=== PATIENT | male | born 1950 | race Caucasian/White ===

== ENCOUNTER 2016-03-17 19:24 | Inpatient (IN) | payer OTHER, MEDICARE ==
[2016-03-17] VITALS (7 sets, daily range): BP systolic 131–159; BP diastolic 59–106; PULSE 91–96; RESP 22–40; TEMP 98.7; O2SAT 92–96
[~2016-03-17] VITALS: Ht 182.9 cm; Wt 143.3 kg
[~2016-03-17 19:24] MED LIST: 1-ME1LIQ PO; ASPI81TA82 PO; ATOR20TA42 PO; CARV3.125 PO; FENO105T3 PO; GLIP5 PO; LEVEMIR SQ; LISI10TA PO; METF500 PO; TICA90 PO
[2016-03-17] MEDS ORDERED: SODIUM CHLOR 0.9% 1000 ML INJ 1,000 ML IV SCH (19:40)
[2016-03-17] MEDS ORDERED: ACETAMINOPHEN 325 MG TAB PO ONE (19:45)
[2016-03-17 20:38] LABS: AUTOMATED NEUTROPHIL # 4.8 TH/MM3 (1.8-7.7); BASOPHIL % 0.7 % (0.0-2.0); EOSINOPHIL # 0.1 TH/MM3 (0-0.4); EOSINOPHIL % 1.8 % (0.0-4.0); HEMATOCRIT 42.6 % (39.0-51.0); HEMO FLAGS DIFF FINAL; LYMPH % 5.9 % (9.0-44.0); LYMPHOCYTE # 0.3 TH/MM3 (1.0-4.8); MEAN CELL VOLUME 88.6 FL (80.0-100.0); MEAN CORPUSCULAR HGB CONC 33.8 % (32.0-36.0); MONO % 9.5 % (0.0-8.0); NEUT % 82.1 % (16.0-70.0); PLATELET COUNT 213 TH/MM3 (150-450); RED BLOOD COUNT 4.81 MIL/MM3 (4.50-5.90); WHITE BLOOD COUNT 5.9 TH/MM3 (4.0-11.0)
--- NOTE | 2016-03-17 20:43 | PD ---
HPI Chief Complaint: General Weakness Time Seen by Provider: 20:39 Travel History International Travel<30 days: No Contact w/Intl Traveler<30days: No Traveled to known affect area: No History of Present Illness HPI 66-year-old male that presents to the ED by ambulance for evaluation of weakness and fever. Patient states that since today he's been feeling weak. Per patient she states that he feels weak all over. Patient denies any other symptom other than possible fever. Per patient he denies any cough or runny nose. He does have a chronic month of his umbilicus that he continues to pick at but denies any other obvious sign of possible infection. He denies any cough but states that he feels like he is getting fever. He states that apparently he was sitting all day which is unusual for him and when he tried to get up from the chair he did not fell but cannot slowly went into the floor as he cannot get himself up. This is what he called ambulance to come get him. He denies any head injury. He denies taking any blood thinners. No chest pain or shortness of breath. Patient denies any pain. No numbness or tingling, weakness. He does state having some pressure behind his eyes that started today. He does have a significant history of prior MIs as well as CVAs. No allergies to medication. States been compliant with his medications. He does have a history of diabetes PFSH Past Medical History Hx Anticoagulant Therapy: Yes Arthritis: Yes Heart Rhythm Problems: No Cancer: No Cardiac Catheterization: Yes Cardiovascular Problems: Yes High Cholesterol: Yes Chemotherapy: No Congestive Heart Failure: No Cerebrovascular Accident: Yes (x2) Diabetes: Yes Patient Takes Glucophage: Yes Diminished Hearing: No Endocrine: Yes Gastrointestinal Disorders: No Genitourinary: No Hepatitis: No Hiatal Hernia: No Hypertension: Yes Immune Disorder: No Musculoskeletal: Yes (ARTHRITIS) Neurologic: No Psychiatric: No Reproductive: No Respiratory: No Myocardial Infarction: Yes Thyroid Disease: No Triglycerides - High: Yes Tetanus Vaccination: Unknown Influenza Vaccination: No Past Surgical History Abdominal Surgery: Yes AICD: No Appendectomy: Yes Body Medical Devices: CARDIAC STENTS Coronary Artery Bypass Graft: Yes Coronary Stent: Yes (x3) Eye Surgery: Yes (LEFT RETINAL REPAIR, JAKE. CATARACT EXTRACT.) Joint Replacement: Yes (right hip) Pacemaker: No Other Surgery: Yes Family History Family Myocardial Infarction: Yes (BROTHER) Social History Alcohol Use: No Tobacco Use: No Substance Use: No Allergies-Medications (Allergen,Severity, Reaction): Coded Allergies: No Known Allergies (Verified , 10/29/14) Reported Meds & Prescriptions Reported Meds & Active Scripts Active Lipitor 20 Mg Tab (Atorvastatin) 20 Mg Tab 40 Mg PO HS 30 Days Reported Brilinta 90 Mg Tab (Ticagrelor) 90 Mg Tab 90 Mg PO BID Glucophage 500 mg (Metformin HCl) 500 Mg Tab 500 Mg PO BIDPC Levemir Insulin (Insulin Detemir) 100 Units/Ml Inj 7 SQ HS Aspir-81 (Aspirin) 81 Mg Tab 81 Mg PO DAILY Glucophage 500 mg (Metformin HCl) 500 Mg Tab 500 Mg PO BIDPC Levemir Insulin (Insulin Detemir) 100 Units/Ml Inj 7 Units SQ HS Fenofibric Acid 105 Mg Tab 135 Mg PO DAILY Glipizide 5 Mg Tab 5 Mg PO BID Lisinopril/Hctz 10 mg/12.5 mg 10 mg/12.5 mg Tab 10 Tab PO BID Amlodipine Besylate 10 mg (Amlodipine Besylate) 10 Mg Tab 10 Mg PO DAILY Coreg 3.125 mg (Carvedilol) 3.125 Mg Tab 3.125 Mg PO BID Review of Systems Except as stated in HPI: all other systems reviewed are Neg Physical Exam Narrative GENERAL: SKIN: Warm and dry. Patient has a nonhealing wound on the superior umbilicus minimal purulence but slightly erythematous and tender. About 2 cm in diameter. HEAD: Atraumatic. Normocephalic. EYES: Pupils equal and round. No scleral icterus. No injection or drainage. ENT: No nasal bleeding or discharge. Mucous membranes pink and moist. Tongue is midline. No uvula deviation. TMs are clear without sign of infection or perforation. No lymphadenopathy noted. No mastoid tenderness. No meningeal signs noted. NECK: Trachea midline. No JVD. CARDIOVASCULAR: Regular rate and rhythm. No murmurs, S3, S4. RESPIRATORY: No accessory muscle use. Clear to auscultation. Breath sounds equal bilaterally. GASTROINTESTINAL: Abdomen soft, non-tender, nondistended. Hepatic and splenic margins not palpable. MUSCULOSKELETAL: Extremities without clubbing, cyanosis, or edema. No obvious deformities. Full range of motion of the upper and lower extremities bilaterally. 2+ pulses bilaterally. NEUROLOGICAL: Awake and alert. No obvious cranial nerve deficits. Motor grossly within normal limits. Five out of 5 muscle strength in the arms and legs. Normal speech. PSYCHIATRIC: Appropriate mood and affect; insight and judgment normal. Data Data Last Documented VS Vital Signs Date Time Temp Pulse Resp B/P Pulse Ox O2 Delivery O2 Flow Rate FiO2 03/17/16 22:42 93 22 131/59 96 Room Air 03/17/16 19:44 2 03/17/16 19:30 98.7 Orders Electrocardiogram (03/17/16 19:38) Complete Blood Count With Diff (03/17/16 19:38) Comprehensive Metabolic Panel (03/17/16 19:38) Prothrombin Time / Inr (Pt) (03/17/16 19:38) Act Partial Throm Time (Ptt) (03/17/16 19:38) Lactic Acid Sepsis Protocol (03/17/16 19:38) Lipase (03/17/16 19:38) Ckmb (Isoenzyme) Profile (03/17/16 19:38) Troponin I (03/17/16 19:38) Urinalysis - C+S If Indicated (03/17/16 19:38) Influenzae A/B Antigen (03/17/16 19:38) Blood Culture (03/17/16 19:38) Chest, Single Ap (03/17/16 19:38) Blood Glucose (03/17/16 19:38) Ecg Monitoring (03/17/16 19:38) Iv Access Insert/Monitor (03/17/16 19:38) Oximetry (03/17/16 19:38) Oxygen Administration (03/17/16 19:38) Ct Brain W/O Iv Contrast(Rout) (03/17/16 19:38) Sodium Chlor 0.9% 1000 Ml Inj (Ns 1000 M (03/17/16 19:40) Acetaminophen (Tylenol) (03/17/16 19:45) Cath For Specimen (03/17/16 21:14) Admit Order (Ed Use Only) (03/17/16 22:41) Labs Laboratory Tests Test 03/17/16 03/17/16 03/17/16 19:49 20:55 21:35 White Blood Count 5.9 TH/MM3 Red Blood Count 4.81 MIL/MM3 Hemoglobin 14.4 GM/DL Hematocrit 42.6 % Mean Corpuscular Volume 88.6 FL Mean Corpuscular Hemoglobin 30.0 PG Mean Corpuscular Hemoglobin 33.8 % Concent Red Cell Distribution Width 14.0 % Platelet Count 213 TH/MM3 Mean Platelet Volume 8.4 FL Neutrophils (%) (Auto) 82.1 % Lymphocytes (%) (Auto) 5.9 % Monocytes (%) (Auto) 9.5 % Eosinophils (%) (Auto) 1.8 % Basophils (%) (Auto) 0.7 % Neutrophils # (Auto) 4.8 TH/MM3 Lymphocytes # (Auto) 0.3 TH/MM3 Monocytes # (Auto) 0.6 TH/MM3 Eosinophils # (Auto) 0.1 TH/MM3 Basophils # (Auto) 0.0 TH/MM3 CBC Comment DIFF FINAL Differential Comment Sodium Level 140 MEQ/L Potassium Level 4.4 MEQ/L Chloride Level 107 MEQ/L Carbon Dioxide Level 23.1 MEQ/L Anion Gap 10 MEQ/L Blood Urea Nitrogen 19 MG/DL Creatinine 1.61 MG/DL Estimat Glomerular Filtration 43 ML/MIN Rate Random Glucose 196 MG/DL Lactic Acid Level 2.6 mmol/L Calcium Level 8.5 MG/DL Total Bilirubin 0.5 MG/DL Aspartate Amino Transf 84 U/L (AST/SGOT) Alanine Aminotransferase 142 U/L (ALT/SGPT) Alkaline Phosphatase 55 U/L Total Creatine Kinase 86 U/L Troponin I LESS THAN 0.02 NG/ML Total Protein 6.8 GM/DL Albumin 3.5 GM/DL Lipase 66 U/L Prothrombin Time 11.3 SEC Prothromb Time International 1.0 RATIO Ratio Activated Partial 23.4 SEC Thromboplast Time Urine Color YELLOW Urine Turbidity CLEAR Urine pH 5.0 Urine Specific [place] 1.020 Urine Protein NEG mg/dL Urine Glucose (UA) 300 mg/dL Urine Ketones NEG mg/dL Urine Occult Blood TRACE Urine Nitrite NEG Urine Bilirubin NEG Urine Urobilinogen LESS THAN 2.0 MG/DL Urine Leukocyte Esterase NEG Urine RBC 7 /hpf Urine WBC 1 /hpf Urine Mucus FEW /lpf Microscopic Urinalysis Comment CATH-CULT NOT IND MDM Medical Decision Making Medical Screen Exam Complete: Yes Emergency Medical Condition: Yes Medical Record Reviewed: Yes Interpretation(s) CBC & BMP Diagram 03/17/16 19:49 influenza negative Last Impressions Chest X-Ray 03/17/168 Signed Impressions: Service Date/Time: Thursday, March 17, 2016 19:47 - CONCLUSION: 1. No acute findings. Loop recorder left base. Minimal basilar atelectasis. Waldemar Hagan MD CT head negative troponin and CKMB negative lactic acid elevated. UA negative Differential Diagnosis Sepsis versus URI versus pneumonia versus UTI versus CVA versus ACS versus DKA versus generalized weakness Narrative Course 66-year-old male that presents to the ED for evaluation of generalized weakness. Patient was properly examined and was found to have signs and symptoms of unclear etiology. Patient initially normal had some fever as well as tachycardia. Patient was given IV fluids as well as started workup for sepsis as well as CVA and ACS. Patient is agreeable plan. Labs and imaging showed what appears to be sepsis versus flu. Patient's vitals from a back per ER report worse heart rate in the 100s as well as a temperature 102 in the field. Patient was given Tylenol. Patient here has a normal heart rate as well as temperature but because of his symptoms this is likely is early sepsis may be masked by the medications were given to him. Case was discussed in my attending who recommends admission. Case was discussed with Dr. Helm who agrees the patient does meet sepsis criteria secondary to initial vitals and patient's presentation. Patient was admitted to the hospital. Patient was started IV fluids and given Tamiflu. Sepsis Criteria SIRS Criteria (2 or more): Temp > 100.9 or < 96.8, Heart rate over 90 Sepsis Criteria (SIRS+source): Infect source susp/known Severe Sepsis (+one): Lactate >2 Diagnosis Primary Impression: Influenza A Additional Impression: Sepsis Qualified Code: A41.9 - Sepsis, due to unspecified organism Admitting Information Admitting Physician Requests: Admit Arik Chen Mar 17, 2016 20:43
--- NOTE | 2016-03-17 20:46 | RADRPT ---
EXAM DATE/TIME: 03/17/2016 20:04 CORRECTION Corrected on: March 20, 2016; CORRECTED: added CONCLUSION: [facility] COMPARISON: No previous studies available for comparison. INDICATIONS : Generalized weakness and fall today. RADIATION DOSE: 56.35 CTDIvol (mGy) MEDICAL HISTORY : Cerebrovascular disease. Cardiovascular disease Hypertension. SURGICAL HISTORY : CABG ENCOUNTER: Initial ACUITY: 1 day PAIN SCALE: 4/10 LOCATION: cranial TECHNIQUE: Multiple contiguous axial images were obtained of the head. Using automated exposure control and adj ustment of the mA and/or kV according to patient size, radiation dose was kept as low as reasonably a chievable to obtain optimal diagnostic quality images. FINDINGS: No acute intracranial mass, hemorrhage or shift. No hydrocephalus. No abnormal extra-axial fluid alda ections. There is a nasal bone fracture which may be subacute. CONCLUSION: 1. No acute intracranial abnormalities. Nasal bone fracture which may be subacute or old. Waldemar Hagan MD on March 17, 2016 at 20:40 Board Certified Radiologist. This report was verified electronically. [employer] Program Chair on March 20, 2016 at 9:14 Board Certified Radiologist. This report was verified electronically.
[2016-03-17 20:50] LABS: ANION GAP 10 MEQ/L (5-15); AST (GOT) 84 U/L (15-37); BICARBONATE 23.1 MEQ/L (21.0-32.0); BLOOD UREA NITROGEN 19 MG/DL (7-18); CHLORIDE 107 MEQ/L (98-107); GLOMERULAR FILTRATION RATE 43 ML/MIN (>89); POTASSIUM 4.4 MEQ/L (3.5-5.1); SODIUM (NA) 140 MEQ/L (136-145)
[2016-03-17 20:55] LABS: ALKALINE PHOSPHATASE 55 U/L (45-117); ALT (GPT) 142 U/L (12-78); TOTAL BILIRUBIN ADULT 0.5 MG/DL (0.2-1.0)
[2016-03-17 21:00] LABS: CREATINE KINASE 86 U/L (39-308)
--- NOTE | 2016-03-17 21:13 | RADRPT ---
EXAM DATE/TIME: 03/17/2016 19:47 [facility] COMPARISON: No previous studies available for comparison. INDICATIONS : Chest pain, headache and light headed. MEDICAL HISTORY : Stroke. Myocardial infarction. SURGICAL HISTORY : Stent x 5. Heart monitor. ENCOUNTER: Initial ACUITY: 2 days PAIN SCORE: 2/10 LOCATION: Bilateral chest FINDINGS: A single view of the chest demonstrates the lungs to be symmetrically aerated without evidence of mas s, infiltrate or effusion. Minimal basilar atelectasis. The cardiomediastinal contours are unremarka ble. Osseous structures are intact. CONCLUSION: 1. No acute findings. Loop recorder left base. Minimal basilar atelectasis. Waldemar Hagan MD on March 17, 2016 at 21:11 Board Certified Radiologist. This report was verified electronically.
[2016-03-17 21:59] LABS: APTT (PATIENT) 23.4 SEC (24.3-30.1); PROTHROMBIN TIME - PATIENT 11.3 SEC (9.8-11.6)
[2016-03-17 22:08] LABS: LACTIC ACID GHOST NOT REPORTABLE
[2016-03-17 22:19] LABS: BLOOD, URINE TRACE (NEG); GLUCOSE,URINE 300 mg/dL (NEG); KETONE, URINE NEG (NEG); MUCUS URINE FEW /lpf (OCC); NITRITE,URINE NEG (NEG); URINE COLOR YELLOW (YELLW/STRAW)
[2016-03-17 22:29] LABS: COMMENT (UR) CATH-CULT NOT IND; CULTURE IF INDICATED CATH CULTURE NOT IND
--- NOTE | 2016-03-17 22:58 | HHI.HP ---
[facility] Joel Santana MD Admission Diagnosis influenza, sepsis, weakness Diagnoses: (1) Sepsis Diagnosis: Principal (2) Influenza A Diagnosis: Principal (3) Renal insufficiency Diagnosis: Principal (4) DM (diabetes mellitus) Diagnosis: Principal (5) HTN (hypertension) Diagnosis: Principal Travel History International Travel<30 Days: No Contact w/Intl Traveler <30 Da: No Traveled to Known Affected Are: No History of Present Illness This is a 66-year-old male with a PMH of HTN, CAD, DM and h/o CVA who was brought to the ER by EMS w/ complaints of generalized weakness and fever x3 days. Denies cough, SOB or sick contacts. Temp 102 per EMS. On arrival, BP 151/70, HR 97, O2 sat 92% on RA, Afebrile. WBC 5.9, however elevated neutrophil count. Chemistry unremarkable except for creatinine 1.61, previously 1.20 on 08/19/15, 1.43 on 08/18/15. Lactic Acid 2.6. U/a w/ mild hematuria. CXR w no acute findings. Influenza A positive. S/p Tamiflu, IVF and Blood Cultures in ER. Review of Systems Other ROS: 14 point review of systems otherwise negative. Past Family Social History Past Medical History PMH: HTN, CAD, DM and h/o CVA Past Surgical History PAST SURGICAL HISTORY: Appendectomy, Cardiac Stent, CABG, Bilateral Cataract Surgery, Right Hip Replacement Allergies: Coded Allergies: No Known Allergies (Verified , 10/29/14) Family History PAST FAMILY HISTORY: Reviewed, positive for DM and CAD. Social History PAST SOCIAL HISTORY: Negative for alcohol, tobacco or drugs. Physical Exam Vital Signs Vital Signs Date Time Temp Pulse Resp B/P Pulse Ox O2 Delivery O2 Flow Rate FiO2 03/17/16 22:42 93 22 131/59 96 Room Air 03/17/16 21:00 144/69 03/17/16 20:30 159/106 03/17/16 19:45 151/70 03/17/16 19:44 95 Room Air 2 03/17/16 19:44 91 Room Air 03/17/16 19:44 95 Nasal Cannula 2 03/17/16 19:35 91 40 92 Room Air 03/17/16 19:35 95 40 92 Nasal Cannula 2 03/17/16 19:30 98.7 96 40 92 Physical Exam PE: GENERAL: Middle-aged white male in no acute distress. HEENT: PERRLA, EOMI. No scleral icterus or conjunctival pallor. No lid lag or facial droop. CARDIOVASCULAR: Regular rate and rhythm. No obvious murmurs to auscultation. No chest tenderness to palpation. RESPIRATORY: No obvious rhonchi or wheezing. Clear to auscultation. Breath sounds equal bilaterally. GASTROINTESTINAL: Abdomen soft, non-tender, nondistended. BS normal. Nonhealing periumbilical wound, mild erythema. MUSCULOSKELETAL: Extremities without clubbing, cyanosis, or edema. No obvious deformities. NEUROLOGICAL: Awake, alert and oriented x4. No focal neurologic deficits. Moving both upper and lower extremities spontaneously. Laboratory Laboratory Tests Test 03/17/16 03/17/16 03/17/16 19:49 20:55 21:35 White Blood Count 5.9 Red Blood Count 4.81 Hemoglobin 14.4 Hematocrit 42.6 Mean Corpuscular Volume 88.6 Mean Corpuscular Hemoglobin 30.0 Mean Corpuscular Hemoglobin 33.8 Concent Red Cell Distribution Width 14.0 Platelet Count 213 Mean Platelet Volume 8.4 Neutrophils (%) (Auto) 82.1 Lymphocytes (%) (Auto) 5.9 Monocytes (%) (Auto) 9.5 Eosinophils (%) (Auto) 1.8 Basophils (%) (Auto) 0.7 Neutrophils # (Auto) 4.8 Lymphocytes # (Auto) 0.3 Monocytes # (Auto) 0.6 Eosinophils # (Auto) 0.1 Basophils # (Auto) 0.0 CBC Comment DIFF FINAL Differential Comment Sodium Level 140 Potassium Level 4.4 Chloride Level 107 Carbon Dioxide Level 23.1 Anion Gap 10 Blood Urea Nitrogen 19 Creatinine 1.61 Estimat Glomerular Filtration 43 Rate Random Glucose 196 Lactic Acid Level 2.6 Calcium Level 8.5 Total Bilirubin 0.5 Aspartate Amino Transf 84 (AST/SGOT) Alanine Aminotransferase 142 (ALT/SGPT) Alkaline Phosphatase 55 Total Creatine Kinase 86 Troponin I LESS THAN 0.02 Total Protein 6.8 Albumin 3.5 Lipase 66 Prothrombin Time 11.3 Prothromb Time International 1.0 Ratio Activated Partial 23.4 Thromboplast Time Urine Color YELLOW Urine Turbidity CLEAR Urine pH 5.0 Urine Specific [place] 1.020 Urine Protein NEG Urine Glucose (UA) 300 Urine Ketones NEG Urine Occult Blood TRACE Urine Nitrite NEG Urine Bilirubin NEG Urine Urobilinogen LESS THAN 2.0 Urine Leukocyte Esterase NEG Urine RBC 7 Urine WBC 1 Urine Mucus FEW Microscopic Urinalysis Comment CATH-CULT NOT IND Date/Time Procedure Status Source Growth 03/17/16 20:25 Influenza Types A,B Antigen (ELI) - Final Complete Nasal Washing Positive For Flu A Antigen 03/17/16 20:00 Aerobic Blood Culture Received Blood Peripheral Pending 03/17/16 20:00 Anaerobic Blood Culture Received Blood Peripheral Pending Result Diagram: 03/17/16194803/17/161948 Assessment and Plan Problem List: (1) Sepsis ICD Code: A41.9 Status: Acute (2) Influenza A ICD Code: J10.1 Status: Acute (3) Renal insufficiency ICD Code: N28.9 Status: Acute (4) HTN (hypertension) ICD Code: I10 Status: Acute (5) DM (diabetes mellitus) ICD Code: E11.9 Status: Acute Assessment and Plan A/P: 1. Sepsis: Temp 102, HR 95, Lactic Acid 2.6, Source-Influenza. S/p Blood Cultures, Tamiflu. Will start Vanc/Cefepime, continue w/ IVF, follow up cultures, repeat Lactic Acid. 2. Influenza A: S/p Tamiflu, continue w/ Tamiflu 75mg bid. 3. Renal Insufficiency: Acute on Chronic. Creatinine 1.61, previously 1.43 on 08/18/15. U/a negative for UTI, mild hematuria. IVF, repeat labs in am. Recommend follow up U/a to eval for persistent hematuria. 4. HTN: BP 130's currently. Hold Lisinopril/HCTZ in light of renal insufficiency and sepsis. 5. DM: Hold Metformin. Sliding scale w/ Accu-Cheks. 6. DVT Prophylaxis: SCD/Teds. 7. Social work for d/c planning as needed. 8. Case discussed w/ ER physician at length. Physician Certification 2 Midnight Certification Type: Admission for Inpatient Services Order for Inpatient Services The services are ordered in accordance with Medicare regulations or non- Medicare payer requirements, as applicable. In the case of services not specified as inpatient-only, they are appropriately provided as inpatient services in accordance with the 2-midnight benchmark. Estimated LOS (days): 2 days is the estimated time the patient will need to remain in the hospital, assuming treatment plan goals are met and no additional complications. Post-Hospital Plan: Not yet determined Problem Qualifiers (1) Sepsis: Qualified Code: A41.9 - Sepsis, due to unspecified organism Deborah Helm MD Mar 17, 2016 22:58
[2016-03-17] MEDS ORDERED: ONDANSETRON HCL 4 MG/2 ML VIAL IVP PRN (23:00)
[2016-03-17] MEDS ORDERED: BISACODYL 10 MG SUPP PR PRN (23:00)
[2016-03-17] MEDS ORDERED: Vancomycin Consult Pharmacy 1 EA OTHER SCH (23:00)
[2016-03-17] MEDS ORDERED: DEXTROSE 50% IN WATER 50 ML VIAL(D50) IV PUSH PRN (23:00)
[2016-03-17] MEDS ORDERED: MORPHINE SULFATE 4 MG/ML INJ IV PRN (23:00)
[2016-03-17] MEDS ORDERED: ACETAMINOPHEN/HYDROcodone 325 MG/5 MG TAB PO PRN (23:00)
[2016-03-17] MEDS ORDERED: GLUCAGON 1 MG/ML VIAL OTHER PRN (23:00)
[2016-03-17] MEDS ORDERED: SODIUM CHLORIDE 0.9% FLUSH 5 ML FLUSH FLUSH PRN (23:00)
[2016-03-17] MEDS ORDERED: OSELTAMIVIR PHOSPHATE 75 MG CAP PO ONE (23:00)
[2016-03-17] MEDS ORDERED: ACETAMINOPHEN 325 MG TAB PO PRN (23:00)
[2016-03-18] VITALS (24 sets, daily range): BP systolic 132–164; BP diastolic 70–88; PULSE 67–92; RESP 18–20; TEMP 98.4–99.1; O2SAT 94–100
[2016-03-18] MEDS ORDERED: CEFEPIME INJ 1,000 MG in SODIUM CHLORIDE 0.9% INJ 100 ML IV SCH ×2
[2016-03-18] MEDS: SODIUM CHLOR 0.9% 1000 ML INJ 1,000 ML IV SCH ×3 (01:31→19:00)
[2016-03-18] MEDS ORDERED: METF500T PO (02:08)
[2016-03-18] MEDS ORDERED: LISI10TA PO (02:08)
[2016-03-18] MEDS ORDERED: CARV3.125 PO (02:08)
[2016-03-18] MEDS ORDERED: GLIP5TAB8 PO (02:08)
[2016-03-18] MEDS ORDERED: ATOR20TA15 PO (02:08)
[2016-03-18] MEDS ORDERED: FOLI5CAP PO (02:08)
[2016-03-18] MEDS ORDERED: LEVEMIR SQ (02:08)
[2016-03-18] MEDS ORDERED: ASPI-110 PO (02:08)
[2016-03-18] MEDS ORDERED: BRIL90TA PO (02:08)
[2016-03-18] MEDS: VANCOMYCIN INJ 2,000 MG in SODIUM CHLORID 0.9% 500 ML INJ 500 ML IV SCH ×2 (02:54→20:46)
[2016-03-18] MEDS: INSULIN ASPART SUPPLEMENTAL SCALE SQ SCH ×4 (05:45→20:47)
[2016-03-18 08:42] LABS: AUTOMATED NEUTROPHIL # 3.5 TH/MM3 (1.8-7.7); BASOPHIL % 0.9 % (0.0-2.0); EOSINOPHIL % 0.9 % (0.0-4.0); HEMATOCRIT 43.9 % (39.0-51.0); HEMO FLAGS DIFF FINAL; LYMPHOCYTE # 0.7 TH/MM3 (1.0-4.8); MEAN CELL VOLUME 89.2 FL (80.0-100.0); MEAN CORPUSCULAR HEMOGLOBIN 29.9 PG (27.0-34.0); MEAN CORPUSCULAR HGB CONC 33.5 % (32.0-36.0); MONO % 12.2 % (0.0-8.0); PLATELET COUNT 215 TH/MM3 (150-450); RED BLOOD COUNT 4.92 MIL/MM3 (4.50-5.90); RED CELL DISTRIBUTION WIDTH 14.5 % (11.6-17.2); WHITE BLOOD COUNT 4.9 TH/MM3 (4.0-11.0)
[2016-03-18] MEDS: OSELTAMIVIR PHOSPHATE 75 MG CAP PO SCH ×2 (08:46→20:45)
[2016-03-18] MEDS: CARVEDILOL 3.125 MG TAB PO SCH ×2 (08:46→20:45)
[2016-03-18] MEDS: SODIUM CHLORIDE 0.9% FLUSH 5 ML FLUSH FLUSH SCH ×2 (08:46→20:44)
[2016-03-18 09:05] LABS: ALKALINE PHOSPHATASE 54 U/L (45-117); ALT (GPT) 127 U/L (12-78); ANION GAP 9 MEQ/L (5-15); AST (GOT) 60 U/L (15-37); BICARBONATE 21.9 MEQ/L (21.0-32.0); BLOOD UREA NITROGEN 16 MG/DL (7-18); CHLORIDE 109 MEQ/L (98-107); GLOMERULAR FILTRATION RATE 48 ML/MIN (>89); SODIUM (NA) 140 MEQ/L (136-145); TOTAL BILIRUBIN ADULT 0.6 MG/DL (0.2-1.0)
--- NOTE | 2016-03-18 11:02 | HHI.PR ---
Subjective Remarks Follow-up sepsis/flu A antigen positive 03/18/16-patient seen and examined, currently afebrile and taking by mouth without any complication nausea and vomiting. Patient denies any generalized weakness. Objective Vitals Vital Signs Date Time Temp Pulse Resp B/P Pulse Ox O2 Delivery O2 Flow Rate FiO2 03/18/16 10:06 85 03/18/16 09:35 81 03/18/16 09:35 99.1 81 20 132/70 97 03/18/16 07:48 83 03/18/16 06:00 92 03/18/16 05:00 90 03/18/16 04:00 90 03/18/16 03:50 98.4 88 20 164/81 96 03/18/16 03:30 92 03/18/16 01:32 98.4 91 20 142/79 100 Room Air 03/17/16 22:42 93 22 131/59 96 Room Air 03/17/16 21:00 144/69 03/17/16 20:30 159/106 03/17/16 19:45 151/70 03/17/16 19:44 95 Room Air 2 03/17/16 19:44 91 Room Air 03/17/16 19:44 95 Nasal Cannula 2 03/17/16 19:35 91 40 92 Room Air 03/17/16 19:35 95 40 92 Nasal Cannula 2 03/17/16 19:30 98.7 96 40 92 I/O 03/17/16 03/17/16 03/17/16 03/18/16 03/18/16 03/18/16 07:00 15:00 23:00 07:00 15:00 23:00 Intake Total 700 ml Balance 700 ml Intake Oral 200 ml IV Total 500 ml # Voids 3 # Bowel Movements 0 Result Diagram: 03/18/1623 03/18/1623 Imaging Last Impressions Chest X-Ray 03/17/161937 Signed Impressions: Service Date/Time: Thursday, March 17, 2016 19:47 - CONCLUSION: 1. No acute findings. Loop recorder left base. Minimal basilar atelectasis. Waldemar Hagan MD Objective Remarks GENERAL: NAD SKIN: Warm and dry. HEAD: Normocephalic. EYES: No scleral icterus. No injection or drainage. NECK: Supple, trachea midline. No JVD or lymphadenopathy. CARDIOVASCULAR: Regular rate and rhythm without murmurs, gallops, or rubs. RESPIRATORY: Breath sounds equal bilaterally. No accessory muscle use. GASTROINTESTINAL: Abdomen soft, non-tender, nondistended. MUSCULOSKELETAL: No cyanosis, or edema. BACK: Nontender without obvious deformity. No CVA tenderness. Procedures None A/P Problem List: (1) Sepsis ICD Code: A41.9 Status: Acute (2) Influenza A ICD Code: J10.1 Status: Acute (3) Renal insufficiency ICD Code: N28.9 Status: Acute (4) HTN (hypertension) ICD Code: I10 Status: Acute (5) DM (diabetes mellitus) ICD Code: E11.9 Status: Acute Assessment and Plan 66-year-old male with 1. Sepsis: Source-Influenza. Resolve. S/p Blood Cultures, currently on Tamiflu and Vanc/Cefepime which will de-escalate antibiotics, continue w/ IVF, follow up cultures, 2. Influenza A: S/p Tamiflu, continue w/ Tamiflu 75mg bid 5 days total. 3. Renal Insufficiency: Acute on Chronic. Renal indices improving with gentle IV fluid hydration Recommend follow up U/a to eval for persistent hematuria. 4. HTN: Continue Hold Lisinopril/HCTZ in light of renal insufficiency and sepsis. 5. DM: Hold Metformin. Sliding scale w/ Accu-Cheks. 6. DVT Prophylaxis: SCD/Teds. Problem Qualifiers (1) Sepsis: Qualified Code: A41.9 - Sepsis, due to unspecified organism Flavio Paul MD Mar 18, 2016 11:02
[2016-03-19] VITALS (12 sets, daily range): BP systolic 146–149; BP diastolic 82–83; PULSE 59–72; RESP 18; TEMP 98.2; O2SAT 93–94
[2016-03-19] MEDS: SODIUM CHLOR 0.9% 1000 ML INJ 1,000 ML IV SCH (03:43)
[2016-03-19] MEDS: INSULIN ASPART SUPPLEMENTAL SCALE SQ SCH (05:46)
[2016-03-19 06:57] LABS: AUTOMATED NEUTROPHIL # 1.5 TH/MM3 (1.8-7.7); BASOPHIL % 0.8 % (0.0-2.0); EOSINOPHIL # 0.2 TH/MM3 (0-0.4); EOSINOPHIL % 5.3 % (0.0-4.0); HEMATOCRIT 41.8 % (39.0-51.0); HEMO FLAGS DIFF FINAL; LYMPH % 27.6 % (9.0-44.0); LYMPHOCYTE # 0.9 TH/MM3 (1.0-4.8); MEAN CELL VOLUME 88.7 FL (80.0-100.0); MEAN CORPUSCULAR HEMOGLOBIN 29.6 PG (27.0-34.0); MEAN CORPUSCULAR HGB CONC 33.4 % (32.0-36.0); MONO % 20.1 % (0.0-8.0); NEUT % 46.2 % (16.0-70.0); PLATELET COUNT 179 TH/MM3 (150-450); RED BLOOD COUNT 4.72 MIL/MM3 (4.50-5.90); RED CELL DISTRIBUTION WIDTH 14.4 % (11.6-17.2); WHITE BLOOD COUNT 3.2 TH/MM3 (4.0-11.0)
[2016-03-19 07:18] LABS: ALT (GPT) 105 U/L (12-78); ANION GAP 9 MEQ/L (5-15); AST (GOT) 47 U/L (15-37); BICARBONATE 25.9 MEQ/L (21.0-32.0); BLOOD UREA NITROGEN 15 MG/DL (7-18); CHLORIDE 106 MEQ/L (98-107); GLOMERULAR FILTRATION RATE 59 ML/MIN (>89); POTASSIUM 3.8 MEQ/L (3.5-5.1); SODIUM (NA) 141 MEQ/L (136-145)
[2016-03-19 07:19] LABS: ALKALINE PHOSPHATASE 49 U/L (45-117); TOTAL BILIRUBIN ADULT 0.4 MG/DL (0.2-1.0)
--- NOTE | 2016-03-19 08:33 | HHI.PR ---
Subjective Remarks Follow-up sepsis/flu A antigen positive 03/18/16-patient seen and examined, currently afebrile and taking by mouth without any complication nausea and vomiting. Patient denies any generalized weakness. 03/19/16-patient seen and examined. Stable and no complaint. Currently afebrile. State he is ready for discharge home Objective Vitals Vital Signs Date Time Temp Pulse Resp B/P Pulse Ox O2 Delivery O2 Flow Rate FiO2 03/19/16 06:00 65 03/19/16 05:00 59 03/19/16 04:00 65 03/19/16 03:33 64 18 149/82 93 03/19/16 03:00 66 03/19/16 02:00 67 03/19/16 01:00 64 03/19/16 00:00 68 03/18/16 23:00 68 18 146/88 94 03/18/16 23:00 67 03/18/16 22:00 67 03/18/16 21:00 70 03/18/16 20:00 75 03/18/16 19:30 98.5 75 18 137/82 94 03/18/16 19:00 75 03/18/16 18:07 75 03/18/16 17:42 99.0 78 18 140/70 96 03/18/16 17:03 78 03/18/16 16:44 80 03/18/16 14:54 86 03/18/16 13:24 82 03/18/16 12:34 80 03/18/16 11:44 98.9 86 18 136/78 98 03/18/16 11:10 84 03/18/16 10:06 85 03/18/16 09:35 81 03/18/16 09:35 99.1 81 20 132/70 97 I/O 03/18/16 03/18/16 03/18/16 03/19/16 03/19/16 03/19/16 07:00 15:00 23:00 07:00 15:00 23:00 Intake Total 700 ml 1960 ml 1950 ml Output Total 1400 ml 950 ml Balance 700 ml 560 ml 1000 ml Intake Oral 200 ml 960 ml 450 ml IV Total 500 ml 1000 ml 1500 ml Output Urine Total 1400 ml 950 ml # Voids 3 3 1 # Bowel Movements 0 0 Result Diagram: 03/19/16 0554 03/19/16 0554 Imaging Last Impressions Chest X-Ray 03/17/16 1938 Signed Impressions: Service Date/Time: Thursday, March 17, 2016 19:47 - CONCLUSION: 1. No acute findings. Loop recorder left base. Minimal basilar atelectasis. Waldemar Hagan MD Objective Remarks GENERAL: NAD SKIN: Warm and dry. HEAD: Normocephalic. EYES: No scleral icterus. No injection or drainage. NECK: Supple, trachea midline. No JVD or lymphadenopathy. CARDIOVASCULAR: Regular rate and rhythm without murmurs, gallops, or rubs. RESPIRATORY: Breath sounds equal bilaterally. No accessory muscle use. GASTROINTESTINAL: Abdomen soft, non-tender, nondistended. MUSCULOSKELETAL: No cyanosis, or edema. BACK: Nontender without obvious deformity. No CVA tenderness. Procedures None A/P Problem List: (1) Sepsis ICD Code: A41.9 Status: Acute (2) Influenza A ICD Code: J10.1 Status: Acute (3) Renal insufficiency ICD Code: N28.9 Status: Acute (4) HTN (hypertension) ICD Code: I10 Status: Acute (5) DM (diabetes mellitus) ICD Code: E11.9 Status: Acute Assessment and Plan 66-year-old male with 1. Sepsis: Source-Influenza. Resolved. S/p Blood Cultures, currently on Tamiflu 75 mg by mouth twice a day and discontinue Vanc/Cefepime , continue w/ IVF, follow up cultures, 2. Influenza A: S/p Tamiflu, continue w/ Tamiflu 75mg bid 5 days total. 3. Renal Insufficiency: Acute on Chronic. Renal indices improving with gentle IV fluid hydration Recommend follow up U/a to eval for persistent hematuria. 4. HTN: Continue Hold Lisinopril/HCTZ in light of renal insufficiency and sepsis. 5. DM: Hold Metformin. Sliding scale w/ Accu-Cheks. 6. DVT Prophylaxis: SCD/Teds. Problem Qualifiers (1) Sepsis: Qualified Code: A41.9 - Sepsis, due to unspecified organism Flavio Paul MD Mar 19, 2016 08:33
[2016-03-19] MEDS ORDERED: OSEL75 PO (08:35)
--- NOTE | 2016-03-19 08:39 | HHI.DS ---
Discharge Summary Admission Date Mar 17, 2016 at 22:52 Discharge Date: Mar 19, 2016 Admitting Diagnosis influenza, sepsis, weakness (1) Sepsis ICD Code: A41.9 (2) Influenza A ICD Code: J10.1 (3) Renal insufficiency ICD Code: N28.9 (4) HTN (hypertension) ICD Code: I10 (5) DM (diabetes mellitus) ICD Code: E11.9 Procedures None Brief History - From Admission This is a 66-year-old male with a PMH of HTN, CAD, DM and h/o CVA who was brought to the ER by EMS w/ complaints of generalized weakness and fever x3 days. Denies cough, SOB or sick contacts. Temp 102 per EMS. On arrival, BP 151/70, HR 97, O2 sat 92% on RA, Afebrile. WBC 5.9, however elevated neutrophil count. Chemistry unremarkable except for creatinine 1.61, previously 1.20 on 08/19/15, 1.43 on 08/18/15. Lactic Acid 2.6. U/a w/ mild hematuria. CXR w no acute findings. Influenza A positive. S/p Tamiflu, IVF and Blood Cultures in ER. CBC/BMP: 03/19/16 0554 03/19/16 0554 Significant Findings Laboratory Tests Test 03/17/16 03/17/16 03/17/16 03/17/16 19:49 20:55 21:35 22:40 Neutrophils (%) (Auto) 82.1 % (16.0-70.0) Lymphocytes (%) (Auto) 5.9 % (9.0-44.0) Monocytes (%) (Auto) 9.5 % (0.0-8.0) Lymphocytes # (Auto) 0.3 TH/MM3 (1.0-4.8) Blood Urea Nitrogen 19 MG/DL (7-18) Creatinine 1.61 MG/DL (0.60-1.30) Estimat Glomerular Filtration 43 ML/MIN (>89) Rate Random Glucose 196 MG/DL (74-106) Lactic Acid Level 2.6 mmol/L 2.3 mmol/L (0.4-2.0) (0.4-2.0) Aspartate Amino Transf 84 U/L (15-37) (AST/SGOT) Alanine Aminotransferase 142 U/L (12-78) (ALT/SGPT) Troponin I LESS THAN 0.02 NG/ML (0.02-0.05) Lipase 66 U/L (73-393) Activated Partial 23.4 SEC Thromboplast Time (24.3-30.1) Urine Glucose (UA) 300 mg/dL (NEG) Urine Occult Blood TRACE (NEG) Urine RBC 7 /hpf (0-3) Urine Mucus FEW /lpf (OCC) Test 03/18/16 03/19/16 08:23 05:54 Neutrophils (%) (Auto) 71.0 % (16.0-70.0) Monocytes (%) (Auto) 12.2 % 20.1 % (0.0-8.0) (0.0-8.0) Lymphocytes # (Auto) 0.7 TH/MM3 0.9 TH/MM3 (1.0-4.8) (1.0-4.8) Chloride Level 109 MEQ/L (98-107) Creatinine 1.46 MG/DL (0.60-1.30) Estimat Glomerular Filtration 48 ML/MIN (>89) 59 ML/MIN (>89) Rate Random Glucose 189 MG/DL 218 MG/DL (74-106) (74-106) Calcium Level 8.4 MG/DL (8.5-10.1) Aspartate Amino Transf 60 U/L (15-37) 47 U/L (15-37) (AST/SGOT) Alanine Aminotransferase 127 U/L (12-78) 105 U/L (12-78) (ALT/SGPT) White Blood Count 3.2 TH/MM3 (4.0-11.0) Eosinophils (%) (Auto) 5.3 % (0.0-4.0) Neutrophils # (Auto) 1.5 TH/MM3 (1.8-7.7) Imaging Last Impressions Chest X-Ray 03/17/168 Signed Impressions: Service Date/Time: Thursday, March 17, 2016 19:47 - CONCLUSION: 1. No acute findings. Loop recorder left base. Minimal basilar atelectasis. Waldemar Hagan MD PE at Discharge GENERAL: NAD SKIN: Warm and dry. HEAD: Normocephalic. EYES: No scleral icterus. No injection or drainage. NECK: Supple, trachea midline. No JVD or lymphadenopathy. CARDIOVASCULAR: Regular rate and rhythm without murmurs, gallops, or rubs. RESPIRATORY: Breath sounds equal bilaterally. No accessory muscle use. GASTROINTESTINAL: Abdomen soft, non-tender, nondistended. MUSCULOSKELETAL: No cyanosis, or edema. BACK: Nontender without obvious deformity. No CVA tenderness. Hospital Course Patient was admitted secondary to sepsis due to influenza a for which he was started on Tamiflu 75 mg by mouth twice a day along with IV antibiotics with monitoring of blood culture. However antibiotics were discontinued as culture remained negative and patient afebrile. His oxygen saturation was maintained above 92% and DuoNeb was provided when necessary. He was placed on a sliding scale insulin with monitoring of fingerstick blood glucose, oral hypoglycemic agents were held. Patient was continued on his medication for other chronic medical conditions. DVT prophylaxis was provided. Vitals were monitored and patient's condition improved prior to discharge Pt Condition on Discharge: Stable Discharge Disposition: Discharge Home Discharge Time: <= 30 minutes Discharge Instructions DIET: Follow Instructions for: Diabetic Diet Activities you can perform: Regular-No Restrictions Follow up Referrals: PCP Follow-up - 1 Week Urology New Medications: Oseltamivir (Tamiflu) 75 Mg Cap 75 MG PO BID Infection #7 CAP Continued Medications: Aspirin DR (Aspirin 81) 81 Mg Tabdr 81 MG PO DAILY Ref 0 TAB Atorvastatin (Atorvastatin) 20 Mg Tab 20 MG PO HS Cholesterol Management #30 Ref 0 TAB Carvedilol (Coreg) 3.125 Mg Tab 3.125 MG PO BID #60 Ref 0 TAB Folic Acid (Folic Acid) 5 Mg Cap 5 MG PO DAILY Nutritional Supplement Ref 0 CAP Glipizide (Glipizide) 5 Mg Tab 5 MG PO BIDAC Take 30 minutes before a meal Blood Sugar Management #60 Ref 0 TAB Insulin Detemir Inj (Levemir Inj) 1,000 unit/ 10 ML Vial 7 UNITS SQ HS Do not mix with any other Insulin. Blood Sugar Management Ref 0 VIAL Lisinopril-Hctz (Lisinopril-Hctz) 10-12.5 Mg Tab 1 TAB PO DAILY Blood Pressure Management #30 Ref 0 TAB Metformin (Metformin) 500 Mg Tab 500 MG PO TIDPC With meals Blood Sugar Management #90 Ref 0 TAB Ticagrelor (Brilinta) 90 Mg Tab 90 MG PO BID Blood Clot Prevention #60 Ref 0 TAB Flavio Paul MD Mar 19, 2016 08:39
[2016-03-19] MEDS: CARVEDILOL 3.125 MG TAB PO SCH (08:40)
[2016-03-19] MEDS: OSELTAMIVIR PHOSPHATE 75 MG CAP PO SCH (08:40)
[2016-03-19] MEDS: SODIUM CHLORIDE 0.9% FLUSH 5 ML FLUSH FLUSH SCH (09:00)
[2016-03-19] MEDS ORDERED: PHARMACY ORDERED LAB XX ONE (13:45)
--- NOTE | 2016-03-20 22:43 | EKG ---
Date Performed: 03/17/2016 Time Performed: 19:46:36 PTAGE: 66 years EKG: Sinus rhythm POSSIBLE LEFT ATRIAL ENLARGEMENT MODERATE INTRAVENTRICULAR CONDUCTION DELAY BORDERLINE ECG PREVIOUS TRACING : 08/18/2015 10.49 Compared to the previous tracing, rate has increased DOCTOR: Delfino Fowler Interpretating Date/Time 03/20/2016 22:41:36
--- NOTE | 2016-04-09 12:57 | PQ ---
Physician Query Response Document PATIENT: SERGIO SANTIAGO : 1950 ADMIT DATE: 03/17/2016 10:52 PM DISCH DATE: 03/19/2016 11:06 AM RESPONDING PROVIDER #: Pramod QUERY TEXT: Sepsis Query Based on your medical judgement, can you further clarify the folowiin. Sepsis (SIRS due to an infection) 2. Sepsis with Organ Dysfunction 3. A localized Infection only 4. Another condition - please specify 5. Unable to determine - please explain. Depending on your selection above, please indicate one of the below if applicable: - Sepsis was present on Admission - Sepsis developed after admission The patient's Clinical Indicators include: Sepsis Clinical indicarors are as follows: *Fever greater than 100.4 *Heart Rate 90 beats per min * Resp rate greater than 20 *WBC greater than 12,000 Patients WBC was within normal limits, repiratory rate 18, No fever Query created by: Sabi Cornelius on 04/03/2016 3:17 PM RESPONSE TEXT: Sepsis based on Influenza A- (1) Electronically signed by: Flavio Paul MD 04/09/2016 12:54 PM
== END 2016-03-19 11:06 | disposition home or self-care (01) | DRG 872 ==
LOC: NEPC 19:24 → NEDA 22:52 → HCIS 03-18 03:23
PROVIDERS: ADMIT Hospitalist; ATTEND Hospitalist
DX: A41.9 Sepsis, unspecified organism (principal); N17.9 Acute kidney failure, unspecified; J09.X2 Influenza due to identified novel influenza A virus with other respiratory manifestations; E11.22 Type 2 diabetes mellitus with diabetic chronic kidney disease; R31.9 Hematuria, unspecified; N18.9 Chronic kidney disease, unspecified; I12.9 Hypertensive chronic kidney disease with stage 1 through stage 4 chronic kidney disease, or unspecified chronic kidney disease; Z86.73 Personal history of transient ischemic attack (TIA), and cerebral infarction without residual deficits; Z95.1 Presence of aortocoronary bypass graft; I25.10 Atherosclerotic heart disease of native coronary artery without angina pectoris; I25.2 Old myocardial infarction; Z95.5 Presence of coronary angioplasty implant and graft; Z96.641 Presence of right artificial hip joint; E78.00 Pure hypercholesterolemia, unspecified; M19.90 Unspecified osteoarthritis, unspecified site
CPT/HCPCS: 70450; 71010; 80053; 81001; 82550; 82948; 83605; 83690; 84484; 85025; 85610; 85730; 87040; 87804; 93005; J0692; J1815; J3370; J7030; J7040

== ENCOUNTER 2017-05-14 09:39 | Observation (INO) | payer MEDICARE, OTHER ==
[~2017-05-14] VITALS: Ht 182.9 cm; Wt 134.0 kg
[~2017-05-14 09:39] MED LIST changes: -1-ME1LIQ PO; +ASPI1TAB57 PO; -ASPI81TA82 PO; +ATOR20TA15 PO; -ATOR20TA42 PO; +BRIL90TA PO; -FENO105T3 PO; +FOLI5CAP PO; -GLIP5 PO; +GLIP5TAB8 PO; -METF500 PO; +METF500T PO; +OSEL75 PO; -TICA90 PO
[2017-05-14 09:53] VITALS: BP 172/78; PULSE 60; RESP 17; TEMP 98; O2SAT 97
[2017-05-14] MEDS ORDERED: ISOS30TA3 PO (10:05)
[2017-05-14] MEDS ORDERED: LEVEMIR SQ (10:05)
[2017-05-14] MEDS ORDERED: METF500T PO (10:05)
[2017-05-14] MEDS ORDERED: AMLO10TA2 PO (10:05)
[2017-05-14] MEDS ORDERED: LISI10TA3 PO (10:05)
[2017-05-14] MEDS ORDERED: PLAV75TA29 PO (10:05)
[2017-05-14] MEDS ORDERED: SITA1TAB2 PO (10:05)
[2017-05-14 10:10] VITALS: BP 142/74; PULSE 64; RESP 20; O2SAT 96
[2017-05-14] MEDS ORDERED: SODIUM CHLORIDE 0.9% FLUSH 10 ML FLUSH IVF PRN (10:15)
--- NOTE | 2017-05-14 10:22 | PD ---
HPI Chief Complaint: Chest Pain Time Seen by Provider: 10:19 Travel History International Travel<30 days: No Contact w/Intl Traveler<30days: No Traveled to known affect area: No History of Present Illness HPI 67-year-old male patient with history of CAD status post multiple stents, hypertension, diabetes, previous CVA, presents to the ER today because he has had a few weeks history of substernal chest discomfort which she reports feels like a pressure rather than pain, he could not rate the discomfort, and is accompanied by shortness of breath. He denies any nausea, vomiting, or any other symptoms. He reports the discomfort also feels a bit sharp and has been getting worse. Modifying Factors: None Associated Signs & Symptoms: Chest pains Risk Factors: Cardiac history PFSH Past Medical History Hx Anticoagulant Therapy: Yes Arthritis: Yes Heart Rhythm Problems: No Cancer: No Cardiac Catheterization: Yes Cardiovascular Problems: Yes High Cholesterol: Yes Chemotherapy: No Congestive Heart Failure: No Cerebrovascular Accident: Yes (x2 NO RESIDUALS) Diabetes: Yes Patient Takes Glucophage: Yes Diminished Hearing: No Endocrine: Yes Gastrointestinal Disorders: No Genitourinary: No Hepatitis: No Hiatal Hernia: No Hypertension: Yes Immune Disorder: No Musculoskeletal: Yes (ARTHRITIS) Neurologic: No Psychiatric: No Reproductive: No Respiratory: No Myocardial Infarction: Yes Thyroid Disease: No Triglycerides - High: Yes Tetanus Vaccination: Unknown Influenza Vaccination: No Past Surgical History Abdominal Surgery: Yes AICD: No Appendectomy: Yes Body Medical Devices: CARDIAC STENTS Coronary Artery Bypass Graft: Yes Coronary Stent: Yes (x5) Eye Surgery: Yes (LEFT RETINAL REPAIR, JAEK. CATARACT EXTRACT.) Joint Replacement: Yes (right hip) Pacemaker: No Other Surgery: Yes Family History Family Myocardial Infarction: Yes (BROTHER) Social History Alcohol Use: No Tobacco Use: No Substance Use: No Allergies-Medications (Allergen,Severity, Reaction): Coded Allergies: No Known Allergies (Verified Adverse Reaction, Unknown, 05/14/17) Reported Meds & Prescriptions Reported Meds & Active Scripts Active Reported Januvia (Sitagliptin Phosphate) 100 Mg Tab 100 Mg PO DAILY Amlodipine (Amlodipine Besylate) 10 Mg Tab 10 Mg PO DAILY Isosorbide Mononitrate ER (Isosorbide Mononitrate) 30 Mg Allen 30 Mg PO DAILY Plavix (Clopidogrel Bisulfate) 75 Mg Tab 75 Mg PO DAILY Metformin (Metformin HCl) 500 Mg Tab 500 Mg PO BIDPC Lisinopril 10 Mg Tab 10 Mg PO DAILY Levemir Inj (Insulin Detemir) 1,000 unit/ 10 ML Vial 50 Units SQ HS Do not mix with any other Insulin. Glipizide 5 Mg Tab 5 Mg PO BIDAC Take 30 minutes before a meal Coreg (Carvedilol) 3.125 Mg Tab 3.125 Mg PO BID Atorvastatin (Atorvastatin Calcium) 20 Mg Tab 20 Mg PO HS Aspirin 81 (Aspirin) 81 Mg Tabdr 81 Mg PO DAILY Review of Systems Except as stated in HPI: all other systems reviewed are Neg Physical Exam Narrative GENERAL: Well-developed elderly white male patient currently in mild distress. Awake and oriented 3. SKIN: Focused skin assessment warm/dry. HEAD: Atraumatic. Normocephalic. EYES: Pupils equal and round. No scleral icterus. No injection or drainage. ENT: No nasal bleeding or discharge. Mucous membranes pink and moist. NECK: Trachea midline. No JVD. Supple. CARDIOVASCULAR: Regular rate and rhythm. No murmur appreciated. Pulses are present and equal bilaterally. RESPIRATORY: No accessory muscle use. Clear to auscultation. Breath sounds equal bilaterally. GASTROINTESTINAL: Abdomen soft, non-tender, nondistended. Hepatic and splenic margins not palpable. MUSCULOSKELETAL: No obvious deformities. No clubbing. No cyanosis. No edema. NEUROLOGICAL: Awake and alert. No obvious cranial nerve deficits. Motor grossly within normal limits. Normal speech. PSYCHIATRIC: Appropriate mood and affect; insight and judgment normal. Data Data Last Documented VS Vital Signs Date Time Temp Pulse Resp B/P (MAP) Pulse Ox O2 Delivery O2 Flow Rate FiO2 05/14/17 10:10 64 20 142/74 (96) 96 Room Air 05/14/17 09:53 98.0 Orders Orders Electrocardiogram (05/14/17 10:15) Ckmb (Isoenzyme) Profile (05/14/17 10:15) Complete Blood Count With Diff (05/14/17 10:15) Comprehensive Metabolic Panel (05/14/17 10:15) Magnesium (Mg) (05/14/17 10:15) Prothrombin Time / Inr (Pt) (05/14/17 10:15) Act Partial Throm Time (Ptt) (05/14/17 10:15) Troponin I (05/14/17 10:15) Ecg Monitoring (05/14/17 10:15) Bilateral Bp Monitoring (05/14/17 10:15) Iv Access Insert/Monitor (05/14/17 10:15) Oximetry (05/14/17 10:15) Oxygen Administration (05/14/17 10:15) Sodium Chloride 0.9% Flush (Ns Flush) (05/14/17 10:15) Chest, Pa & Lat (05/14/17 10:15) B-Type Natriuretic Peptide (05/14/17 10:19) Admit Order (Ed Use Only) (05/14/17 11:48) Labs Laboratory Tests Test 05/14/17 10:35 White Blood Count 5.0 TH/MM3 Red Blood Count 4.90 MIL/MM3 Hemoglobin 14.5 GM/DL Hematocrit 43.5 % Mean Corpuscular Volume 88.8 FL Mean Corpuscular Hemoglobin 29.5 PG Mean Corpuscular Hemoglobin Concent 33.3 % Red Cell Distribution Width 14.8 % Platelet Count 242 TH/MM3 Mean Platelet Volume 7.9 FL Neutrophils (%) (Auto) 63.6 % Lymphocytes (%) (Auto) 21.3 % Monocytes (%) (Auto) 10.0 % Eosinophils (%) (Auto) 4.0 % Basophils (%) (Auto) 1.1 % Neutrophils # (Auto) 3.2 TH/MM3 Lymphocytes # (Auto) 1.1 TH/MM3 Monocytes # (Auto) 0.5 TH/MM3 Eosinophils # (Auto) 0.2 TH/MM3 Basophils # (Auto) 0.1 TH/MM3 CBC Comment DIFF FINAL Differential Comment Prothrombin Time 10.7 SEC Prothromb Time International Ratio 1.1 RATIO Activated Partial Thromboplast Time 24.7 SEC Blood Urea Nitrogen 13 MG/DL Creatinine 1.13 MG/DL Random Glucose 141 MG/DL Total Protein 7.3 GM/DL Albumin 3.9 GM/DL Calcium Level 9.2 MG/DL Magnesium Level 2.0 MG/DL Alkaline Phosphatase 59 U/L Aspartate Amino Transf (AST/SGOT) 22 U/L Alanine Aminotransferase (ALT/SGPT) 40 U/L Total Bilirubin 0.5 MG/DL Sodium Level 142 MEQ/L Potassium Level 3.7 MEQ/L Chloride Level 106 MEQ/L Carbon Dioxide Level 28.9 MEQ/L Anion Gap 7 MEQ/L Estimat Glomerular Filtration Rate 65 ML/MIN Total Creatine Kinase 78 U/L Troponin I LESS THAN 0.02 NG/ML B-Type Natriuretic Peptide 73 PG/ML MDM Medical Decision Making Medical Screen Exam Complete: Yes Emergency Medical Condition: Yes Medical Record Reviewed: Yes Interpretation(s) EKG shows normal sinus rhythm at a rate of 67 bpm. Patient has nonspecific T- wave changes notable in the inferior leads but no signs of acute ST elevations. Laboratory Tests Test 05/14/17 10:35 Monocytes (%) (Auto) 10.0 % (0.0-8.0) Random Glucose 141 MG/DL (74-106) Estimat Glomerular Filtration Rate 65 ML/MIN (>89) Troponin I LESS THAN 0.02 NG/ML Last 24 hours Impressions Chest X-Ray 05/14/17 1015 Signed Impressions: Service Date/Time: Sunday, May 14, 2017 10:26 - CONCLUSION: No acute disease. Bartolome Alejo MD Differential Diagnosis Chest pains: ACS versus dysrhythmias versus anxiety attack Narrative Course EKG did show nonspecific T-wave changes. Cardiac enzymes are negative. Chest x -ray was unremarkable. At this point, my plan would be to admit the patient for further evaluation. Diagnosis Primary Impression: Chest pain Admitting Information Admitting Physician Requests: Admit Octavio Lawson MD May 14, 2017 10:22
[2017-05-14 10:51] LABS: AUTOMATED NEUTROPHIL # 3.2 TH/MM3 (1.8-7.7); BASOPHIL # 0.1 TH/MM3 (0-0.2); BASOPHIL % 1.1 % (0.0-2.0); EOSINOPHIL # 0.2 TH/MM3 (0-0.4); HEMATOCRIT 43.5 % (39.0-51.0); HEMOGLOBIN 14.5 GM/DL (13.0-17.0); LYMPH % 21.3 % (9.0-44.0); LYMPHOCYTE # 1.1 TH/MM3 (1.0-4.8); MEAN CELL VOLUME 88.8 FL (80.0-100.0); MEAN CORPUSCULAR HEMOGLOBIN 29.5 PG (27.0-34.0); MEAN CORPUSCULAR HGB CONC 33.3 % (32.0-36.0); MEAN PLATELET VOLUME 7.9 FL (7.0-11.0); MONOCYTE # 0.5 TH/MM3 (0-0.9); NEUT % 63.6 % (16.0-70.0); PLATELET COUNT 242 TH/MM3 (150-450); RED CELL DISTRIBUTION WIDTH 14.8 % (11.6-17.2)
--- NOTE | 2017-05-14 10:54 | RADRPT ---
EXAM DATE/TIME: 05/14/2017 10:26 [facility] COMPARISON: CHEST SINGLE AP, March 17, 2016, 19:47. INDICATIONS : Chest pain. MEDICAL HISTORY : Hypertension. Diabetes mellitus type II. SURGICAL HISTORY : Carotid stent. Loop recorder ENCOUNTER: Initial ACUITY: 2 weeks PAIN SCORE: 7/10 LOCATION: Bilateral chest FINDINGS: PA and lateral views of the chest demonstrate the lungs to be symmetrically aerated without evidence of mass, infiltrate or effusion. The cardiomediastinal contours are unremarkable. Osseous structure s are intact. CONCLUSION: No acute disease. Bartolome Alejo MD on May 14, 2017 at 10:50 Board Certified Radiologist. This report was verified electronically.
[2017-05-14 11:10] LABS: ALBUMIN 3.9 GM/DL (3.4-5.0); ALT (GPT) 40 U/L (12-78); AST (GOT) 22 U/L (15-37); BICARBONATE 28.9 MEQ/L (21.0-32.0); BLOOD UREA NITROGEN 13 MG/DL (7-18); CALCIUM 9.2 MG/DL (8.5-10.1); CHLORIDE 106 MEQ/L (98-107); CREATININE 1.13 MG/DL (0.60-1.30); GLOMERULAR FILTRATION RATE 65 ML/MIN (>89); GLUCOSE,RANDOM 141 MG/DL (74-106); SODIUM (NA) 142 MEQ/L (136-145)
[2017-05-14 11:14] LABS: ALKALINE PHOSPHATASE 59 U/L (45-117); TOTAL BILIRUBIN ADULT 0.5 MG/DL (0.2-1.0); TOTAL PROTEIN 7.3 GM/DL (6.4-8.2); TROPONIN I LESS THAN 0.02 NG/ML (0.02-0.05)
[2017-05-14 11:15] LABS: INTERNATIONAL NORMALIZED RATIO 1.1 RATIO; PROTHROMBIN TIME - PATIENT 10.7 SEC (9.8-11.6)
[2017-05-14] MEDS ORDERED: IOHEXOL 350 MG/ML 100 ML BTL (for Cath Lab) OTHER ONE (11:50)
[2017-05-14] MEDS ORDERED: IOHEXOL 350 MG/ML 50 ML BTL (for Cath Lab) OTHER ONE (11:50)
[2017-05-14] MEDS ORDERED: ONDANSETRON HCL 4 MG/2 ML VIAL IV PUSH PRN (12:45)
[2017-05-14] MEDS ORDERED: NITROGLYCERIN 0.4 MG SL 25 TABS/BTL SL PRN (12:45)
[2017-05-14] MEDS ORDERED: ACETAMINOPHEN 500 MG CPLT PO PRN (12:45)
[2017-05-14 14:24] VITALS: BP 163/95; PULSE 60; RESP 18; TEMP 97.8; O2SAT 99
[2017-05-14 14:34] LABS: TROPONIN I LESS THAN 0.02 NG/ML (0.02-0.05)
--- NOTE | 2017-05-14 14:43 | HHI.HP ---
HPI Primary Care Physician Joel Santana MD Chief Complaint Chest pain History of Present Illness 67-year-old male with known coronary artery disease, cardiac stents, hypertension, hyperlipidemia, diabetes, and past CVA presents to emergency room for further evaluation of chest pain. Onset 2 weeks ago increasing in intensity and frequency last 4 days. Location substernal. Characterized as " a weight on my chest." No radiation of pain. Episodes begin quickly, discomfort gradually resolves on its own. Episodes generally [id number] minutes. Discomfort subsides for approximately 10-15 minutes before returning. No associated symptoms of nausea, vomiting, or diaphoresis. Endorses associated symptom of dyspnea. No known precipitating or relieving factors. Initially felt discomfort was indigestion and noted discomfort would improve with movement. Endorses similar pain in the past prior to past three SD's. Follows with Dr. Saravanan Angel electronic scale assembler and tester. Review of Systems General: No fatigue,weakness, fever, chills, recent illness, or change in appetite. Has been in his general state of health, in fact states he has been feeling "great." HEENT: No PRASAD, no vision changes, no nasal congestion or drainage, no dysphasia CV: Continues to have intermittent chest discomfort as stated above RESP: No SOB, cough, wheeze, or recent upper respiratory infection GI: No nausea, vomiting, bowel changes, diarrhea, constipation, pain, distention , melena, or blood in the stool. Recent success with intentional weight loss. : No dysuria, urgency, frequency EXT: No lower leg edema, no paraesthesias MS: No discomfort or change in ROM NEURO: No difficulty with balance, LOC, motor/sensory deficits PSYCH: No anxiety, depression SKIN: No rashes, no concerning lesions Past Family Social History Allergies: Coded Allergies: No Known Allergies (Verified Allergy, Unknown, 05/14/17) Past Medical History Coronary artery disease, hypertension, hyperlipidemia, type 2 diabetes, CVA, arthritis Past Surgical History Appendectomy, left renal repair, bilateral cataract extractions Reported Medications Reported Meds & Active Scripts Active Reported Januvia (Sitagliptin Phosphate) 100 Mg Tab 100 Mg PO DAILY Amlodipine (Amlodipine Besylate) 10 Mg Tab 10 Mg PO DAILY Isosorbide Mononitrate ER (Isosorbide Mononitrate) 30 Mg Allen 30 Mg PO DAILY Plavix (Clopidogrel Bisulfate) 75 Mg Tab 75 Mg PO DAILY Metformin (Metformin HCl) 500 Mg Tab 500 Mg PO BIDPC Lisinopril 10 Mg Tab 10 Mg PO DAILY Levemir Inj (Insulin Detemir) 1,000 unit/ 10 ML Vial 50 Units SQ HS Do not mix with any other Insulin. Glipizide 5 Mg Tab 5 Mg PO BIDAC Take 30 minutes before a meal Coreg (Carvedilol) 3.125 Mg Tab 3.125 Mg PO BID Atorvastatin (Atorvastatin Calcium) 20 Mg Tab 20 Mg PO HS Aspirin 81 (Aspirin) 81 Mg Tabdr 81 Mg PO DAILY Active Ordered Medications Current Medications Medications (Trade) Dose Ordered Sig/Sabine Route Start Time Stop Time Status Last Admin (NS Flush) 2 ml UNSCH PRN IVF 05/14/17 10:15 (NS Flush) 2 ml BID IV FLUSH 05/14/17 21:00 (Tylenol) 500 mg Q4H PRN PO 05/14/17 12:45 (Zofran Inj) 4 mg Q6H PRN IV PUSH 05/14/17 12:45 (Nitrostat Sl) 0.4 mg Q5M PRN SL 05/14/17 12:45 (Aspirin) 325 mg DAILY PO 05/15/17 09:00 Social History Known coronary artery disease, hypertension, hyperlipidemia, and diabetes. Endorses smoking 1 cigar every 3 months. Past cardiac testing 08/18/2015 cardiac catheterization (Dr. Angel) conclusions: 1. Severe two- vessel coronary artery disease. 2. Successful 2 vessel stenting. (Balloon angioplasty and stenting of mid RCA and angioplasty and stenting of distal left anterior descending). Physical Exam Vital Signs Vital Signs Date Time Temp Pulse Resp B/P (MAP) Pulse Ox O2 Delivery O2 Flow Rate FiO2 05/14/17 14:24 97.8 60 18 163/95 (117) 99 05/14/17 10:10 64 20 142/74 (96) 96 Room Air 05/14/17 10:10 96 Room Air 05/14/17 10:08 66 18 97 Room Air 05/14/17 09:53 98.0 60 17 172/78 (109) 97 Physical Exam GENERAL: Alert WN, WD, NAD, pleasant, obese, male HEAD: NC, AT EYES: Sclera clear, conjunctiva without injection, pupils equal and round ENT: Mucous membranes pink and moist CV: RRR, without murmur, rub, gallop, no JVD, S1-S2 no S3-S4. No carotid bruits. RESP: Clear lungs throughout bilateral, no crackles, wheeze, rhonchi, symmetrical chest rise, nonlabored, able to speak in full sentences ABD: Soft, NT, ND, no masses, positive bowel tones, obese EXT: Pulses +24, +1 pitting bilateral lower extremity edema MS: Normal tone 4 extremities, nontender, no obvious deformities, full range of motion NEURO: CN II through CN XII grossly intact, motor strength 5/5 PSYCH: A+O 3, pleasant affect, appropriate speech, mood, insight and judgment SKIN: Normal turgor, normal texture, no lesions, no rashes, brisk cap refill, even hair distribution Laboratory Laboratory Tests Test 05/14/17 10:35 05/14/17 13:46 White Blood Count 5.0 Red Blood Count 4.90 Hemoglobin 14.5 Hematocrit 43.5 Mean Corpuscular Volume 88.8 Mean Corpuscular Hemoglobin 29.5 Mean Corpuscular Hemoglobin Concent 33.3 Red Cell Distribution Width 14.8 Platelet Count 242 Mean Platelet Volume 7.9 Neutrophils (%) (Auto) 63.6 Lymphocytes (%) (Auto) 21.3 Monocytes (%) (Auto) 10.0 Eosinophils (%) (Auto) 4.0 Basophils (%) (Auto) 1.1 Neutrophils # (Auto) 3.2 Lymphocytes # (Auto) 1.1 Monocytes # (Auto) 0.5 Eosinophils # (Auto) 0.2 Basophils # (Auto) 0.1 CBC Comment DIFF FINAL Differential Comment Prothrombin Time 10.7 Prothromb Time International Ratio 1.1 Activated Partial Thromboplast Time 24.7 Blood Urea Nitrogen 13 Creatinine 1.13 Random Glucose 141 Total Protein 7.3 Albumin 3.9 Calcium Level 9.2 Magnesium Level 2.0 Alkaline Phosphatase 59 Aspartate Amino Transf (AST/SGOT) 22 Alanine Aminotransferase (ALT/SGPT) 40 Total Bilirubin 0.5 Sodium Level 142 Potassium Level 3.7 Chloride Level 106 Carbon Dioxide Level 28.9 Anion Gap 7 Estimat Glomerular Filtration Rate 65 Total Creatine Kinase 78 67 Troponin I LESS THAN 0.02 LESS THAN 0.02 B-Type Natriuretic Peptide 73 Result Diagram: 05/14/17 1035 05/14/17 1035 Imaging Last 48 hours Impressions Chest X-Ray 05/14/17 1015 Signed Impressions: Service Date/Time: Sunday, May 14, 2017 10:26 - CONCLUSION: No acute disease. Bartolome Alejo MD Course EKG NSR, no st t segment changes. Q waves inferiorly Caprini VTE Risk Assessment Caprini VTE Risk Assessment: Mod/High Risk (score >= 2) Caprini Risk Assessment Model Point Value = 1 Point Value = 2 Point Value = 3 Point Value = 5 Age 41-60 Minor surgery BMI > 25 kg/m2 Swollen legs Varicose veins or History of unexplained or recurrent spontaneous Oral contraceptives or hormone replacement Sepsis (< 1 month) Serious lung disease, including pneumonia (< 1 month) Abnormal pulmonary function Acute myocardial infarction Congestive heart failure (< 1 month) History of inflammatory bowel disease Medical patient at bed rest Age 61-74 Arthroscopic surgery Major open surgery (> 45 min) Laparoscopic surgery (> 45 min) Malignancy Confined to bed (> 72 hours) Immobilizing plaster cast Central venous access Age >= 75 History of VTE Family history of VTE Factor V Leiden Prothrombin [id number] Lupus anticoagulant Anticardiolipin antibodies Elevated serum homocysteine Heparin-induced thrombocytopenia Other congenital or acquired thrombophilia Stroke (< 1 month) Elective arthroplasty Hip, pelvis, or leg fracture Acute spinal cord injury (< 1 month) Prophylaxis Regimen Total Risk Factor Score Risk Level Prophylaxis Regimen 0-1 Low Early ambulation 2 Moderate Order ONE of the following: *Sequential Compression Device (SCD) *Heparin 5000 units SQ BID 3-4 Higher Order ONE of the following medications: *Heparin 5000 units SQ TID *Enoxaparin/Lovenox 40 mg SQ daily (WT < 150 kg, CrCl > 30 mL/min) *Enoxaparin/Lovenox 30 mg SQ daily (WT < 150 kg, CrCl > 10-29 mL/min) *Enoxaparin/Lovenox 30 mg SQ BID (WT < 150 kg, CrCl > 30 mL/min) AND/OR *Sequential Compression Device (SCD) 5 or more Highest Order ONE of the following medications: *Heparin 5000 units SQ TID (Preferred with Epidurals) *Enoxaparin/Lovenox 40 mg SQ daily (WT < 150 kg, CrCl > 30 mL/min) *Enoxaparin/Lovenox 30 mg SQ daily (WT < 150 kg, CrCl > 10-29 mL/min) *Enoxaparin/Lovenox 30 mg SQ BID (WT < 150 kg, CrCl > 30 mL/min) AND *Sequential Compression Device (SCD) Assessment and Plan Assessment and Plan #1 Chest pain-the chest pain center. Begin ruling out ACS with 3 sets of EKGs and cardiac enzymes. Will be seen and evaluated by Dr. Roly Arenas. Call is been placed to patient's electronic scale assembler and tester, Dr. Saravanan Angel, to discuss case. Begin nitroglycerin 1" Q6H paste. #2 History of CAD-continue amlodipine, Plavix, atorvastatin, and carvedilol. #3 History of diabetes-SSI moderate dose coverage, hold oral anti-glycemics. [address] Saravanan Angel. Discussed presenting symptoms. Dr. Angel will assess patient this evening with plans for cardiac catheterization in a.m. , requesting consult to hospitalist service as well. Henrietta Perez May 14, 2017 14:43
[2017-05-14] MEDS ORDERED: DEXTROSE 50% IN WATER 50 ML VIAL(D50) IV PUSH PRN (15:45)
[2017-05-14] MEDS ORDERED: GLUCAGON 1 MG/ML VIAL OTHER PRN (15:45)
[2017-05-14 16:56] LABS: TROPONIN I LESS THAN 0.02 NG/ML (0.02-0.05)
[2017-05-14] MEDS: INSULIN ASPART SUPPLEMENTAL SCALE SQ SCH ×2 (17:00→22:15)
--- NOTE | 2017-05-14 17:10 | EKG ---
Date Performed: 05/14/2017 Time Performed: 13:29:51 PTAGE: 67 years EKG: Sinus rhythm ABNORMAL ECG PREVIOUS TRACING : 05/14/2017 10.03 DOCTOR: Roly Arenas Interpretating Date/Time 05/14/2017 17:09:29
[2017-05-14] MEDS: NITROGLYCERIN 2% OINT 1 GM PACKET TOPICAL SCH (18:00)
--- NOTE | 2017-05-14 18:52 | PD.CONS ---
HPI Service [facility] Consult Requested By Dr. Arenas Reason for Consult Chest pain Primary Care Physician Joel Santana MD Diagnoses: (1) Chest pain (2) Diabetes mellitus, type 2 (3) Hypertension, benign (4) Hyperlipidemia (5) CAD (coronary artery disease) History of Present Illness The patient is a 67-year-old male with known history of coronary artery disease who presented to the emergency department with chest pain that has been worsening over the past few days. He states that about 2 weeks ago he started having very short episodes of sharp pain in the right side of his chest. These were often associated with activity. Over the past 3-4 days, he has had episodes of pressure in his chest that have lasted 20-30 minutes. Pain is rated 7/10. He does still have some pressure at this time. Does report associated dyspnea, but denies associated diaphoresis, nausea, vomiting. Review of Systems Constitutional: DENIES: Fever, Chills, Night Sweats Eyes: DENIES: Blurred vision, Vision loss Ears, nose, mouth, throat: DENIES: Hearing loss Respiratory: COMPLAINS OF: Shortness of breath, DENIES: Cough, Wheezing, Sputum production Cardiovascular: COMPLAINS OF: Chest pain, DENIES: Palpitations, Dyspnea on Exertion, Lower Extremity Edema Gastrointestinal: DENIES: Abdominal pain, Constipation, Diarrhea, Nausea, Vomiting Genitourinary: DENIES: Urinary frequency, Urinary incontinence, Urgency, Hematuria, Dysuria, Nocturia Musculoskeletal: DENIES: Joint pain, Muscle aches Integumentary: DENIES: Pruritus, Rash Hematologic/lymphatic: DENIES: Bruising Neurologic: DENIES: Headache Past Family Social History Allergies: Coded Allergies: No Known Allergies (Verified Allergy, Unknown, 05/14/17) Past Medical History Coronary artery disease Diabetes mellitus type 2 Hypertension Hyperlipidemia History of CVA Osteoarthritis Past Surgical History Appendectomy Right hip replacement Bilateral cataract surgery Reported Medications Januvia (Sitagliptin Phosphate) 100 Mg Tab 100 Mg PO DAILY Amlodipine (Amlodipine Besylate) 10 Mg Tab 10 Mg PO DAILY Isosorbide Mononitrate ER (Isosorbide Mononitrate) 30 Mg Allen 30 Mg PO DAILY Plavix (Clopidogrel Bisulfate) 75 Mg Tab 75 Mg PO DAILY Metformin (Metformin HCl) 500 Mg Tab 500 Mg PO BIDPC Lisinopril 10 Mg Tab 10 Mg PO DAILY Levemir Inj (Insulin Detemir) 1,000 unit/ 10 ML Vial 50 Units SQ HS Do not mix with any other Insulin. Glipizide 5 Mg Tab 5 Mg PO BIDAC Take 30 minutes before a meal Coreg (Carvedilol) 3.125 Mg Tab 3.125 Mg PO BID Atorvastatin (Atorvastatin Calcium) 20 Mg Tab 20 Mg PO HS Aspirin 81 (Aspirin) 81 Mg Tabdr 81 Mg PO DAILY Family History Diabetes Hypertension Heart disease Social History Smokes 1 cigar every 3-4 months. Quit drinking alcohol 1 year ago. Denies illicit drug use. Physical Exam Vital Signs Vital Signs Date Time Temp Pulse Resp B/P (MAP) Pulse Ox O2 Delivery O2 Flow Rate FiO2 05/14/17 14:24 97.8 60 18 163/95 (117) 99 05/14/17 10:10 64 20 142/74 (96) 96 Room Air 05/14/17 10:10 96 Room Air 05/14/17 10:08 66 18 97 Room Air 05/14/17 09:53 98.0 60 17 172/78 (109) 97 Physical Exam GENERAL: Obese male in no acute distress. HEENT: Normocephalic, atraumatic. Pupils equal, round and reactive. Extraocular movements intact. No scleral icterus. No injection or drainage. Oropharynx is clear. Mucous membranes are moist. CARDIOVASCULAR: Regular rate and rhythm without murmurs, gallops, or rubs. RESPIRATORY: Clear to auscultation. No wheezes, rales, or rhonchi. Breathing is non-labored. GASTROINTESTINAL: Abdomen soft, non-tender, nondistended. EXTREMITIES: No lower extremity edema. No calf tenderness. PSYCH: Alert and oriented x 3. Laboratory Laboratory Tests Test 05/14/17 10:35 05/14/17 13:46 05/14/17 16:15 White Blood Count 5.0 Red Blood Count 4.90 Hemoglobin 14.5 Hematocrit 43.5 Mean Corpuscular Volume 88.8 Mean Corpuscular Hemoglobin 29.5 Mean Corpuscular Hemoglobin Concent 33.3 Red Cell Distribution Width 14.8 Platelet Count 242 Mean Platelet Volume 7.9 Neutrophils (%) (Auto) 63.6 Lymphocytes (%) (Auto) 21.3 Monocytes (%) (Auto) 10.0 Eosinophils (%) (Auto) 4.0 Basophils (%) (Auto) 1.1 Neutrophils # (Auto) 3.2 Lymphocytes # (Auto) 1.1 Monocytes # (Auto) 0.5 Eosinophils # (Auto) 0.2 Basophils # (Auto) 0.1 CBC Comment DIFF FINAL Differential Comment Prothrombin Time 10.7 Prothromb Time International Ratio 1.1 Activated Partial Thromboplast Time 24.7 Blood Urea Nitrogen 13 Creatinine 1.13 Random Glucose 141 Total Protein 7.3 Albumin 3.9 Calcium Level 9.2 Magnesium Level 2.0 Alkaline Phosphatase 59 Aspartate Amino Transf (AST/SGOT) 22 Alanine Aminotransferase (ALT/SGPT) 40 Total Bilirubin 0.5 Sodium Level 142 Potassium Level 3.7 Chloride Level 106 Carbon Dioxide Level 28.9 Anion Gap 7 Estimat Glomerular Filtration Rate 65 Total Creatine Kinase 78 67 67 Troponin I LESS THAN 0.02 LESS THAN 0.02 LESS THAN 0.02 B-Type Natriuretic Peptide 73 Result Diagram: 05/14/17 1035 05/14/17 1035 Imaging Last Impressions Chest X-Ray 05/14/17 1015 Signed Impressions: Service Date/Time: Sunday, May 14, 2017 10:26 - CONCLUSION: No acute disease. Bartolome Alejo MD Assessment and Plan Assessment and Plan 1. Chest pain, coronary artery disease: The patient was admitted to the chest pain center. Serial cardiac enzymes are negative. Patient's figurine maker, Dr. Angel, has been consulted. Plan is for cardiac catheterization tomorrow. Continue aspirin, statin, beta-joão, Plavix, KAELA inhibitor. 2. Diabetes mellitus: Monitor Accu-Cheks and cover with sliding scale insulin. Diabetic diet. 3. Hypertension: Continue amlodipine, carvedilol, lisinopril. 4. Hyperlipidemia: Continue statin. 5. DVT prophylaxis: SCDs. Jere Apple MD May 14, 2017 18:52
[2017-05-14] MEDS: SODIUM CHLOR 0.9% 1000 ML INJ 1,000 ML IV SCH (19:16)
[2017-05-14] MEDS ORDERED: diphenhydrAMINE HCL 50 MG CAP PO SCH (19:30)
[2017-05-14] MEDS ORDERED: DIAZEPAM 5 MG TAB PO SCH (19:30)
[2017-05-14] MEDS ORDERED: ATORVASTATIN 20 MG TAB PO SCH (21:00)
--- NOTE | 2017-05-14 21:19 | EKG ---
Date Performed: 05/14/2017 Time Performed: 10:03:01 PTAGE: 67 years EKG: Sinus rhythm INFERIOR MYOCARDIAL INFARCTION Since previous tracing, no significant change noted ABNORMAL ECG PREVIOUS TRACING : 03/17/2016 19.46 DOCTOR: Marisa Edward Interpretating Date/Time 05/14/2017 21:17:56
[2017-05-14] MEDS: SODIUM CHLORIDE 0.9% FLUSH 10 ML FLUSH IV FLUSH SCH (22:14)
[2017-05-14] MEDS: CARVEDILOL 3.125 MG TAB PO SCH (22:14)
[2017-05-14 23:00] VITALS: PULSE 57; PULSE 63
[2017-05-14 23:38] VITALS: BP 144/74; PULSE 63; RESP 18; TEMP 98.3; O2SAT 93
--- NOTE | 2017-05-15 00:28 | MB ---
cc: Saravanan Angel MD DATE OF CONSULT: 05/14/2017 REASON FOR CONSULTATION: Evaluation of chest pain. HISTORY OF PRESENT ILLNESS: Abdiel Cavazos is a 67-year-old man, well known to me. He has known coronary artery disease. He had an inferior STEMI on 12/17/2007 and had a 28 mm Vision placed in the proximal right coronary artery dilated with a 4 mm Quantum balloon and a 3.5 x 12 mm Vision stent in the distal right coronary artery. Then, in October 2012, he had a non-STEMI. At that time, he had a 4.0 x 9 mm Resolute stent placed on the proximal edge of the previous stent in the proximal right coronary artery. Then, in July 2015, developed unstable angina. He, at that time, had a 3.0 x 18 mm Resolute stent placed in the distal LAD and had the midright coronary artery stented with a 4.0 x 15 mm Resolute stent. He was stable until about a month ago, started having some intermittent chest pains. The last 4-5 days, this has gotten worse; it is a heavy substernal pressure sensation, like a weight on his chest, similar to what he experienced before his previous stents. PAST MEDICAL HISTORY: Includes coronary artery disease, previous stroke 2 years ago, has an insertable loop recorder, type 2 diabetes, hyperlipidemia, hypertension, metabolic syndrome, morbid obesity and osteoarthritis. PAST SURGICAL HISTORY: Includes a stent to the right coronary artery and LAD, hip replacement on the right, loop recorder implantation, tonsillectomy. SOCIAL HISTORY: Has never smoked cigarettes. Previously worked as a construction vehicle cdl a driver. PHYSICAL EXAMINATION: Reveals a pleasant obese white male in no acute distress. Vital signs are charted. HEENT: Exam unremarkable. NECK: No JVD. No bruits. CHEST: Clear to auscultation. CARDIAC EXAMINATION: S1, S2. Regular in rate and rhythm. No murmurs or gallops. ABDOMEN: Obese, soft, nontender. EXTREMITIES: Reveal intact pulses with 1+ lower extremity edema. NEUROLOGIC: Alert and oriented. LABORATORIES: Are charted. Hematocrit is 43.5, creatinine is 1.13. Troponins are negative x3. Chest x-ray showed no acute disease. IMPRESSION: This is a 67-year-old male with likely unstable angina. His symptoms are fairly typical. Morbid obesity makes getting a nuclear stress test accurate somewhat problematic. I think it would be best if we went straight to a cardiac catheterization. PLAN: Informed consent has been obtained for a cardiac catheterization tomorrow morning. We will plan to do this from a radial approach. In the meantime, we will continue his calcium channel joão and his beta-joão, as well as his aspirin and clopidogrel. Catheterization with possible intervention will be performed. MD SARMAD Arce/KELY , 07:16 PM , 12:27 AM
[2017-05-15] MEDS: SODIUM CHLOR 0.9% 1000 ML INJ 1,000 ML IV SCH (05:16)
[2017-05-15] MEDS: NITROGLYCERIN 2% OINT 1 GM PACKET TOPICAL SCH ×2 (06:00)
[2017-05-15 07:54] VITALS: BP 141/82; PULSE 62; RESP 16; TEMP 97.8; O2SAT 96
[2017-05-15] MEDS: INSULIN ASPART SUPPLEMENTAL SCALE SQ SCH (08:00)
[2017-05-15] MEDS: CARVEDILOL 3.125 MG TAB PO SCH (08:09)
[2017-05-15] MEDS: SODIUM CHLORIDE 0.9% FLUSH 10 ML FLUSH IV FLUSH SCH (08:10)
[2017-05-15] MEDS ORDERED: NITROGLYCERIN INJ 5 ML ONE (08:23)
[2017-05-15] MEDS ORDERED: MIDAZOLAM HCL 2 MG/2 ML VIAL ONE ×2 (08:23→08:44)
[2017-05-15] MEDS ORDERED: VERAPAMIL HCL 5 MG/2 ML VIAL ONE (08:23)
[2017-05-15] MEDS ORDERED: HEPARIN SODIUM - IV 10,000 UNITS/10 ML VIAL ONE (08:23)
[2017-05-15] MEDS ORDERED: HEPARIN-NS/PF FLUSH BAG 1,000 ML IV FLUSH ONE (08:23)
[2017-05-15] MEDS ORDERED: ASPIRIN 325 MG TAB PO SCH (09:00)
[2017-05-15] MEDS ORDERED: LISINOPRIL 10 MG TAB PO SCH (09:00)
[2017-05-15] MEDS ORDERED: CLOPIDOGREL 75 MG TAB PO SCH (09:00)
[2017-05-15] MEDS ORDERED: CLOPIDOGREL 300 MG TAB ONE (09:24)
--- NOTE | 2017-05-15 09:41 | CATHPROC ---
[employer] HIS Report Study Information Study Number Scheduled Start Study Start [id number] 05/15/2017 May 15 2017 8:17AM Referring Institution Admit Source Facility Department 1 Emergency department [facility] - [facility] Physician and Clinical Staff Initial Saravanan Rankin Sales Team Member Maegan Rios,LEVI Sales Team Member Angie Medellin BSN Recorder Eduin Gardner,RT(R) Scrub Sami Francisco RCIS(BS) Procedures Performed Procedure Location (Site) Vessel Name Coronary Angiograms LCA Left Coronary Coronary Angiograms RCA Right Coronary Drug Eluting Inflatio LAD Dist Left Coronary LV Gram-hand inj. LV LV Ventricle Wire insertion Radial (right) Radial Art. Equipment Time Health Services Administrator Description Size Mfg Part Number Used/Scraped WIRE, BALANCE MIDDLEWEIGHT [id number] 09:12 [employer] 190CM Used 190CM *[id number] WIRE, BALANCE MIDDLEWEIGHT [id number] 08:57 [employer] 190CM Used 190CM *[id number] TRANSDUCER, TRUWAVE [id number] 08:42 KHAN FLETCHER * Used W/STOCKCOCK *[id number] *[id number] [phone] *[id number] [phone] *[id number] 08:42 MALLINCKRODT SYRINGE, ANGIOMAT 150ML 150ML *[id number] Used 2SUB [id number] 08:42 Ge[employer]tt INDUSTRIES PACK, CCL CUSTOM * Used *[id number] 08:42 Daqi SUPPORT, ARTERIAL ADULT 61478 *[id number] Used [id number] 08:42 Ge.tt PACER PEN, SKIN DUAL W/ RULER * Used *[id number] 08:44 MEDTRONIC JR 5.0 DXTERITY CATHETER fr 5 [id number] Used [id number] 09:17 MEDTRONIC STENT, 3.0 8MM FRANKI 3.0 8MM Used *[id number] 09:21 JAYS [employer]ICAL 30 JUANCHO INDEFLATOR Used *[id number] BAND, RADIAL COMPRESSION TR [id number] 09:23 [employer] 29CM Used LARGE 29 *[id number] BAND, RADIAL COMPRESSION TR [id number] 09:24 [employer] 29CM Used LARGE 29 *[id number] 08:42 Scalado WIRE, EXCHANGE 260CM 3MMJ 260CM Used *[id number] 08:42 NAMIC MANIFOLD, 4 PORT * Used *[id number] 08:42 NYCOMED OMNIPAQUE, 350 MG, 100ML 100ML [id number] Used [id number] 08:42 S5 Tech BLANKET,WARM AIR CCL * Used *[id number] 08:42 S5 Tech JELCO NEEDLE 4056 *[id number] Used SHEATH, FR6 TRANSRADIAL [id number] 08:42 Lightwaves FR 6 Used SLENDER 10CM *[id number] Equipment Model, Serial, Lot Number and Expiration Data Description Model Number Serial Number Lot Number Expiration Date JR 5.0 DXTERITY CATHETER [id number] 09-01-2019 STENT, 3.0 8MM FRANKI [id number] 02-27-2019 History: Risk Factors Family History of Hypertension Dyslipidemia Previous [place] Previous Heart Failure Premature CAD Yes Yes Yes Yes No Prior Valve Prior PCI Prior PCIDate Prior CABG Surgery No Yes 02/26/2015 No Cerebrovascular Peripheral Artery Chronic Lung On Dialysis Diabetes Diabetes Therapy Disease Disease Disease No Yes No No Yes Insulin Labs Hgb (g/dl) Hct (%) WBC (l/cumm) Platelets (thousands) 11.60-17.00 35.00-51.00 4.00-11.00 150.00-450.00 14.5 43.5 5 242 Glucose (mg/dl) BUN (mg/dl) Creatinine (mg/dl) BUN:Creatinine (1:x) 74.00-106.00 7.00-18.00 0.50-1.30 10.00-20.00 141 13 1.1 11.8 Na (meq/l) K (meq/l) 136.00-145.00 3.50-5.10 142 3.7 INR (PTT:PT) 0.90-1.10 1.1 Troponin I (ng/ml) CPK-MB (ng/ML) 0.02-0.05 0.50-3.60 0.02 Not Drawn Medication Medication Total Dose (Bolus/Oral) Medication Total Dosage/Unit 1% XYLOCAINE 5 mL FENTANYL 100 mcg HEPARIN 6000 units OXYGEN 2 l/min PLAVIX 300 mg RADIAL COCKTAIL 5 mL (Bolus) VERSED 3 mg Medications (Bolus/Oral) Medication Time Given Dosage/Unit Administered By Reason VERSED 05/15/2017 8:37:18 AM 1 mg Adamy, Maegan 1 mg VERSED given in lab by Maegan Rios RN in Right Antecubital via Peripheral IV. Ordered by Saravanan Pagan. VERSED 05/15/2017 8:41:03 AM 1 mg Adamy, Maegan 1 mg VERSED given in lab by Maegan Rios, LEVI via Peripheral IV. Ordered by Saravanan Angel. 1% XYLOCAINE 05/15/2017 8:45:15 AM 5 mL Saravanan Angel 5 mL 1% XYLOCAINE given in lab by Saravanan Angel in Right Radial via Subcutaneous. Ordered by Saravanan Angel. RADIAL COCKTAIL 05/15/2017 8:45:45 AM 5 mL (Bolus) Saravanan Angel 5 mL (Bolus) RADIAL COCKTAIL given in lab by Saravanan Angel in Right Radial via Radial. Using [Solutio n Name]. Ordered by Saravanan Angel. 200 NITRO,2500 UNITS HEPARIN VERSED 05/15/2017 8:47:34 AM 1 mg Adamy, Maegan 1 mg VERSED given in lab by Maegan Rios RN in Right Antecubital via Peripheral IV. Ordered by Saravanan Pagan. FENTANYL 05/15/2017 8:59:35 AM 50 mcg Maegan Rios 50 mcg FENTANYL given in lab by Maegan Rios RN in Right Antecubital via Peripheral IV. Ordered Saravanan Pierce. OXYGEN 05/15/2017 9:00:00 AM 2 l/min Maegan Rios 2 l/min OXYGEN given in lab by Maegan Rios RN via Nasal. Ordered by Saravanan Angel. HEPARIN 05/15/2017 9:07:40 AM 6000 units Maegan Rios 6000 units HEPARIN given in lab by Maegan Rios RN in Right Antecubital via Peripheral IV. Ordere d by Saravanan Angel. FENTANYL 05/15/2017 9:19:23 AM 50 mcg Maegan Rios 50 mcg FENTANYL given in lab by Maegan Rios RN in Right Antecubital via Peripheral IV. Ordered Saravanan Pierce. PLAVIX 05/15/2017 9:29:14 AM 300 mg Maegan Rios 300 mg PLAVIX given in lab by Maegan Rios, LEVI via Oral. Ordered by Saravanan Angel. Medication (Drip) Medication Time Given Dosage/Unit Concentration/Unit Diluent (ml) Solution IV Solutions 05/15/2017 8:28:15 AM 0 mL (IV) 500 NaCl .9 IV Solutions given in lab by Angie Medellin BSN in Right Antecubital via Peripheral IV. Pump/Dr ip Flow = 20 ml/hr using NaCl .9. Ordered by Saravanan Angel. Initial Case Assessment Cardiovascular HR Rhythm NIBP Chest Pain 50 sr 145/82 0 Edema Present Skin color Skin None Normal Warm Dry Circulatory - Right Pulses Dorsalis Pedis Femoral Radial 1 2 3 Scale (0,1,2,3,4,d) Scale (0,1,2,3,4,d) Neurological State Oriented to time-place- Alert Moves all extremities person Respiration - General Respiration Rate SpO2 (%) O2 (lpm) (B/min) 18 95 0 Final Case Assessment Cardiovascular HR Rhythm NIBP Chest Pain 43 sr 182/91 0 Edema Present Skin color Skin None Normal Warm Dry Circulatory - Right Pulses Dorsalis Pedis Femoral Radial 1 2 3 Scale (0,1,2,3,4,d) Scale (0,1,2,3,4,d) Neurological State Oriented to time-place- Alert Moves all extremities person Respiration - General Respiration Rate SpO2 (%) O2 (lpm) (B/min) 11 96 0 Chronological Log Time Study Chronological Log 8:17:31 Patient arrived via Bed. 8:17:33 Patient Name, D.O.B, / Armband Verified By R.N. 8:17:34 Consent signed by the physician and the patient and verified by the [facility] staff. 8:17:35 Pre-op and post- op instructions given; patient acknowledges understanding of instructions. 8:18:00 Verbal Stimulation=2 Physical Stimulation=2 Airway=2 Respiration=2 TOTAL=8. (0=absent, 1=carson ited, 2=present) 8:26:45 Allens test performed on the right radial and ulnar artery. Positive test performed by Eduin Gardner 8:27:04 Patient has been NPO for More than 6Hrs. 8:27:06 Skin Breakdown-none present per patient. 8:27:10 IV not working upon arrival to [facility]. New IV being started. 8:27:21 A # 20 IV was noted in the Antecubital (right). Grade = 0 IV Solutions given in lab by Angie Medellin BSN in Right Antecubital via Peripheral IV. Pu mp/Drip Flow = 20 8:28:15 ml/hr using NaCl .9. Ordered by Saravanan Angel. 8:29:00 History and physical on the chart or being dictated. 8:30:16 Consent signed by the physician and the patient and verified by the [facility] staff. 8:30:20 Pre-op and post- op instructions given; patient acknowledges understanding of instructions. 8:30:39 History and physical on the chart or being dictated. Vitals capture started with the following parameters, Patient=Adult, Interval=5 min, Initial Pre nreis=005 mmHg, 8:30:45 Deflation Rate=5 mmHg, Cuff placed on Left Leg 8:31:22 Right groinand right radial prepped with 2% chlorhexidine, and draped after a 3 min. waiting time. Vitals capture started with the following parameters, Patient=Adult, Interval=5 min, Initial Pre rvugf=766 mmHg, 8:32:19 Deflation Rate=5 mmHg, Cuff placed on Left Leg 8:32:41 MD arrived. 8:32:57 HR=42 bpm, TZOU=747/82 mmhg, SpO2=95.0 %, Resp=7 B/min, Solo=2 8:32:59 Reference ECG taken Assessment: Initial Case, HR=50 BPM, Rhythm=sr, UOHO=049/82 mmhg, Chest Pain=0, Edema=None, Alcoa r=Normal, Skin = Warm, Dry 8:33:48 Right Pulses: Tien Ped=1, Femoral=2, Radial=3 Neurological: State=Alert, Ox3, TOVAR Respiration: Resp=18 B/min, SpO2=95 %, O2=0 lpm 8:37:18 1 mg VERSED given in lab by Maegan Rios, RN in Right Antecubital via Peripheral IV. Orde red by Saravanan Angel. 8:38:45 HR=43 bpm, LMNE=664/119 mmhg, SpO2=92.0 %, Resp=0 B/min, Solo=2 8:39:06 Vitals capture stopped. Vitals capture started with the following parameters, Patient=Adult, Interval=5 min, Initial Pre qumpy=771 mmHg, 8:39:20 Deflation Rate=5 mmHg, Cuff placed on Unknown 8:39:40 Pressure channel 1 zeroed. 8:40:48 HR=43 bpm, MXWE=448/83 mmhg, SpO2=88.0 %, Resp=0 B/min, Solo=2 8:41:03 1 mg VERSED given in lab by Maegan Rios, RN via Peripheral IV. Ordered by Saravanan Angel. Time Out. Correct patient, correct procedure, correct physician, power injector not loaded with contrast with surgical 8:43:14 team present. Time Out Concurred by MD and individual staff in procedure. Not loaded at this arvind e. 8:43:43 Presedation re-assessment performed by [facility] RN. 8:43:45 Case Start 8:43:47 Verbal Stimulation=2 Physical Stimulation=2 Airway=2 Respiration=2 TOTAL=8. (0=absent, 1=carson ited, 2=present) 8:45:15 5 mL 1% XYLOCAINE given in lab by Saravanan Angle in Right Radial via Subcutaneous. Ordered by Saravanan Angel. 8:45:38 HR=35 bpm, DUCQ=049/81 mmhg, SpO2=90.0 %, Resp=17 B/min, Solo=2 5 mL (Bolus) RADIAL COCKTAIL given in lab by Saravanan Angel in Right Radial via Radial. Using [So lution Name]. 8:45:45 Ordered by Saravanan Angel. 200 NITRO,2500 UNITS HEPARIN 8:45:49 Access site was Radial Artery. A SHEATH, FR6 TRANSRADIAL SLENDER 10CM FR 6 was advanced into the Radial (right) using the Margot theodore 8:46:05 technique. 8:47:34 1 mg VERSED given in lab by Maegan Rios, RN in Right Antecubital via Peripheral IV. Orde red by Saravanan Angel. A JL 3.5 INFINITI CATHETER FR 5 was advanced over a wire. OMNIPAQUE, 350 MG, 100ML 100ML was use d for 8:47:38 injections. Recorded Pressure: Ao, HR=24, Condition=Condition 1 8:48:42 (Aorta) Ao 125/63/93 8:48:55 The LCA was injected and visualized at various angles. OMNIPAQUE, 350 MG, 100ML 100ML used. 8:50:37 HR=27 bpm, MEPC=692/80 mmhg, SpO2=93 %, Resp=15 B/min, Pain=0, Rishi=10, Solo=2 8:52:18 Catheter was removed A JR 5.0 DXTERITY CATHETER fr 5 was advanced over a wire. OMNIPAQUE, 350 MG, 100ML 100ML was use d for 8:52:20 injections. 8:53:40 The LV was manually injected with 10 cc's and visualized. OMNIPAQUE, 350 MG, 100ML 100ML use d. 8:54:41 The RCA was injected and visualized at various angles. OMNIPAQUE, 350 MG, 100ML 100ML used. 8:55:49 HR=42 bpm, HFEP=555/71 mmhg, SpO2=93 %, Resp=13 B/min, Pain=0, Rishi=10, Solo=2 8:57:32 Catheter was removed Recorded Pressure: LV, HR=51, Condition=Condition 1 8:58:23 (Left Ventricle) LV 116/15/16 Recorded Pressure: LV, Ao, HR=99, Condition=Condition 1 8:59:06 (Left Ventricle) LV 133/15/21, (Aorta) Ao 135/72/106 8:59:35 50 mcg FENTANYL given in lab by Maegan Rios, LEVI in Right Antecubital via Peripheral IV. Ordered by Saravanan Angel. 8:59:57 HR=43 bpm, QECW=385/115 mmhg, SpO2=93.0 %, Resp=15 B/min, Pain=0, Rishi=10, Solo=2 9:00:00 2 l/min OXYGEN given in lab by Maegan Rios, LEVI via Nasal. Ordered by Saravanan Angel. 9:00:12 Catheter was removed A XBLAD 4.0 GUIDE CATHETER FR 6 was advanced over a wire. OMNIPAQUE, 350 MG, 100ML 100ML was use d for 9:01:18 injections. 9:03:49 Catheter was removed A XBLAD 3.5 GUIDE CATHETER FR 6 was advanced over a wire. OMNIPAQUE, 350 MG, 100ML 100ML was use d for 9:03:50 injections. 9:05:39 HR=43 bpm, FOQF=823/95 mmhg, SpO2=95 %, Resp=14 B/min, Pain=0, Rishi=10, Solo=2 6000 units HEPARIN given in lab by Maegan Rios, LEVI in Right Antecubital via Peripheral IV. O rdered by Stanley, 9:07:40 Saravanan. 9:09:40 A WIRE, BALANCE MIDDLEWEIGHT 190CM 190CM was inserted via Radial (right). 9:10:48 HR=43 bpm, HZKA=652/79 mmhg, SpO2=96 %, Resp=15 B/min, Pain=0, Rishi=10, Solo=2 9:12:49 Wire removed 9:12:50 A WIRE, BALANCE MIDDLEWEIGHT 190CM 190CM was inserted via Radial (right). 9:15:37 HR=44 bpm, IBHB=524/56 mmhg, SpO2=95 %, Resp=14 B/min, Pain=0, Rishi=10, Solo=2 9:15:50 Interventional wire has crossed the lesion 9:16:59 Activated Clotting Time Drawn A STENT, 3.0 8MM FRANKI 3.0 8MM was advanced through a XBLAD 3.5 GUIDE CATHETER FR 6 over a WIRE, BALANCE 9:18:37 MIDDLEWEIGHT 190CM 190CM. 9:19:23 50 mcg FENTANYL given in lab by Maegan Rios, LEVI in Right Antecubital via Peripheral IV. Ordered by Saravanan Angel. A STENT, 3.0 8MM FRANKI 3.0 8MM was deployed using a 30 JUANCHO INDEFLATOR at 16 atmospheres for 30 se conds in the 9:20:22 LAD Dist. 9:20:32 HR=21 bpm, XGRG=217/100 mmhg, SpO2=94.0 %, Resp=17 B/min, Pain=0, Rishi=10, Solo=2 9:22:42 Delivery device removed 9::46 Wire removed 9::47 Catheter was removed 9::51 Case End PCI QA completed: Pre-Gil - 3, Post Gil - 3, Type - C, Length - 5 mm, Morphology - ~MORPHOLO GY~, Indications - 9:22:52 Lesion > 50 non-stem, Pre-Stenosis - 80% and Post Stenosis - 0%. 9:22:53 PCI QA obtained from Medical Coding Specialist 9:23:46 Catheter(s) removed without difficulty Radial Compression Device Used. 13 mLs of air placed in BAND, RADIAL COMPRESSION TR LARGE 29 2 9CM. Affected 9:23:57 hand 96 % O2 saturation. 9:25:02 HR=44 bpm, WTOS=526/106 mmhg, SpO2=94.0 %, Resp=20 B/min, Pain=0, Rishi=10, Solo=2 9:25:59 ACT (Normal Range 90-180) = 475 9:26:24 No case complications noted. 9::26 Cine recording checked. 9::28 Bedside Report will be given. 9:26:30 Implantable Device card placed in patient's chart. 9:29:14 300 mg PLAVIX given in lab by Maegan Rios RN via Oral. Ordered by Saravanan Angel. 9:30:48 HR=43 bpm, NBOI=852/91 mmhg, SpO2=96 %, Resp=11 B/min, Pain=0, Rishi=10, Sool=2 9:30:51 Vitals capture stopped. Assessment: Final Case, HR=43 BPM, Rhythm=sr, OFYQ=093/91 mmhg, Chest Pain=0, Edema=None, Alcoa r=Normal, Skin = Warm, Dry 9:31:00 Right Pulses: Tien Ped=1, Femoral=2, Radial=3 Neurological: State=Alert, Ox3, TOVAR Respiration: Resp=11 B/min, SpO2=96 %, O2=0 lpm End Study - Contrast Media Used In Study Contrast Total Opened (mL) Total Used (mL) Total Wasted (mL) Omnipaque 130 130 0 End Study - Maximum Contrast Load Max Contrast Load (mL) 609.1 End Study - Radiation Exposure Fluoro Time (minutes) 17.5 End Study - Patient Disposition Complications Transferred To Interventional Outcome No Telemetry Bed successful
[2017-05-15] MEDS ORDERED: MISC INFORMATION XX ONE (09:45)
[2017-05-15] MEDS ORDERED: BACITRACIN OINT 0.9 GM PKT TOP ONE (09:45)
[2017-05-15] MEDS ORDERED: SODIUM CHLOR 0.9% 1000 ML INJ 1,000 ML IV SCH (10:00)
--- NOTE | 2017-05-15 10:02 | MA ---
cc: Saravanan Angel MD, Rizalina MD 05/15/2017 PROCEDURE PERFORMED: Left heart catheterization, left ventriculography, coronary angiography, primary stenting of the distal left anterior descending artery. BRIEF HISTORY: Abdiel Cavazos is a 67-year-old man well known to me with coronary artery disease. He comes in with typical unstable anginal symptoms. Troponins were negative. I opted to go directly to a cardiac catheterization. DESCRIPTION OF PROCEDURE: The patient was brought to the cardiac catheterization lab in a fasting state. The right wrist was prepped and draped in a sterile fashion. Using a Jelco needle and 1% lidocaine, a Terumo slender sheath was easily inserted in the right radial artery. Standard cocktail was administered, minus the verapamil because of bradycardia. Coronary angiography was completed using a left 3.5 Melissa for the left coronary artery and a right 4 Melissa for the right coronary artery. I decided to perform intervention. An XB-4 LAD catheter had to be removed because it was too large. An XB 3.5 LAD catheter engaged the left main nicely. I then wired the LAD with a BMW wire and then direct stented of the distal LAD utilizing a 3.0 x 8 mm Resolute stent deployed at 14 atmospheres for 30 seconds. The patient tolerated this well. The balloon catheter was withdrawn and cosmetic appearance appears excellent. The guiding catheter was removed. Terumo band was placed. Note that IV heparin was given with above therapeutic ACT for the procedure. There were no complications. Total blood loss was about 20 mL. Total contrast load was 130 mL. FINDINGS: 1. Hemodynamics: The left ventricular pressure was 133/15 with an end diastolic pressure of 25. Aortic pressure is 135/72 with a mean of 100. There was no gradient during pullback from the left ventricle to the aorta. 2. Left Ventriculography: left ventriculography shows normal ejection fraction of 65%. 3. Coronary Angiography: The left main coronary artery tapers distally about 10%. The LAD has diffuse 10-20% disease distally. On the proximal end of the previous distal LAD stent is a focal 99% stenosis. The circumflex artery has diffuse irregularities. The major obtuse marginal branch has about 25% ostial disease. The right coronary artery is dominant and has multiple previous stents placed. The proximal stents are widely patent. There is about 20% stenosis between the proximal and mid vessel and about 30-35% disease between the mid and distal vessel. The remainder of the vessel has no stenosis. 4. Results of Stenting: Following stenting of the LAD. A 0% residual stenosis had been achieved. PLAN: The patient will be continued on aspirin and Plavix. We will allow him to go home later this afternoon. MD SARMAD Arce/LORA , 09:33 AM , 10:00 AM
--- NOTE | 2017-05-15 10:47 | HHI.PR ---
Subjective Remarks Went for a cardiac cath seen thereafter. See discharge plan Objective Vitals Vital Signs Date Time Temp Pulse Resp B/P (MAP) Pulse Ox O2 Delivery O2 Flow Rate FiO2 05/15/17 09:43 93 Room Air 05/15/17 07:54 97.8 62 16 141/82 (101) 96 05/14/17 23:38 98.3 63 18 144/74 (97) 93 05/14/17 23:00 57 05/14/17 23:00 63 05/14/17 14:24 97.8 60 18 163/95 (117) 99 Result Diagram: 05/14/17 1035 05/14/17 1035 A/P Problem List: (1) Chest pain ICD Code: R07.9 - Chest pain Status: Acute (2) Diabetes mellitus, type 2 ICD Code: E11.9 - Diabetes mellitus, type 2 Status: Chronic (3) Hypertension, benign ICD Code: I10 - Hypertension, benign Status: Chronic (4) Hyperlipidemia ICD Code: E78.5 - Hyperlipidemia Status: Chronic (5) CAD (coronary artery disease) ICD Code: I25.10 - CAD (coronary artery disease) Status: Chronic Romina Banerjee MD May 15, 2017 10:47
--- NOTE | 2017-05-15 14:48 | HHI.DS ---
Discharge Summary Admission Date May 14, 2017 at 11:49 Discharge Date: May 15, 2017 Admitting Diagnosis Chest pain (1) Chest pain ICD Code: R07.9 - Chest pain Status: Acute (2) Diabetes mellitus, type 2 ICD Code: E11.9 - Diabetes mellitus, type 2 Status: Chronic (3) Hypertension, benign ICD Code: I10 - Hypertension, benign Status: Chronic (4) Hyperlipidemia ICD Code: E78.5 - Hyperlipidemia Status: Chronic (5) CAD (coronary artery disease) ICD Code: I25.10 - CAD (coronary artery disease) Status: Chronic Procedures No procedures Brief History - From Admission The patient is a 67-year-old male with known history of coronary artery disease who presented to the emergency department with chest pain that has been worsening over the past few days. He states that about 2 weeks ago he started having very short episodes of sharp pain in the right side of his chest. These were often associated with activity. Over the past 3-4 days, he has had episodes of pressure in his chest that have lasted 20-30 minutes. Pain is rated 7/10. He does still have some pressure at this time. Does report associated dyspnea, but denies associated diaphoresis, nausea, vomiting. CBC/BMP: 05/14/17 1035 05/14/17 1035 Imaging Last Impressions Chest X-Ray 05/14/17 1015 Signed Impressions: Service Date/Time: Sunday, May 14, 2017 10:26 - CONCLUSION: No acute disease. Bartolome Alejo MD PE at Discharge GENERAL: Alert WN, WD, NAD, pleasant, obese, male ABD: Obese, soft, NT, ND, no masses, positive bowel tones, obese EXT: Pulses +24, +1 pitting bilateral lower extremity edema MS: Normal tone 4 extremities, nontender, no obvious deformities, full range of motion NEURO: CN II through CN XII grossly intact, motor strength 5/5 PSYCH: A+O 3, pleasant affect, appropriate speech, mood, insight and judgment SKIN: Normal turgor, normal texture, no lesions, no rashes, brisk cap refill, even hair distribution Pt update on day of discharge Was seen after cardiac cath today. Patient in bed he appears to not acute distress. Was eating after cardiac cath no nausea no vomiting no diarrhea or constipation. Says no chest pain overnight. He does not complain of chest pain or shortness of breath at this time. Feels better. Was cleared by cardiology for discharge to follow-up as outpatient Hospital Course #1 Chest pain-the chest pain center. Begin ruling out ACS with 3 sets of EKGs and cardiac enzymes. Will be seen and evaluated by Dr. Roly Arenas. Call is been placed to patient's corn cooker, Dr. Saravanan Angel, to discuss case. Begin nitroglycerin 1" Q6H paste. Status post cardiac cath by Dr. Angel on 05/15/17. Feeding cath. Cleared by cardiology for discharge to follow-up as outpatient. #2 History of CAD-continue amlodipine, Plavix, atorvastatin, and carvedilol. #3 History of diabetes-SSI moderate dose coverage, hold oral anti-glycemics. Patient improved. Clean cath. Cleared by cardiology for discharge. To follow- up as outpatient with PCP and consultants. Patient was discharged home in stable condition. Pt Condition on Discharge: Stable Discharge Disposition: Discharge Home Discharge Time: > 30 minutes Discharge Instructions DIET: Follow Instructions for: Heart Healthy Diet, Diabetic Diet Activities you can perform: Regular-No Restrictions Follow up Referrals: Cardiology - 1 Week with Saravanan Angel MD PCP Follow-up - 2-3 Days with Joel Santana MD Continued Medications: Amlodipine (Amlodipine) 10 Mg Tab 10 MG PO DAILY for Blood Pressure Management, #30 TAB [address] (Aspirin 81) 81 Mg Tabdr 81 MG PO DAILY, TAB 0 Refills Atorvastatin (Atorvastatin) 20 Mg Tab 20 MG PO HS for Cholesterol Management, #30 TAB 0 Refills Carvedilol (Coreg) 3.125 Mg Tab 3.125 MG PO BID, #60 TAB 0 Refills Clopidogrel (Plavix) 75 Mg Tab 75 MG PO DAILY for Blood Clot Prevention, #30 TAB 0 Refills Glipizide (Glipizide) 5 Mg Tab 5 MG PO BIDAC for Blood Sugar Management, #60 TAB 0 Refills Take 30 minutes before a meal Insulin Detemir Inj (Levemir Inj) 1,000 unit/ 10 ML Vial 50 UNITS SQ HS for Blood Sugar Management, VIAL 0 Refills Do not mix with any other Insulin. Isosorbide Mononitrate ER (Isosorbide Mononitrate ER) 30 Mg Allen 30 MG PO DAILY for Prevent Chest Pain, #30 TAB 0 Refills Lisinopril (Lisinopril) 10 Mg Tab 10 MG PO DAILY, #30 TAB 0 Refills Metformin (Metformin) 500 Mg Tab 500 MG PO BIDPC for Blood Sugar Management, #60 TAB 0 Refills Sitagliptin (Januvia) 100 Mg Tab 100 MG PO DAILY for Blood Sugar Management, #30 TAB 0 Refills Romina aBnerjee MD May 15, 2017 14:47
--- NOTE | 2017-05-15 18:58 | EKG ---
Date Performed: 05/14/2017 Time Performed: 16:28:28 PTAGE: 67 years EKG: Sinus rhythm INFERIOR MYOCARDIAL INFARCTION ABNORMAL ECG Since PREVIOUS TRACING , no significant change noted DOCTOR: Marisa Edward Interpretating Date/Time 05/15/2017 18:57:20
== END 2017-05-15 15:50 | disposition home or self-care (01) ==
LOC: NEPE 09:39 → NEDA 11:49 → NEPFCDU 14:48 → HCIS 05-15 08:28
PROVIDERS: ADMIT Hospitalist; ATTEND Hospitalist
DX: R07.89 Other chest pain (principal); I25.10 Atherosclerotic heart disease of native coronary artery without angina pectoris; I10 Essential (primary) hypertension; E78.00 Pure hypercholesterolemia, unspecified; E11.9 Type 2 diabetes mellitus without complications; I25.2 Old myocardial infarction; R94.31 Abnormal electrocardiogram [ECG] [EKG]; R60.0 Localized edema; E88.81 Metabolic syndrome and other insulin resistance; E66.01 Morbid (severe) obesity due to excess calories; M19.90 Unspecified osteoarthritis, unspecified site; F17.290 Nicotine dependence, other tobacco product, uncomplicated; Z86.73 Personal history of transient ischemic attack (TIA), and cerebral infarction without residual deficits; Z79.899 Other long term (current) drug therapy; Z79.82 Long term (current) use of aspirin; Z79.84 Long term (current) use of oral hypoglycemic drugs; Z95.5 Presence of coronary angioplasty implant and graft
CPT/HCPCS: 71046; 80053; 82550; 82948; 83735; 83880; 84484; 85002; 85025; 85576; 85610; 85730; 92928; 93005; 93458; 96360; 96372; 99152; 99153; 99285; C1769; C1874; C1887; C1893; G0378; J1644; J1815; J2250; J3010; J7030; Q9967

== ENCOUNTER 2017-05-20 13:27 | Observation (INO) | payer MEDICARE, OTHER ==
[2017-05-20] VITALS (8 sets, daily range): BP systolic 132–186; BP diastolic 67–89; PULSE 60–75; RESP 14–18; TEMP 97.9–98.2; O2SAT 95–97
[~2017-05-20] VITALS: Ht 182.9 cm; Wt 133.4 kg
[~2017-05-20 13:27] MED LIST changes: +AMLO10TA2 PO; -BRIL90TA PO; -FOLI5CAP PO; +ISOS30TA3 PO; -LISI10TA PO; +LISI10TA3 PO; -OSEL75 PO; +PLAV75TA29 PO; +SITA1TAB2 PO
[2017-05-20] MEDS ORDERED: SODIUM CHLORIDE 0.9% FLUSH 10 ML FLUSH IVF PRN (14:00)
[2017-05-20] MEDS ORDERED: ASPIRIN 325 MG TAB PO ONE (14:00)
[2017-05-20] MEDS ORDERED: NITROGLYCERIN 2% OINT 1 GM PACKET TOP ONE (14:00)
--- NOTE | 2017-05-20 14:02 | PD ---
HPI Chief Complaint: Chest Pain Time Seen by Provider: 13:57 Travel History International Travel<30 days: No Contact w/Intl Traveler<30days: No Traveled to known affect area: No History of Present Illness HPI 67-year-old male with history of multiple medical issues, CAD with multiple stents, last one put in by Dr. Angel on Sunday, here because of substernal 7 out of 10 chest pains. He denies any nausea, shortness of breath, or other symptoms. He does not know of any exacerbating or alleviating factors. Modifying Factors: None Associated Signs & Symptoms: Chest pain Risk Factors: CAD with multiple stents, stent put in on Sunday PFSH Past Medical History Hx Anticoagulant Therapy: Yes (PLAVIX) Arthritis: Yes Heart Rhythm Problems: No Cancer: No Cardiac Catheterization: Yes Cardiovascular Problems: Yes (OK 6 STENTS) High Cholesterol: Yes Chemotherapy: No Congestive Heart Failure: No Cerebrovascular Accident: Yes (CVA X2) Diabetes: Yes Patient Takes Glucophage: Yes Diminished Hearing: No Endocrine: Yes Gastrointestinal Disorders: No Genitourinary: No Hepatitis: No Hiatal Hernia: No Hypertension: Yes Immune Disorder: No Musculoskeletal: Yes (ARTHRITIS) Neurologic: No Psychiatric: No Reproductive: No Respiratory: No Myocardial Infarction: Yes Thyroid Disease: No Triglycerides - High: Yes Tetanus Vaccination: Unknown Influenza Vaccination: Yes Past Surgical History Abdominal Surgery: Yes AICD: No Appendectomy: Yes Body Medical Devices: CARDIAC STENTS Coronary Artery Bypass Graft: Yes Coronary Stent: Yes (x5) Eye Surgery: Yes (LEFT RETINAL REPAIR, JAKE. CATARACT EXTRACT.) Joint Replacement: Yes (right hip) Pacemaker: No Other Surgery: Yes Family History Family Myocardial Infarction: Yes (BROTHER) Social History Alcohol Use: No (quit 1 year ago) Tobacco Use: No Substance Use: No Allergies-Medications (Allergen,Severity, Reaction): Coded Allergies: No Known Allergies (Verified Allergy, Unknown, 05/14/17) Reported Meds & Prescriptions Reported Meds & Active Scripts Active Reported Januvia (Sitagliptin Phosphate) 100 Mg Tab 100 Mg PO DAILY Amlodipine (Amlodipine Besylate) 10 Mg Tab 10 Mg PO DAILY Isosorbide Mononitrate ER (Isosorbide Mononitrate) 30 Mg Allen 30 Mg PO DAILY Plavix (Clopidogrel Bisulfate) 75 Mg Tab 75 Mg PO DAILY Metformin (Metformin HCl) 500 Mg Tab 500 Mg PO BIDPC Lisinopril 10 Mg Tab 10 Mg PO DAILY Levemir Inj (Insulin Detemir) 1,000 unit/ 10 ML Vial 50 Units SQ HS Do not mix with any other Insulin. Glipizide 5 Mg Tab 5 Mg PO BIDAC Take 30 minutes before a meal Coreg (Carvedilol) 3.125 Mg Tab 3.125 Mg PO BID Atorvastatin (Atorvastatin Calcium) 20 Mg Tab 20 Mg PO HS Aspirin 81 (Aspirin) 81 Mg Tabdr 81 Mg PO DAILY Review of Systems Except as stated in HPI: all other systems reviewed are Neg Physical Exam Narrative GENERAL: Well-developed elderly male patient currently in mild distress. Awake and oriented 3. SKIN: Focused skin assessment warm/dry. HEAD: Atraumatic. Normocephalic. EYES: Pupils equal and round. No scleral icterus. No injection or drainage. ENT: No nasal bleeding or discharge. Mucous membranes pink and moist. NECK: Trachea midline. No JVD. Supple. CARDIOVASCULAR: Regular rate and rhythm. No murmur appreciated. RESPIRATORY: No accessory muscle use. Clear to auscultation. Breath sounds equal bilaterally. GASTROINTESTINAL: Abdomen soft, non-tender, nondistended. Hepatic and splenic margins not palpable. MUSCULOSKELETAL: No obvious deformities. No clubbing. No cyanosis. No edema. NEUROLOGICAL: Awake and alert. No obvious cranial nerve deficits. Motor grossly within normal limits. Normal speech. PSYCHIATRIC: Appropriate mood and affect; insight and judgment normal. Data Data Last Documented VS Vital Signs Date Time Temp Pulse Resp B/P (MAP) Pulse Ox O2 Delivery O2 Flow Rate FiO2 05/20/17 16:38 63 18 173/89 (117) 97 Room Air 05/20/17 13:36 97.9 Orders Orders Electrocardiogram (05/20/17 13:57) B-Type Natriuretic Peptide (05/20/17 13:57) Ckmb (Isoenzyme) Profile (05/20/17 13:57) Complete Blood Count With Diff (05/20/17 13:57) Comprehensive Metabolic Panel (05/20/17 13:57) Magnesium (Mg) (05/20/17 13:57) Prothrombin Time / Inr (Pt) (05/20/17 13:57) Act Partial Throm Time (Ptt) (05/20/17 13:57) Troponin I (05/20/17 13:57) Ecg Monitoring (05/20/17 13:57) Bilateral Bp Monitoring (05/20/17 13:57) Iv Access Insert/Monitor (05/20/17 13:57) Oximetry (05/20/17 13:57) Oxygen Administration (05/20/17 13:57) Aspirin (Aspirin) (05/20/17 14:00) Nitroglycerin 2% Oint (Nitroglycerin 2% (05/20/17 14:00) Sodium Chloride 0.9% Flush (Ns Flush) (05/20/17 14:00) Chest, Pa & Lat (05/20/17 13:57) Morphine Inj (Morphine Inj) (05/20/17 16:30) Heparin Inj (Heparin Inj) (05/20/17 16:30) Heparin Inj (Heparin Inj) (05/20/17 22:30) Heparin Inj (Heparin Inj) (05/20/17 22:30) Heparin-D5w 25,000 U/250 Ml (Heparin-D5w (05/20/17 16:30) Act Partial Throm Time (Ptt) (05/20/17 16:21) Cbc No Diff, Includes Plts (05/20/17 16:21) Cbc No Diff, Includes Plts (05/23/17 06:00) Act Partial Throm Time (Ptt) (05/20/17 23:21) Occult Blood (Hemoccult) Stool (05/20/17 16:21) Admit Order (Ed Use Only) (05/20/17 16:36) Labs Laboratory Tests Test 05/20/17 14:00 White Blood Count 5.6 TH/MM3 Red Blood Count 4.76 MIL/MM3 Hemoglobin 14.4 GM/DL Hematocrit 41.9 % Mean Corpuscular Volume 88.0 FL Mean Corpuscular Hemoglobin 30.2 PG Mean Corpuscular Hemoglobin Concent 34.3 % Red Cell Distribution Width 14.4 % Platelet Count 236 TH/MM3 Mean Platelet Volume 8.5 FL Neutrophils (%) (Auto) 57.7 % Lymphocytes (%) (Auto) 23.9 % Monocytes (%) (Auto) 13.1 % Eosinophils (%) (Auto) 4.2 % Basophils (%) (Auto) 1.1 % Neutrophils # (Auto) 3.2 TH/MM3 Lymphocytes # (Auto) 1.3 TH/MM3 Monocytes # (Auto) 0.7 TH/MM3 Eosinophils # (Auto) 0.2 TH/MM3 Basophils # (Auto) 0.1 TH/MM3 CBC Comment DIFF FINAL Differential Comment Prothrombin Time 10.4 SEC Prothromb Time International Ratio 1.0 RATIO Activated Partial Thromboplast Time 25.9 SEC Blood Urea Nitrogen 13 MG/DL Creatinine 1.08 MG/DL Random Glucose 111 MG/DL Total Protein 6.9 GM/DL Albumin 3.4 GM/DL Calcium Level 8.6 MG/DL Magnesium Level 1.8 MG/DL Alkaline Phosphatase 57 U/L Aspartate Amino Transf (AST/SGOT) 28 U/L Alanine Aminotransferase (ALT/SGPT) 31 U/L Total Bilirubin 0.6 MG/DL Sodium Level 142 MEQ/L Potassium Level 4.4 MEQ/L Chloride Level 110 MEQ/L Carbon Dioxide Level 22.8 MEQ/L Anion Gap 9 MEQ/L Estimat Glomerular Filtration Rate 68 ML/MIN Total Creatine Kinase 100 U/L Troponin I 0.03 NG/ML B-Type Natriuretic Peptide 88 PG/ML MDM Medical Decision Making Medical Screen Exam Complete: Yes Emergency Medical Condition: Yes Medical Record Reviewed: Yes Interpretation(s) EKG shows NSR, no ST elevation or depression, and no arrhythmias. No significant T-wave inversions. Laboratory Tests Test 05/20/17 14:00 Monocytes (%) (Auto) 13.1 % (0.0-8.0) Eosinophils (%) (Auto) 4.2 % (0.0-4.0) Random Glucose 111 MG/DL (74-106) Chloride Level 110 MEQ/L (98-107) Estimat Glomerular Filtration Rate 68 ML/MIN (>89) Differential Diagnosis Chest pain: ACS versus unstable angina versus dysrhythmias Narrative Course EKG did not show any signs of acute changes. Cardiac enzymes are unremarkable. Lab work was otherwise unremarkable. Chest x-ray did not show any signs of acute pulmonary processes. He was given aspirin nitroglycerin without significant symptom relief. Case was discussed with Dr. Richardson who is covering for Dr. Angel, states that I can give him something to help relieve his pain and heparin. He states that cardiology will consult on him in the morning. Keep him n.p.o. after midnight. Case is discussed with Dr. Tracey for admission. Diagnosis Primary Impression: Chest pain Admitting Information Admitting Physician Requests: Admit [facility],Rewadee MD May 20, 2017 14:02
--- NOTE | 2017-05-20 14:27 | RADRPT ---
EXAM DATE/TIME: 05/20/2017 14:14 [facility] COMPARISON: CHEST PA & LAT, May 14, 2017, 10:26. INDICATIONS : Chest pain. MEDICAL HISTORY : Hypertension. Diabetes mellitus type II. SURGICAL HISTORY : Carotid stent. Loop recorder. ENCOUNTER: Initial ACUITY: 3 days PAIN SCORE: 5/10 LOCATION: Bilateral chest FINDINGS: PA and lateral views of the chest demonstrate the lungs to be symmetrically aerated without evidence of mass, infiltrate or effusion. The cardiomediastinal contours are unremarkable. Osseous structure s are intact. There is a loop recorder in the lower left chest. CONCLUSION: No acute disease. Bartolome Fraga MD on May 20, 2017 at 14:24 Board Certified Radiologist. This report was verified electronically.
[2017-05-20 15:07] LABS: AUTOMATED NEUTROPHIL # 3.2 TH/MM3 (1.8-7.7); BASOPHIL # 0.1 TH/MM3 (0-0.2); BASOPHIL % 1.1 % (0.0-2.0); EOSINOPHIL # 0.2 TH/MM3 (0-0.4); EOSINOPHIL % 4.2 % (0.0-4.0); HEMATOCRIT 41.9 % (39.0-51.0); HEMOGLOBIN 14.4 GM/DL (13.0-17.0); LYMPH % 23.9 % (9.0-44.0); LYMPHOCYTE # 1.3 TH/MM3 (1.0-4.8); MEAN CORPUSCULAR HEMOGLOBIN 30.2 PG (27.0-34.0); MEAN CORPUSCULAR HGB CONC 34.3 % (32.0-36.0); MEAN PLATELET VOLUME 8.5 FL (7.0-11.0); MONO % 13.1 % (0.0-8.0); MONOCYTE # 0.7 TH/MM3 (0-0.9); NEUT % 57.7 % (16.0-70.0); PLATELET COUNT 236 TH/MM3 (150-450); RED BLOOD COUNT 4.76 MIL/MM3 (4.50-5.90); RED CELL DISTRIBUTION WIDTH 14.4 % (11.6-17.2); WHITE BLOOD COUNT 5.6 TH/MM3 (4.0-11.0)
[2017-05-20 15:11] LABS: PROTHROMBIN TIME - PATIENT 10.4 SEC (9.8-11.6)
[2017-05-20 15:42] LABS: ALBUMIN 3.4 GM/DL (3.4-5.0); ALKALINE PHOSPHATASE 57 U/L (45-117); ALT (GPT) 31 U/L (12-78); AST (GOT) 28 U/L (15-37); BICARBONATE 22.8 MEQ/L (21.0-32.0); BLOOD UREA NITROGEN 13 MG/DL (7-18); CALCIUM 8.6 MG/DL (8.5-10.1); CHLORIDE 110 MEQ/L (98-107); CREATININE 1.08 MG/DL (0.60-1.30); GLOMERULAR FILTRATION RATE 68 ML/MIN (>89); GLUCOSE,RANDOM 111 MG/DL (74-106); MAGNESIUM 1.8 MG/DL (1.5-2.5); SODIUM (NA) 142 MEQ/L (136-145); TOTAL BILIRUBIN ADULT 0.6 MG/DL (0.2-1.0); TOTAL PROTEIN 6.9 GM/DL (6.4-8.2); TROPONIN I 0.03 NG/ML (0.02-0.05)
[2017-05-20] MEDS ORDERED: MORPHINE SULFATE 2 MG/ML INJ IV PUSH ONE (16:30)
[2017-05-20] MEDS ORDERED: HEPARIN SODIUM - IV 10,000 UNITS/10 ML VIAL IV PUSH ONE (16:30)
[2017-05-20] MEDS ORDERED: IOHEXOL 350 MG/ML 100 ML BTL (for Cath Lab) OTHER ONE (16:39)
[2017-05-20] MEDS ORDERED: IOHEXOL 350 MG/ML 50 ML BTL (for Cath Lab) OTHER ONE (16:39)
[2017-05-20] MEDS ORDERED: ONDANSETRON HCL 4 MG/2 ML VIAL IVP PRN (17:15)
[2017-05-20] MEDS ORDERED: DEXTROSE 50% IN WATER 50 ML VIAL(D50) IV PUSH PRN (17:15)
[2017-05-20] MEDS ORDERED: SENNOSIDES 8.6 MG TAB PO PRN (17:15)
[2017-05-20] MEDS ORDERED: SODIUM CHLORIDE 0.9% FLUSH 10 ML FLUSH IV FLUSH PRN (17:15)
[2017-05-20] MEDS ORDERED: NALOXONE HCL 0.4 MG/ML AMP IV PUSH PRN (17:15)
[2017-05-20] MEDS ORDERED: MORPHINE SULFATE 2 MG/ML INJ IV PUSH PRN (17:15)
[2017-05-20] MEDS ORDERED: MAGNESIUM HYDROXIDE SUSP 30 ML CUP PO PRN (17:15)
[2017-05-20] MEDS ORDERED: NITROGLYCERIN 0.4 MG SL 25 TABS/BTL SL PRN (17:15)
[2017-05-20] MEDS ORDERED: GLUCAGON 1 MG/ML VIAL OTHER PRN (17:15)
[2017-05-20] MEDS ORDERED: MORPHINE SULFATE 4 MG/ML INJ IV PUSH PRN (17:15)
--- NOTE | 2017-05-20 17:26 | HHI.HP ---
[facility] Joel Santana MD Admission Diagnosis Chest pain/possible unstable angina Diagnoses: (1) Chest pain Travel History International Travel<30 Days: No Contact w/Intl Traveler <30 Da: No Traveled to Known Affected Are: No History of Present Illness 67-year-old male with extensive history of coronary artery disease presents with substernal chest pain. He describes the pain as substernal pressure with occasional sharp pains in his mid back and associated with shortness of breath. He had a stent placed with Dr. Angel last Sunday and felt fine following the procedure. During that procedure was described to him that there was a blockage in the distal end of one, the problem was addressed during the heart catheterization. Last Sunday he began to develop mild chest pain again. The pain has become worse through the week and became alarming over the last 24 hours. He states last night his chest pain waking him up all night. Risk factors include a strong family history of myocardial infarctions, type 2 diabetes, previous history of stroke, hypertension, dyslipidemia. He has had 6 stents placed in the past. Review of Systems Constitutional: COMPLAINS OF: Fatigue, DENIES: Fever, Weight gain, Weight loss , Chills Eyes: DENIES: Diplopia, Eye inflammation, Eye pain, Vision loss, Photosensitivity Ears, nose, mouth, throat: DENIES: Hearing loss, Vertigo, Nasal discharge Respiratory: DENIES: Cough, Snoring, Wheezing, Hemoptysis, Sputum production Cardiovascular: COMPLAINS OF: Chest pain, Syncope, Dyspnea on Exertion, Lower Extremity Edema Gastrointestinal: DENIES: Abdominal pain, Black stools, Bloody stools, Constipation Musculoskeletal: DENIES: Joint pain, Muscle aches, Stiffness, Joint Swelling Hematologic/lymphatic: DENIES: Bruising, Lymphadenopathy Neurologic: DENIES: Abnormal gait, Localized weakness, Paresthesias, Seizures Psychiatric: DENIES: Anxiety, Mood changes, Depression, Hallucinations Past Family Social History Past Medical History 08/05 in the past, stroke, type 2 diabetes, hypertension, dyslipidemia Past Surgical History Right hip surgery 2013 Cornea repair Appendectomy in childhood Allergies: Coded Allergies: No Known Allergies (Verified Allergy, Unknown, 05/14/17) Family History Myocardial infarction in father, brother, sister, obesity Social History Smokes 1 cigar once a month Denies any recent alcohol use Physical Exam Vital Signs Vital Signs Date Time Temp Pulse Resp B/P (MAP) Pulse Ox O2 Delivery O2 Flow Rate FiO2 05/20/17 16:40 18 05/20/17 16:38 63 18 173/89 (117) 97 Room Air 05/20/17 14:03 97 Room Air 05/20/17 14:03 97 Room Air 05/20/17 13:49 75 18 157/89 (111) 95 Room Air 05/20/17 13:49 73 18 97 Room Air 05/20/17 13:36 97.9 70 16 149/67 (94) 97 Physical Exam GENERAL: Obese patient lying comfortably in bed, no shortness of breath, no apparent distress SKIN: No rashes, ecchymoses or lesions. Cool and dry. HEAD: Atraumatic. Normocephalic. No temporal or scalp tenderness. EYES: Pupils equal round and reactive. Extraocular motions intact. No scleral icterus. No injection or drainage. ENT: Nose without bleeding, purulent drainage or septal hematoma. Throat without erythema, tonsillar hypertrophy or exudate. Uvula midline. Airway patent. NECK: Trachea midline. No JVD or lymphadenopathy. Supple, nontender, no meningeal signs. CARDIOVASCULAR: Regular rate and rhythm without murmurs, gallops, or rubs. RESPIRATORY: Clear to auscultation. Breath sounds equal bilaterally. No wheezes , rales, or rhonchi. GASTROINTESTINAL: Abdomen soft, non-tender, nondistended. No hepato-splenomegaly , or palpable masses. No guarding. MUSCULOSKELETAL: 1+ edema to mid [place]. No joint tenderness, effusion, or edema noted. No calf tenderness. Negative Homans sign bilaterally. NEUROLOGICAL: Awake and alert. Cranial nerves II through XII intact. Motor and sensory grossly within normal limits. Five out of 5 muscle strength in all muscle groups. Normal speech. Laboratory Laboratory Tests Test 05/20/17 14:00 White Blood Count 5.6 Red Blood Count 4.76 Hemoglobin 14.4 Hematocrit 41.9 Mean Corpuscular Volume 88.0 Mean Corpuscular Hemoglobin 30.2 Mean Corpuscular Hemoglobin Concent 34.3 Red Cell Distribution Width 14.4 Platelet Count 236 Mean Platelet Volume 8.5 Neutrophils (%) (Auto) 57.7 Lymphocytes (%) (Auto) 23.9 Monocytes (%) (Auto) 13.1 Eosinophils (%) (Auto) 4.2 Basophils (%) (Auto) 1.1 Neutrophils # (Auto) 3.2 Lymphocytes # (Auto) 1.3 Monocytes # (Auto) 0.7 Eosinophils # (Auto) 0.2 Basophils # (Auto) 0.1 CBC Comment DIFF FINAL Differential Comment Prothrombin Time 10.4 Prothromb Time International Ratio 1.0 Activated Partial Thromboplast Time 25.9 Blood Urea Nitrogen 13 Creatinine 1.08 Random Glucose 111 Total Protein 6.9 Albumin 3.4 Calcium Level 8.6 Magnesium Level 1.8 Alkaline Phosphatase 57 Aspartate Amino Transf (AST/SGOT) 28 Alanine Aminotransferase (ALT/SGPT) 31 Total Bilirubin 0.6 Sodium Level 142 Potassium Level 4.4 Chloride Level 110 Carbon Dioxide Level 22.8 Anion Gap 9 Estimat Glomerular Filtration Rate 68 Total Creatine Kinase 100 Troponin I 0.03 B-Type Natriuretic Peptide 88 Result Diagram: 05/20/17 1400 05/20/17 1400 Caprini VTE Risk Assessment Caprini VTE Risk Assessment: Mod/High Risk (score >= 2) Caprini Risk Assessment Model Point Value = 1 Point Value = 2 Point Value = 3 Point Value = 5 Age 41-60 Minor surgery BMI > 25 kg/m2 Swollen legs Varicose veins or History of unexplained or recurrent spontaneous Oral contraceptives or hormone replacement Sepsis (< 1 month) Serious lung disease, including pneumonia (< 1 month) Abnormal pulmonary function Acute myocardial infarction Congestive heart failure (< 1 month) History of inflammatory bowel disease Medical patient at bed rest Age 61-74 Arthroscopic surgery Major open surgery (> 45 min) Laparoscopic surgery (> 45 min) Malignancy Confined to bed (> 72 hours) Immobilizing plaster cast Central venous access Age >= 75 History of VTE Family history of VTE Factor V Leiden Prothrombin [id number] Lupus anticoagulant Anticardiolipin antibodies Elevated serum homocysteine Heparin-induced thrombocytopenia Other congenital or acquired thrombophilia Stroke (< 1 month) Elective arthroplasty Hip, pelvis, or leg fracture Acute spinal cord injury (< 1 month) Prophylaxis Regimen Total Risk Factor Score Risk Level Prophylaxis Regimen 0-1 Low Early ambulation 2 Moderate Order ONE of the following: *Sequential Compression Device (SCD) *Heparin 5000 units SQ BID 3-4 Higher Order ONE of the following medications: *Heparin 5000 units SQ TID *Enoxaparin/Lovenox 40 mg SQ daily (WT < 150 kg, CrCl > 30 mL/min) *Enoxaparin/Lovenox 30 mg SQ daily (WT < 150 kg, CrCl > 10-29 mL/min) *Enoxaparin/Lovenox 30 mg SQ BID (WT < 150 kg, CrCl > 30 mL/min) AND/OR *Sequential Compression Device (SCD) 5 or more Highest Order ONE of the following medications: *Heparin 5000 units SQ TID (Preferred with Epidurals) *Enoxaparin/Lovenox 40 mg SQ daily (WT < 150 kg, CrCl > 30 mL/min) *Enoxaparin/Lovenox 30 mg SQ daily (WT < 150 kg, CrCl > 10-29 mL/min) *Enoxaparin/Lovenox 30 mg SQ BID (WT < 150 kg, CrCl > 30 mL/min) AND *Sequential Compression Device (SCD) Assessment and Plan Problem List: (1) Chest pain ICD Code: R07.9 - Chest pain Status: Acute (2) CAD (coronary artery disease) ICD Code: I25.10 - CAD (coronary artery disease) Status: Chronic (3) Diabetes mellitus, type 2 ICD Code: E11.9 - Diabetes mellitus, type 2 Status: Chronic (4) Obesity ICD Code: E66.9 - Obesity Status: Acute Assessment and Plan Chest pain Patient has extensive history of coronary artery disease with recent heart catheterization [address] Angel admitted for close observation, on telemetry Aspirin given in the ER, patient started on heparin protocol Nitroglycerin as needed, morphine as needed, oxygen via nasal cannula Serial troponins and CKMB levels, serial EKG Cardiology consult Type 2 diabetes Accu-Cheks with sliding scale insulin coverage Diabetic diet Hypertension Continue current home meds Dyslipidemia Continue home dose of statin DVT prophylaxis Heparin Rony Tracey MD May 20, 2017 17:26
[2017-05-20] MEDS: HEPARIN-D5W 25,000 U/250 ML 250 ML IV PRN (17:54)
[2017-05-20] MEDS: ACETAMINOPHEN 325 MG TAB PO PRN (19:52)
[2017-05-20] MEDS: SODIUM CHLORIDE 0.9% FLUSH 10 ML FLUSH IV FLUSH SCH (21:00)
[2017-05-20] MEDS: INSULIN ASPART SUPPLEMENTAL SCALE SQ SCH (21:00)
[2017-05-20 21:18] LABS: TROPONIN I 0.03 NG/ML (0.02-0.05)
[2017-05-20] MEDS: CARVEDILOL 3.125 MG TAB PO SCH (21:21)
[2017-05-20] MEDS: ATORVASTATIN 20 MG TAB PO SCH (21:21)
[2017-05-20] MEDS ORDERED: HEPARIN SODIUM - IV 10,000 UNITS/10 ML VIAL IV PUSH PRN (22:30)
[2017-05-21] VITALS (16 sets, daily range): BP systolic 130–139; BP diastolic 66–79; PULSE 55–74; RESP 16–20; TEMP 98–98.1; O2SAT 95–96
[2017-05-21] MEDS: SODIUM CHLOR 0.9% 1000 ML INJ 1,000 ML IV SCH (01:15)
[2017-05-21] MEDS: HEPARIN SODIUM - IV 10,000 UNITS/10 ML VIAL IV PUSH PRN ×3 (01:53→20:35)
[2017-05-21 02:32] LABS: AUTOMATED NEUTROPHIL # 3.4 TH/MM3 (1.8-7.7); BASOPHIL # 0.1 TH/MM3 (0-0.2); BASOPHIL % 1.2 % (0.0-2.0); EOSINOPHIL # 0.3 TH/MM3 (0-0.4); EOSINOPHIL % 4.2 % (0.0-4.0); HEMATOCRIT 42.5 % (39.0-51.0); HEMOGLOBIN 14.3 GM/DL (13.0-17.0); LYMPHOCYTE # 1.7 TH/MM3 (1.0-4.8); MEAN CELL VOLUME 88.9 FL (80.0-100.0); MEAN CORPUSCULAR HEMOGLOBIN 29.9 PG (27.0-34.0); MEAN CORPUSCULAR HGB CONC 33.7 % (32.0-36.0); MEAN PLATELET VOLUME 8.2 FL (7.0-11.0); MONO % 8.7 % (0.0-8.0); MONOCYTE # 0.5 TH/MM3 (0-0.9); NEUT % 56.9 % (16.0-70.0); PLATELET COUNT 228 TH/MM3 (150-450); RED BLOOD COUNT 4.78 MIL/MM3 (4.50-5.90); RED CELL DISTRIBUTION WIDTH 14.3 % (11.6-17.2)
[2017-05-21 02:49] LABS: TROPONIN I 0.03 NG/ML (0.02-0.05)
[2017-05-21 02:50] LABS: BICARBONATE 26.8 MEQ/L (21.0-32.0); CALCIUM 8.3 MG/DL (8.5-10.1); CREATININE 0.92 MG/DL (0.60-1.30)
[2017-05-21] MEDS: ACETAMINOPHEN 325 MG TAB PO PRN (03:57)
[2017-05-21] MEDS: INSULIN ASPART SUPPLEMENTAL SCALE SQ SCH ×4 (08:00→21:00)
[2017-05-21] MEDS: SODIUM CHLORIDE 0.9% FLUSH 10 ML FLUSH IV FLUSH SCH ×2 (08:59→20:41)
[2017-05-21] MEDS: CARVEDILOL 3.125 MG TAB PO SCH ×2 (09:01→20:41)
[2017-05-21] MEDS ORDERED: DIAZEPAM 5 MG TAB PO SCH (09:30)
[2017-05-21] MEDS ORDERED: diphenhydrAMINE HCL 50 MG CAP PO SCH (09:30)
--- NOTE | 2017-05-21 09:54 | MB ---
cc: Saravanan Angel MD DATE: 05/21/2017 REASON FOR CONSULTATION: Evaluation of chest pain. HISTORY OF PRESENT ILLNESS: Abdiel Cavazos is a 67-year-old man well known to me. He has an extensive history of coronary artery disease. He just underwent a catheterization procedure for unstable angina on 05/15/2017. At that time, he had a 99% stenosis on the proximal end of the previous stent in his distal LAD. This was treated with direct stenting using a 3.0 x 8 mm Resolute stent deployed at 14 atmospheres completely eliminating the stenosis. The patient states that he has been having constant chest pain since Sunday. It was worse Sunday night so bad he could not sleep, it is in the lower substernal region first described as sharp going to the back and had some pressure quality as well. When I asked him about it, it is no different when he eats. It is no different when he moves around. There is really nothing that he can do to make it worse or to improve it. Nitroglycerin does not affect it. PAST MEDICAL HISTORY: Includes coronary disease, previous stroke, diabetes, hyperlipidemia, hypertension, morbid obesity, previous myocardial infarctions with an inferior STEMI 12/17/2007 and a non-STEMI 11/17/2012, DJD of the left hip. PAST SURGICAL HISTORY: Includes multiple stent procedures of the right coronary artery. This includes a 4.0 bare metal stent 12/17/2007 placed in the proximal vessel and a 3.5 x 12 bare metal stent in the distal vessel and then he had drug-eluting stents in the right coronary artery 08/18/2015 with a 4.0 x 15 Resolute mid stent and a 4.0 X 9 proximal stent that was done in 2012. The LAD has had 2 stent procedures, a 3.0 x 18 mm Resolute stent distally and then a repeat stent 05/16/2017. MEDICATIONS: Include: 1. Amlodipine 10 mg. 2. Aspirin 81 mg. 3. Atorvastatin 20 mg, 4. Carvedilol 3.125 twice a day. 5. Clopidogrel 75 mg. 6. Fenofibrate. 7. Glipizide. 8. Imdur 30 mg. 9. Januvia. 10. Insulin. 11. Lisinopril 100 12. Nitroglycerin. ALLERGIES: NONE KNOWN. FAMILY HISTORY: Positive for coronary artery disease. SOCIAL HISTORY: He has never smoked. PHYSICAL EXAM: GENERAL: Exam reveals a pleasant, morbidly obese white male in no acute distress. VITAL SIGNS: Charted. HEENT: Unremarkable. NECK: No JVD. No bruits. LUNGS: Clear to auscultation. I cannot elicit any chest wall tenderness. CARDIAC: S1, S2. Regular rate and rhythm. No murmurs or gallops. ABDOMEN: Soft, nontender. No epigastric tenderness. EXTREMITIES: No clubbing, cyanosis or edema. His troponins are negative. His chest x-ray shows no acute disease. IMPRESSION AND PLAN: Unrelenting chest pain, etiology is not clear. There is nothing unusual about a stent procedure. I think the only option at this point to resolve this would be to repeat his catheterization. No spot available that fits my schedule today, so we will do this 7:15 tomorrow morning. Informed consent has been obtained. Further therapy to be determined. MD SARMAD Arce/LORA , 09:35 AM , 09:53 AM
--- NOTE | 2017-05-21 12:57 | HHI.PR ---
Subjective Remarks Patient reports he still having some mild chest discomfort. No shortness of breath. Objective Vitals Vital Signs Date Time Temp Pulse Resp B/P (MAP) Pulse Ox O2 Delivery O2 Flow Rate FiO2 05/21/17 08:00 98.1 64 18 132/78 (96) 96 05/21/17 06:00 60 05/21/17 05:00 66 05/21/17 04:00 60 05/21/17 03:42 98.0 60 16 130/79 (96) 95 05/21/17 03:00 59 05/21/17 02:00 56 05/21/17 01:00 57 05/21/17 00:00 56 05/20/17 23:27 14 05/20/17 23:00 60 05/20/17 22:30 98.2 61 14 132/79 (96) 96 05/20/17 22:07 05/20/17 21:38 61 16 150/88 (108) 96 Room Air 05/20/17 20:59 10 05/20/17 20:01 63 16 186/86 (119) 96 Room Air 05/20/17 16:40 18 05/20/17 16:38 63 18 173/89 (117) 97 Room Air 05/20/17 14:03 97 Room Air 05/20/17 14:03 97 Room Air 05/20/17 13:49 75 18 157/89 (111) 95 Room Air 05/20/17 13:49 73 18 97 Room Air 05/20/17 13:36 97.9 70 16 149/67 (94) 97 I/O 05/20/17 05/20/17 05/20/17 05/21/17 05/21/17 05/21/17 07:00 15:00 23:00 07:00 15:00 23:00 Intake Total 240 ml Output Total 325 ml Balance -85 ml Intake Oral 240 ml Output Urine Total 325 ml Result Diagram: 05/21/1721405/21/17214 Objective Remarks GENERAL: This is a well-nourished, well-developed patient, in no apparent distress. CARDIOVASCULAR: Normal rate and regular rhythm without murmurs, gallops, or rubs. RESPIRATORY: Good respiratory efforts. Breath sounds equal and clear to auscultation bilaterally. GASTROINTESTINAL: Abdomen soft, non-tender, non-distended. Normal active bowel sounds MUSCULOSKELETAL: Extremities without cyanosis, or edema. NEURO: Alert & Oriented x4 to person, place, time, situation. Moves all ext x4 PSYCH: Appropriate mood and affect. A/P Problem List: (1) Chest pain ICD Code: R07.9 - Chest pain Status: Acute (2) CAD (coronary artery disease) ICD Code: I25.10 - CAD (coronary artery disease) Status: Chronic (3) Diabetes mellitus, type 2 ICD Code: E11.9 - Diabetes mellitus, type 2 Status: Chronic (4) Obesity ICD Code: E66.9 - Obesity Status: Acute Assessment and Plan 67-year-old male with: Chest pain Patient has extensive history of coronary artery disease with recent heart catheterization [address] Angel Appreciate cardiology consult. Plan for repeat heart catheterization. Aspirin given in the ER, patient started on heparin protocol Nitroglycerin as needed, morphine as needed, oxygen via nasal cannula Serial troponins negative. Type 2 diabetes Accu-Cheks with sliding scale insulin coverage Diabetic diet Hypertension Continue current home meds Dyslipidemia Continue home dose of statin DVT prophylaxis Heparin Helder Burgos MD May 21, 2017 12:57
[2017-05-21] MEDS: HEPARIN-D5W 25,000 U/250 ML 250 ML IV PRN (17:23)
[2017-05-21] MEDS: ATORVASTATIN 20 MG TAB PO SCH (20:41)
[2017-05-22] VITALS (16 sets, daily range): BP systolic 123–146; BP diastolic 67–82; PULSE 56–78; RESP 19–20; TEMP 96.6–98.9; O2SAT 94–95
--- NOTE | 2017-05-22 00:17 | EKG ---
Date Performed: 05/20/2017 Time Performed: 23:59:14 PTAGE: 67 years EKG: Sinus bradycardia Prolonged QT interval Left axis deviation Inferior infarct - age undeterm ined Lateral T wave changes may be due to myocardial ischemia Abnormal ECG PREVIOUS TRACING : 05/20/2017 21.17 DOCTOR: Kierra Wagner Interpretating Date/Time 05/22/2017 00:08:54
--- NOTE | 2017-05-22 00:21 | EKG ---
Date Performed: 05/20/2017 Time Performed: 21:17:03 PTAGE: 67 years EKG: Sinus rhythm POSSIBLE LEFT ATRIAL ENLARGEMENT INFERIOR MYOCARDIAL INFARCTION ABNORMAL ECG PREVIOUS TRACING : 05/20/2017 13.46 DOCTOR: Kierra Wagner Interpretating Date/Time 05/22/2017 00:10:52
--- NOTE | 2017-05-22 00:31 | EKG ---
Date Performed: 05/20/2017 Time Performed: 13:46:58 PTAGE: 67 years EKG: Sinus rhythm POSSIBLE LEFT ATRIAL ENLARGEMENT INFERIOR MYOCARDIAL INFARCTION ABNORMAL ECG PREVIOUS TRACING : 05/14/2017 16.28 DOCTOR: Kierra Wagner Interpretating Date/Time 05/22/2017 00:16:37
[2017-05-22 03:10] LABS: AUTOMATED NEUTROPHIL # 2.9 TH/MM3 (1.8-7.7); BASOPHIL # 0.1 TH/MM3 (0-0.2); BASOPHIL % 1.2 % (0.0-2.0); EOSINOPHIL # 0.2 TH/MM3 (0-0.4); EOSINOPHIL % 3.6 % (0.0-4.0); HEMATOCRIT 42.1 % (39.0-51.0); HEMOGLOBIN 14.7 GM/DL (13.0-17.0); LYMPH % 28.3 % (9.0-44.0); LYMPHOCYTE # 1.5 TH/MM3 (1.0-4.8); MEAN CELL VOLUME 87.7 FL (80.0-100.0); MEAN CORPUSCULAR HEMOGLOBIN 30.5 PG (27.0-34.0); MEAN CORPUSCULAR HGB CONC 34.8 % (32.0-36.0); MEAN PLATELET VOLUME 8.4 FL (7.0-11.0); MONO % 9.9 % (0.0-8.0); MONOCYTE # 0.5 TH/MM3 (0-0.9); PLATELET COUNT 242 TH/MM3 (150-450); RED CELL DISTRIBUTION WIDTH 14.9 % (11.6-17.2); WHITE BLOOD COUNT 5.2 TH/MM3 (4.0-11.0)
[2017-05-22 03:30] LABS: BICARBONATE 25.8 MEQ/L (21.0-32.0); CALCIUM 8.7 MG/DL (8.5-10.1); CREATININE 1.04 MG/DL (0.60-1.30)
[2017-05-22] MEDS ORDERED: NITROGLYCERIN INJ 5 ML ONE ×2 (07:00→07:20)
[2017-05-22] MEDS ORDERED: VERAPAMIL HCL 5 MG/2 ML VIAL ONE (07:00)
[2017-05-22] MEDS ORDERED: HEPARIN-NS/PF FLUSH BAG 2,000 ML IV FLUSH ONE (07:00)
[2017-05-22] MEDS ORDERED: HEPARIN SODIUM - IV 10,000 UNITS/10 ML VIAL ONE (07:00)
[2017-05-22] MEDS ORDERED: MIDAZOLAM HCL 2 MG/2 ML VIAL ONE (07:10)
[2017-05-22] MEDS ORDERED: MORPHINE SULFATE 8 MG/ML INJ ONE ×2 (07:25→07:58)
--- NOTE | 2017-05-22 08:15 | CATHPROC ---
[facility] HIS Report Study Information Study Number Admission Scheduled Start Study Start [id number] May 20 2017 4:38PM 05/22/2017 May 22 2017 6:51AM Study Type [place] Service Left/Possible PCI Cardiac Catheterization Admit Source Facility Department Emergency department [facility] - Talk Show Host Physician and Clinical Staff Initial Saravanan Rankin Casino Runner Giles Wells,LEVI Casino Runner Ricky Canchola,Shala Martínez RN Recorder Vashti Peres RCIS TECH2 Scrub Sami Francisco RCIS(BS) Procedures Performed Procedure Location (Site) Vessel Name Coronary Angiograms LCA Left Coronary Coronary Angiograms RCA Right Coronary Equipment Time Distribution Transformer Assembler Description Size Mfg Part Number Used/Scraped TRANSDUCER, TRUWAVE [id number] 07:18 KHAN FLETCHER * Used W/STOCKCOCK *[id number] 07:50 [employer] AR MOD CATHETER FR 5 [id number] Used [id number] *[id number] [id number] *[id number] 07:18 MALLINCKRODT SYRINGE, ANGIOMAT 150ML 150ML *[id number] Used 2SUB [id number] 07:18 [employer] INDUSTRIES PACK, CCL CUSTOM * Used *[id number] 07:18 [employer] SUPPORT, ARTERIAL ADULT 15687 *[id number] Used [id number] 07:18 [employer] PACER PEN, SKIN DUAL W/ RULER * Used *[id number] 07:57 [employer] AL 1 DXTERITY CATHETER FR 5 Used *[id number] BAND, RADIAL COMPRESSION TR [id number] 08:02 [employer] MEDICAL 29CM Used LARGE 29 *[id number] [id number] 07:46 [employer] MEDICAL WIRE, EXCHANGE 260CM .035 260CM Used *[id number] 07:18 [employer] MEDICAL WIRE, EXCHANGE 260CM 3MMJ 260CM Used *[id number] 07:18 [employer] MANIFOLD, 4 PORT * Used *[id number] 07:18 [employer] OMNIPAQUE, 350 MG, 100ML 100ML [id number] Used [id number] 07:18 [employer] MEDICAL BLANKET,WARM AIR CCL * Used *[id number] 07:18 [email or web address] JELCO NEEDLE 4056 *[id number] Used SHEATH, FR6 TRANSRADIAL RM*[id number] 07:18 [employer] FR 6 Used SLENDER 10CM *[id number] Equipment Model, Serial, Lot Number and Expiration Data Description Model Number Serial Number Lot Number Expiration Date AL 1 DXTERITY CATHETER [id number] 05-13-2019 AR MOD CATHETER [id number] 03-06-2019 History: Current Medications Medication Dosage/Unit Route Frequency Last Date/Time Taken NORVASC ASA Statins (any) CARVEDILOL PLAVIX Glypizide Imdur Insulin LISINOPRIL NTG SL History: Allergies Allergy Reaction No Known Allergies History: Risk Factors Family History of Hypertension Dyslipidemia Previous AK Previous Heart Failure Premature CAD Yes Yes Yes Yes No Prior Valve Prior PCI Prior PCIDate Prior CABG Surgery No Yes 05/15/2017 No Cerebrovascular Peripheral Artery Chronic Lung On Dialysis Diabetes Disease Disease Disease No Yes No No Yes History: Stress Tests Stress or Imaging Studies Performed No History: Other Current Smoker No Labs Hgb (g/dl) Hct (%) WBC (l/cumm) Platelets (thousands) 11.60-17.00 35.00-51.00 4.00-11.00 150.00-450.00 14.7 42.1 5.2 242 Glucose (mg/dl) BUN (mg/dl) Creatinine (mg/dl) BUN:Creatinine (1:x) 74.00-106.00 7.00-18.00 0.50-1.30 10.00-20.00 156 15 1.0 15 Na (meq/l) K (meq/l) 136.00-145.00 3.50-5.10 141 3.6 INR (PTT:PT) 0.90-1.10 1 Troponin I (ng/ml) CPK (u/l) 0.02-0.05 26.00-308.00 0.03 51 Medication Medication Total Dose (Bolus/Oral) Medication Total Dosage/Unit 1% XYLOCAINE 10 mL MORPHINE 12 mg NITRO OINTMENT 1 inches RADIAL COCKTAIL 5 mL (Bolus) VERSED 2 mg Medications (Bolus/Oral) Medication Time Given Dosage/Unit Administered By Reason NITRO OINTMENT 05/22/2017 7:00:13 AM 1 inches Patient arrived on 1 inches NITRO OINTMENT via Topical. left chest 1% XYLOCAINE 05/22/2017 7:26:48 AM 10 mL Saravanan Angel 10 mL 1% XYLOCAINE given in lab by Saravanan Angel in Right Radial via Subcutaneous. MORPHINE 05/22/2017 7:26:51 AM 4 mg Jesika, Ricky 4 mg MORPHINE given in lab by Ricky Canchola RN in Right Hand via Peripheral IV. Ordered by Lynn Angel. VERSED 05/22/2017 7:27:50 AM 1 mg Jesika, Ricky 1 mg VERSED given in lab by Ricky Canchola RN in Right Hand via Peripheral IV. Ordered by Claudio Angel RADIAL COCKTAIL 05/22/2017 7:36:03 AM 5 mL (Bolus) Saravanan Angel 5 mL (Bolus) RADIAL COCKTAIL given in lab by Saravanan Angel in Right Radial via Radial. Using [Solutio n Name]. Ordered by Saravanan Angel. Reason: Ntg 200mcg, Heparin 2500U. MORPHINE 05/22/2017 7:44:56 AM 4 mg Jesika, Ricky 4 mg MORPHINE given in lab by Ricky Canchola RN in Right Hand via Peripheral IV. Ordered by Lynn Angel. VERSED 05/22/2017 7:58:19 AM 1 mg Jesika, Ricky 1 mg VERSED given in lab by Ricky Canchola RN in Right Hand via Peripheral IV. Ordered by Claudio Angel MORPHINE 05/22/2017 7:59:29 AM 4 mg Giles Wells 4 mg MORPHINE given in lab by Giles Wells RN in Right Hand via Peripheral IV. Ordered by Saravanan Angel. Medication (Drip) Medication Time Given Dosage/Unit Concentration/Unit Diluent (ml) Solution IV Solutions 05/22/2017 6:55:02 AM 0 mL (IV) 500 NaCl .9 Patient arrived on IV Solutions in Right Hand via Peripheral IV. Pump/Drip Flow = 20 ml/hr using NaCl .9. Initial Case Assessment Cardiovascular HR Rhythm NIBP Chest Pain 42 bigemini 142/65 0 Circulatory - Right Pulses Dorsalis Pedis Femoral Radial 1 1 1 Scale (0,1,2,3,4,d) Scale (0,1,2,3,4,d) Neurological State Oriented to time-place- Alert Moves all extremities person Respiration - General Respiration Rate SpO2 (%) (B/min) 20 94 Final Case Assessment Cardiovascular HR Rhythm NIBP Chest Pain 44 bigeminy 130/90 5 Circulatory - Right Pulses Dorsalis Pedis Femoral Radial 1 1 1 Scale (0,1,2,3,4,d) Scale (0,1,2,3,4,d) Neurological State Oriented to time-place- Alert Moves all extremities person Respiration - General Respiration Rate SpO2 (%) (B/min) 19 93 Chronological Log Time Study Chronological Log 6:54:23 Patient arrived via Bed. 6:54:25 Patient Name, D.O.B, / Armband Verified By R.N. 6:54:26 Consent signed by the physician and the patient and verified by the Talk Show Host staff. 6:54:27 Pre-op and post- op instructions given; patient acknowledges understanding of instructions. 6:54:27 Verbal Stimulation=2 Physical Stimulation=2 Airway=2 Respiration=2 TOTAL=8. (0=absent, 1=li mited, 2=present) 6:54:29 Presedation assessment performed by Talk Show Host RN. 6:54:30 Patient has been NPO for More than 6Hrs. 6:54:32 Skin Breakdown-none 6:54:33 Stephen Prominences Protected 6:54:36 A # 18 IV was noted in the Hand (right). Grade = 0 6:55:02 Patient arrived on IV Solutions in Right Hand via Peripheral IV. Pump/Drip Flow = 20 ml/hr u sing NaCl .9. 6:55:32 History and physical on the chart or being dictated. 7:00:12 Heparin drip 1300 U/hr discontinued prior to general laborer arrival. 7:00:13 Patient arrived on 1 inches NITRO OINTMENT via Topical. left chest 7:02:59 Allens test performed on the right radial and ulnar artery. Vitals capture started with the following parameters, Patient=Adult, Interval=5 min, Initial Pre dlhhb=885 mmHg, 7:03:45 Deflation Rate=5 mmHg, Cuff placed on Right Arm 7:03:47 Reference ECG taken 7:04:39 HR=19 bpm, DDOQ=493/82 mmhg, SpO2=95 %, Resp=20 B/min, Rishi=10 Assessment: Initial Case, HR=42 BPM, Rhythm=bigemini, FCJU=795/65 mmhg, Chest Pain=0 Right Pulses: Tien Ped=1, Femoral=1, Radial=1 7:08:15 Neurological: State=Alert, Ox3, TOVAR Respiration: Resp=20 B/min, SpO2=94 % 7:09:40 HR=46 bpm, LNTM=248/65 mmhg, SpO2=93.0 %, Resp=20 B/min 7:15:22 HR=41 bpm, OMIQ=236/65 mmhg, SpO2=93.0 %, Resp=18 B/min 7:15:28 Pressure channel 1 zeroed. 7:16:23 MD paged 7:19:40 HR=42 bpm, TKWR=091/66 mmhg, SpO2=93.0 %, Resp=24 B/min 7:20:33 MD arrived. 7:24:35 HR=42 bpm, KBXQ=922/92 mmhg, SpO2=94.0 %, Resp=13 B/min, Rishi=10 Time Out. Correct patient, correct procedure, correct physician, power injector not loaded with contrast with surgical 7:25:35 team present. Time Out Concurred by MD and individual staff in procedure. 7:26:43 Case Start 7:26:48 10 mL 1% XYLOCAINE given in lab by Saravanan Angel in Right Radial via Subcutaneous. 7:26:51 4 mg MORPHINE given in lab by Ricky Canchola, RN in Right Hand via Peripheral IV. Ordered by Saravanan Vicente. 7:27:50 1 mg VERSED given in lab by Ricky Canchola, RN in Right Hand via Peripheral IV. Ordered by Saravanan Henry. 7:29:34 HR=43 bpm, WZRD=237/84 mmhg, SpO2=92.0 %, Resp=13 B/min 7:34:41 HR=42 bpm, GZWQ=875/63 mmhg, SpO2=92.0 %, Resp=16 B/min 7:35:24 Access site was Radial Artery. Right A SHEATH, FR6 TRANSRADIAL SLENDER 10CM FR 6 was advanced into the Radial (right) using the Margot theodore 7:35:36 technique. 5 mL (Bolus) RADIAL COCKTAIL given in lab by Saravanan Angel in Right Radial via Radial. Using [So lution Name]. 7:36:03 Ordered by Saravanan Angel. Reason: Ntg 200mcg, Heparin 2500U. A JL 3.5 INFINITI CATHETER FR 5 was advanced over a wire. OMNIPAQUE, 350 MG, 100ML 100ML was use d for 7:36:51 injections. Recorded Pressure: Ao, HR=48, Condition=Condition 1 7:38:34 (Aorta) Ao 141/70/98 7:39:36 The LCA was injected and visualized at various angles. OMNIPAQUE, 350 MG, 100ML 100ML used. 7:39:38 HR=38 bpm, DFJD=301/56 mmhg, SpO2=91 %, Resp=18 B/min After removing the current catheter a JR 5.0 INFINITI CATHETER FR 5 was advanced over a WIRE, EX CHANGE 260CM 7:42:39 3MMJ 260CM. 7:44:33 HR=44 bpm, WBVL=505/84 mmhg, SpO2=91.0 %, Resp=1 B/min, Pain=5 7:44:56 4 mg MORPHINE given in lab by Ricky Canchola, LEVI in Right Hand via Peripheral IV. Ordered by Saravanan Vicente. 7:47:34 The RCA was injected and visualized at various angles. OMNIPAQUE, 350 MG, 100ML 100ML use d. 7:49:38 HR=43 bpm, NOKH=770/73 mmhg, SpO2=94 %, Resp=10 B/min 7:51:08 A AR MOD CATHETER FR 5 was advanced over a wire. OMNIPAQUE, 350 MG, 100ML 100ML was used f or injections. 7:54:35 HR=43 bpm, AGXB=860/78 mmhg, SpO2=93.0 %, Resp=15 B/min 7:58:19 1 mg VERSED given in lab by Ricky Canchola RN in Right Hand via Peripheral IV. Ordered by Saravanan Vicente. After removing the current catheter a AL 1 DXTERITY CATHETER FR 5 was advanced over a WIRE, EX CHANGE 260CM 7:58:46 3MMJ 260CM. unable to cannulate the RCA 7:59:29 4 mg MORPHINE given in lab by Giles Wells, LEVI in Right Hand via Peripheral IV. Ordered by Saravanan Angel. 7:59:38 HR=44 bpm, HPDT=394/84 mmhg, SpO2=92.0 %, Resp=9 B/min 8:00:05 The RCA was injected and visualized at various angles. OMNIPAQUE, 350 MG, 100ML 100ML use d. 8:02:02 Catheter was removed 8:02:44 Case End 8:04:39 HR=44 bpm, CPDH=495/90 mmhg, SpO2=93.0 %, Resp=19 B/min, Rishi=10 Radial Compression Device Used. 15 mLs of air placed in BAND, RADIAL COMPRESSION TR LARGE 29 2 9CM. Affected 8:07:55 hand 93 % O2 saturation. 8:09:14 Vitals capture stopped. 8:09:59 No case complications noted. 8:10:02 Bedside Report will be given. Assessment: Final Case, HR=44 BPM, Rhythm=bigeminy, BJHG=611/90 mmhg, Chest Pain=5 Right Pulses: Tien Ped=1, Femoral=1, Radial=1 8:10:11 Neurological: State=Alert, Ox3, TOVAR Respiration: Resp=19 B/min, SpO2=93 % 8:11:05 Patient moved to bed 8:11:16 Patient transported to [facility]. End Study - Contrast Media Used In Study Contrast Total Opened (mL) Total Used (mL) Total Wasted (mL) Omnipaque 110 110 0 End Study - Maximum Contrast Load Max Contrast Load (mL) 667.0 End Study - Radiation Exposure Fluoro Time (minutes) 15.5 End Study - Sheaths Sheaths Pulled By Sheath Hold Time (min) Sami Francisco End Study - Patient Disposition Complications Transferred To Interventional Outcome No Telemetry Bed No attempt made
[2017-05-22] MEDS ORDERED: SODIUM CHLOR 0.9% 1000 ML INJ 1,000 ML IV SCH (08:30)
[2017-05-22] MEDS ORDERED: BACITRACIN OINT 0.9 GM PKT TOP ONE (08:30)
[2017-05-22] MEDS ORDERED: SODIUM CHLORIDE 0.9% FLUSH 10 ML FLUSH IV FLUSH PRN (08:30)
--- NOTE | 2017-05-22 08:30 | MA ---
cc: Saravanan Angel MD DATE: 05/22/2017 PROCEDURE PERFORMED: Coronary angiography. BRIEF HISTORY: Abdiel Cavazos recently underwent stenting of the distal LAD. He is readmitted now with chest pain. DESCRIPTION OF PROCEDURE: The patient was brought to the cardiac dairy lab technician in a fasting state. Using 1% lidocaine for local anesthesia, a Terumo Slender sheath was inserted in the right radial artery. Cocktail was administered without verapamil. Left coronary angiography was completed using a left 3.5 Melissa catheter. Right coronary is difficult to engage. I used a right 5 and modified right and left 1 Amplatz. Angiograms are adequate to tell this is widely patent. The cause for his chest pain remains unexplained. The sheath was removed with a Terumo band placed. No complications were noted. FINDINGS: 1. Hemodynamics: Aortic pressure is 141/70 with a mean of 98. 2. Coronary angiography: Left main coronary artery tapers distally about 10%. Proximal LAD has about 20% to 25% disease. The distal stent is widely patent. There is no flow-limiting lesion seen anywhere in the LAD. Circumflex artery gives off a major marginal that has about 25% ostial disease. The remainder of the circumflex artery has irregularities only. The right coronary artery demonstrates multiple stents are widely patent. There is about 20% to 30% distal disease and 20% proximal disease. CONCLUSIONS: Chest pain remains unexplained. There are no coronary stenoses to explain it. RECOMMENDATIONS: GI evaluation. ADDENDUM The LAD lesion length was 6 mm. Pre and post JUSTEN flow was 3 for the LAD stenosis that was stented. MD SARMAD Arce/ALEXX , 08:14 AM , 08:29 AM
[2017-05-22] MEDS ORDERED: SODIUM CHLORIDE 0.9% FLUSH 10 ML FLUSH IV FLUSH SCH (09:00)
[2017-05-22] MEDS ORDERED: MISC INFORMATION XX ONE (09:00)
[2017-05-22] MEDS ORDERED: ASPIRIN 325 MG TAB PO SCH (09:00)
[2017-05-22] MEDS ORDERED: FAMOTIDINE 20 MG TAB PO SCH (09:00)
[2017-05-22] MEDS: CARVEDILOL 3.125 MG TAB PO SCH (09:20)
[2017-05-22] MEDS: SODIUM CHLOR 0.9% 1000 ML INJ 1,000 ML IV SCH (09:35)
[2017-05-22] MEDS: INSULIN ASPART SUPPLEMENTAL SCALE SQ SCH ×2 (10:15→13:13)
[2017-05-22] MEDS ORDERED: FAMO20TA2 PO (12:35)
[2017-05-22] MEDS ORDERED: LISI-519 PO (12:35)
--- NOTE | 2017-05-22 12:36 | HHI.DCPOC ---
Discharge Care Plan Diagnosis: (1) Chest pain (2) Diabetes mellitus, type 2 (3) Hypertension, benign Goals to Promote Your Health * To prevent worsening of your condition and complications * To maintain your health at the optimal level Directions to Meet Your Goals Take your medications as prescribed Follow your dietary instruction Follow activity as directed Keep your appointments as scheduled Take your immunizations and boosters as scheduled If your symptoms worsen call your PCP, if no PCP go to Urgent Care Center or Emergency Room Smoking is Dangerous to Your Health. Avoid second hand smoke Call the 24-hour hour crisis hotline for domestic abuse at Helder Burgos MD May 22, 2017 12:36
--- NOTE | 2017-05-23 08:25 | HHI.DS ---
Discharge Summary Admission Date May 20, 2017 at 16:38 Admitting Diagnosis Chest pain/possible unstable angina (1) Chest pain ICD Code: R07.9 - Chest pain Status: Acute (2) CAD (coronary artery disease) ICD Code: I25.10 - CAD (coronary artery disease) Status: Chronic (3) Diabetes mellitus, type 2 ICD Code: E11.9 - Diabetes mellitus, type 2 Status: Chronic (4) Obesity ICD Code: E66.9 - Obesity Status: Acute Brief History - From Admission 67-year-old male with extensive history of coronary artery disease presents with substernal chest pain. He describes the pain as substernal pressure with occasional sharp pains in his mid back and associated with shortness of breath. He had a stent placed with Dr. Angel last Sunday and felt fine following the procedure. During that procedure was described to him that there was a blockage in the distal end of one, the problem was addressed during the heart catheterization. Last Sunday he began to develop mild chest pain again. The pain has become worse through the week and became alarming over the last 24 hours. He states last night his chest pain waking him up all night. Risk factors include a strong family history of myocardial infarctions, type 2 diabetes, previous history of stroke, hypertension, dyslipidemia. He has had 6 stents placed in the past. CBC/BMP: 05/22/17 0243 05/22/17 0243 Significant Findings Laboratory Tests Test 05/20/17 14:00 05/20/17 20:00 05/20/17 23:29 05/21/17 02:15 Monocytes (%) (Auto) 13.1 % (0.0-8.0) 8.7 % (0.0-8.0) Eosinophils (%) (Auto) 4.2 % (0.0-4.0) 4.2 % (0.0-4.0) Random Glucose 111 MG/DL (74-106) 110 MG/DL (74-106) Chloride Level 110 MEQ/L (98-107) 108 MEQ/L (98-107) Estimat Glomerular Filtration Rate 68 ML/MIN (>89) 82 ML/MIN (>89) Activated Partial Thromboplast Time 33.2 SEC (24.3-30.1) Calcium Level 8.3 MG/DL (8.5-10.1) Test 05/21/17 07:45 05/21/17 16:40 05/22/17 02:43 Activated Partial Thromboplast Time 38.2 SEC (24.3-30.1) 33.4 SEC (24.3-30.1) 40.4 SEC (24.3-30.1) Monocytes (%) (Auto) 9.9 % (0.0-8.0) Platelet Function P2Y12 React Units 187 PRU (194-418) Random Glucose 156 MG/DL (74-106) Estimat Glomerular Filtration Rate 71 ML/MIN (>89) PE at Discharge GENERAL: This is a well-nourished, well-developed patient, in no apparent distress. CARDIOVASCULAR: Normal rate and regular rhythm without murmurs, gallops, or rubs. RESPIRATORY: Good respiratory efforts. Breath sounds equal and clear to auscultation bilaterally. GASTROINTESTINAL: Abdomen soft, non-tender, non-distended. Normal active bowel sounds MUSCULOSKELETAL: Extremities without cyanosis, or edema. NEURO: Alert & Oriented x4 to person, place, time, situation. Moves all ext x4 PSYCH: Appropriate mood and affect. Pt Condition on Discharge: Good Discharge Disposition: Discharge Home Discharge Instructions DIET: Follow Instructions for: Heart Healthy Diet Activities you can perform: Regular-No Restrictions Helder Burgos MD May 23, 2017 08:25
== END 2017-05-22 14:30 | disposition home or self-care (01) ==
LOC: NEPE 13:27 → NEDA 16:38 → INTOOBSV 16:38 → HCIS 21:50
PROVIDERS: ADMIT Family Medicine; ATTEND Family Medicine
DX: R07.89 Other chest pain (principal); R06.02 Shortness of breath; M54.9 Dorsalgia, unspecified; I25.10 Atherosclerotic heart disease of native coronary artery without angina pectoris; I45.81 Long QT syndrome; R00.1 Bradycardia, unspecified; R94.31 Abnormal electrocardiogram [ECG] [EKG]; I10 Essential (primary) hypertension; I25.2 Old myocardial infarction; E11.9 Type 2 diabetes mellitus without complications; E78.00 Pure hypercholesterolemia, unspecified; M16.12 Unilateral primary osteoarthritis, left hip; E66.9 Obesity, unspecified; F17.290 Nicotine dependence, other tobacco product, uncomplicated; Z86.73 Personal history of transient ischemic attack (TIA), and cerebral infarction without residual deficits; Z82.49 Family history of ischemic heart disease and other diseases of the circulatory system
CPT/HCPCS: 71046; 80048; 80053; 82550; 82948; 83735; 83880; 84484; 85025; 85576; 85610; 85730; 93005; 93454; 96365; 96366; 96372; 96375; 96376; 99152; 99153; 99285; C1769; C1893; G0378; J1644; J1815; J2250; J2270; J7030; 96374; Q9967

== ENCOUNTER 2018-02-21 15:25 | Inpatient (IN) ==
--- NOTE | 2018-02-21 16:34 | XR ---
EXAM DATE: 02/21/2018 4:30 PM EST AGE/SEX: 67 years / Male INDICATIONS: Chest discomfort. CLINICAL DATA: This is the patient's initial encounter. Patient reports that signs and symptoms have been present for 1 day and indicates a pain score of 3/10. MEDICAL/SURGICAL HISTORY: Myocardial infarction. Stroke. Diabetes mellitus type II. . Cardiac stents. COMPARISON: [facility] [place], CHEST SINGLE AP, 03/17/2016. . FINDINGS: A single AP view of the chest demonstrates the lungs to be symmetrically aerated without evidence of focal consolidation or effusion. No appreciable pneumothorax. The cardiomediastinal contours are sta ble at upper limits of normal. Cardiac loop recorder projects over the left lower hemithorax. Hypertr ophic degenerative changes of the spine. CONCLUSION: No acute cardiopulmonary findings. The cardiomediastinal contours are stable at upper limits of alejandrina l. Cardiac loop recorder. Electronically signed by: Tena Erickson MD Board Certified Radiologist 02/21/2018 4:33 PM EST
[2018-02-21 16:35] LABS: Baso # (Auto) 0.1 th/mm3 (0.0-0.2); Baso % (Auto) 1.1 % (0.0-2.0); Eos # (Auto) 0.2 th/mm3 (0.0-0.4); Eos % (Auto) 3.3 % (0.0-4.0); Hematocrit 44.1 % (39.0-51.0); Hemoglobin 14.9 gm/dL (13.0-17.0); Lymph # (Auto) 1.4 th/mm3 (1.0-4.8); Lymph % (Auto) 26.2 % (9.0-44.0); Mean Corpuscular HGB Conc 33.8 % (32.0-36.0); Mean Corpuscular Volume 91.7 fL (80.0-100.0); Mean Platelet Volume 8.8 fL (7.0-11.0); Mono # (Auto) 0.6 th/mm3 (0.0-0.9); Mono % (Auto) 11.8 % (0.0-8.0); Neut # (Auto) 3.1 th/mm3 (1.8-7.7); Neut % (Auto) 57.6 % (16.0-70.0); Platelet Count 199 th/mm3 (150-450); Red Blood Count 4.81 mil/mm3 (4.50-5.90); Red Cell Distribution Width 14.5 % (11.6-17.2); White Blood Count 5.4 th/mm3 (4.0-11.0)
--- NOTE | 2018-02-21 16:39 | CT ---
EXAM DATE: 02/21/2018 4:34 PM EST AGE/SEX: 67 years / Male INDICATIONS: Cephalgia, dizziness, and weakness. CLINICAL DATA: This is the patient's initial encounter. Patient reports that signs and symptoms have been present for 1 month and indicates a pain score of 4/10. MEDICAL/SURGICAL HISTORY: Stroke. Heart attack. None. RADIATION DOSE: 41.94 CTDI (mGy) COMPARISON: [facility] [place], CT BRAIN W/O CONTRAST, 03/17/2016. . TECHNIQUE: CT of the head without contrast. Using automated exposure control and adjustment of the mA and/or kV according to patient size, radiation dose was kept as low as reasonably achievable to ob tain optimal diagnostic quality images. DICOM format image data is available electronically for revi ew and comparison. FINDINGS: Cerebrum: The ventricles are normal for age. No evidence of midline shift, hemorrhage. There has be en a significant interval change with new vasogenic edema high in the left frontoparietal lobe. The p attern is suspicious for an underlying mass.. No extraaxial fluid collections are seen. Posterior Fossa: The cerebellum and brainstem are intact. The 4th ventricle is midline. The cerebe llopontine angle is unremarkable. Extracranial: The visualized portion of the orbits is intact. Skull: The calvaria is intact. No evidence of skull fracture. CONCLUSION: 1. There has been a significant interval change compared to the prior examination of 03/17/2016. Ther e is now a focal area of vasogenic edema high along the left frontal parietal lobe in a pattern that is suspicious for an underlying mass occupying lesion. This is suspicious for neoplastic disease. The refore, recommend an MRI of the brain with and without contrast for further evaluation. . Electronically signed by: Reji Langford MD Board Certified Radiologist 02/21/2018 4:38 PM EST
[2018-02-21 16:42] LABS: Activated Partial Thrombo Time 25.2 sec (23.4-31.7); INR 1.1 Ratio; Prothrombin Time 10.7 sec (9.8-11.6)
[2018-02-21 16:55] LABS: Alanine Aminotransferase 31 U/L (12-78); Albumin 3.5 g/dL (3.4-5.0); Alkaline Phosphatase 56 U/L (45-117); Anion Gap 11 meq/L (5-15); Aspartate Aminotransferase 18 U/L (15-37); Blood Urea Nitrogen 16 mg/dL (7-18); Calcium 8.6 mg/dL (8.5-10.1); Carbon Dioxide 22.3 meq/L (21.0-32.0); Chloride 110 meq/L (98-107); Creatine Kinase 78 U/L (39-308); Glomerular Filtration Rate 55 mL/min (>89); Glucose,Random 161 mg/dL (74-106); Potassium 4.2 meq/L (3.5-5.1); Sodium 143 meq/L (136-145)
--- NOTE | 2018-02-21 17:35 | ED ---
HPI General Chief complaint: Arrhythmia / Palpitations Stated complaint: heartrate was low Dr maulik Time Seen by Provider: 02/21/18 15:54 Source: patient Mode of arrival: ambulatory Limitations: no limitations History of Present Illness HPI narrative: 67-year-old male that presents to the ED for evaluation of bradycardia and headache. Per patient he was seen by his doctor today for evaluation of a headache that he has had for about 3-4 weeks now. Per patient is not really severe but is staring he does not usually get headaches. Patient feels like there is a pressure on his head. He states that he has a history of a stroke as well as significant cardiac history. He states that he does have some chest discomfort but is not significant and he does not believe that is related to his heart. Per patient the pain in his chest is 1 out of 10 he states that he has had it since having the stents in the past. He states that he went to his doctor to check for this and apparently he was found to be bradycardic with a heart rate in the 30s. He was told to come here for further evaluation and treatment. He states that he is never been told this before. He denies any shortness of breath. He does state that since having the headaches he been feeling dizzy and having worse sensations. Per patient he feels like all of a sudden stops working and he for the past 3-4 weeks has been having episodes where his right leg just has shaking from it the last maybe a couple seconds and then goes away. Per patient happens almost daily and comes at different times of the day no matter what he does. He states that the headache itself is 4 out of 10 but again he seems to minimize any pain from it and states that he just "feels odd ". Denies any cancer history. No other medical issues. He follows with Dr. Angel for cardiology. Related Data Home Medications Medication Instructions Recorded Confirmed amlodipine 5 mg PO DAILY 02/21/18 02/21/18 aspirin [Aspirin Low Dose] 81 mg PO DAILY 02/21/18 02/21/18 atorvastatin 40 mg PO QPM 02/21/18 02/21/18 carvedilol 3.125 mg PO BID 02/21/18 02/21/18 clopidogrel 75 mg PO DAILY 02/21/18 02/21/18 famotidine 20 mg PO DAILY 02/21/18 02/21/18 insulin detemir U-100 [Levemir 100 unit SUBCUT DAILY 02/21/18 02/21/18 FlexTouch U-100 Insuln] isosorbide mononitrate 30 mg PO DAILY 02/21/18 02/21/18 lisinopril 20 mg PO DAILY 02/21/18 02/21/18 metformin 1,000 mg PO BID 02/21/18 02/21/18 sitagliptin [Januvia] 100 mg PO DAILY 02/21/18 02/21/18 Allergies Allergy/AdvReac Type Severity Reaction Status Date / Time No Known Allergies Allergy Verified 02/21/18 17:18 Review of Systems ROS: all other systems reviewed are negative [facility] Medical History Medical History CVA (cerebral vascular accident) (Acute) Diabetes (Acute) GERD (gastroesophageal reflux disease) (Acute) High cholesterol (Acute) Hypertension (Acute) Myocardial infarction (Acute) Social History Social History Substance History: No History of Abuse Smoking Status: Unknown if ever smoked How Often Do You Have a Drink Containing Alcohol: Monthly or less Recent Travel in [facility] within the Last 8 Weeks: No Recent Out of Country Travel within the Last 8 Weeks: No Immunization History Tetanus Immunization: <5 Years Exam Narrative Exam Narrative: GENERAL: Well appearing. SKIN: Focused skin assessment warm/dry. HEAD: Atraumatic. Normocephalic. EYES: Pupils equal and round. No scleral icterus. No injection or drainage. ENT: No nasal bleeding or discharge. Mucous membranes pink and moist. Tongue is midline. No uvula radiation. NECK: Trachea midline. No JVD. CARDIOVASCULAR: Regular rate and rhythm. No murmur appreciated. RESPIRATORY: No accessory muscle use. Clear to auscultation. Breath sounds equal bilaterally. GASTROINTESTINAL: Abdomen soft, non-tender, nondistended. Hepatic and splenic margins not palpable. MUSCULOSKELETAL: No obvious deformities. No clubbing. No cyanosis. No edema. Full range of motion of the upper and lower extremities bilaterally. 2+ pulses bilaterally. 5 out of 5 strength in the upper and lower extremities bilaterally. Straight leg test negative bilaterally. Lumbar, thoracic, cervical spine tenderness to palpation. NEUROLOGICAL: Awake and alert. No obvious cranial nerve deficits. Motor grossly within normal limits. Normal speech. PSYCHIATRIC: Appropriate mood and affect; insight and judgment normal. Course Initial Documented Vital Signs Temperature 97.8 F 02/21/18 15:39 Pulse Rate 35 L 02/21/18 15:39 Respiratory Rate 16 02/21/18 15:39 Blood Pressure 170/76 H 02/21/18 15:39 Pulse Oximetry 98 02/21/18 15:39 Last Documented Vital Signs Temperature 97.8 F 02/21/18 15:39 Pulse Rate 79 02/21/18 16:02 Respiratory Rate 20 02/21/18 16:02 Blood Pressure 165/84 H 02/21/18 16:02 Pulse Oximetry 98 02/21/18 16:02 Medical Decision Making NOE Attestation NOE supervised visit: Yes Attestation: I, Dr. Hampton, have reviewed the advance practice practitioner's documentation and am in agreement, met with the patient face to face, made the diagnosis, and the medical decision making was done by me. *My assessment and Findings: 67-year-old male presents today with complaints of headaches. He was sent by his physician's office because he had an abnormal EKG with a reported rate in the 30s. When evaluating the EKG it appeared the patient had bigeminy. He did not have a rate in the 30s but seem to be in the 70s. His rate here was normal sinus rhythm with a rate in the 70s. Patient has CT scan that revealed what appears to be a malignant lesion in his brain. Recommendation was for an MRI. The patient will be admitted to the hospitalist service. MRI of the brain has been ordered. Findings were discussed with the patient and he is aware that there is possibility he could have a primary or metastatic lesion to his brain. MDM Narrative Medical decision making narrative: 67-year-old male that presents to the ED for evaluation of multiple complaints. Patient was properly examined and was found to have signs and symptoms of unclear etiology. Headache appears to be very concerning for the patient as he does not usually get headaches and this headache feels different. He does have a history of CVA. Patient is not bradycardic here in actually his heart rate is in the 70s and 60s. His EKG here has no changes from the one done here on April. My attending agrees with this. Cardiac workup as well as CVA workup was done. Workup was essentially unremarkable with the exception of the CT scan showing what appears to be possible mass of neoplastic etiology. My attending recommends admission for further evaluation and treatment. MRI was ordered by me. Patient was told of results and agrees with admission plan. Dr. Yen agrees admission to her service. Medical Screen Exam Complete: Yes Emergency Medical Condition: Yes Differential Diagnosis Differential Diagnosis: Cephalgia versus CVA versus ACS versus bradycardia versus arrhythmia versus neuropathy versus mass Medical Records Medical records reviewed: Yes I reviewed the patient's medical records. Lab Data Lab results reviewed: Yes I reviewed the patient's lab results. Result diagrams: 02/21/18 16:15 02/21/18 16:15 Lab Results 02/21/18 02/21/18 02/21/18 Range/Units 16:15 16:15 16:15 WBC 5.4 (4.0-11.0) th/mm3 RBC 4.81 (4.50-5.90) mil/mm3 Hgb 14.9 (13.0-17.0) gm/dL Hct 44.1 (39.0-51.0) % MCV 91.7 (80.0-100.0) fL MCH 31.0 (27.0-34.0) pg MCHC 33.8 (32.0-36.0) % RDW 14.5 (11.6-17.2) % Plt Count 199 (150-450) th/mm3 MPV 8.8 (7.0-11.0) fL Neut % (Auto) 57.6 (16.0-70.0) % Lymph % (Auto) 26.2 (9.0-44.0) % Grady % (Auto) 11.8 H (0.0-8.0) % Eos % (Auto) 3.3 (0.0-4.0) % Baso % (Auto) 1.1 (0.0-2.0) % Neut # (Auto) 3.1 (1.8-7.7) th/mm3 Lymph # (Auto) 1.4 (1.0-4.8) th/mm3 Grady # (Auto) 0.6 (0.0-0.9) th/mm3 Eos # (Auto) 0.2 (0.0-0.4) th/mm3 Baso # (Auto) 0.1 (0.0-0.2) th/mm3 WBC Differential . Differential Comment Auto diff final PT 10.7 (9.8-11.6) sec INR 1.1 Ratio APTT 25.2 (23.4-31.7) sec Sodium (136-145) meq/L Potassium (3.5-5.1) meq/L Chloride (98-107) meq/L Carbon Dioxide (21.0-32.0) meq/L Anion Gap (5-15) meq/L BUN (7-18) mg/dL Creatinine (0.60-1.30) mg/dL Estimated GFR (>89) mL/min Random Glucose (74-106) mg/dL Calcium (8.5-10.1) mg/dL Magnesium (1.5-2.5) mg/dL Total Bilirubin (0.2-1.0) mg/dL AST (15-37) U/L ALT (12-78) U/L Alkaline Phosphatase (45-117) U/L Total Creatine Kinase (39-308) U/L Troponin I (0.02-0.05) ng/mL B-Natriuretic Peptide 123 H (0-100) pg/mL Total Protein (6.4-8.2) g/dL Albumin (3.4-5.0) g/dL 02/21/ Range/Units 16:15 WBC (4.0-11.0) th/mm3 RBC (4.50-5.90) mil/mm3 Hgb (13.0-17.0) gm/dL Hct (39.0-51.0) % MCV (80.0-100.0) fL MCH (27.0-34.0) pg MCHC (32.0-36.0) % RDW (11.6-17.2) % Plt Count (150-450) th/mm3 MPV (7.0-11.0) fL Neut % (Auto) (16.0-70.0) % Lymph % (Auto) (9.0-44.0) % Grady % (Auto) (0.0-8.0) % Eos % (Auto) (0.0-4.0) % Baso % (Auto) (0.0-2.0) % Neut # (Auto) (1.8-7.7) th/mm3 Lymph # (Auto) (1.0-4.8) th/mm3 Grady # (Auto) (0.0-0.9) th/mm3 Eos # (Auto) (0.0-0.4) th/mm3 Baso # (Auto) (0.0-0.2) th/mm3 WBC Differential Differential Comment PT (9.8-11.6) sec INR Ratio APTT (23.4-31.7) sec Sodium 143 (136-145) meq/L Potassium 4.2 (3.5-5.1) meq/L Chloride 110 H (98-107) meq/L Carbon Dioxide 22.3 (21.0-32.0) meq/L Anion Gap 11 (5-15) meq/L BUN 16 (7-18) mg/dL Creatinine 1.30 (0.60-1.30) mg/dL Estimated GFR 55 L (>89) mL/min Random Glucose 161 H (74-106) mg/dL Calcium 8.6 (8.5-10.1) mg/dL Magnesium 2.0 (1.5-2.5) mg/dL Total Bilirubin 0.4 (0.2-1.0) mg/dL AST 18 (15-37) U/L ALT 31 (12-78) U/L Alkaline Phosphatase 56 (45-117) U/L Total Creatine Kinase 78 (39-308) U/L Troponin I Less than 0.02 L (0.02-0.05) ng/mL B-Natriuretic Peptide (0-100) pg/mL Total Protein 7.0 (6.4-8.2) g/dL Albumin 3.5 (3.4-5.0) g/dL Imaging Data Attestation: I personally reviewed and interpreted this imaging study as follows : Radiologist's impression: Chest X-Ray 02/21/18 16:02 CONCLUSION: No acute cardiopulmonary findings. The cardiomediastinal contours are stable at upper limits of normal. Cardiac loop recorder. Head CT 02/21/18 16:03 CONCLUSION: 1. There has been a significant interval change compared to the prior examination of 03/17/2016. There is now a focal area of vasogenic edema high along the left frontal parietal lobe in a pattern that is suspicious for an underlying mass occupying lesion. This is suspicious for neoplastic disease. Therefore, recommend an MRI of the brain with and without contrast for further evaluation. . ECG Data Attestation: I personally reviewed and interpreted this ECG as follows: Interpretation: EKG shows sinus rhythm with no sign of acute ischemia and arrhythmia read by me and attending. Discharge Plan Discharge Disposition Patient Disposition: ED Admit(ED Internal Use Only) Discharge Order Discharge Orders: ED Use Only Admit Order (Routine); Ordered 02/21/18 Ordered By: Arik Chen Discharge Details Diagnosis: Brain mass, Arrhythmia Physicians Team ED Provider: Marcio Hampton ED Midlevel Provider: Arik Chen Primary Care Provider: Joel Santana Attending Provider: Romina Banerjee Status ED Status: Admitted Patient
--- NOTE | 2018-02-21 18:03 | P.HPIM ---
History of Present Illness Primary Care Physician: Joel Santana MD Chief Complaint: Headaches, sent by PCP for evaluation of bradycardia History of Present Illness: 67-year-old male that presents to the ED for evaluation of bradycardia and headache. Per patient he was seen by his doctor today for evaluation of a headache that he has had for about 3-4 weeks now. Per patient is not really severe but is staring he does not usually get headaches. Patient feels like there is a pressure on his head. He states that he has a history of a stroke as well as significant cardiac history. He states that he does have some chest discomfort but is not significant and he does not believe that is related to his heart. Per patient the pain in his chest is 1 out of 10 he states that he has had it since having the stents in the past. He states that he went to his doctor to check for this and apparently he was found to be bradycardic with a heart rate in the 30s. He was told to come here for further evaluation and treatment. He states that he is never been told this before. He denies any shortness of breath. He does state that since having the headaches he been feeling dizzy and having worse sensations. Per patient he feels like all of a sudden stops working and he for the past 3-4 weeks has been having episodes where his right leg just has shaking from it the last maybe a couple seconds and then goes away. Per patient happens almost daily and comes at different times of the day no matter what he does. He states that the headache itself is 4 out of 10 but again he seems to minimize any pain from it and states that he just "feels odd ". Denies any cancer history. No other medical issues. He follows with Dr. Angel for cardiology. EKG however did not show a rate in 70s but seems heart rate is in 70s. Normal sinus rhythm. Patient however had a CT scan of the head that revealed malignant lesion in his brain and MRI is recommended. Patient has a history of CVA. Inpatient Certification Inpatient Certification: I certify that the inpatient services were ordered in accordance with Medicare regulations governing the order. This includes certification that hospital inpatient services are reasonable and necessary and in the case of services not specified as inpatient-only under 42 CFR 419.22(n), that they are appropriately provided as inpatient services in accordance to with the 2-midnight benchmark under 43 CFR 412.3(e) Review of Systems Review of Systems: all other systems reviewed are negative [facility] Medical History Medical History CVA (cerebral vascular accident) (Acute) Diabetes (Acute) GERD (gastroesophageal reflux disease) (Acute) High cholesterol (Acute) Hypertension (Acute) Myocardial infarction (Acute) Social History Social History Substance History: No History of Abuse Second Hand Smoke Exposure: Yes Smoking Status: Never smoker How Often Do You Have a Drink Containing Alcohol: Monthly or less Recent Travel in [facility] within the Last 8 Weeks: No Recent Out of Country Travel within the Last 8 Weeks: No Immunization History Tetanus Immunization: <5 Years Medications and Allergies Allergies Allergy/AdvReac Type Severity Reaction Status Date / Time No Known Allergies Allergy Verified 02/21/18 17:18 Home Medications Medication Instructions Recorded Confirmed Type amlodipine 5 mg PO DAILY 02/21/18 02/21/18 History aspirin [Aspirin Low Dose] 81 mg PO DAILY 02/21/18 02/21/18 History atorvastatin 40 mg PO QPM 02/21/18 02/21/18 History carvedilol 3.125 mg PO BID 02/21/18 02/21/18 History clopidogrel 75 mg PO DAILY 02/21/18 02/21/18 History famotidine 20 mg PO DAILY 02/21/18 02/21/18 History insulin detemir U-100 [Levemir 100 unit SUBCUT DAILY 02/21/18 02/21/18 History FlexTouch U-100 Insuln] isosorbide mononitrate 30 mg PO DAILY 02/21/18 02/21/18 History lisinopril 20 mg PO DAILY 02/21/18 02/21/18 History metformin 1,000 mg PO BID 02/21/18 02/21/18 History sitagliptin [Januvia] 100 mg PO DAILY 02/21/18 02/21/18 History Results Labs CBC & Chem 7: 03/05/18 05:00 03/05/18 05:00 Imaging Impressions Chest X-Ray 02/21/18 16:02 CONCLUSION: No acute cardiopulmonary findings. The cardiomediastinal contours are stable at upper limits of normal. Cardiac loop recorder. Head CT 02/21/18 16:03 CONCLUSION: 1. There has been a significant interval change compared to the prior examination of 03/17/2016. There is now a focal area of vasogenic edema high along the left frontal parietal lobe in a pattern that is suspicious for an underlying mass occupying lesion. This is suspicious for neoplastic disease. Therefore, recommend an MRI of the brain with and without contrast for further evaluation. . Caprini VTE Risk Assessment Caprini VTE Risk Assessment: Moderate/High Risk (score >= 2) Caprini Risk Assessment Model: Point Value = 1 Point Value = 2 Point Value = 3 Point Value = 5 Age 41-60 Minor surgery BMI > 25 kg/m2 Swollen legs Varicose veins or History of unexplained or recurrent spontaneous Oral contraceptives or hormone replacement Sepsis (< 1 month) Serious lung disease, including pneumonia (< 1 month) Abnormal pulmonary function Acute myocardial infarction Congestive heart failure (< 1 month) History of inflammatory bowel disease Medical patient at bed rest Age 61-74 Arthroscopic surgery Major open surgery (> 45 min) Laparoscopic surgery (> 45 min) Malignancy Confined to bed (> 72 hours) Immobilizing plaster cast Central venous access Age >= 75 History of VTE Family history of VTE Factor V Leiden Prothrombin [id number] Lupus anticoagulant Anticardiolipin antibodies Elevated serum homocysteine Heparin-induced thrombocytopenia Other congenital or acquired thrombophilia Stroke (< 1 month) Elective arthroplasty Hip, pelvis, or leg fracture Acute spinal cord injury (< 1 month) Prophylaxis Regimen: Total Risk Factor Score Risk Level Prophylaxis Regimen 0-1 Low Early ambulation 2 Moderate Order ONE of the following: *Sequential Compression Device (SCD) *Heparin 5000 units SQ BID 3-4 Higher Order ONE of the following medications: *Heparin 5000 units SQ TID *Enoxaparin/Lovenox 40 mg SQ daily (WT < 150 kg, CrCl > 30 mL/min) *Enoxaparin/Lovenox 30 mg SQ daily (WT < 150 kg, CrCl > 10-29 mL/min) *Enoxaparin/Lovenox 30 mg SQ BID (WT < 150 kg, CrCl > 30 mL/min) AND/OR *Sequential Compression Device (SCD) 5 or more Highest Order ONE of the following medications: *Heparin 5000 units SQ TID (Preferred with Epidurals) *Enoxaparin/Lovenox 40 mg SQ daily (WT < 150 kg, CrCl > 30 mL/min) *Enoxaparin/Lovenox 30 mg SQ daily (WT < 150 kg, CrCl > 10-29 mL/min) *Enoxaparin/Lovenox 30 mg SQ BID (WT < 150 kg, CrCl > 30 mL/min) AND *Sequential Compression Device (SCD) Assessment and Plan Plan Pleasant 67-year-old male with Brain mass CT scan in the emergency room showed significant interval change compared to the prior examination 03/17/2016. Patient has a new focal area of vasogenic edema along left frontoparietal lobe in a pattern that is suspicious of underlying neoplastic lesion. Plan for MRI of the brain with and without contrast for further evaluation Admit patient We will consult oncology History of CAD. Hypertension continue home medications. Diabetes mellitus continue Levemir. Accu-Cheks DVT prophylaxis SCDs/teds, avoid chemical ppx as patient with brain mass Discussed Condition With: Patient, nurse, ED physician/PA
[2018-02-21] MEDS ORDERED: Bisacodyl 10 MG Supp RECTAL PRN (18:05)
[2018-02-21] MEDS ORDERED: Acetaminophen 325 MG Tablet PO PRN (18:05)
[2018-02-21] MEDS ORDERED: Gadobutrol PF 2 MMOL/2 ML Vial (for RAD) IV.SIG ONE (19:03)
--- NOTE | 2018-02-21 19:28 | MR ---
EXAM DATE: 02/21/2018 7:11 PM EST AGE/SEX: 67 years / Male INDICATIONS: Mass. Dizziness and headaches for two weeks. CLINICAL DATA: This is the patient's initial encounter. Patient reports that signs and symptoms have been present for 1 day and indicates a pain score of 6/10. MEDICAL/SURGICAL HISTORY: Myocardial infarction. Stroke. Hypertension. Diabetes. Appendecto my. [employer] loop recorder and right hip surgery. COMPARISON: [facility] [place]/O [place]AST, 02/21/2018. . TECHNIQUE: Multiplanar, multisequence examination of the brain was performed without and with 12 ml G adavist (gadobutrol) contrast as a single exam dose. FINDINGS: Cerebrum: There is mild generalized atrophy. Ventricles are normal in size. There is abnormal left fr ontal vasogenic edema at the high convexity. In this area of edema there are innumerable punctate are as of susceptibility artifact. Following contrast administration there is abnormal focal adjacent gyr iform and potential leptomeningeal enhancement. No midline shift, acute hemorrhage or acute infarctio n. No extraaxial fluid collections are seen. The pituitary gland and suprasellar cistern are normal in configuration. White Matter: There is mild periventricular and subcortical white matter signal change. Additionally , there is vasogenic edema in the left frontal high convexity, as detailed above. Posterior Fossa: The cerebellum and brainstem demonstrate no acute abnormality. The 4th ventricle is midline. The cerebellopontine angle is within normal limits. The cerebellar tonsils are normal in p osition. Diffusion Imaging: No areas of restricted diffusion are seen. Extracranial: The visualized sinuses are clear. Postcontrast: There is abnormal enhancement in the left frontal high convexity along the lopez matter in a gyriform pattern enhancement in the adjacent meninges. CONCLUSION: 1. There is severe focal left frontal high convexity vasogenic edema with evidence of a multifocal r emote hemorrhage and associated superficial enhancement and enhancement of the adjacent leptomeninges . Differential diagnosis includes infection, malignancy, or potentially neurosarcoidosis. Correlating with patient's history may help narrow the differential diagnosis. 2. Chronic changes include mild generalized atrophy and mild chronic periventricular white matter ch danielle. Electronically signed by: Bartolome Jarvis MD Board Certified Radiologist 02/21/2018 7:26 PM EST
[2018-02-21] MEDS: Senna/Docusate Sodium 8.6/50 MG Tablet PO SCH (22:34)
[2018-02-22] MEDS: Isosorbide Mononitrate 30 MG ER 24HR Tablet (Imdur) PO SCH (06:06)
[2018-02-22 06:50] LABS: Baso % (Auto) 0.9 % (0.0-2.0); Eos # (Auto) 0.2 th/mm3 (0.0-0.4); Eos % (Auto) 3.6 % (0.0-4.0); Hematocrit 42.6 % (39.0-51.0); Hemoglobin 14.5 gm/dL (13.0-17.0); Lymph # (Auto) 1.4 th/mm3 (1.0-4.8); Lymph % (Auto) 26.3 % (9.0-44.0); Mean Corpuscular HGB Conc 33.9 % (32.0-36.0); Mean Corpuscular Volume 91.3 fL (80.0-100.0); Mean Platelet Volume 9.1 fL (7.0-11.0); Mono # (Auto) 0.6 th/mm3 (0.0-0.9); Mono % (Auto) 10.6 % (0.0-8.0); Neut # (Auto) 3.1 th/mm3 (1.8-7.7); Neut % (Auto) 58.6 % (16.0-70.0); Platelet Count 189 th/mm3 (150-450); Red Blood Count 4.67 mil/mm3 (4.50-5.90); Red Cell Distribution Width 14.3 % (11.6-17.2); White Blood Count 5.2 th/mm3 (4.0-11.0)
[2018-02-22 07:12] LABS: Calcium 8.7 mg/dL (8.5-10.1); Carbon Dioxide 24.2 meq/L (21.0-32.0); Potassium 3.9 meq/L (3.5-5.1)
[2018-02-22] MEDS ORDERED: [UNRECOGNIZED DRUG - OTHER] SQ SCH (09:00)
[2018-02-22] MEDS ORDERED: INSULIN DETEMIR U SQ SCH (09:00)
--- NOTE | 2018-02-22 09:04 | MB ---
cc: Chidi Hawkins MD DATE: 02/22/2018 REASON FOR CONSULTATION: Abnormal MRI of the brain with a differential including malignancy. PATIENT PROFILE: The patient is a 67-year-old white male who is single and . He was once. He was born in [place]. He has lived in [place] since 1971. 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 He lives alone and is independent. He has never smoked. He stopped drinking 3 years ago. Alcohol intake was minimal. HISTORY OF PRESENT ILLNESS: The patient is a 67-year-old male who has had 4 myocardial infarctions and 6 stents. He states that he has had 2 strokes in the past from which he has made an uneventful recovery. He has significant vascular disease as indicated by the above. In addition, he has an elevated cholesterol, diabetes, and hypertension. In spite of this, he was stable until the past 3 weeks. He has noted headaches which have gradually worsened and mild right-sided weakness. He will put on his pants and have difficulty getting the right leg in. He saw his primary care physician. He was found to be bradycardic and given all of the above events, he was hospitalized. DIAGNOSTIC DATA: On 02/21/2018, he had a CT scan of the head showing a significant interval change compared to the study of 02/2016. There was a focal area of vasogenic edema high along the left frontoparietal lobe in a pattern that is suggestive of an underlying mass. This was followed by an MRI of the brain with and without contrast on 02/21. This showed severe focal left frontal high convexity vasogenic edema with evidence of a multifocal remote hemorrhage and associated superficial enhancement and enhancement of the adjacent leptomeninges. The differential diagnosis was felt to include infection, malignancy, or potentially neurosarcoidosis. Other studies include a chest x-ray, which is unremarkable. Laboratory studies include a normal CBC and platelet count with a hemoglobin of 14.5, white count 5200, and platelets 189,000. Electrolytes, BUN, and creatinine are unremarkable except for glucose of 152. PAST SURGICAL HISTORY: 1. Appendectomy. 2. Retinal tear. 3. Right hip replacement. PAST MEDICAL HISTORY: 1. Myocardial infarctions x 4 with 6 stents. Patient's certified personal chef is Saravanan Angel MD. 2. Previous history of 2 strokes from which he states he has made a full recovery. 3. Elevated cholesterol. 4. Diabetes. 5. Hypertension. MEDICATIONS PRIOR TO ADMISSION: 1. Januvia. 2. Metformin. 3. Atorvastatin. 4. Coreg. 5. Amlodipine. 6. Aspirin. 7. Plavix. 8. Pepcid. 9. Isosorbide. 10. Lisinopril. ALLERGIES: NO KNOWN ALLERGIES. FAMILY HISTORY: Mother and father are . He has 2 living brothers, 2 living sisters, and 1 sister is . No family history of malignancy. REVIEW OF SYSTEMS: General health has been stable until the current event. No change in vision or hearing. No chest pain, palpitations. No fever, night sweats, chills. No abdominal or pelvic pain. Major issue is the headaches and the mild right-sided weakness. PHYSICAL EXAMINATION: GENERAL: This is a well-appearing gentleman. He does not appear to be in any distress. VITAL SIGNS: Blood pressure 140/75, respiratory rate is 18, pulse 60, afebrile. O2 saturation 95%. HEENT: Head is normocephalic. Sclerae and conjunctivae are normal. Oropharynx unremarkable. LYMPH NODES: No cervical, supraclavicular, axillary, or inguinal adenopathy. HEART: Regular rate and rhythm. LUNGS: Clear. ABDOMEN: Soft. No enlargement of liver, spleen, or masses. No tenderness. EXTREMITIES: Trace edema. MUSCULOSKELETAL: No bone pain. NEUROLOGIC: Slight right-sided weakness. short term memory ? decreased ASSESSMENT: The patient is a 67-year-old male with significant vascular problems, which have included multiple myocardial infarctions, cardiac stents, and 2 previous strokes. He now has a markedly abnormal MRI of the brain with a differential which includes malignancy but is not diagnostic. I very much doubt that this is a metastatic lesion. If it is a malignancy, it would likely be a primary brain tumor. RECOMMENDATIONS: 1. I have ordered a CT thorax, abdomen, and pelvis to make sure that there is no malignancy. 2. I have consulted neurology. 3. It is likely that he may come to a biopsy of the brain if neurology feels that this is appropriate and it cannot be explained by other events. He also may need a spinal tap if he is felt to have leptomeningeal involvement by a malignant process. In any case, I believe the starting point will be neurology consultation and looking at the thorax, abdomen, and pelvis to make sure that there is no malignancy. Further studies will follow after that. MD JASS Garza/nba , 08:17 AM , 08:27 AM JENNIE
[2018-02-22] MEDS: Senna/Docusate Sodium 8.6/50 MG Tablet PO SCH ×2 (09:24→20:58)
[2018-02-22] MEDS: amLODIPine 5 MG Tablet PO SCH (09:25)
[2018-02-22] MEDS: Lisinopril 20 MG Tablet PO SCH (09:25)
[2018-02-22] MEDS: Famotidine 20 MG Tablet PO SCH (09:25)
--- NOTE | 2018-02-22 11:06 | CT ---
EXAM DATE: 02/22/2018 10:56 AM EST AGE/SEX: 67 years / Male INDICATIONS: Metastatic disease. CLINICAL DATA: This is the patient's initial encounter. Patient reports that signs and symptoms have been present for 2 days and indicates a pain score of 0/10. MEDICAL/SURGICAL HISTORY: Hypertension. Myocardial infarction. Brain mass. CVA. None. RADIATION DOSE: 26.03 CTDI (mGy) ; Patient body habitus COMPARISON: POI, CT CHEST W AND W/O CONTRAST, 06/05/2014. . TECHNIQUE: Multiple contiguous axial images were obtained through the chest without contrast. Image s were obtained in suspended respiration using multiple row detector helical technique. Using automa chintan exposure control and adjustment of the mA and/or kV according to patient size, radiation dose was kept as low as reasonably achievable to obtain optimal diagnostic quality images. DICOM format imag e data is available electronically for review and comparison. FINDINGS: Lungs: The lungs are symmetrically aerated. There are several stable pulmonary nodules in the meter inspector ior right lower lung. The largest pulmonary nodule measures about 11 mm just above the diaphragm whic h is unchanged compared to the prior study. No new or acute pulmonary infiltrates are demonstrated. N o suspicious pulmonary nodules are demonstrated.. Mediastinum: There is good visualization of the great vessels of the middle mediastinum. No evidenc e of mediastinal or hilar adenopathy/mass. Coronary artery disease. Atherosclerotic changes of the ao rta. Pleurae: No evidence of focal thickening or pleural effusion. Axillae: Unremarkable. Bony Structures: Stable bony degenerative changes. No grossly lytic or blastic lesions are demonstra chintan. Miscellaneous: The examination was extended to include the upper abdomen, and both adrenal glands ar e normal in size and configuration. Stable mild prominence of the left adrenal gland with no signific ant change compared to 2015. CONCLUSION: 1. Stable CT thorax compared to the prior examination from 2014. There continue to be several stable pulmonary nodules especially in the right lung with no new or significant changes compared to the pr ior exam. No new or suspicious pulmonary nodules are demonstrated to suggest metastatic disease. 2. No new or acute intrathoracic disease is demonstrated. Electronically signed by: Reji Langford MD Board Certified Radiologist 02/22/2018 11:04 AM EST
--- NOTE | 2018-02-22 11:25 | CT ---
EXAM DATE: 02/22/2018 10:58 AM EST AGE/SEX: 67 years / Male INDICATIONS: Metastatic disease. CLINICAL DATA: This is the patient's initial encounter. Patient reports that signs and symptoms have been present for 2 days and indicates a pain score of 0/10. MEDICAL/SURGICAL HISTORY: Hypertension. Myocardial infarction. Brain mass. CVA. None. RADIATION DOSE: 26.03 CTDI (mGy) ; Patient body habitus COMPARISON: POI, CT ABDOMEN W/O CONTRAST, 09/03/2014. . TECHNIQUE: Multiple contiguous axial images were obtained through the abdomen. Images were obtained using multiple row detector helical technique. Using automated exposure control and adjustment of the mA and/or kV according to patient size, radiation dose was kept as low as reasonably achievable to o btain optimal diagnostic quality images. DICOM format image data is available electronically for rev iew and comparison. Lack of IV contrast limits the diagnosis for certain organ pathology. FINDINGS: Lower Lungs: Stable pulmonary nodule in the right lower lung. Left lung base is clear. Liver: The liver has a homogeneous density without space-occupying lesion. There is no dilation of th e biliary tree. Gallbladder grossly unremarkable. Spleen: Homogeneous density without enlargement. Pancreas: Unremarkable without mass or calcification. Kidneys: Normal in size and shape. No evidence of mass or hydronephrosis. Tiny 2 mm nonobstructing s tone lower pole left kidney. Small 1.1 cm cyst midpole left kidney. Stable small left extrarenal pelv is. Adrenal Glands: Stable mild prominence of the left adrenal gland. The right adrenal gland is unrema rkable and stable. Aorta: Atherosclerotic changes. No aneurysmal dilatation. Bowel/Mesentery: The bowel loops are grossly unremarkable. The cecum and sigmoid colon have a normal configuration. No inflammatory changes. Stool throughout the colon. No free fluid. Abdominal Wall: Umbilical hernia containing mesenteric fat. Retroperitoneum: No evidence of adenopathy in the retrocrural, para-aortic, or deep pelvic regions. Bladder: Contours are smooth. Reproductive Organs: Prostate measures 4.9 cm. Inguinal: The inguinal region is unremarkable without evidence of adenopathy. Bony Structures: Right hip prosthesis in place. Bony structures are grossly intact. There are bony d egenerative changes present. No grossly lytic or blastic lesions. No significant changes compared to the prior study. CONCLUSION: 1. Tiny 2 mm nonobstructing stone lower pole left kidney. 2. 1.1 cm cyst midpole left kidney 3. Small umbilical hernia containing mesenteric fat. 4. No evidence to suggest metastatic disease is seen at this time. Electronically signed by: Reji Langford MD Board Certified Radiologist 02/22/2018 11:24 AM EST
--- NOTE | 2018-02-22 12:24 | P.PNIM ---
Subjective Interval history: Follow up for possible neoplastic lesion. headache, CAD, HTN and DM 2 Patient sitting at the side of the bed, family at bedside Pt c/o of slight headache relieved with baby aspirin Pt denies any dizziness, nausea or vomiting, denies any fever or chills Pt and family inquired about test results and plan, discussed results of radiology imaging, answers questions and discussed plan of treatment. Patient and family discussed about healthcare surrogate, wanted to be his brother Discussed Code status, Pt does not want to be intubated, but wants to have CPR done, Discussed with nurse, DNR paper signed. Physical Exam Vital signs: Last Vital Signs Temp 97.9 F 02/22/18 08:00 Pulse 60 02/22/18 08:00 Resp 17 02/22/18 08:00 BP 114/59 L 02/22/18 08:00 Pulse Ox 94 L 02/22/18 08:00 Intake & Output 02/20/18 02/21/18 02/22/18 02/23/18 06:59 06:59 06:59 06:59 Intake Total 600 / 600 Output Total 100 / 100 Balance 500 / 500 Weight 182.9 kg Narrative: GENERAL: well developed, well nourished, Pleasant 67-year-old male, in no acute distress. SKIN: Warm and dry. HEAD: Atraumatic. Normocephalic. EYES: Pupils equal and round. No scleral icterus. No injection or drainage. ENT: No nasal bleeding or discharge. Mucous membranes pink and moist. NECK: Trachea midline. No JVD. CARDIOVASCULAR: Regular rate and rhythm. RESPIRATORY: No accessory muscle use. Clear to auscultation. Breath sounds equal bilaterally. GASTROINTESTINAL: Abdomen soft, obese, non-tender, nondistended. Hepatic and splenic margins not palpable. MUSCULOSKELETAL: Extremities without clubbing, cyanosis, or edema. No obvious deformities. NEUROLOGICAL: Awake and alert and oriented x 3, with forgetfullness per patient and family. No obvious cranial nerve deficits. Motor grossly within normal limits. Five out of 5 muscle strength in the arms and legs. Normal speech. PSYCHIATRIC: Appropriate mood and affect; insight and judgment normal. Results Labs CBC & Chem 7: 02/22/18 05:35 02/22/18 05:35 Imaging Imaging: Impressions Chest X-Ray 02/21/18 16:02 CONCLUSION: No acute cardiopulmonary findings. The cardiomediastinal contours are stable at upper limits of normal. Cardiac loop recorder. Head CT 02/21/18 16:03 CONCLUSION: 1. There has been a significant interval change compared to the prior examination of 03/17/2016. There is now a focal area of vasogenic edema high along the left frontal parietal lobe in a pattern that is suspicious for an underlying mass occupying lesion. This is suspicious for neoplastic disease. Therefore, recommend an MRI of the brain with and without contrast for further evaluation. . Head MRI 02/21/18 17:00 CONCLUSION: 1. There is severe focal left frontal high convexity vasogenic edema with evidence of a multifocal remote hemorrhage and associated superficial enhancement and enhancement of the adjacent leptomeninges. Differential diagnosis includes infection, malignancy, or potentially neurosarcoidosis. Correlating with patient's history may help narrow the differential diagnosis. 2. Chronic changes include mild generalized atrophy and mild chronic periventricular white matter change. Abdomen/Pelvis CT 02/22/18 00:00 CONCLUSION: 1. Tiny 2 mm nonobstructing stone lower pole left kidney. 2. 1.1 cm cyst midpole left kidney 3. Small umbilical hernia containing mesenteric fat. 4. No evidence to suggest metastatic disease is seen at this time. Chest CT 02/22/18 00:00 CONCLUSION: 1. Stable CT thorax compared to the prior examination from 2014. There continue to be several stable pulmonary nodules especially in the right lung with no new or significant changes compared to the prior exam. No new or suspicious pulmonary nodules are demonstrated to suggest metastatic disease. 2. No new or acute intrathoracic disease is demonstrated. Assessment and Plan Plan This is a Pleasant 67-year-old male with PMH CAD, HTN, DM2, who came to the ED for bradycardia and headache. Brain mass Suspicious for neoplastic lesion Hx Pulmonary nodules - CT scan in the emergency room showed significant interval change compared to the prior examination 03/17/2016. - Patient has a new focal area of vasogenic edema along left frontoparietal lobe in a pattern that is suspicious of underlying neoplastic lesion. Plan for MRI of the brain with and without contrast for further evaluation - Oncology consulted: appreciate recommendation- CT chest, abdomen and pelvis -Neurology consulted: appreciate recommendation- LP, send CSF for cytology, keppra and neuro checks -CT Abdomen and Pelvis: Lower Lungs: Stable pulmonary nodule in the right lower lung. Left lung base is clear. -CT Chest: Stable CT thorax compared to the prior examination from 2015. There continue to be several stable pulmonary nodules especially in the right lung with no new or significant changes compared to the prior exam. No new or suspicious pulmonary nodules are demonstrated to suggest metastatic disease. No new or acute intrathoracic disease is demonstrated - aggressive pulmonary toilette, nasotracheal suction and breathing treatments with nebulizers -consult cardiology for clearance and to hold plavix for planned procedure/LP -neuro checks History of CAD with PA Bradycardia Hypertension -continue home medications, Imdur, lisinopril, aspirin and statin -hold carvedilol due to bradycardia -consult cardiology to hold Plavix for planned procedure/LP Diabetes mellitus -Blood sugar controlled -monitor accuchecks AC and HS with Insulin sliding scale - continue Levemir GI Prophylaxis: pepcid DVT prophylaxis: SCDs/teds Progress Note: Quality VTE Deep Vein Thrombosis/Pulmonary Embolism Present on Admission: No
[2018-02-22] MEDS ORDERED: Bisacodyl 10 MG Supp RECTAL PRN (12:55)
[2018-02-22] MEDS ORDERED: Acetaminophen 325 MG Tablet PO PRN (12:55)
--- NOTE | 2018-02-22 16:51 | P.CONNS ---
History of Present Illness Service: Neurosurgery Primary Care Provider: Joel Santana MD Chief Complaint: Headaches, sent by PCP for evaluation of bradycardia History of Present Illness: This is a 67-year-old male who presented to [facility] ER for evaluation of bradycardia and headache. He was seen by his doctor for headaches. He reports like there is a pressure on his head. He has a history of a stroke and significant cardiac history. He states that he does have some chest discomfort but is not significant and he does not believe that is related to his heart. Per patient the pain in his chest is 1 out of 10 he states that he has had it since having the stents in the past. He states that he went to his doctor to check for this and apparently he was found to be bradycardic with a heart rate in the 30s. He denies any shortness of breath. He does state that since having the headaches he been feeling dizzy and having worse sensations. Per patient he feels like all of a sudden stops working and he for the past 3-4 weeks has been having episodes where his right leg just has shaking from it the last maybe a couple seconds and then goes away. He experiences this twiching almost on daily basis, at different times of the day no matter what he does. He states that the headaches are 4 out of 10 but again he seems to minimize any pain from it and states that he just "feels odd ". Denies any cancer history. MRI of the brain showed a lesion. Neurosurgery consultation was requested [facility] - History History Provided By: Patient - Medical History Medical History: Medical History (Last Reviewed 03/01/18 @ 17:40 by Parisa Solis MD) CVA (cerebral vascular accident) Diabetes GERD (gastroesophageal reflux disease) High cholesterol Hypertension Myocardial infarction - Family History Family History: Family History (Last Updated 03/01/18 @ 17:41 by Parisa Solis MD) Other Family history non-contributory - Tobacco History Second Hand Smoke Exposure: Yes Smoking Status: Never smoker - Alcohol History How Often Do You Have a Drink Containing Alcohol: Monthly or less - Substance Use History Substance History: No History of Abuse - Travel History Recent Travel in the [place] Within the Last 8 Weeks: No Recent Travel Out of the Country Within the Last 8 Weeks: No - Immunization History Tetanus Immunization: <5 Years Hx Influenza Vaccine This Season: Yes Medications and Allergies Active Medications: Active Medications Acetaminophen (Tylenol) 650 mg PO Q4H PRN PRN Reason: Temp > 100.4 Al Hydroxide/Mg Hydroxide (Milk Of Magnesia Liq) 30 ml PO Q12H PRN PRN Reason: Mild Constipation Amlodipine Besylate (Norvasc) 5 mg PO DAILY [facility] Last Admin: 02/22/18 09:25 Dose: 5 mg Aspirin (Ecotrin) 81 mg PO DAILY [facility] Last Admin: 02/22/18 09:24 Dose: 81 mg Atorvastatin Calcium (Lipitor) 40 mg PO QPM [facility] Last Admin: 02/21/18 18:45 Dose: 40 mg Bisacodyl (Dulcolax Supp) 10 mg RECTAL DAILY PRN PRN Reason: SEVERE CONSITIPATION Carvedilol (Coreg) 3.125 mg PO BID [facility] Last Admin: 02/22/18 09:25 Dose: 3.125 mg Clopidogrel Bisulfate (Plavix) 75 mg PO DAILY [facility] Last Admin: 02/22/18 09:24 Dose: 75 mg Famotidine (Pepcid) 20 mg PO DAILY [facility] Last Admin: 02/22/18 09:25 Dose: 20 mg Isosorbide Mononitrate (Imdur) 30 mg PO DAILY@0700 [facility] Last Admin: 02/22/18 06:06 Dose: 30 mg Lactulose (Lactulose Liq) 30 ml PO DAILY PRN PRN Reason: SEVERE CONSITIPATION Levetiracetam (Keppra) 500 mg PO BID [facility] Lisinopril (Prinivil) 20 mg PO DAILY [facility] Last Admin: 02/22/18 09:25 Dose: 20 mg Lorazepam (Ativan Inj) 1 mg IV.PUSH Q4H PRN PRN Reason: SEIZURES Ondansetron HCl (Zofran Inj) 4 mg IV.PUSH Q6H PRN PRN Reason: NAUSEA OR VOMITING Ptownmed (Insulin Detemir U-100 [ Levemir Flextouch U- 100 Insuln] 100 Unit ) 0 each SQ DAILY [facility] Senna/Docusate Sodium (Nila-Colace) 1 tab PO BID [facility] Last Admin: 02/22/18 09:24 Dose: 1 tab Sennosides (Senokot) 17.2 mg PO Q12H PRN PRN Reason: Moderate Constipation Sodium Chloride (Ns Flush) 2 ml IV.FLUSH PRN PRN PRN Reason: FLUSH AFTER USING IV ACCESS Sodium Chloride (Ns Flush) 2 ml IV.FLUSH BID ALESSANDRA Allergies Allergy/AdvReac Type Severity Reaction Status Date / Time No Known Allergies Allergy Verified 02/21/18 17:18 Home Medications Medication Instructions Recorded Confirmed Type amlodipine 5 mg PO DAILY 02/21/18 02/21/18 History aspirin [Aspirin Low Dose] 81 mg PO DAILY 02/21/18 02/21/18 History atorvastatin 40 mg PO QPM 02/21/18 02/21/18 History carvedilol 3.125 mg PO BID 02/21/18 02/21/18 History clopidogrel 75 mg PO DAILY 02/21/18 02/21/18 History famotidine 20 mg PO DAILY 02/21/18 02/21/18 History insulin detemir U-100 [Levemir 100 unit SUBCUT DAILY 02/21/18 02/21/18 History FlexTouch U-100 Insuln] isosorbide mononitrate 30 mg PO DAILY 02/21/18 02/21/18 History lisinopril 20 mg PO DAILY 02/21/18 02/21/18 History metformin 1,000 mg PO BID 02/21/18 02/21/18 History sitagliptin [Januvia] 100 mg PO DAILY 02/21/18 02/21/18 History Exam Vital signs: Vital Signs 02/21/18 18:05 02/21/18 20:00 02/22/18 00:00 Temperature 97.0 F L 97.8 F Pulse Rate 80 60 52 L Respiratory Rate 20 18 19 Blood Pressure 155/81 H 178/91 H 157/67 H Pulse Oximetry 99 93 L 94 L 02/22/18 04:00 02/22/18 08:00 02/22/18 12:00 Temperature 97.7 F 97.9 F 98.2 F Pulse Rate 55 L 60 69 Respiratory Rate 19 17 18 Blood Pressure 146/75 H 114/59 L 122/60 Pulse Oximetry 95 94 L 98 02/22/18 16:00 Temperature 97.4 F L Pulse Rate 59 L Respiratory Rate 17 Blood Pressure 150/71 H Pulse Oximetry 94 L Intake & Output 02/21/18 02/22/18 02/22/18 18:59 06:59 18:59 Intake Total 600 / 600 Output Total 100 / 100 Balance 500 / 500 Weight 137.892 kg 182.9 kg Intake: Oral 600 / 600 Output: Urine 100 / 100 Other: # Voids 3 Weight On Admission 182.88 kg Narrative: The patient is alert, awake. Comfortable, in no acute distress. Speech is fluent. Cranial nerve examination: pupils to be equal, round and reactive to light. Extra-ocular movements are intact. Facial motor and sensory function are normal and symmetrical. Gross hearing appears intact. Sternocleidomastoid and trapezius muscles are symmetrical. Other cranial nerves are intact. Neck is soft and supple with a good range of motion without pain. Muscle strength is normal in all muscle groups of both upper and lower extremities. Sensory examination is intact to light touch and pin prick in both the upper and lower extremities. Deep tendon reflexes are symmetrical in both upper and lower extremities. There is a bilateral plantar flexion response. Cerebellar examination is unremarkable, without deficits. Lungs are clear Heart regular rhythm is regular rate Skin warm and dry Results - Laboratory Findings CBC and BMP: 02/22/18 05:35 02/22/18 05:35 Abnormal lab findings: Abnormal Labs 02/21/18 02/21/18 02/21/18 16:15 16:15 16:15 [place] % (Auto) 11.8 H Chloride 110 H Estimated GFR 55 L POC Glucose Random Glucose 161 H Troponin I Less than 0.02 L B-Natriuretic Peptide 123 H 02/22/18 02/22/18 02/22/18 05:35 05:35 12:12 [place] % (Auto) 10.6 H Chloride 109 H Estimated GFR 68 L POC Glucose 188 H Random Glucose 152 H Troponin I B-Natriuretic Peptide Assessment and Plan - Plan Pleasant 67-year-old male with Brain mass CT scan in the emergency room showed significant interval change compared to the prior examination 03/17/2016., with a new focal area of vasogenic edema along left frontoparietal lobe in a pattern that is suspicious of underlying neoplastic lesion. I have reviewed the clinical and radiological findings Chest X-Ray 02/21/18 16:02 CONCLUSION: No acute cardiopulmonary findings. The cardiomediastinal contours are stable at upper limits of normal. Cardiac loop recorder. Head CT 02/21/18 16:03 CONCLUSION: 1. There has been a significant interval change compared to the prior examination of 03/17/2016. There is now a focal area of vasogenic edema high along the left frontal parietal lobe in a pattern that is suspicious for an underlying mass occupying lesion. This is suspicious for neoplastic disease. Therefore, recommend an MRI of the brain with and without contrast for further evaluation. . Head MRI 02/21/18 17:00 CONCLUSION: 1. There is severe focal left frontal high convexity vasogenic edema with evidence of a multifocal remote hemorrhage and associated superficial enhancement and enhancement of the adjacent leptomeninges. Differential diagnosis includes infection, malignancy, or potentially neurosarcoidosis. Correlating with patient's history may help narrow the differential diagnosis. 2. Chronic changes include mild generalized atrophy and mild chronic periventricular white matter change. Abdomen/Pelvis CT 02/22/18 00:00 CONCLUSION: 1. Tiny 2 mm nonobstructing stone lower pole left kidney. 2. 1.1 cm cyst midpole left kidney 3. Small umbilical hernia containing mesenteric fat. 4. No evidence to suggest metastatic disease is seen at this time. Chest CT 02/22/18 00:00 CONCLUSION: 1. Stable CT thorax compared to the prior examination from 2014. There continue to be several stable pulmonary nodules especially in the right lung with no new or significant changes compared to the prior exam. No new or suspicious pulmonary nodules are demonstrated to suggest metastatic disease. 2. No new or acute intrathoracic disease is demonstrated. Neuro: neuro checks in a serial fashion. Probable focal seizures. I reviewed his MRI EEG - Keppra Consult oncology. CT chest, abdomen, pelvis Recommend LP, send CSF for cytology Will need to discontinue Plavix prior to LP. Needs to be cleared by his outsole handler, Dr Angel Pulmonary: aggressive pulmonary toilette, nasotracheal suction, and breathing treatments with nebulizers. History of CAD. Hypertension continue home medications. Daily PT and OT Renal: Continue to monitor closely urine output, BUN and creatinine Diabetes mellitus continue Levemir. Monitor serial Acu checks and SSI as needed in detail ID monitor for signs of infection Protonix for stress ulcer prophylaxis Roque hose and SCD's for DVT prophylaxis Caprini VTE Risk Assessment Caprini Risk Assessment Model: Point Value = 1 Point Value = 2 Point Value = 3 Point Value = 5 Age 41-60 Minor surgery BMI > 25 kg/m2 Swollen legs Varicose veins or History of unexplained or recurrent spontaneous Oral contraceptives or hormone replacement Sepsis (< 1 month) Serious lung disease, including pneumonia (< 1 month) Abnormal pulmonary function Acute myocardial infarction Congestive heart failure (< 1 month) History of inflammatory bowel disease Medical patient at bed rest Age 61-74 Arthroscopic surgery Major open surgery (> 45 min) Laparoscopic surgery (> 45 min) Malignancy Confined to bed (> 72 hours) Immobilizing plaster cast Central venous access Age >= 75 History of VTE Family history of VTE Factor V Leiden Prothrombin [id number] Lupus anticoagulant Anticardiolipin antibodies Elevated serum homocysteine Heparin-induced thrombocytopenia Other congenital or acquired thrombophilia Stroke (< 1 month) Elective arthroplasty Hip, pelvis, or leg fracture Acute spinal cord injury (< 1 month) Prophylaxis Regimen: Total Risk Factor Score Risk Level Prophylaxis Regimen 0-1 Low Early ambulation 2 Moderate Order ONE of the following: *Sequential Compression Device (SCD) *Heparin 5000 units SQ BID 3-4 Higher Order ONE of the following medications: *Heparin 5000 units SQ TID *Enoxaparin/Lovenox 40 mg SQ daily (WT < 150 kg, CrCl > 30 mL/min) *Enoxaparin/Lovenox 30 mg SQ daily (WT < 150 kg, CrCl > 10-29 mL/min) *Enoxaparin/Lovenox 30 mg SQ BID (WT < 150 kg, CrCl > 30 mL/min) AND/OR *Sequential Compression Device (SCD) 5 or more Highest Order ONE of the following medications: *Heparin 5000 units SQ TID (Preferred with Epidurals) *Enoxaparin/Lovenox 40 mg SQ daily (WT < 150 kg, CrCl > 30 mL/min) *Enoxaparin/Lovenox 30 mg SQ daily (WT < 150 kg, CrCl > 10-29 mL/min) *Enoxaparin/Lovenox 30 mg SQ BID (WT < 150 kg, CrCl > 30 mL/min) AND *Sequential Compression Device (SCD)
--- NOTE | 2018-02-22 18:48 | MB ---
cc: Doc Barrera MD, PhD DATE: 02/22/2018 REASON FOR CONSULTATION: Abnormal brain MRI and headache. HISTORY OF PRESENT ILLNESS: This is a 67-year-old man who for the past 3-4 weeks has noted a headache, which is in the top of his head and becomes severe at times. He also notices weakness of the right leg, which is fairly intermittent at times. The right leg twitches uncontrollably. He has no other neurological symptoms. PAST MEDICAL HISTORY: History of strokes in the past. He has a history of cardiac stents, myocardial infarction. He is followed by Dr. Saravanan Angel of Cardiology. He has a history of hypercholesterolemia, hypertension and diabetes. MEDICATIONS AT HOME: 1. Januvia. 2. Metformin. 3. Atorvastatin. 4. Coreg. 5. Amlodipine. 6. Aspirin. 7. Plavix. 8. Pepcid. 9. Isosorbide. 10. Lisinopril. ALLERGIES: NONE KNOWN. NEUROLOGICAL EXAMINATION: VITAL SIGNS: His blood pressure is 157/67, pulse is 52, respirations 19, temperature 97.8 degrees. NEUROLOGIC: Higher cortical functions are normal. His speech is fluent. He is oriented x3. He is normal recall. Cranial nerves 2-12 are normal. On motor exam, he has 5/5 strength in all major groups in both upper extremities. He does have mild weakness in the right leg, which is very minimal rated at 4+/5 proximally with 5/5 distal strength. He has normal strength in the left leg. There is no atrophy, no fasciculations. I do not see any muscle twitching. Reflexes are 2+ symmetric in both upper and lower extremities with no Babinski sign present. Sensory exam is intact. RADIOGRAPHIC STUDIES: CT of the brain is reviewed. There is an area of edema in the left frontoparietal lobe consistent with a possible mass. This is new compared with a CT of 03/17/2016 with new edema. He had an MRI of the brain as well, which shows an abnormality as well in the left side and frontal high convexity with edema. Multifocal remote hemorrhages and superficial enhancement. There is enhancement of the adjacent leptomeninges as well. The differential would include malignancy, possible inflammatory process, possible neurosarcoidosis. CT of the chest, there are several pulmonary nodules which are stable from prior exam of 2014. No evidence of any suspicious pulmonary nodules to suggest metastatic disease. He had a CT of the abdomen obtained as well showing a very small stone in the left kidney as well as a small cyst in the left kidney. Small umbilical hernia. No evidence of any tumor. His laboratory data reveal a white count of 5400, hemoglobin 14.9, hematocrit 44%, platelet count 199,000. PT 10.7, INR 1.1, aPTT 25.2. Sodium is 143, potassium 4.2, chloride 110, CO2 23.3, BUN of 16, creatinine 1.3, GFR 55, glucose 161, AST 18, ALT is 31. BNP 123. IMPRESSION: The patient has evidence of abnormality in the left frontoparietal area on the brain MRI scan. There is also associated edema. He also may be having some mild motor symptoms referable to this including the right leg weakness. In addition, he notices intermittent twitching of the right leg, which may be focal seizure-like activity. RECOMMENDATION: I would like to start the patient on Keppra for the possibility of seizure activity. Also obtain an EEG. I will request neurosurgical consult to consider the possibility of biopsying the lesion. Alternatively, a lumbar puncture may be helpful. We will consult with his security monitor, Dr. Angel as to whether or not we can hold his Plavix for this procedure of lumbar puncture. Thank you for allowing us to see this nice patient. Doc Barrera MD, PhD DERRELL/ct , 04:27 PM , 04:37 PM
--- NOTE | 2018-02-22 20:45 | ECG ---
Date Performed: 02/21/2018 Time Performed: 16:11:55 PTAGE: 67 years EKG: Sinus rhythm RIGHT BUNDLE BRANCH BLOCK LEFT ANTERIOR FASCICULAR BLOCK INFERIOR MYOCARDIAL INFARCTION ABNORMAL ECG PREVIOUS TRACING : 05/20/2017 23.59 DOCTOR: Kierra Wagner Interpretating Date/Time 02/22/2018 20:41:11
[2018-02-22] MEDS: levETIRAcetam 500 MG Tablet PO SCH (20:56)
[2018-02-23] MEDS: Isosorbide Mononitrate 30 MG ER 24HR Tablet (Imdur) PO SCH ×2 (05:34→06:10)
[2018-02-23] MEDS: Famotidine 20 MG Tablet PO SCH (08:32)
[2018-02-23] MEDS: Senna/Docusate Sodium 8.6/50 MG Tablet PO SCH ×2 (08:32→20:33)
[2018-02-23] MEDS: amLODIPine 5 MG Tablet PO SCH (08:32)
[2018-02-23] MEDS: levETIRAcetam 500 MG Tablet PO SCH ×2 (08:32→20:33)
[2018-02-23] MEDS: Lisinopril 20 MG Tablet PO SCH (08:32)
--- NOTE | 2018-02-23 11:00 | MB ---
cc: Keith Frost MD,Saravanan Matt MD DATE: 02/23/2018 REASON FOR CONSULTATION: Assess stopping antiplatelet agents for lumbar puncture. HISTORY OF PRESENT ILLNESS: The patient is a very pleasant 67-year-old white male, followed in our office by Dr. Saravanan Angel, with a history of coronary artery disease, hypertension, hyperlipidemia, diabetes, CVA who was admitted to the hospital with complaints of headache and bradycardia with heart rates apparently in the 30s. The patient has been having a moderate headache for at least the last several weeks. Head CT and MRI show a focal area in the left frontoparietal lobe suspicious for neoplastic disease. CT scans of the abdomen and chest have shown no definite evidence for metastatic disease. Rarely, rarely, the patient experiences fleeting substernal chest discomfort never lasting more than a minute. He denies shortness of breath, syncope, near syncope, pedal edema, paroxysmal nocturnal dyspnea. Occasionally, he has felt mild to moderately lightheaded. PAST MEDICAL HISTORY: 1. Hypertension. 2. Hyperlipidemia. 3. CVA x 2, the last one about 2 years ago. 4. Diabetes. 5. Coronary artery disease, status post inferior myocardial infarction 11/2007. On 12/16/2017, he underwent stent of the proximal right coronary artery with a 3.5 mm Vision stent and stent of the distal right coronary with a 3.5 mm Vision. On 05/24/2012, he underwent repeat stenting of the proximal right coronary using a 4.0 mm Resolute stent. On 08/18/2015, he underwent stent of the mid right coronary using a 4.0 mm Resolute and stent of the distal LAD with a 3.0 mm Resolute. Finally, his last percutaneous intervention was 05/15/2017 with primary stenting of the distal LAD using a 3.0 mm Resolute. CARDIAC MEDICATIONS AT HOME: Imdur 30 mg daily, Carvedilol 3.125 mg b.i.d., aspirin 81 mg daily, lisinopril 20 mg daily, clopidogrel 75 mg daily, atorvastatin 40 mg at bedtime, amlodipine 5 mg daily. ALLERGIES: NO KNOWN DRUG ALLERGIES. FAMILY HISTORY: Noncontributory. SOCIAL HISTORY: The patient denies any history of alcohol or tobacco abuse. REVIEW OF SYSTEMS: As in the history of present illness, otherwise negative or noncontributory. He also denies abdominal pain, melena, dyspepsia, bright red blood per rectum, fevers. PHYSICAL EXAMINATION: VITAL SIGNS: His blood pressure 167/73 with a pulse of 57, respirations 18. GENERAL: He is a well-developed, well-nourished white male, in no acute distress. NECK: Jugular venous pressure is normal. Carotid pulses are 2+ bilaterally and without bruits. CHEST: Reveals clear lungs abdi. CARDIAC: He has a bradycardic, regular rhythm without S3, S4, or murmur. ABDOMEN: He has a soft, nontender abdomen. Bowel sounds are present. There is no definite hepatosplenomegaly. EXTREMITIES: Reveals no clubbing or cyanosis. There is trace ankle edema bilaterally. LABORATORY DATA: EKG from 02/21/2018 at 4:11 p.m. shows sinus rhythm, right bundle branch block, inferior infarct, age undetermined. Chest x-ray showed no acute disease. Laboratory data includes normal CBC. BUN 16, creatinine 1.08, potassium 3.9. Troponin less than 0.02, CK 78. IMPRESSION: Brain mass suspicious for neoplastic disease, bradycardia in this in a 67-year-old white male with a history of hypertension, hyperlipidemia, diabetes, cerebrovascular accident, coronary artery disease, status post a number of percutaneous coronary interventions on the left anterior descending and right coronary, most recently 9 months ago with stenting of the distal left anterior descending. I have been asked to see the patient regarding stopping his antiplatelet drug therapy for a lumbar puncture. At this point, 9 months status post placement of a drug-eluting stent, there would be a slight risk of stent thrombosis if his antiplatelet therapy were to be discontinued. The risk is small, and he clearly needs the lumbar puncture and possibly biopsy of the brain lesion for diagnostic purposes. With respect to his bradycardia, he has demonstrated only mild bradycardia here in the hospital with heart rates mostly in the 50s, rarely in the 40s when sleeping. There has been no evidence for high degree AV block. RECOMMENDATIONS: 1. Okay to stop clopidogrel as long as the patient understands the small risk of LAD stent thrombosis. Would resume the clopidogrel as soon as possible after his procedures. 2. Would continue his other usual home cardiac medications. 3. We will followup as needed. MD GILMAR Barrett/obinna/apoorva , 07:52 AM , 08:01 AM MTDNicolette
--- NOTE | 2018-02-23 13:49 | P.PNNS ---
Subjective Interval history: February 23, 2018 The patient has been stable overnight. He has had no apparent further seizures. His headache has improved. Physical Exam Vital signs: Vital Signs 02/22/18 16:00 02/22/18 19:44 02/22/18 20:00 Temperature 97.4 F L 97.6 F Pulse Rate 59 L 57 L 59 L Respiratory Rate 17 18 Blood Pressure 150/71 H 167/73 H Pulse Oximetry 94 L 96 02/23/18 00:00 02/23/18 04:00 02/23/18 08:00 Temperature 97.9 F 97.1 F L 97.5 F L Pulse Rate 57 L 54 L 51 L Respiratory Rate 19 18 18 Blood Pressure 149/73 H 139/76 116/66 Pulse Oximetry 96 93 L 96 02/23/18 11:46 02/23/18 11:53 Temperature 97.5 F L Pulse Rate 57 L Respiratory Rate 18 Blood Pressure 113/63 Pulse Oximetry 94 L 97 Intake & Output 02/22/18 02/23/18 02/23/18 18:59 06:59 18:59 Intake Total 1800 / 1800 500 / 500 Output Total 800 / 800 Balance 1800 / 1800 -300 / -300 Weight 182.4 kg Intake: Oral 1800 / 1800 500 / 500 Output: Urine 800 / 800 Other: # Voids 6 3 Date of Last Bowel Movement 02/22/18 02/22/18 # Bowel Movements 1 - Routine Neurological Exam February 23, 2018 The patient is sitting up on the edge of the bed is into the room. He is in no acute distress. On neurological examination, mental status testing finds him to be awake and alert. He is oriented by 3. Cognitive functions grossly intact. His speech is fluent. Cranial nerve testing 2 through 12 is grossly intact. There was no gross focal motor nor sensory deficit. He is ambulatory and continent. Assessment and Plan - Plan Pleasant 67-year-old male with Brain mass CT scan in the emergency room showed significant interval change compared to the prior examination 03/17/2016., with a new focal area of vasogenic edema along left frontoparietal lobe in a pattern that is suspicious of underlying neoplastic lesion. I have reviewed the clinical and radiological findings Chest X-Ray 02/21/18 16:02 CONCLUSION: No acute cardiopulmonary findings. The cardiomediastinal contours are stable at upper limits of normal. Cardiac loop recorder. Head CT 02/21/18 16:03 CONCLUSION: 1. There has been a significant interval change compared to the prior examination of 03/17/2016. There is now a focal area of vasogenic edema high along the left frontal parietal lobe in a pattern that is suspicious for an underlying mass occupying lesion. This is suspicious for neoplastic disease. Therefore, recommend an MRI of the brain with and without contrast for further evaluation. . Head MRI 02/21/18 17:00 CONCLUSION: 1. There is severe focal left frontal high convexity vasogenic edema with evidence of a multifocal remote hemorrhage and associated superficial enhancement and enhancement of the adjacent leptomeninges. Differential diagnosis includes infection, malignancy, or potentially neurosarcoidosis. Correlating with patient's history may help narrow the differential diagnosis. 2. Chronic changes include mild generalized atrophy and mild chronic periventricular white matter change. Abdomen/Pelvis CT 02/22/18 00:00 CONCLUSION: 1. Tiny 2 mm nonobstructing stone lower pole left kidney. 2. 1.1 cm cyst midpole left kidney 3. Small umbilical hernia containing mesenteric fat. 4. No evidence to suggest metastatic disease is seen at this time. Chest CT 02/22/18 00:00 CONCLUSION: 1. Stable CT thorax compared to the prior examination from 2014. There continue to be several stable pulmonary nodules especially in the right lung with no new or significant changes compared to the prior exam. No new or suspicious pulmonary nodules are demonstrated to suggest metastatic disease. 2. No new or acute intrathoracic disease is demonstrated. Neuro: neuro checks in a serial fashion. Probable focal seizures. I reviewed his MRI EEG - Keppra Consult oncology. CT chest, abdomen, pelvis Recommend LP, send CSF for cytology Will need to discontinue Plavix prior to LP. Needs to be cleared by his cobol application developer, Dr Angel Pulmonary: aggressive pulmonary toilette, nasotracheal suction, and breathing treatments with nebulizers. History of CAD. Hypertension continue home medications. Daily PT and OT Renal: Continue to monitor closely urine output, BUN and creatinine Diabetes mellitus continue Levemir. Monitor serial Acu checks and SSI as needed in detail ID monitor for signs of infection Protonix for stress ulcer prophylaxis Roque hose and SCD's for DVT prophylaxis Caprini VTE Risk Assessment Caprini Risk Assessment Model: Point Value = 1 Point Value = 2 Point Value = 3 Point Value = 5 Age 41-60 Minor surgery BMI > 25 kg/m2 Swollen legs Varicose veins or History of unexplained or recurrent spontaneous Oral contraceptives or hormone replacement Sepsis (< 1 month) Serious lung disease, including pneumonia (< 1 month) Abnormal pulmonary function Acute myocardial infarction Congestive heart failure (< 1 month) History of inflammatory bowel disease Medical patient at bed rest Age 61-74 Arthroscopic surgery Major open surgery (> 45 min) Laparoscopic surgery (> 45 min) Malignancy Confined to bed (> 72 hours) Immobilizing plaster cast Central venous access Age >= 75 History of VTE Family history of VTE Factor V Leiden Prothrombin [id number] Lupus anticoagulant Anticardiolipin antibodies Elevated serum homocysteine Heparin-induced thrombocytopenia Other congenital or acquired thrombophilia Stroke (< 1 month) Elective arthroplasty Hip, pelvis, or leg fracture Acute spinal cord injury (< 1 month) Prophylaxis Regimen: Total Risk Factor Score Risk Level Prophylaxis Regimen 0-1 Low Early ambulation 2 Moderate Order ONE of the following: *Sequential Compression Device (SCD) *Heparin 5000 units SQ BID 3-4 Higher Order ONE of the following medications: *Heparin 5000 units SQ TID *Enoxaparin/Lovenox 40 mg SQ daily (WT < 150 kg, CrCl > 30 mL/min) *Enoxaparin/Lovenox 30 mg SQ daily (WT < 150 kg, CrCl > 10-29 mL/min) *Enoxaparin/Lovenox 30 mg SQ BID (WT < 150 kg, CrCl > 30 mL/min) AND/OR *Sequential Compression Device (SCD) 5 or more Highest Order ONE of the following medications: *Heparin 5000 units SQ TID (Preferred with Epidurals) *Enoxaparin/Lovenox 40 mg SQ daily (WT < 150 kg, CrCl > 30 mL/min) *Enoxaparin/Lovenox 30 mg SQ daily (WT < 150 kg, CrCl > 10-29 mL/min) *Enoxaparin/Lovenox 30 mg SQ BID (WT < 150 kg, CrCl > 30 mL/min) AND *Sequential Compression Device (SCD) February 23, 2018 The patient remains clinically and neurologically stable. He has had no further seizures. His headache is improved. His metastatic workup to date is negative. He requires a lumbar puncture with cerebrospinal fluid analysis and cytology. This cannot be performed until his Plavix has been held for several days. Depending on the results of the workup will determine the appropriate further diagnostic and therapeutic approach. Neurosurgery will follow.
--- NOTE | 2018-02-23 13:54 | P.PNNEU ---
Subjective Subjective Comments: No new c/o. No recurrent RLE twitching. TOlerating keppra Dr Frost note appreciated Dr Alatorre note appreciated Active Medications: Active Medications Acetaminophen (Tylenol) 650 mg PO Q4H PRN PRN Reason: Temp > 100.4 Al Hydroxide/Mg Hydroxide (Milk Of Magnesia Liq) 30 ml PO Q12H PRN PRN Reason: Mild Constipation Albuterol (Duoneb Neb (Prn)) 1 ampul NEB Q4HR NEB PRN PRN Reason: SHORTNESS OF BREATH Amlodipine Besylate (Norvasc) 5 mg PO DAILY [facility] Last Admin: 02/23/18 08:32 Dose: 5 mg Aspirin (Ecotrin) 81 mg PO DAILY [facility] Last Admin: 02/23/18 08:32 Dose: 81 mg Atorvastatin Calcium (Lipitor) 40 mg PO QPM [facility] Last Admin: 02/22/18 17:30 Dose: 40 mg Bisacodyl (Dulcolax Supp) 10 mg RECTAL DAILY PRN PRN Reason: SEVERE CONSITIPATION Carvedilol (Coreg) 3.125 mg PO BID [facility] Last Admin: 02/23/18 08:32 Dose: 3.125 mg Clopidogrel Bisulfate (Plavix) 75 mg PO DAILY [facility] Last Admin: 02/23/18 08:31 Dose: Not Given Famotidine (Pepcid) 20 mg PO DAILY [facility] Last Admin: 02/23/18 08:32 Dose: 20 mg Isosorbide Mononitrate (Imdur) 30 mg PO DAILY@0700 [facility] Last Admin: 02/23/18 06:10 Dose: Not Given Lactulose (Lactulose Liq) 30 ml PO DAILY PRN PRN Reason: SEVERE CONSITIPATION Levetiracetam (Keppra) 500 mg PO BID [facility] Last Admin: 02/23/18 08:32 Dose: 500 mg Lisinopril (Prinivil) 20 mg PO DAILY [facility] Last Admin: 02/23/18 08:32 Dose: 20 mg Lorazepam (Ativan Inj) 1 mg IV.PUSH Q4H PRN PRN Reason: SEIZURES Ondansetron HCl (Zofran Inj) 4 mg IV.PUSH Q6H PRN PRN Reason: NAUSEA OR VOMITING Ptownmed (Insulin Detemir U-100 [ Levemir Flextouch U- 100 Insuln] 100 Unit ) 0 each SQ DAILY [facility] Senna/Docusate Sodium (Nila-Colace) 1 tab PO BID [facility] Last Admin: 02/23/18 08:32 Dose: 1 tab Sennosides (Senokot) 17.2 mg PO Q12H PRN PRN Reason: Moderate Constipation Sodium Chloride (Ns Flush) 2 ml IV.FLUSH PRN PRN PRN Reason: FLUSH AFTER USING IV ACCESS Sodium Chloride (Ns Flush) 2 ml IV.FLUSH BID [facility] Last Admin: 02/23/18 08:32 Dose: 2 ml Allergies/Adverse Reactions: Allergies Allergy/AdvReac Type Severity Reaction Status Date / Time No Known Allergies Allergy Verified 02/21/18 17:18 Physical Exam Vital signs: Vital Signs 02/22/18 16:00 02/22/18 19:44 02/22/18 20:00 Temperature 97.4 F L 97.6 F Pulse Rate 59 L 57 L 59 L Respiratory Rate 17 18 Blood Pressure 150/71 H 167/73 H Pulse Oximetry 94 L 96 02/23/18 00:00 02/23/18 04:00 02/23/18 08:00 Temperature 97.9 F 97.1 F L 97.5 F L Pulse Rate 57 L 54 L 51 L Respiratory Rate 19 18 18 Blood Pressure 149/73 H 139/76 116/66 Pulse Oximetry 96 93 L 96 02/23/18 11:46 02/23/18 11:53 Temperature 97.5 F L Pulse Rate 57 L Respiratory Rate 18 Blood Pressure 113/63 Pulse Oximetry 94 L 97 Intake & Output 02/22/18 02/23/18 02/23/18 18:59 06:59 18:59 Intake Total 1800 / 1800 500 / 500 Output Total 800 / 800 Balance 1800 / 1800 -300 / -300 Weight 182.4 kg Intake: Oral 1800 / 1800 500 / 500 Output: Urine 800 / 800 Other: # Voids 6 3 Date of Last Bowel Movement 02/22/18 02/22/18 # Bowel Movements 1 - Detailed Neurological Exam: Coma Scale alert, speech normal CN intact MOTOR 5/5 BUE and BLE Gait normal Review/Management - Review/Management Plan: Hold plavix and asa for LP. check routine csf and cytology continue jose manuel
--- NOTE | 2018-02-23 14:19 | P.PNIM ---
Subjective Interval history: Follow up for brain mass, possible neoplastic lesion. headache, CAD, HTN and DM 2 Patient seen and examined sitting in the chair, denies any headache at this time , stated just a little discomfort. Patient denies any headache or dizziness, denies any nausea or vomiting, denies any fever or chills. Patient agreed for a lumbar puncture, and agreed to hold the Plavix until the procedure. Discussed the risk patient understands. Physical Exam Vital signs: Last Vital Signs Temp 97.5 F L 02/23/18 11:46 Pulse 57 L 02/23/18 11:46 Resp 18 02/23/18 11:46 BP 113/63 02/23/18 11:46 Pulse Ox 97 02/23/18 11:53 Intake & Output 02/21/18 02/22/18 02/23/18 02/24/18 06:59 06:59 06:59 06:59 Intake Total 600 / 600 2300 / 2300 Output Total 100 / 100 800 / 800 Balance 500 / 500 1500 / 1500 Weight 182.9 kg 182.4 kg Narrative: GENERAL: well developed, well nourished, Pleasant 67-year-old male, in no acute distress. SKIN: Warm and dry. HEAD: Atraumatic. Normocephalic. EYES: Pupils equal and round. No scleral icterus. No injection or drainage. ENT: No nasal bleeding or discharge. Mucous membranes pink and moist. NECK: Trachea midline. No JVD. CARDIOVASCULAR: Regular rate and rhythm. RESPIRATORY: No accessory muscle use. Clear to auscultation. Breath sounds equal bilaterally. GASTROINTESTINAL: Abdomen soft, obese, non-tender, nondistended. Hepatic and splenic margins not palpable. MUSCULOSKELETAL: Extremities without clubbing, cyanosis, or edema. No obvious deformities. NEUROLOGICAL: Awake and alert and oriented x 3. No obvious cranial nerve deficits. Motor grossly within normal limits. Five out of 5 muscle strength in the arms and legs. Normal speech. PSYCHIATRIC: Appropriate mood and affect; insight and judgment normal. Results Labs CBC & Chem 7: 02/22/18 05:35 02/22/18 05:35 Assessment and Plan Plan This is a Pleasant 67-year-old male with PMH CAD, HTN, DM2, who came to the ED for bradycardia and headache. Brain mass Suspicious for neoplastic lesion Hx Pulmonary nodules - CT scan in the emergency room showed significant interval change compared to the prior examination 03/17/2016. - Patient has a new focal area of vasogenic edema along left frontoparietal lobe in a pattern that is suspicious of underlying neoplastic lesion. Plan for MRI of the brain with and without contrast for further evaluation - Oncology consulted: appreciate recommendation- CT chest, abdomen and pelvis -Neurology consulted: appreciate recommendation- LP, send CSF for cytology, hold Plavix -continue keppra and neuro checks -CT Abdomen and Pelvis: Lower Lungs: Stable pulmonary nodule in the right lower lung. Left lung base is clear. -CT Chest: Stable CT thorax compared to the prior examination from 2014. There continue to be several stable pulmonary nodules especially in the right lung with no new or significant changes compared to the prior exam. No new or suspicious pulmonary nodules are demonstrated to suggest metastatic disease. No new or acute intrathoracic disease is demonstrated - aggressive pulmonary toilette, nasotracheal suction and breathing treatments with nebulizers -Cardiology consulted, appreciate recommendation : Okay to stop clopidogrel as long as the patient understands the small risk of LAD stent thrombosis. Would resume the clopidogrel as soon as possible after his procedures. -Hold Plavix and Aspirin 02/23/18. Plan for LP, check for CSF and Cytology per Nuero History of CAD with PR Bradycardia Hypertension -continue home medications, Imdur, lisinopril, aspirin and statin -hold carvedilol due to bradycardia -consult cardiology to hold Plavix for planned procedure/LP Diabetes mellitus -Blood sugar controlled -monitor accuchecks AC and HS with Insulin sliding scale -continue Levemir GI Prophylaxis: pepcid DVT prophylaxis: SCDs/teds Code Status: alternate code, CPR only, no intubation Discussed Condition With: patient and nurse Progress Note: Quality VTE Deep Vein Thrombosis/Pulmonary Embolism Present on Admission: No
--- NOTE | 2018-02-23 20:03 | MG ---
cc: Doc Barrera MD, PhD TEST NUMBER: [id number] TECHNIQUE: This is a 17-channel EEG. DESCRIPTION: The background rhythm is symmetrical alpha rhythm, frequency, 8-10 Hz. No lateralizing features identified. No epileptiform features seen. The patient does fall asleep and there are sleep spindles present. Photic stimulation results in a modest driving response. INTERPRETATION: Normal electroencephalogram. Doc Barrera MD, PhD DERRELL/daria , 07:20 PM , 07:24 PM
[2018-02-24] MEDS: Isosorbide Mononitrate 30 MG ER 24HR Tablet (Imdur) PO SCH (06:27)
[2018-02-24] MEDS: Lisinopril 20 MG Tablet PO SCH (08:24)
[2018-02-24] MEDS: Famotidine 20 MG Tablet PO SCH (08:24)
[2018-02-24] MEDS: amLODIPine 5 MG Tablet PO SCH (08:25)
[2018-02-24] MEDS: levETIRAcetam 500 MG Tablet PO SCH ×2 (08:25→20:49)
[2018-02-24] MEDS: Senna/Docusate Sodium 8.6/50 MG Tablet PO SCH ×2 (08:25→20:48)
--- NOTE | 2018-02-24 09:17 | P.PNONC ---
Subjective Interval history: Afebrile Patient states he continues to have intermittent headache. He describes this as a pressure He currently does not have any pain but reports most of the time he has headache more so than not. He denies any new neurological symptoms Asking when the lumbar puncture will be done Objective Vital Signs/Intake & Output: Vital Signs 02/23/18 11:46 02/23/18 11:53 02/23/18 15:51 Temperature 97.5 F L 97.4 F L Pulse Rate 57 L 60 Respiratory Rate 18 18 Blood Pressure 113/63 124/65 Pulse Oximetry 94 L 97 93 L 02/23/18 20:00 02/24/18 00:00 02/24/18 04:00 Temperature 98.1 F 97.9 F 97.1 F L Pulse Rate 68 70 62 Respiratory Rate 17 16 17 Blood Pressure 139/65 134/63 138/63 Pulse Oximetry 94 L 95 94 L 02/24/18 08:00 Temperature 97.4 F L Pulse Rate 50 L Respiratory Rate 17 Blood Pressure 130/70 Pulse Oximetry 94 L Intake & Output 02/23/18 02/24/18 02/24/18 18:59 06:59 18:59 Intake Total 1200 / 1200 1080 / 1080 Output Total 1400 / 1400 Balance 1200 / 1200 -320 / -320 Weight 401 lb 14.443 oz Intake: Oral 1200 / 1200 1080 / 1080 Output: Urine 1400 / 1400 Other: # Voids 3 Date of Last Bowel Movement 02/22/18 02/23/18 Result Diagrams: 02/22/18 05:35 02/22/18 05:35 Laboratory Results: Laboratory Results - last 24 hr 02/24/18 08:33 POC Glucose 178 H Medications: Active Medications Generic Name Dose Route Start Last Admin Trade Name Laney PRN Reason Stop Dose Admin Amlodipine Besylate 5 mg 02/22/18 09:00 02/24/18 08:25 Norvasc PO 5 mg DAILY ALESSANDRA Administration Atorvastatin Calcium 40 mg 02/21/18 18:00 02/23/18 20:33 Lipitor PO 40 mg QPM ALESSANDRA Administration Carvedilol 3.125 mg 02/21/18 21:00 02/24/18 08:24 Coreg PO Not Given BID ALESSANDRA Famotidine 20 mg 02/22/18 09:00 02/24/18 08:24 Pepcid PO 20 mg DAILY ALESSANDRA Administration Isosorbide Mononitrate 30 mg 02/22/18 07:00 02/24/18 06:27 Imdur PO 30 mg DAILY@0700 ALESSANDRA Administration Levetiracetam 500 mg 02/22/18 21:00 02/24/18 08:25 Keppra PO 500 mg BID ALESSANDRA Administration Lisinopril 20 mg 02/22/18 09:00 02/24/18 08:24 Prinivil PO 20 mg DAILY ALESSANDRA Administration Senna/Docusate Sodium 1 tab 02/21/18 21:00 02/24/18 08:25 Nila-Colace PO 1 tab BID ALESSANDRA Administration Sodium Chloride 2 ml 02/22/18 21:00 02/24/18 08:25 Ns Flush IV.FLUSH 2 ml BID ALESSANDRA Administration Objective Remarks: GENERAL: Older male sitting up in chair at bedside no acute distress SKIN: Warm and dry. HEAD: Normocephalic. EYES: No scleral icterus. No injection or drainage. NECK: Supple, trachea midline. No JVD or lymphadenopathy. CARDIOVASCULAR: Regular rate and rhythm without murmurs. RESPIRATORY: Breath sounds equal bilaterally. No accessory muscle use. GASTROINTESTINAL: Abdomen soft, non-tender, nondistended. EXTREMITIES: No cyanosis MUSCULOSKELETAL: Adequate muscle tone. NEUROLOGICAL: Awake and alert. Normal speech. Equal palm and back forger strengths. No nystagmus on exam. Assessment/Plan - Plan 67-year-old male who approximately 3 weeks ago he developed headaches that gradually worsened and he had mild right-sided weakness. He went to see his PCP given the above complaints and was found to be bradycardic and was hospitalized. CT the head showed significant change with focal area of vasogenic edema along the left frontoparietal lobe in a pattern suggestive of underlying mass. MRI of the brain with and without contrast showed severe focal left frontal high convexity vasogenic edema with evidence of multifocal remote hemorrhage and associated superficial enhancement and enhancement of the adjacent leptomeninges. Differential diagnosis was felt to include infection, malignancy or potentially neurosarcoidosis. Oncology was consulted for further recommendations. 1. CT chest abdomen and pelvis was done to rule out distant metastatic disease. This was all negative. Patient does have nodules in the lung that are stable compared to previous study. 2. Plavix remains on hold. Lumbar puncture will be done in several days with CSF studies. 3. Continue supportive care.
--- NOTE | 2018-02-24 10:15 | P.PNIM ---
Subjective Interval history: Follow up visit for brain mass, possible neoplastic lesion. headache, CAD, HTN and DM 2 Patient laying in bed, stated no headache at this time. Patient states that the headache comes and goes more often than normal. Patient denies any dizziness at this time stated feeling dizzy when standing up walking around. Patient denies any weakness or numbness upper or lower extremities. Patient denies any abdominal pain, nausea, vomiting. Denies fever or or chills Nurse reported no acute concerns. Physical Exam Vital signs: Last Vital Signs Temp 97.4 F L 02/24/18 08:00 Pulse 50 L 02/24/18 08:00 Resp 17 02/24/18 08:00 BP 130/70 02/24/18 08:00 Pulse Ox 94 L 02/24/18 08:00 Intake & Output 02/22/18 02/23/18 02/24/18 02/25/18 06:59 06:59 06:59 06:59 Intake Total 600 / 600 2300 / 2300 2280 / 2280 Output Total 100 / 100 800 / 800 1400 / 1400 Balance 500 / 500 1500 / 1500 880 / 880 Weight 182.9 kg 182.4 kg 182.3 kg Narrative: GENERAL: well developed, well nourished, Pleasant 67-year-old male, in no acute distress. SKIN: Warm and dry. HEAD: Atraumatic. Normocephalic. EYES: Pupils equal and round. No scleral icterus. No injection or drainage. ENT: No nasal bleeding or discharge. Mucous membranes pink and moist. NECK: Trachea midline. No JVD. CARDIOVASCULAR: Regular rate and rhythm. RESPIRATORY: No accessory muscle use. Clear to auscultation. Breath sounds equal bilaterally. GASTROINTESTINAL: Abdomen soft, obese, non-tender, nondistended. Hepatic and splenic margins not palpable. MUSCULOSKELETAL: Extremities without clubbing, cyanosis, or edema. No obvious deformities. NEUROLOGICAL: Awake and alert and oriented x 3. No obvious cranial nerve deficits. Motor grossly within normal limits. Five out of 5 muscle strength in the arms and legs. Normal speech. PSYCHIATRIC: Appropriate mood and affect; insight and judgment normal. Results Labs CBC & Chem 7: 02/22/18 05:35 02/22/18 05:35 Assessment and Plan Plan This is a Pleasant 67-year-old male with PMH CAD, HTN, DM2, who came to the ED for bradycardia and headache. Brain mass Suspicious for neoplastic lesion Hx Pulmonary nodules - CT scan in the emergency room showed significant interval change compared to the prior examination 03/17/2016. - Patient has a new focal area of vasogenic edema along left frontoparietal lobe in a pattern that is suspicious of underlying neoplastic lesion. Plan for MRI of the brain with and without contrast for further evaluation - Oncology consulted: appreciate recommendation- CT chest, abdomen and pelvis -Neurology consulted: appreciate recommendation- LP, send CSF for cytology, hold Plavix -continue keppra and neuro checks -CT Abdomen and Pelvis: Lower Lungs: Stable pulmonary nodule in the right lower lung. Left lung base is clear. -CT Chest: Stable CT thorax compared to the prior examination from 2014. There continue to be several stable pulmonary nodules especially in the right lung with no new or significant changes compared to the prior exam. No new or suspicious pulmonary nodules are demonstrated to suggest metastatic disease. No new or acute intrathoracic disease is demonstrated - aggressive pulmonary toilette, nasotracheal suction and breathing treatments with nebulizers -Cardiology consulted, appreciate recommendation : Okay to stop clopidogrel. Would resume the clopidogrel as soon as possible after his procedures. -Held Plavix and Aspirin 02/23/18. Plan for LP, check for CSF and Cytology per Neurosurgeon -Neurosurgeon following: appreciate recommendation -EEG: negative History of CAD with [place] Bradycardia Hypertension -continue home medications, Imdur, lisinopril, aspirin and statin -hold carvedilol due to bradycardia -Consult cardiology: ok to hold Plavix for planned procedure/LP Diabetes mellitus -Blood sugar controlled -monitor accuchecks AC and HS with Insulin sliding scale -continue Levemir GI Prophylaxis: pepcid DVT prophylaxis: SCDs/teds Progress Note: Quality VTE Deep Vein Thrombosis/Pulmonary Embolism Present on Admission: No
--- NOTE | 2018-02-24 14:13 | P.PNNS ---
Subjective Interval history: February 24, 2018 Patient has been stable overnight he is in no apparent further seizures. He states that his headache comes on when he is lying down. Physical Exam Vital signs: Vital Signs 02/23/18 15:51 02/23/18 20:00 02/24/18 00:00 Temperature 97.4 F L 98.1 F 97.9 F Pulse Rate 60 68 70 Respiratory Rate 18 17 16 Blood Pressure 124/65 139/65 134/63 Pulse Oximetry 93 L 94 L 95 02/24/18 04:00 02/24/18 08:00 02/24/18 10:51 Temperature 97.1 F L 97.4 F L Pulse Rate 62 50 L Respiratory Rate 17 17 Blood Pressure 138/63 130/70 Pulse Oximetry 94 L 94 L 95 02/24/18 12:00 02/24/18 12:38 Temperature 98.1 F 98.1 F Pulse Rate 66 66 Respiratory Rate 16 16 Blood Pressure 139/76 139/76 Pulse Oximetry 94 L 94 L Intake & Output 02/23/18 02/24/18 02/24/18 18:59 06:59 18:59 Intake Total 1200 / 1200 1080 / 1080 Output Total 1400 / 1400 Balance 1200 / 1200 -320 / -320 Weight 182.3 kg Intake: Oral 1200 / 1200 1080 / 1080 Output: Urine 1400 / 1400 Other: # Voids 3 Date of Last Bowel Movement 02/22/18 02/23/18 - Routine Neurological Exam February 24, 2018 Patient is sitting up on the edge of the bed I enter the room. He is in no acute distress. On neurological examination today, mental status testing finds him to be awake alert. He is oriented by 3. His speech is fluent. Cranial nerve testing 2 through 12 is grossly intact. There is no focal motor nor sensory deficit but he does have a slight tremor in his right upper extremity. He is ambulatory and continent Assessment and Plan - Plan Pleasant 67-year-old male with Brain mass CT scan in the emergency room showed significant interval change compared to the prior examination 03/17/2016., with a new focal area of vasogenic edema along left frontoparietal lobe in a pattern that is suspicious of underlying neoplastic lesion. I have reviewed the clinical and radiological findings Chest X-Ray 02/21/18 16:02 CONCLUSION: No acute cardiopulmonary findings. The cardiomediastinal contours are stable at upper limits of normal. Cardiac loop recorder. Head CT 02/21/18 16:03 CONCLUSION: 1. There has been a significant interval change compared to the prior examination of 03/17/2016. There is now a focal area of vasogenic edema high along the left frontal parietal lobe in a pattern that is suspicious for an underlying mass occupying lesion. This is suspicious for neoplastic disease. Therefore, recommend an MRI of the brain with and without contrast for further evaluation. . Head MRI 02/21/18 17:00 CONCLUSION: 1. There is severe focal left frontal high convexity vasogenic edema with evidence of a multifocal remote hemorrhage and associated superficial enhancement and enhancement of the adjacent leptomeninges. Differential diagnosis includes infection, malignancy, or potentially neurosarcoidosis. Correlating with patient's history may help narrow the differential diagnosis. 2. Chronic changes include mild generalized atrophy and mild chronic periventricular white matter change. Abdomen/Pelvis CT 02/22/18 00:00 CONCLUSION: 1. Tiny 2 mm nonobstructing stone lower pole left kidney. 2. 1.1 cm cyst midpole left kidney 3. Small umbilical hernia containing mesenteric fat. 4. No evidence to suggest metastatic disease is seen at this time. Chest CT 02/22/18 00:00 CONCLUSION: 1. Stable CT thorax compared to the prior examination from 2014. There continue to be several stable pulmonary nodules especially in the right lung with no new or significant changes compared to the prior exam. No new or suspicious pulmonary nodules are demonstrated to suggest metastatic disease. 2. No new or acute intrathoracic disease is demonstrated. Neuro: neuro checks in a serial fashion. Probable focal seizures. I reviewed his MRI EEG - Keppra Consult oncology. CT chest, abdomen, pelvis Recommend LP, send CSF for cytology Will need to discontinue Plavix prior to LP. Needs to be cleared by his head teller, Dr Angel Pulmonary: aggressive pulmonary toilette, nasotracheal suction, and breathing treatments with nebulizers. History of CAD. Hypertension continue home medications. Daily PT and OT Renal: Continue to monitor closely urine output, BUN and creatinine Diabetes mellitus continue Levemir. Monitor serial Acu checks and SSI as needed in detail ID monitor for signs of infection Protonix for stress ulcer prophylaxis Roque hose and SCD's for DVT prophylaxis Caprini VTE Risk Assessment Caprini Risk Assessment Model: Point Value = 1 Point Value = 2 Point Value = 3 Point Value = 5 Age 41-60 Minor surgery BMI > 25 kg/m2 Swollen legs Varicose veins or History of unexplained or recurrent spontaneous Oral contraceptives or hormone replacement Sepsis (< 1 month) Serious lung disease, including pneumonia (< 1 month) Abnormal pulmonary function Acute myocardial infarction Congestive heart failure (< 1 month) History of inflammatory bowel disease Medical patient at bed rest Age 61-74 Arthroscopic surgery Major open surgery (> 45 min) Laparoscopic surgery (> 45 min) Malignancy Confined to bed (> 72 hours) Immobilizing plaster cast Central venous access Age >= 75 History of VTE Family history of VTE Factor V Leiden Prothrombin [id number] Lupus anticoagulant Anticardiolipin antibodies Elevated serum homocysteine Heparin-induced thrombocytopenia Other congenital or acquired thrombophilia Stroke (< 1 month) Elective arthroplasty Hip, pelvis, or leg fracture Acute spinal cord injury (< 1 month) Prophylaxis Regimen: Total Risk Factor Score Risk Level Prophylaxis Regimen 0-1 Low Early ambulation 2 Moderate Order ONE of the following: *Sequential Compression Device (SCD) *Heparin 5000 units SQ BID 3-4 Higher Order ONE of the following medications: *Heparin 5000 units SQ TID *Enoxaparin/Lovenox 40 mg SQ daily (WT < 150 kg, CrCl > 30 mL/min) *Enoxaparin/Lovenox 30 mg SQ daily (WT < 150 kg, CrCl > 10-29 mL/min) *Enoxaparin/Lovenox 30 mg SQ BID (WT < 150 kg, CrCl > 30 mL/min) AND/OR *Sequential Compression Device (SCD) 5 or more Highest Order ONE of the following medications: *Heparin 5000 units SQ TID (Preferred with Epidurals) *Enoxaparin/Lovenox 40 mg SQ daily (WT < 150 kg, CrCl > 30 mL/min) *Enoxaparin/Lovenox 30 mg SQ daily (WT < 150 kg, CrCl > 10-29 mL/min) *Enoxaparin/Lovenox 30 mg SQ BID (WT < 150 kg, CrCl > 30 mL/min) AND *Sequential Compression Device (SCD) February 23, 2018 The patient remains clinically and neurologically stable. He has had no further seizures. His headache is improved. His metastatic workup to date is negative. He requires a lumbar puncture with cerebrospinal fluid analysis and cytology. This cannot be performed until his Plavix has been held for several days. Depending on the results of the workup will determine the appropriate further diagnostic and therapeutic approach. Neurosurgery will follow. February 24, 2018 The patient remains clinically and neurologically stable. He has had no further seizures. His headaches are mild. I have ordered platelet function tests. The LP and CSF studies and cytology remains pending. Depending on the results of the workup as well as his clinical course will determine the appropriate further diagnostic and therapeutic approach. Neurosurgery will follow.
[2018-02-24 15:28] LABS: Verify Now P2Y12 Platelet Inh 214 PRU (194-418)
--- NOTE | 2018-02-24 17:39 | P.PNNEU ---
Subjective Subjective Comments: No new c/o. No more twitching RLE since started keppra. Has minimal weakness RLE but stable Active Medications: Active Medications Acetaminophen (Tylenol) 650 mg PO Q4H PRN PRN Reason: Temp > 100.4 Al Hydroxide/Mg Hydroxide (Milk Of Magnesia Liq) 30 ml PO Q12H PRN PRN Reason: Mild Constipation Albuterol (Duoneb Neb (Prn)) 1 ampul NEB Q4HR NEB PRN PRN Reason: SHORTNESS OF BREATH Amlodipine Besylate (Norvasc) 5 mg PO DAILY [facility] Last Admin: 02/24/18 08:25 Dose: 5 mg Atorvastatin Calcium (Lipitor) 40 mg PO QPM [facility] Last Admin: 02/24/18 17:19 Dose: 40 mg Bisacodyl (Dulcolax Supp) 10 mg RECTAL DAILY PRN PRN Reason: SEVERE CONSITIPATION Carvedilol (Coreg) 3.125 mg PO BID [facility] Last Admin: 02/24/18 08:24 Dose: Not Given Famotidine (Pepcid) 20 mg PO DAILY [facility] Last Admin: 02/24/18 08:24 Dose: 20 mg Isosorbide Mononitrate (Imdur) 30 mg PO DAILY@0700 [facility] Last Admin: 02/24/18 06:27 Dose: 30 mg Lactulose (Lactulose Liq) 30 ml PO DAILY PRN PRN Reason: SEVERE CONSITIPATION Levetiracetam (Keppra) 500 mg PO BID [facility] Last Admin: 02/24/18 08:25 Dose: 500 mg Lisinopril (Prinivil) 20 mg PO DAILY [facility] Last Admin: 02/24/18 08:24 Dose: 20 mg Lorazepam (Ativan Inj) 1 mg IV.PUSH Q4H PRN PRN Reason: SEIZURES Ondansetron HCl (Zofran Inj) 4 mg IV.PUSH Q6H PRN PRN Reason: NAUSEA OR VOMITING Ptownmed (Insulin Detemir U-100 [ Levemir Flextouch U- 100 Insuln] 100 Unit ) 0 each SQ DAILY [facility] Senna/Docusate Sodium (Nila-Colace) 1 tab PO BID [facility] Last Admin: 02/24/18 08:25 Dose: 1 tab Sennosides (Senokot) 17.2 mg PO Q12H PRN PRN Reason: Moderate Constipation Sodium Chloride (Ns Flush) 2 ml IV.FLUSH PRN PRN PRN Reason: FLUSH AFTER USING IV ACCESS Sodium Chloride (Ns Flush) 2 ml IV.FLUSH BID [facility] Last Admin: 02/24/18 08:25 Dose: 2 ml Allergies/Adverse Reactions: Allergies Allergy/AdvReac Type Severity Reaction Status Date / Time No Known Allergies Allergy Verified 02/21/18 17:18 Physical Exam Vital signs: Vital Signs 02/23/18 20:00 02/24/18 00:00 02/24/18 04:00 Temperature 98.1 F 97.9 F 97.1 F L Pulse Rate 68 70 62 Respiratory Rate 17 16 17 Blood Pressure 139/65 134/63 138/63 Pulse Oximetry 94 L 95 94 L 02/24/18 08:00 02/24/18 10:51 02/24/18 12:00 Temperature 97.4 F L 98.1 F Pulse Rate 50 L 66 Respiratory Rate 17 16 Blood Pressure 130/70 139/76 Pulse Oximetry 94 L 95 94 L 02/24/18 12:38 02/24/18 16:00 Temperature 98.1 F 97.2 F L Pulse Rate 66 66 Respiratory Rate 16 16 Blood Pressure 139/76 141/65 H Pulse Oximetry 94 L 95 Intake & Output 02/23/18 02/24/18 02/24/18 18:59 06:59 18:59 Intake Total 1200 / 1200 1080 / 1080 Output Total 1400 / 1400 Balance 1200 / 1200 -320 / -320 Weight 182.3 kg Intake: Oral 1200 / 1200 1080 / 1080 Output: Urine 1400 / 1400 Other: # Voids 3 Date of Last Bowel Movement 02/22/18 02/23/18 - Routine Neurological Exam alert, speech normal CN intact MOTOR 5/5 BUE. 4+/5 RLE. 5/5 LLE Objective Laboratory Results - last 24 hr 02/24/18 02/24/18 08:33 14:36 Plt Funct P2Y12 Units 214 Plt Func Scrn - Epineph 88 L POC Glucose 178 H Review/Management - Review/Management Plan: Hold plavix and asa for LP. check routine csf and cytology continue chinedu
[2018-02-25] MEDS: Isosorbide Mononitrate 30 MG ER 24HR Tablet (Imdur) PO SCH (06:18)
[2018-02-25] MEDS: Lisinopril 20 MG Tablet PO SCH (08:30)
[2018-02-25] MEDS: levETIRAcetam 500 MG Tablet PO SCH ×2 (08:30→21:43)
[2018-02-25] MEDS: amLODIPine 5 MG Tablet PO SCH (08:30)
[2018-02-25] MEDS: Senna/Docusate Sodium 8.6/50 MG Tablet PO SCH ×2 (08:30→21:43)
[2018-02-25] MEDS: Famotidine 20 MG Tablet PO SCH (08:30)
--- NOTE | 2018-02-25 08:43 | P.PNNEU ---
Subjective Subjective Comments: no new neuro sx. He feels right leg strength is improved and has had no more twitching Active Medications: Active Medications Acetaminophen (Tylenol) 650 mg PO Q4H PRN PRN Reason: Temp > 100.4 Al Hydroxide/Mg Hydroxide (Milk Of Magnesia Liq) 30 ml PO Q12H PRN PRN Reason: Mild Constipation Albuterol (Duoneb Neb (Prn)) 1 ampul NEB Q4HR NEB PRN PRN Reason: SHORTNESS OF BREATH Amlodipine Besylate (Norvasc) 5 mg PO DAILY [facility] Last Admin: 02/25/18 08:30 Dose: 5 mg Atorvastatin Calcium (Lipitor) 40 mg PO QPM [facility] Last Admin: 02/24/18 17:19 Dose: 40 mg Bisacodyl (Dulcolax Supp) 10 mg RECTAL DAILY PRN PRN Reason: SEVERE CONSITIPATION Carvedilol (Coreg) 3.125 mg PO BID [facility] Last Admin: 02/25/18 08:30 Dose: Not Given Famotidine (Pepcid) 20 mg PO DAILY [facility] Last Admin: 02/25/18 08:30 Dose: 20 mg Isosorbide Mononitrate (Imdur) 30 mg PO DAILY@0700 [facility] Last Admin: 02/25/18 06:18 Dose: 30 mg Lactulose (Lactulose Liq) 30 ml PO DAILY PRN PRN Reason: SEVERE CONSITIPATION Levetiracetam (Keppra) 500 mg PO BID [facility] Last Admin: 02/25/18 08:30 Dose: 500 mg Lisinopril (Prinivil) 20 mg PO DAILY [facility] Last Admin: 02/25/18 08:30 Dose: 20 mg Lorazepam (Ativan Inj) 1 mg IV.PUSH Q4H PRN PRN Reason: SEIZURES Ondansetron HCl (Zofran Inj) 4 mg IV.PUSH Q6H PRN PRN Reason: NAUSEA OR VOMITING Ptownmed (Insulin Detemir U-100 [ Levemir Flextouch U- 100 Insuln] 100 Unit ) 0 each SQ DAILY [facility] Senna/Docusate Sodium (Nila-Colace) 1 tab PO BID [facility] Last Admin: 02/25/18 08:30 Dose: 1 tab Sennosides (Senokot) 17.2 mg PO Q12H PRN PRN Reason: Moderate Constipation Sodium Chloride (Ns Flush) 2 ml IV.FLUSH PRN PRN PRN Reason: FLUSH AFTER USING IV ACCESS Sodium Chloride (Ns Flush) 2 ml IV.FLUSH BID [facility] Last Admin: 02/25/18 08:30 Dose: 2 ml Allergies/Adverse Reactions: Allergies Allergy/AdvReac Type Severity Reaction Status Date / Time No Known Allergies Allergy Verified 02/21/18 17:18 Physical Exam Vital signs: Vital Signs 02/24/18 10:51 02/24/18 12:00 02/24/18 12:38 Temperature 98.1 F 98.1 F Pulse Rate 66 66 Respiratory Rate 16 16 Blood Pressure 139/76 139/76 Pulse Oximetry 95 94 L 94 L 02/24/18 16:00 02/24/18 20:00 02/24/18 20:14 Temperature 97.2 F L 97.2 F L Pulse Rate 66 69 73 Respiratory Rate 16 16 Blood Pressure 141/65 H 141/64 H Pulse Oximetry 95 96 02/25/18 00:00 02/25/18 00:01 02/25/18 03:55 Temperature 97.8 F Pulse Rate 67 74 57 L Respiratory Rate 16 Blood Pressure 145/67 H Pulse Oximetry 97 02/25/18 04:00 02/25/18 08:00 Temperature 97.9 F 97.2 F L Pulse Rate 79 54 L Respiratory Rate 18 17 Blood Pressure 136/66 133/70 Pulse Oximetry 97 95 Intake & Output 02/24/18 02/25/18 02/25/18 18:59 06:59 18:59 Intake Total 1200 / 1200 Output Total 1200 / 1200 Balance 0 / 0 Weight 137 kg Intake: Oral 1200 / 1200 Output: Urine 1200 / 1200 Other: # Voids 3 # Bowel Movements 1 - Routine Neurological Exam alert, speech normal CN intact MOTOR 5/5 BUE and BLE Objective Laboratory Results - last 24 hr 02/24/18 02/24/18 08:33 14:36 Plt Funct P2Y12 Units 214 Plt Func Scrn - Epineph 88 L POC Glucose 178 H Review/Management - Review/Management Plan: Hold plavix and asa for LP. check routine csf and cytology continue keppra LP scheduled for today
--- NOTE | 2018-02-25 16:06 | P.RAD ---
Post Procedure Progress Note - Procedure Information Procedure Date: 02/25/18 Supervising Radiologist: Salvador Nuñez MD Assisting Physician: Salvador Nuñez Estimated blood loss (mL): 0 Anesthesia: Local - Plan of Activity Patient to Unit: Nursing Unit Patient Condition: Good See PACS Report for procedural detail/treatment.
--- NOTE | 2018-02-25 16:53 | P.PNIM ---
Subjective Interval history: Follow up visit for brain mass, possible neoplastic lesion. headache, CAD, HTN and DM 2. Patient seen and examined laying in bed, denies any headache or dizziness or any discomfort while laying down. Patient stated have some dizziness when getting up walking around. Patient stated headache comes and goes but no headache at this time. Patient stated feeling better. Patient denies any nausea or vomiting, denies any chest pain or shortness of breath, abdominal pain , diarrhea or constipation. Patient denies any fever or chills. Nurse discussed no acute concerns overnight Physical Exam Vital signs: Last Vital Signs Temp 97.2 F L 02/25/18 12:00 Pulse 35 L 02/25/18 12:00 Resp 14 02/25/18 12:00 BP 135/62 02/25/18 12:00 Pulse Ox 96 02/25/18 12:00 Intake & Output 02/23/18 02/24/18 02/25/18 02/26/18 06:59 06:59 06:59 06:59 Intake Total 2300 / 2300 2280 / 2280 1200 / 1200 Output Total 800 / 800 1400 / 1400 1200 / 1200 Balance 1500 / 1500 880 / 880 0 / 0 Weight 182.4 kg 182.3 kg 137 kg Narrative: GENERAL: well developed, well nourished, Pleasant 67-year-old male, in no acute distress. SKIN: Warm and dry. HEAD: Atraumatic. Normocephalic. EYES: Pupils equal and round. No scleral icterus. No injection or drainage. ENT: No nasal bleeding or discharge. Mucous membranes pink and moist. NECK: Trachea midline. No JVD. CARDIOVASCULAR: Regular rate and rhythm. RESPIRATORY: No accessory muscle use. Clear to auscultation. Breath sounds equal bilaterally. GASTROINTESTINAL: Abdomen soft, obese, non-tender, nondistended. Hepatic and splenic margins not palpable. MUSCULOSKELETAL: Extremities without clubbing, cyanosis, or edema. No obvious deformities. NEUROLOGICAL: Awake and alert and oriented x 3. No obvious cranial nerve deficits. Motor grossly within normal limits. Five out of 5 muscle strength in the arms and legs. Normal speech. PSYCHIATRIC: Appropriate mood and affect; insight and judgment normal. Results Labs CBC & Chem 7: 02/22/18 05:35 02/22/18 05:35 Assessment and Plan Plan This is a Pleasant 67-year-old male with PMH CAD, HTN, DM2, who came to the ED for bradycardia and headache. Brain mass Suspicious for neoplastic lesion Hx Pulmonary nodules - CT scan in the emergency room showed significant interval change compared to the prior examination 03/17/2016. - Patient has a new focal area of vasogenic edema along left frontoparietal lobe in a pattern that is suspicious of underlying neoplastic lesion. Plan for MRI of the brain with and without contrast for further evaluation - Oncology consulted: appreciate recommendation- CT chest, abdomen and pelvis -Neurology consulted: appreciate recommendation- LP, send CSF for cytology, hold Plavix -continue keppra and neuro checks -CT Abdomen and Pelvis: Lower Lungs: Stable pulmonary nodule in the right lower lung. Left lung base is clear. -CT Chest: Stable CT thorax compared to the prior examination from 2014. There continue to be several stable pulmonary nodules especially in the right lung with no new or significant changes compared to the prior exam. No new or suspicious pulmonary nodules are demonstrated to suggest metastatic disease. No new or acute intrathoracic disease is demonstrated - aggressive pulmonary toilette, nasotracheal suction and breathing treatments with nebulizers -Cardiology consulted, appreciate recommendation : Okay to stop clopidogrel. Would resume the clopidogrel as soon as possible after his procedures. -Held Plavix and Aspirin since 02/23/18. Plan for LP, check for CSF and Cytology per Neurosurgeon -Neurosurgeon following: appreciate recommendation, platelet function test, LP and CSF studies and cytology -EEG: negative -Lumbar puncture scheduled for today per urology, platelet function test reviewed -Headache and dizziness improving. No symptom at this time History of CAD with [place] Bradycardia Hypertension -continue home medications, Imdur, lisinopril, aspirin and statin -hold carvedilol due to bradycardia -Consult cardiology: ok to hold Plavix for planned procedure/LP Diabetes mellitus -Blood sugar controlled -monitor accuchecks AC and HS with Insulin sliding scale -continue Levemir GI Prophylaxis: pepcid DVT prophylaxis: SCDs/teds Progress Note: Quality VTE Deep Vein Thrombosis/Pulmonary Embolism Present on Admission: No
--- NOTE | 2018-02-25 16:57 | IR ---
EXAM DATE: 02/25/2018 4:11 PM EST AGE/SEX: 67 years / Male INDICATIONS: Patient with a history of headaches. CLINICAL DATA: This is the patient's initial encounter. Patient reports that signs and symptoms have been present for 1 week and indicates a pain score of 2/10. MEDICAL/SURGICAL HISTORY: Gastroesophageal reflux disease. Diabetes. Hypertension. CVADyslip idemiaMI . [place] [facility] [place]AST[place] 10/28/2014. . FLUORO TIME (min): 0.1 IMAGE SERIES: 1 RADIATION DOSE: 5.8mGy ACCESS SITE: L3-4 LUMBAR PUNCTURE TIME: 1552 hours FLUID: Total volume of 10 cc of clear fluid was removed. Fluid was sent to lab for ordered studies. ; . . PROCEDURE: 1. Fluoroscopic guided lumbar puncture. The risks, benefits and alternatives to the procedure were explained and verbal and written consent w as obtained. The site was prepped in sterile fashion. Full sterile technique was used, including ca p, mask, sterile gloves and gown and a large sterile sheet. Hand hygiene and 2% chlorhexidine and/or betadine/alcohol prep was utilized per protocol for cutaneous antisepsis. The skin and subcutaneous tissues were infiltrated with local anesthetic solution. With fluoroscopic guidance the lumbar thecal sac was punctured at the level above. The fluid describ ed above was removed without difficulty. The patient tolerated the procedure well and there were no complications. CONCLUSION: 1. Uncomplicated fluoroscopically guided lumbar puncture. Electronically signed by: Salvador Nuñez MD Board Certified Radiologist 02/25/2018 4:56 PM JEFF Bradford
[2018-02-25 19:11] LABS: Total Protein,CSF 63.5 mg/dL (15.0-45.0)
[2018-02-25 19:49] LABS: Lymphocytes, CSF 100 %; RBC on Tube 4 9 /mm3
[2018-02-25 20:21] LABS: Neutrophils,CSF 0 %
[2018-02-26] MEDS: Isosorbide Mononitrate 30 MG ER 24HR Tablet (Imdur) PO SCH (06:27)
[2018-02-26] MEDS: Senna/Docusate Sodium 8.6/50 MG Tablet PO SCH ×2 (09:30→20:45)
[2018-02-26] MEDS: amLODIPine 5 MG Tablet PO SCH (09:30)
[2018-02-26] MEDS: Lisinopril 20 MG Tablet PO SCH (09:30)
[2018-02-26] MEDS: Famotidine 20 MG Tablet PO SCH (09:30)
[2018-02-26] MEDS: levETIRAcetam 500 MG Tablet PO SCH ×2 (09:31→20:45)
--- NOTE | 2018-02-26 10:21 | MB ---
cc: Luís Tompkins MD DATE: 02/26/2018 SUBJECTIVE: Mr. Cavazos is seen in followup as I am covering for Dr. Hawkins. He is doing well and is having his breakfast. He has no new complaints, and he is status post lumbar puncture yesterday with results pending. REVIEW OF SYSTEMS: Negative for headaches, back pain, cough, chest pain or shortness of breath. No abdominal pain, distention, blood in stool or black stools. No frequency, urgency or hematuria. No fevers or night sweats. ASSESSMENT AND PLAN: The patient not examined today. I reviewed his CT chest, abdomen and pelvis with him, and advised him that he has no evidence of malignancy, primary or secondary on the scans. In addition, the pulmonary nodules appeared to be stable for a period of over 3 years now, and, hence they can be followed up. His most important diagnostic results come from his lumbar puncture, and they are awaited. The patient is aware of that, and we will see him in followup as needed. Luís Tompkins MD MVA/ , 09:03 AM , 09:08 AM
--- NOTE | 2018-02-26 13:00 | P.PN ---
Subjective Interval history: Follow up visit for brain mass, possible neoplastic lesion,headache: Patient seen and examined, awake, alert oriented x3. Endorses mild dizziness when getting out of bed, no headache, no chest pain, no shortness of breath. No acute changes overnight. Telemetry shows sinus bradycardia. No ectopy Physical Exam Vital signs: Vital Signs 02/25/18 16:04 02/25/18 17:04 02/25/18 20:00 Temperature 97.5 F L 97.7 F 97.5 F L Pulse Rate 36 L 38 L 75 Respiratory Rate 12 14 18 Blood Pressure 148/67 H 142/63 H 157/71 H Pulse Oximetry 94 L 98 02/26/18 00:00 02/26/18 04:00 02/26/18 06:34 Temperature 97.3 F L 97.4 F L Pulse Rate 68 68 70 Respiratory Rate 12 18 Blood Pressure 118/57 L 136/65 Pulse Oximetry 98 96 02/26/18 08:00 02/26/18 12:00 Temperature 97.3 F L 97.4 F L Pulse Rate 58 L 64 Respiratory Rate 17 17 Blood Pressure 115/70 122/57 L Pulse Oximetry 96 95 Intake & Output 02/25/18 02/26/18 02/26/18 18:59 06:59 18:59 Intake Total 1100 / 1100 600 / 600 Balance 1100 / 1100 600 / 600 Intake: Oral 600 / 600 Oral Supplement 1100 / 1100 Other: # Voids 6 3 Date of Last Bowel Movement 02/25/18 Narrative: GENERAL: well developed, well nourished 67-year-old male. No apparent distress SKIN: Warm and dry. HEAD: Atraumatic. Normocephalic. EYES: Pupils equal and round. No scleral icterus. No injection or drainage. ENT: No nasal bleeding or discharge. Mucous membranes pink and moist. NECK: Trachea midline. No JVD. CARDIOVASCULAR: Regular rate and rhythm. RESPIRATORY: No accessory muscle use. Clear to auscultation. Breath sounds equal bilaterally. GASTROINTESTINAL: Abdomen soft, obese, non-tender, nondistended. Hepatic and splenic margins not palpable. MUSCULOSKELETAL: Extremities without clubbing, cyanosis. Bilateral lower extremities with trace pretibial edema, right greater than left. NEUROLOGICAL: Awake and alert and oriented x 3. No obvious cranial nerve deficits. Motor grossly within normal limits. Five out of 5 muscle strength in the arms and legs. Normal speech. PSYCHIATRIC: Appropriate mood and affect; insight and judgment normal. Results - Labs CBC & Chem 7: 02/22/18 05:35 02/22/18 05:35 Laboratory Results - last 24 hr 02/25/18 02/25/18 Unknown Unknown CSF Volume (1) 2.5 CSF Supernat Color (1) Clear CSF Gross Blood (1) 0 CSF Volume (2) 2.0 CSF Supernat Color (2) Clear CSF Gross Blood (2) 0 CSF Volume (3) 2.0 CSF Supernat Color (3) Clear CSF Gross Blood (3) 0 CSF Volume (4) 3.0 CSF Supernat Color (4) Clear CSF Gross Blood (4) 0 CSF WBC (4) 7 CSF RBC (4) 9 H CSF Neutrophils % 0 CSF Lymphocytes % 100 CSF Glucose 125 H CSF Total Protein 63.5 H Microbiology 02/25/18 Unknown Lumbar Puncture Gram Stain - Final 02/25/18 Unknown Lumbar Puncture CSF Culture - Preliminary No growth in 24 hours 02/25/18 Unknown Cerebral Spinal Fluid - Lumbar Puncture Fungal Smear - Final No fungal elements seen - Imaging Impressions Lumbar Puncture Fluoroscopy 02/25/18 00:00 CONCLUSION: 1. Uncomplicated fluoroscopically guided lumbar puncture. Assessment and Plan - Assessment (1) Brain mass Code(s): G93.9 - Disorder of brain, unspecified Status: Acute (2) Headache Code(s): R51 - Headache Status: Acute (3) Bradycardia Code(s): R00.1 - Bradycardia, unspecified Status: Acute (4) CAD (coronary artery disease) Code(s): I25.10 - Atherosclerotic heart disease of [place] coronary artery without angina pectoris Status: Chronic - Plan This is a Pleasant 67-year-old male with PMH CAD, HTN, DM2, who came to the ED for bradycardia and headache. Brain mass Suspicious for neoplastic lesion Hx Pulmonary nodules - CT scan in the emergency room showed significant interval change compared to the prior examination 03/17/2016. - Patient has a new focal area of vasogenic edema along left frontoparietal lobe in a pattern that is suspicious of underlying neoplastic lesion. Plan for MRI of the brain with and without contrast for further evaluation - Oncology consulted: appreciate recommendation- CT chest, abdomen and pelvis rule out metastases. So far no mets noted. -Neurology consulted: recommended LP -Continue Keppra, neuro checks. Seizure precauations -CT Abdomen and Pelvis: Lower Lungs: Stable pulmonary nodule in the right lower lung. Left lung base is clear. -CT Chest: Stable CT thorax compared to the prior examination from 2015. There continue to be several stable pulmonary nodules especially in the right lung with no new or significant changes compared to the prior exam. No new or suspicious pulmonary nodules are demonstrated to suggest metastatic disease. No new or acute intrathoracic disease is demonstrated -Cardiology consulted for bradycardia and preprocedure clearance-Okay to stop clopidogrel. Would resume the clopidogrel as soon as possible after his procedures. -LP done 02/24, results noted, glucose 125, protein 63.5. Rest of work up pending -Neurosurgeon following: appreciate recommendation, platelet function test recommended-88 -EEG-negative -Further recommendations as LP results come back, unclear at this time whether patient will need brain biopsy. -Patient symptoms improving, denies any headache, mild dizziness. No seizures. History of CAD with [place] and x 6 stents (last stent 9 months ago) Bradycardia Hypertension -continue home medications, Imdur, lisinopril, aspirin and statin -hold carvedilol due to bradycardia -Consult cardiology: ok to hold Plavix for planned procedure/LP -resume Plavix today Diabetes mellitus -Blood sugar controlled -will order accuchecks AC and HS with Insulin sliding scale -continue Levemir GI Prophylaxis: pepcid DVT prophylaxis: SCDs/teds Continue to follow-up LP results Code Status: Full code Discussed Condition With: RN, pt, CM Discharge Planning: Not ready yet (2) Headache Qualifiers: Headache type: unspecified (4) CAD (coronary artery disease) Qualifiers: Coronary Disease-Associated Artery/Lesion type: unspecified vessel or lesion type
[2018-02-26] MEDS ORDERED: Dextrose 50% in Water 50 ML Vial IV.PUSH PRN (16:25)
[2018-02-26] MEDS: Insulin NovoLOG Aspart Correctional Sugar Inj SQ SCH ×2 (17:57→20:53)
[2018-02-27] MEDS: Isosorbide Mononitrate 30 MG ER 24HR Tablet (Imdur) PO SCH (06:04)
--- NOTE | 2018-02-27 08:31 | P.PNNEU ---
Subjective Subjective Comments: No new c/o. Tolerated LP without complication He has had no further twitching RLE and feels strength normal Active Medications: Active Medications Acetaminophen (Tylenol) 650 mg PO Q4H PRN PRN Reason: Temp > 100.4 Al Hydroxide/Mg Hydroxide (Milk Of Magnesia Liq) 30 ml PO Q12H PRN PRN Reason: Mild Constipation Albuterol (Duoneb Neb (Prn)) 1 ampul NEB Q4HR NEB PRN PRN Reason: SHORTNESS OF BREATH Amlodipine Besylate (Norvasc) 5 mg PO DAILY [facility] Last Admin: 02/26/18 09:30 Dose: 5 mg Atorvastatin Calcium (Lipitor) 40 mg PO QPM [facility] Last Admin: 02/26/18 18:43 Dose: 40 mg Bisacodyl (Dulcolax Supp) 10 mg RECTAL DAILY PRN PRN Reason: SEVERE CONSITIPATION Carvedilol (Coreg) 3.125 mg PO BID [facility] Last Admin: 02/26/18 20:45 Dose: 3.125 mg Clopidogrel Bisulfate (Plavix) 75 mg PO DAILY [facility] Dextrose (D50w Vial) 50 ml IV.PUSH UNSCH PRN PRN Reason: PER HYPOGLYCEMIA PROTOCOL Famotidine (Pepcid) 20 mg PO DAILY [facility] Last Admin: 02/26/18 09:30 Dose: 20 mg Glucagon (Glucagon Inj) 1 mg OTHER PRN PRN PRN Reason: for Hypoglycemia Protocol Insulin Aspart (Novolog Insulin Correctional Sugar Inj) 0 unit SQ [facility]; Protocol Last Admin: 02/26/18 20:53 Dose: 3 unit Isosorbide Mononitrate (Imdur) 30 mg PO DAILY@0700 [facility] Last Admin: 02/27/18 06:04 Dose: 30 mg Lactulose (Lactulose Liq) 30 ml PO DAILY PRN PRN Reason: SEVERE CONSITIPATION Levetiracetam (Keppra) 500 mg PO BID [facility] Last Admin: 02/26/18 20:45 Dose: 500 mg Lisinopril (Prinivil) 20 mg PO DAILY [facility] Last Admin: 02/26/18 09:30 Dose: 20 mg Lorazepam (Ativan Inj) 1 mg IV.PUSH Q4H PRN PRN Reason: SEIZURES Ondansetron HCl (Zofran Inj) 4 mg IV.PUSH Q6H PRN PRN Reason: NAUSEA OR VOMITING Ptownmed (Insulin Detemir U-100 [ Levemir Flextouch U- 100 Insuln] 100 Unit ) 0 each SQ DAILY [facility] Senna/Docusate Sodium (Nila-Colace) 1 tab PO BID [facility] Last Admin: 02/26/18 20:45 Dose: 1 tab Sennosides (Senokot) 17.2 mg PO Q12H PRN PRN Reason: Moderate Constipation Sodium Chloride (Ns Flush) 2 ml IV.FLUSH PRN PRN PRN Reason: FLUSH AFTER USING IV ACCESS Sodium Chloride (Ns Flush) 2 ml IV.FLUSH BID [facility] Last Admin: 02/26/18 20:46 Dose: 2 ml Allergies/Adverse Reactions: Allergies Allergy/AdvReac Type Severity Reaction Status Date / Time No Known Allergies Allergy Verified 02/21/18 17:18 Physical Exam Vital signs: Vital Signs 02/26/18 12:00 02/26/18 15:26 02/26/18 20:00 Temperature 97.4 F L 97.4 F L 97.2 F L Pulse Rate 64 52 L 72 Respiratory Rate 17 17 19 Blood Pressure 122/57 L 119/68 148/65 H Pulse Oximetry 95 97 96 02/27/18 00:00 02/27/18 04:00 02/27/18 08:00 Temperature 98.1 F 97.2 F L 97.4 F L Pulse Rate 72 65 Respiratory Rate 19 19 Blood Pressure 124/61 133/72 115/57 L Pulse Oximetry 95 95 62 L Intake & Output 02/26/18 02/27/18 02/27/18 18:59 06:59 18:59 Intake Total 1800 / 1800 220 / 220 Balance 1800 / 1800 220 / 220 Weight 137.6 kg Intake: Oral 1800 / 1800 220 / 220 Other: # Voids 3 3 Date of Last Bowel Movement 02/25/18 02/25/18 - Routine Neurological Exam alert, speech normal, comprhension normal CN intact MOTOR 5/5 BUE and BLE Objective Laboratory Results - last 24 hr 02/26/18 02/26/18 02/27/18 17:26 20:48 08:05 POC Glucose 191 H 242 H 201 H Microbiology 02/25/18 Unknown Gram Stain - Final Lumbar Puncture CSF Culture - Preliminary No growth in 24 hours Review/Management - Review/Management Plan: follow up CSF cytology continue jose manuel
[2018-02-27] MEDS: amLODIPine 5 MG Tablet PO SCH (09:37)
[2018-02-27] MEDS: Insulin NovoLOG Aspart Correctional Sugar Inj SQ SCH ×4 (09:37→21:55)
[2018-02-27] MEDS: Lisinopril 20 MG Tablet PO SCH (09:37)
[2018-02-27] MEDS: Famotidine 20 MG Tablet PO SCH (09:37)
[2018-02-27] MEDS: levETIRAcetam 500 MG Tablet PO SCH ×2 (09:37→21:48)
[2018-02-27] MEDS: Senna/Docusate Sodium 8.6/50 MG Tablet PO SCH ×2 (09:37→21:48)
--- NOTE | 2018-02-27 13:19 | P.PNIM ---
Subjective Interval history: No distress today. Patient has had intermittent headaches but has no headaches when seen today. He says he gets mild dizziness when he stands up but is otherwise asymptomatic and feels otherwise at baseline. Physical Exam Vital signs: Last Vital Signs Temp 94.7 F L 02/27/18 12:41 Pulse 64 02/27/18 12:41 Resp 17 02/27/18 12:41 BP 110/55 L 02/27/18 12:41 Pulse Ox 96 02/27/18 12:41 Intake & Output 02/25/18 02/26/18 02/27/18 02/28/18 06:59 06:59 06:59 06:59 Intake Total 1200 / 1200 1700 / 1700 2019 Output Total 1200 / 1200 Balance 0 / 0 1700 / 1700 2019 Weight 137 kg 137.6 kg Narrative: GENERAL: NAD, A&Ox3 HEAD: Normocephalic. NECK: Supple, trachea midline. No lymphadenopathy. EYES: No scleral icterus. No injection or drainage. CARDIOVASCULAR: Regular rate and rhythm without murmurs, gallops, or rubs. RESPIRATORY: Breath sounds equal bilaterally. No accessory muscle use. GASTROINTESTINAL: Abdomen soft, non-tender, nondistended. MUSCULOSKELETAL: No cyanosis, or edema. SKIN: Warm and dry. NEURO: No focal neurological deficits. Results Labs CBC & Chem 7: 02/22/18 05:35 02/22/18 05:35 Labs: Microbiology 02/25/18 Unknown Lumbar Puncture Gram Stain - Final 02/25/18 Unknown Lumbar Puncture CSF Culture - Preliminary No growth in 48 hours Assessment and Plan (1) Brain mass: Code(s): G93.9 - Disorder of brain, unspecified Status: Acute (2) Headache: Code(s): R51 - Headache Status: Acute (3) Bradycardia: Code(s): R00.1 - Bradycardia, unspecified Status: Acute (4) CAD (coronary artery disease): Code(s): I25.10 - Atherosclerotic heart disease of [place] coronary artery without angina pectoris Status: Chronic Plan 67-year-old male with PMH CAD, HTN, DM2, who came to the ED for bradycardia and headache. Brain mass Suspicious for neoplastic lesion Hx Pulmonary nodules Cytology not yet available, results pending Continue monitoring for cytology Cultures showed no evidence of fungus or bacteria Neurosurgery following Neurology following Continue Keppra Potential need for brain biopsy based on results of pending cytology study of LP History of CAD with [place] and x 6 stents (last stent 9 months ago) Bradycardia Hypertension Asymptomatic Continue M Tip Continue lisinopril Continue aspirin Continue statin Carvedilol on hold secondary to bradycardia Cardiology following Continue Plavix Diabetes mellitus type 2 Follow blood sugars Insulin sliding scale Diabetic diet Continue Levemir DVT prophylaxis SCDs Progress Note: Quality VTE Deep Vein Thrombosis/Pulmonary Embolism Present on Admission: No _ (1) Headache Qualifiers: Headache type: unspecified Headache chronicity pattern: Intractability: (2) CAD (coronary artery disease) Qualifiers: Coronary Disease-Associated Artery/Lesion type: unspecified vessel or lesion type [place] vs. transplanted heart: Associated angina:
--- NOTE | 2018-02-27 17:13 | P.PNNS ---
Subjective Interval history: pt seen this morning during rounds. feeling better today, PRASAD's improving as well as no further shaking of lower extremities. had LP done this morning, awaiting results. Physical Exam Vital signs: Vital Signs 02/26/18 20:00 02/27/18 00:00 02/27/18 04:00 Temperature 97.2 F L 98.1 F 97.2 F L Pulse Rate 72 72 65 Respiratory Rate 19 19 19 Blood Pressure 148/65 H 124/61 133/72 Pulse Oximetry 96 95 95 02/27/18 08:00 02/27/18 12:41 02/27/18 16:46 Temperature 97.4 F L 94.7 F L 97.1 F L Pulse Rate 64 65 Respiratory Rate 17 17 Blood Pressure 115/57 L 110/55 L 123/59 L Pulse Oximetry 62 L 96 95 Intake & Output 02/26/18 02/27/18 02/27/18 18:59 06:59 18:59 Intake Total 1800 / 1800 220 / 220 Balance 1800 / 1800 220 / 220 Weight 137.6 kg Intake: Oral 1800 / 1800 220 / 220 Other: # Voids 3 3 3 Date of Last Bowel Movement 02/25/18 02/25/18 02/25/18 Narrative: GENERAL: Resting in bed appears comfortable in no acute distress SKIN: Warm and dry. HEAD: Normocephalic. EYES: No scleral icterus. No injection or drainage. NECK: Supple, trachea midline. No JVD or lymphadenopathy. MUSCULOSKELETAL: No cyanosis, or edema. Moving all four extremities with good strength. NEURO: Awake, alert. CN II-XII grossly intact. Assessment and Plan - Plan Pleasant 67-year-old male with Brain mass CT scan in the emergency room showed significant interval change compared to the prior examination 03/17/2016., with a new focal area of vasogenic edema along left frontoparietal lobe in a pattern that is suspicious of underlying neoplastic lesion. I have reviewed the clinical and radiological findings Chest X-Ray 02/21/18 16:02 CONCLUSION: No acute cardiopulmonary findings. The cardiomediastinal contours are stable at upper limits of normal. Cardiac loop recorder. Head CT 02/21/18 16:03 CONCLUSION: 1. There has been a significant interval change compared to the prior examination of 03/17/2016. There is now a focal area of vasogenic edema high along the left frontal parietal lobe in a pattern that is suspicious for an underlying mass occupying lesion. This is suspicious for neoplastic disease. Therefore, recommend an MRI of the brain with and without contrast for further evaluation. . Head MRI 02/21/18 17:00 CONCLUSION: 1. There is severe focal left frontal high convexity vasogenic edema with evidence of a multifocal remote hemorrhage and associated superficial enhancement and enhancement of the adjacent leptomeninges. Differential diagnosis includes infection, malignancy, or potentially neurosarcoidosis. Correlating with patient's history may help narrow the differential diagnosis. 2. Chronic changes include mild generalized atrophy and mild chronic periventricular white matter change. Abdomen/Pelvis CT 02/22/18 00:00 CONCLUSION: 1. Tiny 2 mm nonobstructing stone lower pole left kidney. 2. 1.1 cm cyst midpole left kidney 3. Small umbilical hernia containing mesenteric fat. 4. No evidence to suggest metastatic disease is seen at this time. Chest CT 02/22/18 00:00 CONCLUSION: 1. Stable CT thorax compared to the prior examination from 2014. There continue to be several stable pulmonary nodules especially in the right lung with no new or significant changes compared to the prior exam. No new or suspicious pulmonary nodules are demonstrated to suggest metastatic disease. 2. No new or acute intrathoracic disease is demonstrated. Neuro: neuro checks in a serial fashion. Probable focal seizures. I reviewed his MRI EEG - Keppra Consult oncology. CT chest, abdomen, pelvis Recommend LP, send CSF for cytology Will need to discontinue Plavix prior to LP. 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 History of CAD. Hypertension continue home medications. Daily PT and OT Renal: Continue to monitor closely urine output, BUN and creatinine Diabetes mellitus continue Levemir. Monitor serial Acu checks and SSI as needed in detail ID monitor for signs of infection Protonix for stress ulcer prophylaxis Roque hose and SCD's for DVT prophylaxis Caprini VTE Risk Assessment Caprini Risk Assessment Model: Point Value = 1 Point Value = 2 Point Value = 3 Point Value = 5 Age 41-60 Minor surgery BMI > 25 kg/m2 Swollen legs Varicose veins or History of unexplained or recurrent spontaneous Oral contraceptives or hormone replacement Sepsis (< 1 month) Serious lung disease, including pneumonia (< 1 month) Abnormal pulmonary function Acute myocardial infarction Congestive heart failure (< 1 month) History of inflammatory bowel disease Medical patient at bed rest Age 61-74 Arthroscopic surgery Major open surgery (> 45 min) Laparoscopic surgery (> 45 min) Malignancy Confined to bed (> 72 hours) Immobilizing plaster cast Central venous access Age >= 75 History of VTE Family history of VTE Factor V Leiden Prothrombin [id number] Lupus anticoagulant Anticardiolipin antibodies Elevated serum homocysteine Heparin-induced thrombocytopenia Other congenital or acquired thrombophilia Stroke (< 1 month) Elective arthroplasty Hip, pelvis, or leg fracture Acute spinal cord injury (< 1 month) Prophylaxis Regimen: Total Risk Factor Score Risk Level Prophylaxis Regimen 0-1 Low Early ambulation 2 Moderate Order ONE of the following: *Sequential Compression Device (SCD) *Heparin 5000 units SQ BID 3-4 Higher Order ONE of the following medications: *Heparin 5000 units SQ TID *Enoxaparin/Lovenox 40 mg SQ daily (WT < 150 kg, CrCl > 30 mL/min) *Enoxaparin/Lovenox 30 mg SQ daily (WT < 150 kg, CrCl > 10-29 mL/min) *Enoxaparin/Lovenox 30 mg SQ BID (WT < 150 kg, CrCl > 30 mL/min) AND/OR *Sequential Compression Device (SCD) 5 or more Highest Order ONE of the following medications: *Heparin 5000 units SQ TID (Preferred with Epidurals) *Enoxaparin/Lovenox 40 mg SQ daily (WT < 150 kg, CrCl > 30 mL/min) *Enoxaparin/Lovenox 30 mg SQ daily (WT < 150 kg, CrCl > 10-29 mL/min) *Enoxaparin/Lovenox 30 mg SQ BID (WT < 150 kg, CrCl > 30 mL/min) AND *Sequential Compression Device (SCD) February 23, 2018 The patient remains clinically and neurologically stable. He has had no further seizures. His headache is improved. His metastatic workup to date is negative. He requires a lumbar puncture with cerebrospinal fluid analysis and cytology. This cannot be performed until his Plavix has been held for several days. Depending on the results of the workup will determine the appropriate further diagnostic and therapeutic approach. Neurosurgery will follow. February 24, 2018 The patient remains clinically and neurologically stable. He has had no further seizures. His headaches are mild. I have ordered platelet function tests. The LP and CSF studies and cytology remains pending. Depending on the results of the workup as well as his clinical course will determine the appropriate further diagnostic and therapeutic approach. Neurosurgery will follow. 02/27/18: underwent LP this morning, f/u CSF studies cont current care cont neuro checks further recommendations to follow
[2018-02-28] MEDS: Isosorbide Mononitrate 30 MG ER 24HR Tablet (Imdur) PO SCH (06:32)
[2018-02-28] MEDS: Famotidine 20 MG Tablet PO SCH (09:22)
[2018-02-28] MEDS: Senna/Docusate Sodium 8.6/50 MG Tablet PO SCH ×2 (09:23→21:41)
[2018-02-28] MEDS: amLODIPine 5 MG Tablet PO SCH (09:23)
[2018-02-28] MEDS: Insulin NovoLOG Aspart Correctional Sugar Inj SQ SCH ×4 (09:23→21:44)
[2018-02-28] MEDS: Lisinopril 20 MG Tablet PO SCH (09:23)
[2018-02-28] MEDS: levETIRAcetam 500 MG Tablet PO SCH ×2 (09:23→21:38)
--- NOTE | 2018-02-28 11:57 | P.PNIM ---
Subjective Interval history: No new complaints from the patient today. Cytology has partially resulted. No evidence of malignant cells. Possible evidence of budding yeast. Further stains are pending. Physical Exam Vital signs: Last Vital Signs Temp 97.4 F L 02/28/18 07:35 Pulse 41 L 02/28/18 07:35 Resp 17 02/28/18 07:35 BP 132/62 02/28/18 07:35 Pulse Ox 95 02/28/18 08:00 Intake & Output 02/26/18 02/27/18 02/28/18 03/01/18 06:59 06:59 06:59 06:59 Intake Total 1700 / 1700 2019 300 / 300 Balance 1700 / 1700 2019 300 / 300 Weight 137.6 kg 136.7 kg Narrative: GENERAL: NAD, A&Ox3 HEAD: Normocephalic. NECK: Supple, trachea midline. No lymphadenopathy. EYES: No scleral icterus. No injection or drainage. CARDIOVASCULAR: Regular rate and rhythm without murmurs, gallops, or rubs. RESPIRATORY: Breath sounds equal bilaterally. No accessory muscle use. GASTROINTESTINAL: Abdomen soft, non-tender, nondistended. MUSCULOSKELETAL: No cyanosis, or edema. SKIN: Warm and dry. NEURO: No focal neurological deficits. Results Labs CBC & Chem 7: 02/22/18 05:35 02/22/18 05:35 Labs: Microbiology 02/25/18 Unknown Lumbar Puncture Gram Stain - Final 02/25/18 Unknown Lumbar Puncture CSF Culture - Final No growth in 72 hours Assessment and Plan (1) Brain mass: Code(s): G93.9 - Disorder of brain, unspecified Status: Acute (2) Headache: Code(s): R51 - Headache Status: Acute (3) Bradycardia: Code(s): R00.1 - Bradycardia, unspecified Status: Acute (4) CAD (coronary artery disease): Code(s): I25.10 - Atherosclerotic heart disease of [place] coronary artery without angina pectoris Status: Chronic Plan 67-year-old male with PMH CAD, HTN, DM2, who came to the ED for bradycardia and headache. Follow-up specialized stains in regards to LP cytology. Continue following clinically. Brain mass Suspicious for neoplastic lesion Hx Pulmonary nodules Cytology not yet available, results pending Continue monitoring for cytology Cultures showed no evidence of fungus or bacteria Neurosurgery following Neurology following Continue Delicia Potential need for brain biopsy based on results of pending cytology study of LP History of CAD with [place] and x 6 stents (last stent 9 months ago) Bradycardia Hypertension Asymptomatic Continue M Tip Continue lisinopril Continue aspirin Continue statin Carvedilol on hold secondary to bradycardia Cardiology following Continue Plavix Diabetes mellitus type 2 Follow blood sugars Insulin sliding scale Diabetic diet Continue Levemir DVT prophylaxis SCDs Progress Note: Quality VTE Deep Vein Thrombosis/Pulmonary Embolism Present on Admission: No _ (1) Headache Qualifiers: Headache type: unspecified Headache chronicity pattern: Intractability: (2) CAD (coronary artery disease) Qualifiers: Coronary Disease-Associated Artery/Lesion type: unspecified vessel or lesion type [place] vs. transplanted heart: Associated angina:
--- NOTE | 2018-02-28 16:37 | P.PNNEU ---
Subjective Subjective Comments: No new c/o. No more twitching right leg Active Medications: Active Medications Acetaminophen (Tylenol) 650 mg PO Q4H PRN PRN Reason: Temp > 100.4 Al Hydroxide/Mg Hydroxide (Milk Of Magnesia Liq) 30 ml PO Q12H PRN PRN Reason: Mild Constipation Albuterol (Duoneb Neb (Prn)) 1 ampul NEB Q4HR NEB PRN PRN Reason: SHORTNESS OF BREATH Amlodipine Besylate (Norvasc) 5 mg PO DAILY [facility] Last Admin: 02/28/18 09:23 Dose: 5 mg Atorvastatin Calcium (Lipitor) 40 mg PO QPM [facility] Last Admin: 02/27/18 18:22 Dose: 40 mg Bisacodyl (Dulcolax Supp) 10 mg RECTAL DAILY PRN PRN Reason: SEVERE CONSITIPATION Carvedilol (Coreg) 3.125 mg PO BID [facility] Last Admin: 02/28/18 09:22 Dose: 3.125 mg Clopidogrel Bisulfate (Plavix) 75 mg PO DAILY [facility] Last Admin: 02/28/18 09:22 Dose: 75 mg Dextrose (D50w Vial) 50 ml IV.PUSH UNSCH PRN PRN Reason: PER HYPOGLYCEMIA PROTOCOL Famotidine (Pepcid) 20 mg PO DAILY [facility] Last Admin: 02/28/18 09:22 Dose: 20 mg Glucagon (Glucagon Inj) 1 mg OTHER PRN PRN PRN Reason: for Hypoglycemia Protocol Insulin Aspart (Novolog Insulin Correctional Sugar Inj) 0 unit SQ ACHS [facility]; Protocol Last Admin: 02/28/18 12:58 Dose: 3 unit Isosorbide Mononitrate (Imdur) 30 mg PO DAILY@0700 [facility] Last Admin: 02/28/18 06:32 Dose: 30 mg Lactulose (Lactulose Liq) 30 ml PO DAILY PRN PRN Reason: SEVERE CONSITIPATION Levetiracetam (Keppra) 500 mg PO BID [facility] Last Admin: 02/28/18 09:23 Dose: 500 mg Lisinopril (Prinivil) 20 mg PO DAILY [facility] Last Admin: 02/28/18 09:23 Dose: 20 mg Lorazepam (Ativan Inj) 1 mg IV.PUSH Q4H PRN PRN Reason: SEIZURES Ondansetron HCl (Zofran Inj) 4 mg IV.PUSH Q6H PRN PRN Reason: NAUSEA OR VOMITING Ptownmed (Insulin Detemir U-100 [ Levemir Flextouch U- 100 Insuln] 100 Unit ) 0 each SQ DAILY [facility] Senna/Docusate Sodium (Nila-Colace) 1 tab PO BID [facility] Last Admin: 02/28/18 09:23 Dose: Not Given Sennosides (Senokot) 17.2 mg PO Q12H PRN PRN Reason: Moderate Constipation Sodium Chloride (Ns Flush) 2 ml IV.FLUSH PRN PRN PRN Reason: FLUSH AFTER USING IV ACCESS Sodium Chloride (Ns Flush) 2 ml IV.FLUSH BID [facility] Last Admin: 02/28/18 09:23 Dose: 2 ml Allergies/Adverse Reactions: Allergies Allergy/AdvReac Type Severity Reaction Status Date / Time No Known Allergies Allergy Verified 02/21/18 17:18 Physical Exam Vital signs: Vital Signs 02/27/18 16:46 02/27/18 20:00 02/27/18 20:16 Temperature 97.1 F L 97.7 F Pulse Rate 65 70 Respiratory Rate 17 18 Blood Pressure 123/59 L 148/66 H Pulse Oximetry 95 95 95 02/28/18 00:00 02/28/18 04:00 02/28/18 07:35 Temperature 97.5 F L 97.5 F L 97.4 F L Pulse Rate 66 62 41 L Respiratory Rate 18 18 17 Blood Pressure 127/59 L 146/67 H 132/62 Pulse Oximetry 95 95 95 02/28/18 08:00 02/28/18 11:45 Temperature 97.3 F L Pulse Rate 35 L Respiratory Rate 16 Blood Pressure 141/65 H Pulse Oximetry 95 94 L Intake & Output 02/27/18 02/28/18 02/28/18 18:59 06:59 18:59 Intake Total 300 / 300 Balance 300 / 300 Weight 136.7 kg Intake: Oral 300 / 300 Other: # Voids 3 2 Date of Last Bowel Movement 02/25/18 02/27/18 - Routine Neurological Exam alert, speech normal CN intact MOTOR 5/5 BUE and BLE Objective Laboratory Results - last 24 hr 02/27/18 02/27/18 02/28/18 17:18 21:51 08:06 POC Glucose 197 H 227 H 228 H 02/28/18 12:00 POC Glucose 217 H Microbiology 02/25/18 Unknown Acid Fast Bacilli Smear - Final Cerebral Spinal Fluid - Lumbar Puncture No acid fast bacilli seen 02/25/18 Unknown Gram Stain - Final Lumbar Puncture CSF Culture - Final No growth in 72 hours Diagnostic Tests: csf cytology--? evidence for budding yeast. cryptococcal antigen pending Review/Management - Review/Management Plan: follow up CSF cryptococcal antigen, fungal stain. Consult ID. rachael richard
[2018-03-01] MEDS: Isosorbide Mononitrate 30 MG ER 24HR Tablet (Imdur) PO SCH (06:30)
[2018-03-01] MEDS: amLODIPine 5 MG Tablet PO SCH (09:16)
[2018-03-01] MEDS: Lisinopril 20 MG Tablet PO SCH (09:16)
[2018-03-01] MEDS: Famotidine 20 MG Tablet PO SCH (09:16)
[2018-03-01] MEDS: levETIRAcetam 500 MG Tablet PO SCH ×2 (09:16→21:43)
[2018-03-01] MEDS: Insulin NovoLOG Aspart Correctional Sugar Inj SQ SCH ×4 (09:16→21:44)
[2018-03-01] MEDS: Senna/Docusate Sodium 8.6/50 MG Tablet PO SCH ×2 (09:20→21:45)
--- NOTE | 2018-03-01 12:19 | P.PNIM ---
Subjective Interval history: No new findings on pathology/cystology. Awaiting special fungal stains. Further work up for brain mass will be based on these findings. Physical Exam Vital signs: Last Vital Signs Temp 97.7 F 03/01/18 08:00 Pulse 59 L 03/01/18 08:00 Resp 16 03/01/18 08:00 BP 110/64 03/01/18 08:00 Pulse Ox 95 03/01/18 08:00 Intake & Output 02/27/18 02/28/18 03/01/18 03/02/18 06:59 06:59 06:59 06:59 Intake Total 2019 300 / 300 480 / 480 Balance 2019 300 / 300 480 / 480 Weight 137.6 kg 136.7 kg 134.6 kg Narrative: GENERAL: NAD, A&Ox3 HEAD: Normocephalic. NECK: Supple, trachea midline. No lymphadenopathy. EYES: No scleral icterus. No injection or drainage. CARDIOVASCULAR: Regular rate and rhythm without murmurs, gallops, or rubs. RESPIRATORY: Breath sounds equal bilaterally. No accessory muscle use. GASTROINTESTINAL: Abdomen soft, non-tender, nondistended. MUSCULOSKELETAL: No cyanosis, or edema. SKIN: Warm and dry. NEURO: No focal neurological deficits. Results Labs CBC & Chem 7: 02/22/18 05:35 02/22/18 05:35 Labs: Microbiology 02/25/18 Unknown Cerebral Spinal Fluid - Lumbar Puncture Acid Fast Bacilli Smear - Final No acid fast bacilli seen 02/25/18 Unknown Lumbar Puncture Gram Stain - Final 02/25/18 Unknown Lumbar Puncture CSF Culture - Final No growth in 72 hours Assessment and Plan (1) Brain mass: Code(s): G93.9 - Disorder of brain, unspecified Status: Acute (2) Headache: Code(s): R51 - Headache Status: Acute (3) Bradycardia: Code(s): R00.1 - Bradycardia, unspecified Status: Acute (4) CAD (coronary artery disease): Code(s): I25.10 - Atherosclerotic heart disease of [place] coronary artery without angina pectoris Status: Chronic Plan 67-year-old male with PMH CAD, HTN, DM2, who came to the ED for bradycardia and headache. No acute changes overnight. Follow-up specialized stains in regards to LP cytology. Continue following clinically. Brain mass Suspicious for neoplastic lesion Hx Pulmonary nodules Cytology not yet available, results pending Continue monitoring for cytology Cultures showed no evidence of fungus or bacteria Neurosurgery following Neurology following Continue Keppra Potential need for brain biopsy based on results of pending cytology study of LP History of CAD with CO and x 6 stents (last stent 9 months ago) Bradycardia Hypertension Asymptomatic Continue M Tip Continue lisinopril Continue aspirin Continue statin Carvedilol on hold secondary to bradycardia Cardiology following Continue Plavix Diabetes mellitus type 2 Follow blood sugars Insulin sliding scale Diabetic diet Continue Levemir DVT prophylaxis SCDs Progress Note: Quality VTE Deep Vein Thrombosis/Pulmonary Embolism Present on Admission: No _ (1) Headache Qualifiers: Headache type: unspecified Headache chronicity pattern: Intractability: (2) CAD (coronary artery disease) Qualifiers: Coronary Disease-Associated Artery/Lesion type: unspecified vessel or lesion type [place] vs. transplanted heart: Associated angina:
--- NOTE | 2018-03-01 12:25 | P.CONID ---
History of Present Illness Service: ID Consult date: 03/01/18 Requesting Physician: Doc Barrera Reason for Consult: ? crypto meningitis Primary Care Provider: Joel Santana MD Chief Complaint: Headaches, sent by PCP for evaluation of bradycardia History of Present Illness: pt is a 67 y o male with multiple med problems Here for palpitations w/u he reports gradual onset headache over 3-4 weeks nop fevers Imaging reviewed mass in L hemisphere with differential diagnosis includes infection, malignancy, or potentially neurosarcoidosis. LP was done CSF revealed some structures resembnling yeast. Dw Dr Miguel - the differential of those structures includes crypto yeast vs artifacts. GMS stain was however negative. Crypto AG is P Pt is afebrile anf with nl WBC He reported to me improvement of headaches He had twitching RLE decreased strengh , but that apparently resolved Review of Systems All other systems reviewed negative except as stated in HPI PMFSH - History History Provided By: Patient - Medical History Medical History: Medical History (Last Reviewed 03/01/18 @ 17:40 by Parisa Solis MD) CVA (cerebral vascular accident) Diabetes GERD (gastroesophageal reflux disease) High cholesterol Hypertension Myocardial infarction - Family History Family History: Family History (Last Updated 03/01/18 @ 17:41 by Parisa Solis MD) Other Family history non-contributory - Social History I have reviewed the patient's Social History: Yes - Tobacco History Second Hand Smoke Exposure: Yes Smoking Status: Never smoker - Alcohol History How Often Do You Have a Drink Containing Alcohol: Monthly or less - Substance Use History Substance History: No History of Abuse - Travel History Recent Travel in the [place] Within the Last 8 Weeks: No Recent Travel Out of the Country Within the Last 8 Weeks: No - Immunization History Tetanus Immunization: <5 Years Hx Influenza Vaccine This Season: Yes Medications and Allergies Active Medications: Active Medications Acetaminophen (Tylenol) 650 mg PO Q4H PRN PRN Reason: Temp > 100.4 Al Hydroxide/Mg Hydroxide (Milk Of Magnhayley Liq) 30 ml PO Q12H PRN PRN Reason: Mild Constipation Albuterol (Duoneb Neb (Prn)) 1 ampul NEB Q4HR NEB PRN PRN Reason: SHORTNESS OF BREATH Amlodipine Besylate (Norvasc) 5 mg PO DAILY [facility] Last Admin: 01/04/19 09:16 Dose: 5 mg Atorvastatin Calcium (Lipitor) 40 mg PO QPM [facility] Last Admin: 02/28/18 18:15 Dose: 40 mg Bisacodyl (Dulcolax Supp) 10 mg RECTAL DAILY PRN PRN Reason: SEVERE CONSITIPATION Carvedilol (Coreg) 3.125 mg PO BID [facility] Last Admin: 03/01/18 09:16 Dose: 3.125 mg Clopidogrel Bisulfate (Plavix) 75 mg PO DAILY [facility] Last Admin: 03/01/18 09:16 Dose: 75 mg Dextrose (D50w Vial) 50 ml IV.PUSH UNSCH PRN PRN Reason: PER HYPOGLYCEMIA PROTOCOL Famotidine (Pepcid) 20 mg PO DAILY [facility] Last Admin: 03/01/18 09:16 Dose: 20 mg Glucagon (Glucagon Inj) 1 mg OTHER PRN PRN PRN Reason: for Hypoglycemia Protocol Insulin Aspart (Novolog Insulin Correctional Sugar Inj) 0 unit SQ [facility]; Protocol Last Admin: 03/01/18 11:28 Dose: 5 unit Isosorbide Mononitrate (Imdur) 30 mg PO DAILY@0700 [facility] Last Admin: 03/01/18 06:30 Dose: 30 mg Lactulose (Lactulose Liq) 30 ml PO DAILY PRN PRN Reason: SEVERE CONSITIPATION Levetiracetam (Keppra) 500 mg PO BID [facility] Last Admin: 03/01/18 09:16 Dose: 500 mg Lisinopril (Prinivil) 20 mg PO DAILY [facility] Last Admin: 03/01/18 09:16 Dose: 20 mg Lorazepam (Ativan Inj) 1 mg IV.PUSH Q4H PRN PRN Reason: SEIZURES Ondansetron HCl (Zofran Inj) 4 mg IV.PUSH Q6H PRN PRN Reason: NAUSEA OR VOMITING Ptownmed (Insulin Detemir U-100 [ Levemir Flextouch U- 100 Insuln] 100 Unit ) 0 each SQ DAILY [facility] Senna/Docusate Sodium (Nila-Colace) 1 tab PO BID [facility] Last Admin: 03/01/18 09:20 Dose: 1 tab Sennosides (Senokot) 17.2 mg PO Q12H PRN PRN Reason: Moderate Constipation Sodium Chloride (Ns Flush) 2 ml IV.FLUSH PRN PRN PRN Reason: FLUSH AFTER USING IV ACCESS Sodium Chloride (Ns Flush) 2 ml IV.FLUSH BID [facility] Last Admin: 03/01/18 09:17 Dose: 2 ml Allergies Allergy/AdvReac Type Severity Reaction Status Date / Time No Known Allergies Allergy Verified 02/21/18 17:18 Home Medications Medication Instructions Recorded Confirmed Type amlodipine 5 mg PO DAILY 02/21/18 02/21/18 History aspirin [Aspirin Low Dose] 81 mg PO DAILY 02/21/18 02/21/18 History atorvastatin 40 mg PO QPM 02/21/18 02/21/18 History carvedilol 3.125 mg PO BID 02/21/18 02/21/18 History clopidogrel 75 mg PO DAILY 02/21/18 02/21/18 History famotidine 20 mg PO DAILY 02/21/18 02/21/18 History insulin detemir U-100 [Levemir 100 unit SUBCUT DAILY 02/21/18 02/21/18 History FlexTouch U-100 Insuln] isosorbide mononitrate 30 mg PO DAILY 02/21/18 02/21/18 History lisinopril 20 mg PO DAILY 02/21/18 02/21/18 History metformin 1,000 mg PO BID 02/21/18 02/21/18 History sitagliptin [Januvia] 100 mg PO DAILY 02/21/18 02/21/18 History Exam Vital signs: Vital Signs 02/28/18 16:00 02/28/18 20:00 03/01/18 00:00 Temperature 97.5 F L 97.8 F 98.2 F Pulse Rate 45 L 68 76 Respiratory Rate 16 20 18 Blood Pressure 138/64 131/62 140/64 Pulse Oximetry 96 97 96 03/01/18 04:00 03/01/18 08:00 Temperature 97.4 F L 97.7 F Pulse Rate 77 59 L Respiratory Rate 16 16 Blood Pressure 133/63 110/64 Pulse Oximetry 97 95 Intake & Output 02/28/18 03/01/18 03/01/18 18:59 06:59 18:59 Intake Total 480 / 480 Balance 480 / 480 Weight 134.6 kg Intake: Oral 480 / 480 Other: # Voids 2 Date of Last Bowel Movement 02/27/18 02/28/18 - Constitutional no acute distress, morbidly obese - Routine HEENT Exam Head: Present: normocephalic, atraumatic Eye: Present: EOMI, PERRL ENT: Present: mucous membranes moist, oropharynx clear - Routine Neck Exam Present: supple, full ROM. Absent: JVD, lymphadenopathy - Routine Respiratory Exam Present: decreased breath sounds (habitus), CTA bilaterally. Absent: accessory muscle use - Routine Cardiovascular Exam Present: RRR, S1, S2. Absent: murmur, gallop, rubs - Routine Abdominal Exam Present: soft, normoactive bowel sounds. Absent: tenderness, distended, organomegaly, mass - Routine Extremities Exam Present: edema, full ROM, normal capillary refill. Absent: cyanosis, clubbing - Routine Skin Exam Present: intact, dry. Absent: cyanosis, lesions, rash - Routine Neurological Exam Present: alert, oriented X3, CN II-XII intact, moving all extremities. Absent: sensory deficit, motor deficit - Routine Psychiatric Exam Present: normal affect, cooperative Results - Labs CBC & Chem 7: 02/22/18 05:35 02/22/18 05:35 Labs: Laboratory Results - last 24 hr 02/28/18 02/28/18 03/01/18 17:26 21:38 08:21 POC Glucose 204 H 277 H 232 H 03/01/18 11:26 POC Glucose 272 H - Imaging Chest X-Ray 02/21/18 16:02 CONCLUSION: No acute cardiopulmonary findings. The cardiomediastinal contours are stable at upper limits of normal. Cardiac loop recorder. Head CT 02/21/18 16:03 CONCLUSION: 1. There has been a significant interval change compared to the prior examination of 03/17/2016. There is now a focal area of vasogenic edema high along the left frontal parietal lobe in a pattern that is suspicious for an underlying mass occupying lesion. This is suspicious for neoplastic disease. Therefore, recommend an MRI of the brain with and without contrast for further evaluation. . Head MRI 02/21/18 17:00 CONCLUSION: 1. There is severe focal left frontal high convexity vasogenic edema with evidence of a multifocal remote hemorrhage and associated superficial enhancement and enhancement of the adjacent leptomeninges. Differential diagnosis includes infection, malignancy, or potentially neurosarcoidosis. Correlating with patient's history may help narrow the differential diagnosis. 2. Chronic changes include mild generalized atrophy and mild chronic periventricular white matter change. Abdomen/Pelvis CT 02/22/18 00:00 CONCLUSION: 1. Tiny 2 mm nonobstructing stone lower pole left kidney. 2. 1.1 cm cyst midpole left kidney 3. Small umbilical hernia containing mesenteric fat. 4. No evidence to suggest metastatic disease is seen at this time. Chest CT 02/22/18 00:00 CONCLUSION: 1. Stable CT thorax compared to the prior examination from 2014. There continue to be several stable pulmonary nodules especially in the right lung with no new or significant changes compared to the prior exam. No new or suspicious pulmonary nodules are demonstrated to suggest metastatic disease. 2. No new or acute intrathoracic disease is demonstrated. Lumbar Puncture Fluoroscopy 02/25/18 00:00 CONCLUSION: 1. Uncomplicated fluoroscopically guided lumbar puncture. 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
--- NOTE | 2018-03-01 15:57 | P.PNNS ---
Subjective Interval history: doing well, no changes neurologically overnight. cryptococcal Ag pending Physical Exam Vital signs: Vital Signs 02/28/18 16:00 02/28/18 20:00 03/01/18 00:00 Temperature 97.5 F L 97.8 F 98.2 F Pulse Rate 45 L 68 76 Respiratory Rate 16 20 18 Blood Pressure 138/64 131/62 140/64 Pulse Oximetry 96 97 96 03/01/18 04:00 03/01/18 08:00 03/01/18 13:01 Temperature 97.4 F L 97.7 F 96 F L Pulse Rate 77 59 L 66 Respiratory Rate 16 16 17 Blood Pressure 133/63 110/64 123/57 L Pulse Oximetry 97 95 95 Intake & Output 02/28/18 03/01/18 03/01/18 18:59 06:59 18:59 Intake Total 480 / 480 Balance 480 / 480 Weight 134.6 kg Intake: Oral 480 / 480 Other: # Voids 2 Date of Last Bowel Movement 02/27/18 02/28/18 Narrative: Awake, alert CN II-XII grossly intact moves all four extremities with good strength Assessment and Plan - Plan Pleasant 67-year-old male with Brain mass CT scan in the emergency room showed significant interval change compared to the prior examination 03/17/2016., with a new focal area of vasogenic edema along left frontoparietal lobe in a pattern that is suspicious of underlying neoplastic lesion. I have reviewed the clinical and radiological findings Chest X-Ray 02/21/18 16:02 CONCLUSION: No acute cardiopulmonary findings. The cardiomediastinal contours are stable at upper limits of normal. Cardiac loop recorder. Head CT 02/21/18 16:03 CONCLUSION: 1. There has been a significant interval change compared to the prior examination of 03/17/2016. There is now a focal area of vasogenic edema high along the left frontal parietal lobe in a pattern that is suspicious for an underlying mass occupying lesion. This is suspicious for neoplastic disease. Therefore, recommend an MRI of the brain with and without contrast for further evaluation. . Head MRI 02/21/18 17:00 CONCLUSION: 1. There is severe focal left frontal high convexity vasogenic edema with evidence of a multifocal remote hemorrhage and associated superficial enhancement and enhancement of the adjacent leptomeninges. Differential diagnosis includes infection, malignancy, or potentially neurosarcoidosis. Correlating with patient's history may help narrow the differential diagnosis. 2. Chronic changes include mild generalized atrophy and mild chronic periventricular white matter change. Abdomen/Pelvis CT 02/22/18 00:00 CONCLUSION: 1. Tiny 2 mm nonobstructing stone lower pole left kidney. 2. 1.1 cm cyst midpole left kidney 3. Small umbilical hernia containing mesenteric fat. 4. No evidence to suggest metastatic disease is seen at this time. Chest CT 02/22/18 00:00 CONCLUSION: 1. Stable CT thorax compared to the prior examination from 2014. There continue to be several stable pulmonary nodules especially in the right lung with no new or significant changes compared to the prior exam. No new or suspicious pulmonary nodules are demonstrated to suggest metastatic disease. 2. No new or acute intrathoracic disease is demonstrated. Neuro: neuro checks in a serial fashion. Probable focal seizures. I reviewed his MRI EEG - Keppra Consult oncology. CT chest, abdomen, pelvis Recommend LP, send CSF for cytology Will need to discontinue Plavix prior to LP. 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 History of CAD. Hypertension continue home medications. Daily PT and OT Renal: Continue to monitor closely urine output, BUN and creatinine Diabetes mellitus continue Levemir. Monitor serial Acu checks and SSI as needed in detail ID monitor for signs of infection Protonix for stress ulcer prophylaxis Roque hose and SCD's for DVT prophylaxis Caprini VTE Risk Assessment Caprini Risk Assessment Model: Point Value = 1 Point Value = 2 Point Value = 3 Point Value = 5 Age 41-60 Minor surgery BMI > 25 kg/m2 Swollen legs Varicose veins or History of unexplained or recurrent spontaneous Oral contraceptives or hormone replacement Sepsis (< 1 month) Serious lung disease, including pneumonia (< 1 month) Abnormal pulmonary function Acute myocardial infarction Congestive heart failure (< 1 month) History of inflammatory bowel disease Medical patient at bed rest Age 61-74 Arthroscopic surgery Major open surgery (> 45 min) Laparoscopic surgery (> 45 min) Malignancy Confined to bed (> 72 hours) Immobilizing plaster cast Central venous access Age >= 75 History of VTE Family history of VTE Factor V Leiden Prothrombin [id number] Lupus anticoagulant Anticardiolipin antibodies Elevated serum homocysteine Heparin-induced thrombocytopenia Other congenital or acquired thrombophilia Stroke (< 1 month) Elective arthroplasty Hip, pelvis, or leg fracture Acute spinal cord injury (< 1 month) Prophylaxis Regimen: Total Risk Factor Score Risk Level Prophylaxis Regimen 0-1 Low Early ambulation 2 Moderate Order ONE of the following: *Sequential Compression Device (SCD) *Heparin 5000 units SQ BID 3-4 Higher Order ONE of the following medications: *Heparin 5000 units SQ TID *Enoxaparin/Lovenox 40 mg SQ daily (WT < 150 kg, CrCl > 30 mL/min) *Enoxaparin/Lovenox 30 mg SQ daily (WT < 150 kg, CrCl > 10-29 mL/min) *Enoxaparin/Lovenox 30 mg SQ BID (WT < 150 kg, CrCl > 30 mL/min) AND/OR *Sequential Compression Device (SCD) 5 or more Highest Order ONE of the following medications: *Heparin 5000 units SQ TID (Preferred with Epidurals) *Enoxaparin/Lovenox 40 mg SQ daily (WT < 150 kg, CrCl > 30 mL/min) *Enoxaparin/Lovenox 30 mg SQ daily (WT < 150 kg, CrCl > 10-29 mL/min) *Enoxaparin/Lovenox 30 mg SQ BID (WT < 150 kg, CrCl > 30 mL/min) AND *Sequential Compression Device (SCD) February 23, 2018 The patient remains clinically and neurologically stable. He has had no further seizures. His headache is improved. His metastatic workup to date is negative. He requires a lumbar puncture with cerebrospinal fluid analysis and cytology. This cannot be performed until his Plavix has been held for several days. Depending on the results of the workup will determine the appropriate further diagnostic and therapeutic approach. Neurosurgery will follow. February 24, 2018 The patient remains clinically and neurologically stable. He has had no further seizures. His headaches are mild. I have ordered platelet function tests. The LP and CSF studies and cytology remains pending. Depending on the results of the workup as well as his clinical course will determine the appropriate further diagnostic and therapeutic approach. Neurosurgery will follow. 02/27/18: underwent LP this morning, f/u CSF studies cont current care cont neuro checks further recommendations to follow 03/01/18: cytology suspicious for budding yeast, negative for malignant cells cryptococcal ag and final fungal cx still pending. no fungal elements seen on cultures awaiting completion of LP work up, if unremarkable consider biopsy ID consulted
--- NOTE | 2018-03-01 18:53 | P.PNNEU ---
Subjective Subjective Comments: no new c/o . right leg strength normal with no focal SZ> Active Medications: Active Medications Acetaminophen (Tylenol) 650 mg PO Q4H PRN PRN Reason: Temp > 100.4 Al Hydroxide/Mg Hydroxide (Milk Of Magnesia Liq) 30 ml PO Q12H PRN PRN Reason: Mild Constipation Albuterol (Duoneb Neb (Prn)) 1 ampul NEB Q4HR NEB PRN PRN Reason: SHORTNESS OF BREATH Amlodipine Besylate (Norvasc) 5 mg PO DAILY [facility] Last Admin: 03/01/18 09:16 Dose: 5 mg Atorvastatin Calcium (Lipitor) 40 mg PO QPM [facility] Last Admin: 03/01/18 18:12 Dose: 40 mg Bisacodyl (Dulcolax Supp) 10 mg RECTAL DAILY PRN PRN Reason: SEVERE CONSITIPATION Carvedilol (Coreg) 3.125 mg PO BID [facility] Last Admin: 03/01/18 09:16 Dose: 3.125 mg Clopidogrel Bisulfate (Plavix) 75 mg PO DAILY [facility] Last Admin: 03/01/18 09:16 Dose: 75 mg Dextrose (D50w Vial) 50 ml IV.PUSH UNSCH PRN PRN Reason: PER HYPOGLYCEMIA PROTOCOL Famotidine (Pepcid) 20 mg PO DAILY [facility] Last Admin: 03/01/18 09:16 Dose: 20 mg Glucagon (Glucagon Inj) 1 mg OTHER PRN PRN PRN Reason: for Hypoglycemia Protocol Insulin Aspart (Novolog Insulin Correctional Sugar Inj) 0 unit SQ ACHS [facility]; Protocol Last Admin: 03/01/18 18:09 Dose: 1 unit Isosorbide Mononitrate (Imdur) 30 mg PO DAILY@0700 [facility] Last Admin: 03/01/18 06:30 Dose: 30 mg Lactulose (Lactulose Liq) 30 ml PO DAILY PRN PRN Reason: SEVERE CONSITIPATION Levetiracetam (Keppra) 500 mg PO BID [facility] Last Admin: 03/01/18 09:16 Dose: 500 mg Lisinopril (Prinivil) 20 mg PO DAILY [facility] Last Admin: 03/01/18 09:16 Dose: 20 mg Lorazepam (Ativan Inj) 1 mg IV.PUSH Q4H PRN PRN Reason: SEIZURES Ondansetron HCl (Zofran Inj) 4 mg IV.PUSH Q6H PRN PRN Reason: NAUSEA OR VOMITING Ptownmed (Insulin Detemir U-100 [ Levemir Flextouch U- 100 Insuln] 100 Unit ) 0 each SQ DAILY [facility] Senna/Docusate Sodium (Nila-Colace) 1 tab PO BID [facility] Last Admin: 03/01/18 09:20 Dose: 1 tab Sennosides (Senokot) 17.2 mg PO Q12H PRN PRN Reason: Moderate Constipation Sodium Chloride (Ns Flush) 2 ml IV.FLUSH PRN PRN PRN Reason: FLUSH AFTER USING IV ACCESS Sodium Chloride (Ns Flush) 2 ml IV.FLUSH BID [facility] Last Admin: 03/01/18 09:17 Dose: 2 ml Allergies/Adverse Reactions: Allergies Allergy/AdvReac Type Severity Reaction Status Date / Time No Known Allergies Allergy Verified 02/21/18 17:18 Physical Exam Vital signs: Vital Signs 02/28/18 20:00 03/01/18 00:00 03/01/18 04:00 Temperature 97.8 F 98.2 F 97.4 F L Pulse Rate 68 76 77 Respiratory Rate 20 18 16 Blood Pressure 131/62 140/64 133/63 Pulse Oximetry 97 96 97 03/01/18 08:00 03/01/18 13:01 03/01/18 16:00 Temperature 97.7 F 96 F L 97.5 F L Pulse Rate 59 L 66 74 Respiratory Rate 16 17 18 Blood Pressure 110/64 123/57 L 141/65 H Pulse Oximetry 95 95 96 Intake & Output 02/28/18 03/01/18 03/01/18 18:59 06:59 18:59 Intake Total 480 / 480 Balance 480 / 480 Weight 134.6 kg Intake: Oral 480 / 480 Other: # Voids 2 Date of Last Bowel Movement 02/27/18 02/28/18 - Routine Neurological Exam alert, speech normal CN intact MOTOR 5/5 BUE and BLE Objective Laboratory Results - last 24 hr 02/28/18 03/01/18 03/01/18 21:38 08:21 11:26 POC Glucose 277 H 232 H 272 H 03/01/18 16:12 POC Glucose 190 H Microbiology 02/25/18 Unknown Acid Fast Bacilli Smear - Final Cerebral Spinal Fluid - Lumbar Puncture No acid fast bacilli seen Review/Management - Review/Management Plan: follow up CSF cryptococcal antigen, fungal stain.If crypto ag negative, consider biopsy of left frontal-parietal lesion continue jose manuel
[2018-03-02] MEDS: Isosorbide Mononitrate 30 MG ER 24HR Tablet (Imdur) PO SCH (06:41)
[2018-03-02] MEDS: Insulin NovoLOG Aspart Correctional Sugar Inj SQ SCH ×4 (09:19→20:58)
[2018-03-02] MEDS: amLODIPine 5 MG Tablet PO SCH (09:21)
[2018-03-02] MEDS: Lisinopril 20 MG Tablet PO SCH (09:21)
[2018-03-02] MEDS: Famotidine 20 MG Tablet PO SCH (09:21)
[2018-03-02] MEDS: levETIRAcetam 500 MG Tablet PO SCH ×2 (09:21→20:56)
[2018-03-02] MEDS: Senna/Docusate Sodium 8.6/50 MG Tablet PO SCH ×2 (09:21→20:56)
--- NOTE | 2018-03-02 10:04 | P.PNIM ---
Subjective Interval history: Cytology stains are negative for yeast. Likely patient needs a brain biopsy at this point for cell study. No new complaints from patient. Physical Exam Vital signs: Last Vital Signs Temp 97.6 F 03/02/18 04:00 Pulse 67 03/02/18 04:00 Resp 20 03/02/18 04:00 BP 146/68 H 03/02/18 04:00 Pulse Ox 96 03/02/18 04:00 Intake & Output 02/28/18 03/01/18 03/02/18 03/03/18 06:59 06:59 06:59 06:59 Intake Total 300 / 300 480 / 480 Balance 300 / 300 480 / 480 Weight 136.7 kg 134.6 kg 133.4 kg Narrative: GENERAL: NAD, A&Ox3 HEAD: Normocephalic. NECK: Supple, trachea midline. No lymphadenopathy. EYES: No scleral icterus. No injection or drainage. CARDIOVASCULAR: Regular rate and rhythm without murmurs, gallops, or rubs. RESPIRATORY: Breath sounds equal bilaterally. No accessory muscle use. GASTROINTESTINAL: Abdomen soft, non-tender, nondistended. MUSCULOSKELETAL: No cyanosis, or edema. SKIN: Warm and dry. NEURO: No focal neurological deficits. Results Labs CBC & Chem 7: 02/22/18 05:35 02/22/18 05:35 Assessment and Plan Plan 67-year-old male with PMH CAD, HTN, DM2, who came to the ED for bradycardia and headache. No acute changes overnight. Follow-up specialized stains in regards to LP cytology has resulted as negative. Plan for brain biopsy. Neurosurgeon following. Brain mass Suspicious for neoplastic lesion Hx Pulmonary nodules Cytology not yet available, results pending Continue monitoring for cytology Cultures showed no evidence of fungus or bacteria Neurosurgery following Neurology following Continue Keppra Potential need for brain biopsy based on results of pending cytology study of LP History of CAD with [place] and x 6 stents (last stent 9 months ago) Bradycardia Hypertension Asymptomatic Continue M Tip Continue lisinopril Continue aspirin Continue statin Carvedilol on hold secondary to bradycardia Cardiology following Continue Plavix Diabetes mellitus type 2 Follow blood sugars Insulin sliding scale Diabetic diet Continue Levemir DVT prophylaxis SCDs Progress Note: Quality VTE Deep Vein Thrombosis/Pulmonary Embolism Present on Admission: No
[2018-03-03] MEDS: Isosorbide Mononitrate 30 MG ER 24HR Tablet (Imdur) PO SCH (06:41)
[2018-03-03] MEDS: Lisinopril 20 MG Tablet PO SCH (09:07)
[2018-03-03] MEDS: amLODIPine 5 MG Tablet PO SCH (09:07)
[2018-03-03] MEDS: levETIRAcetam 500 MG Tablet PO SCH ×2 (09:07→21:30)
[2018-03-03] MEDS: Famotidine 20 MG Tablet PO SCH (09:07)
[2018-03-03] MEDS: Insulin NovoLOG Aspart Correctional Sugar Inj SQ SCH ×4 (09:08→21:33)
[2018-03-03] MEDS: Senna/Docusate Sodium 8.6/50 MG Tablet PO SCH ×2 (12:58→21:30)
--- NOTE | 2018-03-03 13:36 | P.PNIM ---
Subjective Interval history: No acute distress today. Patient still has some dizziness when standing up. No other complaints. No headaches. Physical Exam Vital signs: Last Vital Signs Temp 97.2 F L 03/03/18 08:00 Pulse 54 L 03/03/18 08:00 Resp 17 03/03/18 08:00 BP 129/62 03/03/18 08:00 Pulse Ox 96 03/03/18 08:00 Intake & Output 03/01/18 03/02/18 03/03/18 03/04/18 06:59 06:59 06:59 06:59 Intake Total 480 / 480 800 / 800 Balance 480 / 480 800 / 800 Weight 134.6 kg 133.4 kg 132.5 kg Narrative: GENERAL: NAD, A&Ox3 HEAD: Normocephalic. NECK: Supple, trachea midline. No lymphadenopathy. EYES: No scleral icterus. No injection or drainage. CARDIOVASCULAR: Regular rate and rhythm without murmurs, gallops, or rubs. RESPIRATORY: Breath sounds equal bilaterally. No accessory muscle use. GASTROINTESTINAL: Abdomen soft, non-tender, nondistended. MUSCULOSKELETAL: No cyanosis, or edema. SKIN: Warm and dry. NEURO: No focal neurological deficits. Results Labs CBC & Chem 7: 02/22/18 05:35 02/22/18 05:35 Labs: Microbiology 03/01/18 11:52 Blood - Peripheral Aerobic Blood Culture - Preliminary No growth in 2 days 03/01/18 11:52 Blood - Peripheral Anaerobic Blood Culture - Preliminary No growth in 2 days 03/01/18 12:00 Blood - Peripheral Aerobic Blood Culture - Preliminary No growth in 2 days 03/01/18 12:00 Blood - Peripheral Anaerobic Blood Culture - Preliminary No growth in 2 days Assessment and Plan Plan 67-year-old male with PMH CAD, HTN, DM2, who came to the ED for bradycardia and headache. Patient is doing well since yesterday. Follow-up specialized stains in regards to LP cytology has resulted as negative. Plan for brain biopsy. Neurosurgeon following. Brain mass Suspicious for neoplastic lesion Hx Pulmonary nodules Cytology not yet available, results pending Continue monitoring for cytology Cultures showed no evidence of fungus or bacteria Neurosurgery following Neurology following Continue Keppra Potential need for brain biopsy based on results of pending cytology study of LP History of CAD with [place] and x 6 stents (last stent 9 months ago) Bradycardia Hypertension Asymptomatic Continue Andrae Whelan Continue lisinopril Continue aspirin Continue statin Carvedilol on hold secondary to bradycardia Cardiology following Continue Plavix Diabetes mellitus type 2 Follow blood sugars Insulin sliding scale Diabetic diet Continue Levemir DVT prophylaxis SCDs Progress Note: Quality VTE Deep Vein Thrombosis/Pulmonary Embolism Present on Admission: No
--- NOTE | 2018-03-03 14:04 | P.PNNS ---
Subjective Interval history: 67-year-old male who presented to [facility] ER for evaluation of bradycardia and headache. He was seen by his doctor for headaches. He reports like there is a pressure on his head. He has a history of a stroke and significant cardiac history. He states that he does have some chest discomfort but is not significant and he does not believe that is related to his heart. Per patient the pain in his chest is 1 out of 10 he states that he has had it since having the stents in the past. He states that he went to his doctor to check for this and apparently he was found to be bradycardic with a heart rate in the 30s. 03/02. His workup is negative, dop far cytology negative for malignant cells cryptococcal ag, no fungal elements seen on cultures Physical Exam Vital signs: Vital Signs 03/02/18 16:15 03/02/18 20:00 03/03/18 00:00 Temperature 97.2 F L 97.5 F L 97.2 F L Pulse Rate 55 L 56 L 58 L Respiratory Rate 17 18 18 Blood Pressure 143/78 H 146/78 H 151/84 H Pulse Oximetry 96 97 97 03/03/18 00:11 03/03/18 03:57 03/03/18 04:00 Temperature 97.5 F L Pulse Rate 58 L 52 L 55 L Respiratory Rate 18 Blood Pressure 130/77 Pulse Oximetry 97 03/03/18 08:00 03/03/18 12:00 Temperature 97.2 F L 97.5 F L Pulse Rate 54 L 62 Respiratory Rate 17 19 Blood Pressure 129/62 134/67 Pulse Oximetry 96 97 Intake & Output 03/02/18 03/03/18 03/03/18 18:59 06:59 18:59 Intake Total 580 / 580 220 / 220 Balance 580 / 580 220 / 220 Weight 132.5 kg Intake: Oral 580 / 580 220 / 220 Other: # Voids 3 2 Date of Last Bowel Movement 03/01/18 - Urinary Catheter Management Indwelling Urethral Catheter Cath placed during this visit: yes, but has since been removed by the nurse Reason for continuing: Not indwelling catheter Insertion date: 03/04/18 Insertion time: 16:40 Removal date: 03/05/18 Removal time: 18:00 Assessment and Plan - Plan Pleasant 67-year-old male with Brain mass Neuro: Continue neuro checks. His workup is negative. Recommend a brain biopsy. Malik discussed the [id number] details of the surgical procedure, its indications, alternatives, risks, and potential complications. Risks and potential complications include, but are not limited to, infection, blood loss, CSF leak, partial or complete loss of sight in one or both eyes, paresis, paralysis, permanent pain or difficulty swallowing, loss of bowel or bladder function, complications from anesthesia, blood clot, stroke, myocardial infarction, or even . The possibility of nonoperative treatment has been offered. EEG - Keppra Consult oncology. CT chest, abdomen, pelvis Recommend LP, send CSF for cytology Will need to discontinue Plavix prior to LP. Needs to be cleared by his computer science intern, Dr Angel Pulmonary: aggressive pulmonary toilette, nasotracheal suction, and breathing treatments with nebulizers. History of CAD. Hypertension continue home medications. Daily PT and OT Renal: Continue to monitor closely urine output, BUN and creatinine Diabetes mellitus continue Levemir. Monitor serial Acu checks and SSI as needed in detail ID monitor for signs of infection Protonix for stress ulcer prophylaxis Roque belen and SCD's for DVT prophylaxis Caprini VTE Risk Assessment Caprini Risk Assessment Model: Point Value = 1 Point Value = 2 Point Value = 3 Point Value = 5 Age 41-60 Minor surgery BMI > 25 kg/m2 Swollen legs Varicose veins or History of unexplained or recurrent spontaneous Oral contraceptives or hormone replacement Sepsis (< 1 month) Serious lung disease, including pneumonia (< 1 month) Abnormal pulmonary function Acute myocardial infarction Congestive heart failure (< 1 month) History of inflammatory bowel disease Medical patient at bed rest Age 61-74 Arthroscopic surgery Major open surgery (> 45 min) Laparoscopic surgery (> 45 min) Malignancy Confined to bed (> 72 hours) Immobilizing plaster cast Central venous access Age >= 75 History of VTE Family history of VTE Factor V Leiden Prothrombin [id number] Lupus anticoagulant Anticardiolipin antibodies Elevated serum homocysteine Heparin-induced thrombocytopenia Other congenital or acquired thrombophilia Stroke (< 1 month) Elective arthroplasty Hip, pelvis, or leg fracture Acute spinal cord injury (< 1 month) Prophylaxis Regimen: Total Risk Factor Score Risk Level Prophylaxis Regimen 0-1 Low Early ambulation 2 Moderate Order ONE of the following: *Sequential Compression Device (SCD) *Heparin 5000 units SQ BID 3-4 Higher Order ONE of the following medications: *Heparin 5000 units SQ TID *Enoxaparin/Lovenox 40 mg SQ daily (WT < 150 kg, CrCl > 30 mL/min) *Enoxaparin/Lovenox 30 mg SQ daily (WT < 150 kg, CrCl > 10-29 mL/min) *Enoxaparin/Lovenox 30 mg SQ BID (WT < 150 kg, CrCl > 30 mL/min) AND/OR *Sequential Compression Device (SCD) 5 or more Highest Order ONE of the following medications: *Heparin 5000 units SQ TID (Preferred with Epidurals) *Enoxaparin/Lovenox 40 mg SQ daily (WT < 150 kg, CrCl > 30 mL/min) *Enoxaparin/Lovenox 30 mg SQ daily (WT < 150 kg, CrCl > 10-29 mL/min) *Enoxaparin/Lovenox 30 mg SQ BID (WT < 150 kg, CrCl > 30 mL/min) AND *Sequential Compression Device (SCD)
--- NOTE | 2018-03-03 14:21 | P.PNNS ---
Subjective Interval history: 67-year-old male who presented to [facility] ER for evaluation of bradycardia and headache. He was seen by his doctor for headaches. He reports like there is a pressure on his head. He has a history of a stroke and significant cardiac history. He states that he does have some chest discomfort but is not significant and he does not believe that is related to his heart. Per patient the pain in his chest is 1 out of 10 he states that he has had it since having the stents in the past. He states that he went to his doctor to check for this and apparently he was found to be bradycardic with a heart rate in the 30s. 03/03. cytology suspicious for budding yeast, negative for malignant cells cryptococcal ag and final fungal cx still pending. no fungal elements seen on cultures LP work up was negative Physical Exam Vital signs: Vital Signs 03/02/18 16:15 03/02/18 20:00 03/03/18 00:00 Temperature 97.2 F L 97.5 F L 97.2 F L Pulse Rate 55 L 56 L 58 L Respiratory Rate 17 18 18 Blood Pressure 143/78 H 146/78 H 151/84 H Pulse Oximetry 96 97 97 03/03/18 00:11 03/03/18 03:57 03/03/18 04:00 Temperature 97.5 F L Pulse Rate 58 L 52 L 55 L Respiratory Rate 18 Blood Pressure 130/77 Pulse Oximetry 97 03/03/18 08:00 03/03/18 12:00 Temperature 97.2 F L 97.5 F L Pulse Rate 54 L 62 Respiratory Rate 17 19 Blood Pressure 129/62 134/67 Pulse Oximetry 96 97 Intake & Output 03/02/18 03/03/18 03/03/18 18:59 06:59 18:59 Intake Total 580 / 580 220 / 220 Balance 580 / 580 220 / 220 Weight 132.5 kg Intake: Oral 580 / 580 220 / 220 Other: # Voids 3 2 Date of Last Bowel Movement 03/01/18 Narrative: GENERAL: NAD, A&Ox3 HEAD: Normocephalic. NECK: Supple, trachea midline. No lymphadenopathy. EYES: No scleral icterus. No injection or drainage. CARDIOVASCULAR: Regular rate and rhythm without murmurs, gallops, or rubs. RESPIRATORY: Breath sounds equal bilaterally. No accessory muscle use. GASTROINTESTINAL: Abdomen soft, non-tender, nondistended. MUSCULOSKELETAL: No cyanosis, or edema. SKIN: Warm and dry. NEURO: No focal neurological deficits. - Urinary Catheter Management Indwelling Urethral Catheter Cath placed during this visit: yes, but has since been removed by the nurse Reason for continuing: Not indwelling catheter Insertion date: 03/04/18 Insertion time: 16:40 Removal date: 03/05/18 Removal time: 18:00 Assessment and Plan - Plan Pleasant 67-year-old male with Brain mass CT scan Neuro: neuro checks stable. Workup was negative for malignancy or fungal infection. For stereotactic biopsy tomorrow. in a serial fashion. Probable focal seizures. I reviewed his MRI EEG - Keppra Consult oncology. CT chest, abdomen, pelvis Recommend LP, send CSF for cytology Will need to discontinue Plavix prior to LP. Needs to be cleared by his mop maker, Dr Angel Pulmonary: aggressive pulmonary toilette, nasotracheal suction, and breathing treatments with nebulizers. History of CAD. Hypertension continue home medications. Daily PT and OT Ihave discussed the [id number] details of the surgical procedure, its indications, alternatives, risks, and potential complications. Risks and potential complications include, but are not limited to, infection, blood loss, CSF leak, partial or complete loss of sight in one or both eyes, paresis, paralysis, permanent pain or difficulty swallowing, loss of bowel or bladder function, complications from anesthesia, blood clot, stroke, myocardial infarction, or even . The possibility of nonoperative treatment has been offered. Renal: Continue to monitor closely urine output, BUN and creatinine Diabetes mellitus continue Levemir. Monitor serial Acu checks and SSI as needed in detail ID monitor for signs of infection Protonix for stress ulcer prophylaxis Roque hose and SCD's for DVT prophylaxis Caprini VTE Risk Assessment Caprini Risk Assessment Model: Point Value = 1 Point Value = 2 Point Value = 3 Point Value = 5 Age 41-60 Minor surgery BMI > 25 kg/m2 Swollen legs Varicose veins or History of unexplained or recurrent spontaneous Oral contraceptives or hormone replacement Sepsis (< 1 month) Serious lung disease, including pneumonia (< 1 month) Abnormal pulmonary function Acute myocardial infarction Congestive heart failure (< 1 month) History of inflammatory bowel disease Medical patient at bed rest Age 61-74 Arthroscopic surgery Major open surgery (> 45 min) Laparoscopic surgery (> 45 min) Malignancy Confined to bed (> 72 hours) Immobilizing plaster cast Central venous access Age >= 75 History of VTE Family history of VTE Factor V Leiden Prothrombin [id number] Lupus anticoagulant Anticardiolipin antibodies Elevated serum homocysteine Heparin-induced thrombocytopenia Other congenital or acquired thrombophilia Stroke (< 1 month) Elective arthroplasty Hip, pelvis, or leg fracture Acute spinal cord injury (< 1 month) Prophylaxis Regimen: Total Risk Factor Score Risk Level Prophylaxis Regimen 0-1 Low Early ambulation 2 Moderate Order ONE of the following: *Sequential Compression Device (SCD) *Heparin 5000 units SQ BID 3-4 Higher Order ONE of the following medications: *Heparin 5000 units SQ TID *Enoxaparin/Lovenox 40 mg SQ daily (WT < 150 kg, CrCl > 30 mL/min) *Enoxaparin/Lovenox 30 mg SQ daily (WT < 150 kg, CrCl > 10-29 mL/min) *Enoxaparin/Lovenox 30 mg SQ BID (WT < 150 kg, CrCl > 30 mL/min) AND/OR *Sequential Compression Device (SCD) 5 or more Highest Order ONE of the following medications: *Heparin 5000 units SQ TID (Preferred with Epidurals) *Enoxaparin/Lovenox 40 mg SQ daily (WT < 150 kg, CrCl > 30 mL/min) *Enoxaparin/Lovenox 30 mg SQ daily (WT < 150 kg, CrCl > 10-29 mL/min) *Enoxaparin/Lovenox 30 mg SQ BID (WT < 150 kg, CrCl > 30 mL/min) AND *Sequential Compression Device (SCD)
[2018-03-03] MEDS ORDERED: Gadobutrol PF 7.5 MMOL/7.5 ML Vial (for RAD) IV.SIG ONE (17:56)
--- NOTE | 2018-03-03 18:38 | MR ---
EXAM DATE: 03/03/2018 6:28 PM EST AGE/SEX: 67 years / Male INDICATIONS: Mass. CLINICAL DATA: This is the patient's initial encounter. Patient reports that signs and symptoms have been present for 1 day and indicates a pain score of 0/10. MEDICAL/SURGICAL HISTORY: Diabetes mellitus type II. Hypertension. Appendectomy. Loop recorder . Right hip surgery. COMPARISON: [facility] [place] W & W/O CONTRAST, 02/21/2018. . TECHNIQUE: Multiplanar, multisequence examination of the brain was performed with 13 ml Gadavist (bettie obutrol) contrast as a single exam dose. FINDINGS: There is mild serpiginous enhancement in the area of vasogenic edema involving the left parietal lobe not particularly masslike. Chronic white matter changes are again seen. No other enhancing lesions a re seen. CONCLUSION: 1. Serpiginous mild enhancement in the left parietal lobe corresponding to the area of vasogenic zach ma. Electronically signed by: Tomas Segovia MD Board Certified Radiologist 03/03/2018 6:37 PM EST
[2018-03-04] MEDS ORDERED: Chlorhexidine Gluconate 2% 1 Pack (2 Cloths) TOPICAL ONE (00:48)
[2018-03-04] MEDS ORDERED: Sodium Chlor 0.9% Inj 500 ML IV.SIG SCH (01:00)
[2018-03-04] MEDS: Isosorbide Mononitrate 30 MG ER 24HR Tablet (Imdur) PO SCH (06:15)
[2018-03-04] MEDS: Insulin NovoLOG Aspart Correctional Sugar Inj SQ SCH ×4 (08:57→22:07)
[2018-03-04] MEDS: amLODIPine 5 MG Tablet PO SCH (08:58)
[2018-03-04] MEDS: Senna/Docusate Sodium 8.6/50 MG Tablet PO SCH ×3 (08:58→22:06)
[2018-03-04] MEDS: levETIRAcetam 500 MG Tablet PO SCH ×2 (08:58→21:51)
[2018-03-04] MEDS: Famotidine 20 MG Tablet PO SCH (08:58)
[2018-03-04] MEDS: Lisinopril 20 MG Tablet PO SCH (08:58)
--- NOTE | 2018-03-04 14:11 | P.PN ---
Subjective Interval history: awake and al;ert, no complains of ehadaches, speech clear per patient 2 weeks PRASAD, now no complains brief episoes of right sided weakness in the past- stronger Physical Exam Vital signs: Vital Signs 03/03/18 17:17 03/03/18 20:00 03/04/18 00:00 Temperature 97.3 F L 97.2 F L Pulse Rate 63 71 65 Respiratory Rate 16 20 Blood Pressure 153/71 H 156/60 H Pulse Oximetry 96 96 03/04/18 00:04 03/04/18 04:08 03/04/18 08:00 Temperature 97.7 F 97.2 F L 97.2 F L Pulse Rate 72 70 59 L Respiratory Rate 18 20 17 Blood Pressure 126/60 144/66 H 131/71 Pulse Oximetry 97 98 96 03/04/18 12:00 Temperature 97.3 F L Pulse Rate 67 Respiratory Rate 18 Blood Pressure 134/95 H Pulse Oximetry 97 Intake & Output 03/03/18 03/04/18 03/04/18 18:59 06:59 18:59 Intake Total 525 / 525 Balance 525 / 525 Weight 133 kg Intake: Oral 525 / 525 Other: # Voids 4 3 Date of Last Bowel Movement 03/02/18 03/02/18 # Bowel Movements 0 Narrative: GENERAL: NAD, A&Ox3 HEAD: Normocephalic. NECK: Supple, trachea midline. No lymphadenopathy. EYES: No scleral icterus. No injection or drainage. CARDIOVASCULAR: Regular rate and rhythm without murmurs, gallops, or rubs. RESPIRATORY: Breath sounds equal bilaterally. No accessory muscle use. GASTROINTESTINAL: Abdomen soft, non-tender, nondistended. MUSCULOSKELETAL: No cyanosis, or edema. SKIN: Warm and dry. NEURO: No focal neurological deficits. - Urinary Catheter Management Indwelling Urethral Catheter Cath placed during this visit: yes Reason for continuing: Acute urinary retention Insertion date: 03/04/18 Insertion time: 16:40 Results - Labs CBC & Chem 7: 03/05/18 05:00 03/05/18 05:00 Laboratory Results - last 24 hr 03/03/18 03/03/18 03/04/18 17:33 21:32 05:50 POC Glucose 236 H 262 H Blood Type A Positive Blood Type Recheck Required Antibody Screen Negative 03/04/18 03/04/18 07:41 12:12 POC Glucose 211 H 224 H Blood Type Blood Type Recheck Antibody Screen Microbiology 02/25/18 Unknown Cerebral Spinal Fluid - Lumbar Puncture Fungal Smear - Final No fungal elements seen 02/25/18 Unknown Cerebral Spinal Fluid - Lumbar Puncture Fungal Culture - Preliminary No growth in 1 week 02/25/18 Unknown Cerebral Spinal Fluid - Lumbar Puncture Acid Fast Bacilli Smear - Final No acid fast bacilli seen 02/25/18 Unknown Cerebral Spinal Fluid - Lumbar Puncture Mycobacterial Culture - Preliminary No growth in 1 week 03/01/18 11:52 Blood - Peripheral Aerobic Blood Culture - Preliminary No growth in 3 days 03/01/18 11:52 Blood - Peripheral Anaerobic Blood Culture - Preliminary No growth in 3 days 03/01/18 12:00 Blood - Peripheral Aerobic Blood Culture - Preliminary No growth in 3 days 03/01/18 12:00 Blood - Peripheral Anaerobic Blood Culture - Preliminary No growth in 3 days - Imaging Impressions Head MRI 03/03/18 00:00 CONCLUSION: 1. Serpiginous mild enhancement in the left parietal lobe corresponding to the area of vasogenic edema. Assessment and Plan - Assessment (1) Brain mass Code(s): G93.9 - Disorder of brain, unspecified Status: Acute (2) Headache Code(s): R51 - Headache Status: Acute (3) Bradycardia Code(s): R00.1 - Bradycardia, unspecified Status: Acute (4) CAD (coronary artery disease) Code(s): I25.10 - Atherosclerotic heart disease of [place] coronary artery without angina pectoris Status: Chronic - Plan 67-year-old male with PMH CAD, HTN, DM2, who came to the ED for bradycardia and headache. Patient is doing well since yesterday. Follow-up specialized stains in regards to LP cytology has resulted as negative. Plan for brain biopsy. Neurosurgeon following. Brain mass Suspicious for neoplastic lesion Hx Pulmonary nodules Cytology negative going for biopsy today Cultures showed no evidence of fungus or bacteria Neurosurgery following Neurology following Continue Keppra Potential need for brain biopsy based on results of pending cytology study of LP History of CAD with [place] and x 6 stents (last stent 9 months ago) Bradycardia Hypertension Asymptomatic Continue Norvasc Continue lisinopril Continue aspirin Continue statin Carvedilol on hold secondary to bradycardia Cardiology following Continue Plavix- hold for biopsy Diabetes mellitus type 2 Follow blood sugars Insulin sliding scale Diabetic diet Continue Levemir DVT prophylaxis SCDs Progress Note: Quality VTE Deep Vein Thrombosis/Pulmonary Embolism Present on Admission: No DVT prophylaxis SCDs Progress Note: Quality VTE Deep Vein Thrombosis/Pulmonary Embolism Present on Admission: No (2) Headache Qualifiers: Headache type: unspecified (4) CAD (coronary artery disease) Qualifiers: Coronary Disease-Associated Artery/Lesion type: unspecified vessel or lesion type
[2018-03-04] MEDS ORDERED: Thrombin Topical Soln 5,000 UNIT Vial TOPICAL ONE (15:31)
[2018-03-04] MEDS ORDERED: Lidocaine 1%/Epinephrine 1:100,000 Inj 30 ML Vial ONE (15:31)
[2018-03-04] MEDS ORDERED: Gelatin Size 100 Topical Foam ONE (15:31)
[2018-03-04] MEDS ORDERED: Furosemide Inj 0 ML ONE (15:31)
[2018-03-04] MEDS ORDERED: ceFAZolin Inj 1 GM Vial (Addvantage) IV.SIG ONE (16:50)
[2018-03-04] MEDS ORDERED: [UNRECOGNIZED DRUG - REMARK] OTHER SCH (19:00)
[2018-03-04] MEDS ORDERED: Bisacodyl 10 MG Supp RECTAL PRN (19:10)
[2018-03-04] MEDS ORDERED: fentaNYL Citrate Inj 100 MCG/2 ML Ampul ONE (19:23)
[2018-03-04] MEDS ORDERED: hydrALAZINE HCl Inj 20 MG/ML Vial IV.PUSH ONE (20:15)
[2018-03-04] MEDS: Sod Chloride 0.9% Inj 1,000 ML IV.CONT SCH (21:08)
[2018-03-04 21:13] LABS: Baso % (Auto) 0.4 % (0.0-2.0); Eos % (Auto) 0.5 % (0.0-4.0); Hematocrit 46.3 % (39.0-51.0); Hemoglobin 15.4 gm/dL (13.0-17.0); Lymph # (Auto) 0.6 th/mm3 (1.0-4.8); Mean Corpuscular HGB Conc 33.3 % (32.0-36.0); Mean Corpuscular Hemoglobin 30.4 pg (27.0-34.0); Mean Corpuscular Volume 91.2 fL (80.0-100.0); Mean Platelet Volume 8.9 fL (7.0-11.0); Mono # (Auto) 0.1 th/mm3 (0.0-0.9); Mono % (Auto) 1.8 % (0.0-8.0); Neut # (Auto) 5.2 th/mm3 (1.8-7.7); Neut % (Auto) 87.3 % (16.0-70.0); Platelet Count 210 th/mm3 (150-450); Red Blood Count 5.08 mil/mm3 (4.50-5.90); Red Cell Distribution Width 14.6 % (11.6-17.2); White Blood Count 5.9 th/mm3 (4.0-11.0)
[2018-03-04 21:40] LABS: Calcium 8.6 mg/dL (8.5-10.1); Carbon Dioxide 24.1 meq/L (21.0-32.0); Magnesium 2.1 mg/dL (1.5-2.5); Potassium 4.2 meq/L (3.5-5.1)
--- NOTE | 2018-03-04 22:00 | P.OP ---
Preoperative Diagnosis: Left parietal lesion Postoperative Diagnosis: Left parietal lesion Date of procedure: 03/04/18 Procedure: Left frontal parietal craniotomy, image-guided stereotactic biopsy of left frontal parietal lesion Anesthesia: RIVERA Surgeon: Joo Alatorre MD Property Inspector: Ramona Pathology: other (Hystopathology parietal lesion 1-6, cultures) Operation and Findings: INDICATIONS FOR THE PROCEDURE Mr Cavazos is a 68 yea and was found to have a frontal paretal infiltrating lesion old female who was brought to [facility] with focal seizurtrating lesion. He was initially managed medically, but his lumbar puncture was non diagnostic. A image-guided craniotomy with biopsy were indicated. I have discussed the details including the [id number] details of the surgical procedure, its indications, alternatives, risks, and potential complications. Risks and potential complications include, but are not limited to, infection, blood loss, CSF leak, partial or complete loss of sight in one or both eyes, paresis, paralysis, permanent pain or difficulty swallowing, loss of bowel or bladder function, complications from anesthesia, blood clot, stroke, myocardial infarction, or even . The patient fully understood. All his questions were answered. No guaranties were given. He voiced requesting the procedure and signed informed consents. They were offered the possibility of delaying the procedure and continuing nonoperative treatment. INTRAOPERATIVE FINDINGS Frozen section consistent with possible vasculitis versus infection DETAILS OF THE SURGICAL PROCEDURE Prior to the surgery the patient underwent MRI of the brain according to the stereotactic protocol. The information was transferred to the workstation located in the operative suite. Preoperative registration was performed. The patient was then transferred to the operating room. After induction of general anesthesia, endotracheal intubation was done. A Patel catheter, bilateral OSMEL hose, sequential compression devices were placed and kept throughout the procedure. The patient was positioned supine on a 30/80 table over gel mattress with her head in rigid fixation using the [place] cloth bale header. All pressure points were carefully padded with egg crate mattress. The eyes were tapped shut after ointment was applied by the anesthesiologist to prevent corneal abrasion. A Cesar hugger was placed over the exposed lower body to maintain control of the core body temperature. The electrophysiological team placed the needles and electrodes in their proper location and baseline SSEP's evoked potentials were registered. The rigid reference body was attached to the cloth bale header and intraoperative registration was performed with a laser. The left frontal parietal area was shaved, prepped and draped in the usual sterile fashion. A standard horseshoe incision was outlined on the scalp and infiltrated with 1% lidocaine with epinephrine. The skin incision was made with a #10 blade down to the level of the periosteum,. Jose clips were applied to the scalp. Using a Bovie, the temporalis fascia and muscle were incised and a subperiosteal dissection was performed reflecting the scalp flap anteriorly. The scalp was covered with a moist sponge and held in position using fish hooks. The TPS drill was brought to the field and a bur hole was made in the fontotemporal region using the craniotome attachment. Then, using the footplate attachment, a frontal craniotomy flap was elevated. The dura was bulging, with mass effect due to the underlying tumor. The tumor was identified with the brainlab, and the dura was opened with a 15 blade and metzembaun sissors and retracted with 4-0 Neurolon sutures attached to the fascia. At this point of the procedure a small corticotomy was performed and the lesion was biopsied with the micro-bipolar forceps, microscissors, micro-suction, and gentle irrigation. The specimen was sent to the lab for histological analysis. The frozen section was reported as consistent with possible vasculitis versus infection. Specimen was also sent for final hystopathological annalysis. Cultures were sent for Appropriate hemostasis was then secured using the bipolar gate shear operator. Then the incision was irrigated with saline solution. The dural edges were tacked to the bone. The craniotomy flap was then repositioned and secured in place using Titanium plates and screws. A 7 millimeter Aleksandr-Morris drain was then left in the subgaleal space and externalized through a separate stab incision. The incision was then closed in layers. 30 Vicryl in interrupted sutures were used to close the galea was closed with interrupted 3-0 Vicryl. Frank were applied to the skin. The drain was secured with a 3-0 nylon. At the end of the procedure, the sponge, needle and instrument counts were all correct. Estimated blood loss was less than 30 cc. No blood transfusion was given. No intraoperative complications occurred. The patient received prophylactic antibiotics. The patient was then transferred to the recovery room in stable condition. COMPLICATIONS None
[2018-03-04] MEDS: Morphine Inj 4 MG/ML Vial IV.PUSH PRN (23:11)
[2018-03-05] MEDS: ceFAZolin 2 GM Premix Inj 2 GM/50 ML PIGGYBACK IV.SIG SCH ×3 (00:46→18:34)
[2018-03-05] MEDS: Morphine Inj 4 MG/ML Vial IV.PUSH PRN (00:53)
--- NOTE | 2018-03-05 05:31 | CT ---
EXAM DATE: 03/05/2018 4:44 AM EST AGE/SEX: 68 years / Male INDICATIONS: Post op tumor resection. CLINICAL DATA: This is the patient's initial encounter. Patient reports that signs and symptoms have been present for 1 day and indicates a pain score of 6/10. MEDICAL/SURGICAL HISTORY: Cerebrovascular disease. Cardiovascular disease. Hypertension. None. RADIATION DOSE: 56.34 CTDI (mGy) COMPARISON: [facility] [place], CT HEAD W/O CONTRAST, 02/21/2018. . TECHNIQUE: CT of the head without contrast. Using automated exposure control and adjustment of the mA and/or kV according to patient size, radiation dose was kept as low as reasonably achievable to ob tain optimal diagnostic quality images. DICOM format image data is available electronically for revi ew and comparison. FINDINGS: In the interim there has been interval craniotomy involving the left frontotemporal bone. An overlyin g surgical drain is seen within the subcutaneous tissues. Postsurgical changes seen involving the lef t frontal lobe. There is some vasogenic edema noted. No hemorrhage observed. Small volume pneumocepha ly noted. The remaining brain parenchyma shows normal attenuation. Ventricles are normal in size. CONCLUSION: 1. Stable examination following craniotomy with vasogenic edema involving the left frontal lobe. No hemorrhage observed. . Electronically signed by: Orville Moraes MD Board Certified Radiologist 03/05/2018 5:29 AM EST
[2018-03-05 06:09] LABS: Baso % (Auto) 0.1 % (0.0-2.0); Hematocrit 43.8 % (39.0-51.0); Hemoglobin 15.1 gm/dL (13.0-17.0); Lymph # (Auto) 0.4 th/mm3 (1.0-4.8); Lymph % (Auto) 5.9 % (9.0-44.0); Mean Corpuscular HGB Conc 34.5 % (32.0-36.0); Mean Corpuscular Hemoglobin 31.1 pg (27.0-34.0); Mean Corpuscular Volume 90.3 fL (80.0-100.0); Mean Platelet Volume 8.9 fL (7.0-11.0); Mono # (Auto) 0.2 th/mm3 (0.0-0.9); Mono % (Auto) 2.1 % (0.0-8.0); Neut # (Auto) 6.9 th/mm3 (1.8-7.7); Neut % (Auto) 91.9 % (16.0-70.0); Platelet Count 222 th/mm3 (150-450); Red Blood Count 4.85 mil/mm3 (4.50-5.90); Red Cell Distribution Width 14.2 % (11.6-17.2); White Blood Count 7.6 th/mm3 (4.0-11.0)
[2018-03-05 06:23] LABS: Calcium 8.4 mg/dL (8.5-10.1); Carbon Dioxide 24.6 meq/L (21.0-32.0); Potassium 4.3 meq/L (3.5-5.1)
[2018-03-05] MEDS: Sod Chloride 0.9% Inj 1,000 ML IV.CONT SCH (07:18)
[2018-03-05] MEDS: Isosorbide Mononitrate 30 MG ER 24HR Tablet (Imdur) PO SCH (07:18)
[2018-03-05] MEDS: amLODIPine 5 MG Tablet PO SCH (08:31)
[2018-03-05] MEDS: Senna/Docusate Sodium 8.6/50 MG Tablet PO SCH ×2 (08:31→21:23)
[2018-03-05] MEDS: Famotidine 20 MG Tablet PO SCH (08:31)
[2018-03-05] MEDS: levETIRAcetam 500 MG Tablet PO SCH ×2 (08:31→21:23)
[2018-03-05] MEDS: Lisinopril 20 MG Tablet PO SCH (08:32)
[2018-03-05] MEDS: Insulin NovoLOG Aspart Correctional Sugar Inj SQ SCH ×4 (08:55→22:59)
--- NOTE | 2018-03-05 13:38 | P.PN ---
Subjective Interval history: awake and alert, no complains of headaches, nausea or vomiting Physical Exam Vital signs: Vital Signs 03/04/18 19:24 03/04/18 19:30 03/04/18 19:45 Temperature 97.4 F L Pulse Rate 62 63 63 Respiratory Rate 18 14 14 Blood Pressure 152/77 H 152/80 H 151/78 H Pulse Oximetry 98 97 95 03/04/18 20:00 03/04/18 20:15 03/04/18 20:30 Temperature Pulse Rate 92 H 92 H 77 Respiratory Rate 17 17 22 Blood Pressure 148/80 H 147/77 H 143/67 H Pulse Oximetry 96 96 95 03/04/18 20:45 03/04/18 21:00 03/04/18 21:05 Temperature Pulse Rate 79 80 Respiratory Rate 23 20 Blood Pressure 149/70 H 153/73 H Pulse Oximetry 98 97 93 L 03/04/18 21:15 03/04/18 21:39 03/04/18 21:40 Temperature 97.5 F L 97.9 F Pulse Rate 80 84 81 Respiratory Rate 23 61 H Blood Pressure 138/69 116/61 Pulse Oximetry 93 L 03/04/18 22:00 03/04/18 22:05 03/04/18 22:11 Temperature Pulse Rate 79 80 Respiratory Rate 19 19 11 L Blood Pressure 116/64 Pulse Oximetry 92 L 94 L 03/04/18 22:15 03/04/18 22:30 03/04/18 22:45 Temperature Pulse Rate 79 81 81 Respiratory Rate 15 20 Blood Pressure Pulse Oximetry 93 L 89 L 97 03/04/18 23:00 03/04/18 23:15 03/05/18 00:00 Temperature Pulse Rate 84 84 82 Respiratory Rate 18 10 L 12 Blood Pressure 173/74 H 151/76 H Pulse Oximetry 90 L 97 96 03/05/18 00:59 03/05/18 01:00 03/05/18 02:00 Temperature 98 F Pulse Rate 80 80 83 Respiratory Rate 12 12 Blood Pressure 140/73 136/78 Pulse Oximetry 95 95 94 L 03/05/18 03:00 03/05/18 04:00 03/05/18 05:00 Temperature Pulse Rate 86 83 84 Respiratory Rate 19 16 Blood Pressure 144/68 H 136/63 139/68 Pulse Oximetry 95 94 L 93 L 03/05/18 06:00 03/05/18 07:00 03/05/18 08:00 Temperature 98.1 F Pulse Rate 83 83 85 Respiratory Rate 8 L 3 L Blood Pressure 140/63 140/63 152/70 H Pulse Oximetry 91 L 93 L 92 L 03/05/18 09:00 03/05/18 10:00 03/05/18 11:00 Temperature Pulse Rate 87 91 H 87 Respiratory Rate 16 19 12 Blood Pressure 153/72 H 138/63 138/63 Pulse Oximetry 94 L 93 L 94 L 03/05/18 12:00 Temperature 98 F Pulse Rate 82 Respiratory Rate 14 Blood Pressure 127/59 L Pulse Oximetry 94 L Intake & Output 03/04/18 03/05/18 03/05/18 18:59 06:59 18:59 Intake Total 2270 / 2270 1289 / 1289 Output Total 3225 / 3225 1310 / 1310 Balance -955 / -955 -21 / -21 Weight 131.5 kg Intake: IV 50 / 50 989 / 989 NS Inj 1,000 ML @ 100 mls/hr IV 989 / 989 .CONT .Q10H [facility] Rx#:[id number] Ancef 2 GM Premix Inj 2 gm In 50 / 50 50 ml @ 100 mls/hr IV.SIG Q8H [facility] Rx#:[id number] Oral 220 / 220 300 / 300 Anesthesia Amount 1999 / 1999 Output: Urine 150 / 150 Estimated Blood Loss 100 / 100 100 / 100 Urine Amount (Catheter) 3025 / 3025 1000 / 1000 Indwelling Urethral Catheter 3025 / 3025 1000 / 1000 Wound Drainage 100 / 100 60 / 60 # 1 Left Head 100 / 100 60 / 60 Other: # Voids 3 Date of Last Bowel Movement 03/02/18 03/02/18 # Bowel Movements 0 Narrative: GENERAL: NAD, A&Ox3 HEAD: Normocephalic. , post op dressing in place NECK: Supple, trachea midline. No lymphadenopathy. EYES: No scleral icterus. No injection or drainage. CARDIOVASCULAR: Regular rate and rhythm w RESPIRATORY: Breath sounds equal bilaterally. No accessory muscle use. GASTROINTESTINAL: Abdomen soft, non-tender, nondistended. MUSCULOSKELETAL: No cyanosis, or edema. SKIN: Warm and dry. NEURO: No focal neurological deficits. - Urinary Catheter Management Indwelling Urethral Catheter Cath placed during this visit: yes, but has since been removed by the nurse Reason for continuing: Acute urinary retention Insertion date: 03/04/18 Insertion time: 16:40 Removal date: 03/05/18 Results - Labs CBC & Chem 7: 03/05/18 05:00 03/05/18 05:00 Laboratory Results - last 24 hr 03/04/18 03/04/18 03/04/18 18:16 19:40 20:54 WBC RBC Hgb Hct MCV MCH MCHC RDW Plt Count MPV Neut % (Auto) Lymph % (Auto) [place] % (Auto) Eos % (Auto) Baso % (Auto) Neut # (Auto) Lymph # (Auto) [place] # (Auto) Eos # (Auto) Baso # (Auto) WBC Differential Differential Comment Sodium Potassium Chloride Carbon Dioxide Anion Gap BUN Creatinine Estimated GFR POC Glucose 211 H 182 H Random Glucose Calcium Magnesium MTS Gel Crossmatch See Detail 03/04/18 03/04/18 03/05/18 20:55 20:55 05:00 WBC 5.9 7.6 RBC 5.08 4.85 Hgb 15.4 15.1 Hct 46.3 43.8 MCV 91.2 90.3 MCH 30.4 31.1 MCHC 33.3 34.5 RDW 14.6 14.2 Plt Count 210 222 MPV 8.9 8.9 Neut % (Auto) 87.3 H 91.9 H Lymph % (Auto) 10.0 5.9 L [place] % (Auto) 1.8 2.1 Eos % (Auto) 0.5 0.0 Baso % (Auto) 0.4 0.1 Neut # (Auto) 5.2 6.9 Lymph # (Auto) 0.6 L 0.4 L [place] # (Auto) 0.1 0.2 Eos # (Auto) 0.0 0.0 Baso # (Auto) 0.0 0.0 WBC Differential . . Differential Comment Auto diff final Auto diff final Sodium 138 Potassium 4.2 Chloride 107 Carbon Dioxide 24.1 Anion Gap 7 BUN 16 Creatinine 1.12 Estimated GFR 65 L POC Glucose Random Glucose 262 H Calcium 8.6 Magnesium 2.1 MTS Gel Crossmatch 03/05/18 03/05/18 03/05/18 05:00 08:46 12:31 WBC RBC Hgb Hct MCV MCH MCHC RDW Plt Count MPV Neut % (Auto) Lymph % (Auto) [place] % (Auto) Eos % (Auto) Baso % (Auto) Neut # (Auto) Lymph # (Auto) [place] # (Auto) Eos # (Auto) Baso # (Auto) WBC Differential Differential Comment Sodium 138 Potassium 4.3 Chloride 107 Carbon Dioxide 24.6 Anion Gap 6 BUN 16 Creatinine 1.16 Estimated GFR 62 L POC Glucose 247 H 298 H Random Glucose 268 H Calcium 8.4 L Magnesium MTS Gel Crossmatch Microbiology 03/04/18 18:13 Tissue - Head Gram Stain - Final 03/04/18 18:13 Tissue - Head Wound Culture - Preliminary No growth in 24 hours 03/01/18 11:52 Blood - Peripheral Aerobic Blood Culture - Preliminary No growth in 4 days 03/01/18 11:52 Blood - Peripheral Anaerobic Blood Culture - Preliminary No growth in 4 days 03/01/18 12:00 Blood - Peripheral Aerobic Blood Culture - Preliminary No growth in 4 days 03/01/18 12:00 Blood - Peripheral Anaerobic Blood Culture - Preliminary No growth in 4 days 03/04/18 18:13 Tissue - Head Fungal Smear - Final No fungal elements seen 02/25/18 Unknown Cerebral Spinal Fluid - Lumbar Puncture Fungal Smear - Final No fungal elements seen 02/25/18 Unknown Cerebral Spinal Fluid - Lumbar Puncture Fungal Culture - Preliminary No growth in 1 week 02/25/18 Unknown Cerebral Spinal Fluid - Lumbar Puncture Acid Fast Bacilli Smear - Final No acid fast bacilli seen 02/25/18 Unknown Cerebral Spinal Fluid - Lumbar Puncture Mycobacterial Culture - Preliminary No growth in 1 week - Imaging Impressions Head CT 03/05/18 00:00 CONCLUSION: 1. Stable examination following craniotomy with vasogenic edema involving the left frontal lobe. No hemorrhage observed. . - Procedures 03/04 Left frontal parietal craniotomy, image-guided stereotactic biopsy of left frontal parietal lesion Assessment and Plan - Assessment (1) Brain mass Code(s): G93.9 - Disorder of brain, unspecified Status: Acute (2) Headache Code(s): R51 - Headache Status: Acute (3) Bradycardia Code(s): R00.1 - Bradycardia, unspecified Status: Acute (4) CAD (coronary artery disease) Code(s): I25.10 - Atherosclerotic heart disease of [place] coronary artery without angina pectoris Status: Chronic - Plan 67-year-old male with PMH CAD, HTN, DM2, who came to the ED for bradycardia and headache. Patient is doing well since yesterday. Follow-up specialized stains in regards to LP cytology has resulted as negative. Plan for brain biopsy. Neurosurgeon following. Brain mass S/P craniotomu with biopsy done 03/04 Suspicious for neoplastic lesion Hx Pulmonary nodules Cytology negative ff pathology report Cultures showed no evidence of fungus or bacteria Neurosurgery following- on IV Decadron per neurosurgery Neurology following Continue Keppra History of CAD with [place] and x 6 stents (last stent 9 months ago) Bradycardia- improved Hypertension Continue lisinopril Continue aspirin Continue statin, coreg 3.125 mg po bid Cardiology following Continue Plavix- held recent just biopsy- will d/w neurosurgery if okay to restart Diabetes mellitus type 2 Follow blood sugars- some elevated readings- started on IV decadron Insulin sliding scale Diabetic diet per patient- as OP was on Levemer 50 units hs - will start levemer at 15 units tonight restart Metformin 1 gm bid Acute urinary retention - DC [place], check voiding DVT prophylaxis SCDs Progress Note: Quality VTE Deep Vein Thrombosis/Pulmonary Embolism Present on Admission: No DVT prophylaxis SCDs Progress Note: Quality VTE Deep Vein Thrombosis/Pulmonary Embolism Present on Admission: No (2) Headache Qualifiers: Headache type: unspecified (4) CAD (coronary artery disease) Qualifiers: Coronary Disease-Associated Artery/Lesion type: unspecified vessel or lesion type
--- NOTE | 2018-03-05 14:10 | P.PNNS ---
Subjective Interval history: doing well, minimal pain. follow up CT Brain completed. Physical Exam Vital signs: Vital Signs 03/04/18 19:24 03/04/18 19:30 03/04/18 19:45 Temperature 97.4 F L Pulse Rate 62 63 63 Respiratory Rate 18 14 14 Blood Pressure 152/77 H 152/80 H 151/78 H Pulse Oximetry 98 97 95 03/04/18 20:00 03/04/18 20:15 03/04/18 20:30 Temperature Pulse Rate 92 H 92 H 77 Respiratory Rate 17 17 22 Blood Pressure 148/80 H 147/77 H 143/67 H Pulse Oximetry 96 96 95 03/04/18 20:45 03/04/18 21:00 03/04/18 21:05 Temperature Pulse Rate 79 80 Respiratory Rate 23 20 Blood Pressure 149/70 H 153/73 H Pulse Oximetry 98 97 93 L 03/04/18 21:15 03/04/18 21:39 03/04/18 21:40 Temperature 97.5 F L 97.9 F Pulse Rate 80 84 81 Respiratory Rate 23 61 H Blood Pressure 138/69 116/61 Pulse Oximetry 93 L 03/04/18 22:00 03/04/18 22:05 03/04/18 22:11 Temperature Pulse Rate 79 80 Respiratory Rate 19 19 11 L Blood Pressure 116/64 Pulse Oximetry 92 L 94 L 03/04/18 22:15 03/04/18 22:30 03/04/18 22:45 Temperature Pulse Rate 79 81 81 Respiratory Rate 15 20 Blood Pressure Pulse Oximetry 93 L 89 L 97 03/04/18 23:00 03/04/18 23:15 03/05/18 00:00 Temperature Pulse Rate 84 84 82 Respiratory Rate 18 10 L 12 Blood Pressure 173/74 H 151/76 H Pulse Oximetry 90 L 97 96 03/05/18 00:59 03/05/18 01:00 03/05/18 02:00 Temperature 98 F Pulse Rate 80 80 83 Respiratory Rate 12 12 Blood Pressure 140/73 136/78 Pulse Oximetry 95 95 94 L 03/05/18 03:00 03/05/18 04:00 03/05/18 05:00 Temperature Pulse Rate 86 83 84 Respiratory Rate 19 16 Blood Pressure 144/68 H 136/63 139/68 Pulse Oximetry 95 94 L 93 L 03/05/18 06:00 03/05/18 07:00 03/05/18 08:00 Temperature 98.1 F Pulse Rate 83 83 85 Respiratory Rate 8 L 3 L Blood Pressure 140/63 140/63 152/70 H Pulse Oximetry 91 L 93 L 92 L 03/05/18 09:00 03/05/18 10:00 03/05/18 11:00 Temperature Pulse Rate 87 91 H 87 Respiratory Rate 16 19 12 Blood Pressure 153/72 H 138/63 138/63 Pulse Oximetry 94 L 93 L 94 L 03/05/18 12:00 Temperature 98 F Pulse Rate 82 Respiratory Rate 14 Blood Pressure 127/59 L Pulse Oximetry 94 L Intake & Output 03/04/18 03/05/18 03/05/18 18:59 06:59 18:59 Intake Total 2270 / 2270 1289 / 1289 Output Total 3225 / 3225 1310 / 1310 Balance -955 / -955 -21 / -21 Weight 131.5 kg Intake: IV 50 / 50 989 / 989 NS Inj 1,000 ML @ 100 mls/hr IV 989 / 989 .CONT .Q10H [facility] Rx#:[id number] Ancef 2 GM Premix Inj 2 gm In 50 / 50 50 ml @ 100 mls/hr IV.SIG Q8H [facility] Rx#:[id number] Oral 220 / 220 300 / 300 Anesthesia Amount 1999 / 1999 Output: Urine 150 / 150 Estimated Blood Loss 100 / 100 100 / 100 Urine Amount (Catheter) 3025 / 3025 1000 / 1000 Indwelling Urethral Catheter 3025 / 3025 1000 / 1000 Wound Drainage 100 / 100 60 / 60 # 1 Left Head 100 / 100 60 / 60 Other: # Voids 3 Date of Last Bowel Movement 03/02/18 03/02/18 # Bowel Movements 0 Narrative: awake, alert follow commands speech fluent pupils equal facial motor symmetric moves all four extremities symmetrically surgical incision clean and dry. SONDRA drain in place with serosanguineous drainage. - Urinary Catheter Management Indwelling Urethral Catheter Cath placed during this visit: yes Reason for continuing: Acute urinary retention Insertion date: 03/04/18 Insertion time: 16:40 Assessment and Plan - Plan 68 y/o male s/p left frontal craniotomy for brain biopsy 03/04/18 SONDRA drain removed per chris Troyi-strips placed restart PT, mobilize OOB if cleared medically cont SCDs and TEDs for dvt prophylaxis protonix for GI prophylaxis follow up intraoperative cultures and pathology
[2018-03-05] MEDS ORDERED: Insulin Detemir Inj 1,000 UNIT/10 ML Vial SQ SCH (21:00)
[2018-03-06] MEDS: Isosorbide Mononitrate 30 MG ER 24HR Tablet (Imdur) PO SCH (07:43)
[2018-03-06] MEDS: Senna/Docusate Sodium 8.6/50 MG Tablet PO SCH (08:45)
[2018-03-06] MEDS: Famotidine 20 MG Tablet PO SCH (08:46)
[2018-03-06] MEDS: amLODIPine 5 MG Tablet PO SCH (08:47)
[2018-03-06] MEDS: Lisinopril 20 MG Tablet PO SCH (08:47)
[2018-03-06] MEDS: levETIRAcetam 500 MG Tablet PO SCH (08:48)
[2018-03-06] MEDS: Insulin NovoLOG Aspart Correctional Sugar Inj SQ SCH ×2 (08:49→12:09)
--- NOTE | 2018-03-06 10:44 | P.PNNS ---
Subjective Interval history: pt reports to be doing well, neuro stable overnight. Physical Exam Vital signs: Vital Signs 03/05/18 11:00 03/05/18 12:00 03/05/18 13:00 Temperature 98 F Pulse Rate 87 82 86 Respiratory Rate 12 14 23 Blood Pressure 138/63 127/59 L 124/56 L Pulse Oximetry 94 L 94 L 93 L 03/05/18 14:00 03/05/18 14:18 03/05/18 15:00 Temperature Pulse Rate 83 87 81 Respiratory Rate 27 H 32 H 15 Blood Pressure 121/58 L 131/60 122/59 L Pulse Oximetry 94 L 93 L 93 L 03/05/18 16:00 03/05/18 17:00 03/05/18 18:00 Temperature 98 F Pulse Rate 78 85 80 Respiratory Rate 21 22 21 Blood Pressure 113/53 L 156/67 H 127/53 L Pulse Oximetry 94 L 94 L 95 03/05/18 19:00 03/05/18 20:00 03/05/18 20:23 Temperature 98.6 F Pulse Rate 81 79 Respiratory Rate 20 22 Blood Pressure 122/60 130/60 Pulse Oximetry 91 L 92 L 92 L 03/05/18 21:00 03/05/18 22:00 03/05/18 23:00 Temperature Pulse Rate 78 81 83 Respiratory Rate 26 H 20 20 Blood Pressure 122/58 L 138/61 Pulse Oximetry 95 93 L 94 L 03/05/18 23:14 03/06/18 00:00 03/06/18 01:00 Temperature 98.8 F Pulse Rate 81 73 62 Respiratory Rate 20 19 6 L Blood Pressure 142/66 H 121/57 L 121/61 Pulse Oximetry 95 92 L 92 L 03/06/18 02:00 03/06/18 03:00 03/06/18 04:00 Temperature Pulse Rate 63 60 65 Respiratory Rate 0 L 9 L 5 L Blood Pressure 129/66 132/66 134/65 Pulse Oximetry 93 L 94 L 93 L 03/06/18 05:00 03/06/18 06:00 03/06/18 07:00 Temperature 97.8 F Pulse Rate 55 L 65 70 Respiratory Rate 2 L 18 13 Blood Pressure 143/70 H 150/70 H 143/67 H Pulse Oximetry 93 L 97 94 L 03/06/18 08:00 03/06/18 09:00 03/06/18 10:00 Temperature 97.6 F Pulse Rate 58 L 52 L 73 Respiratory Rate 21 20 22 Blood Pressure 140/74 140/71 132/65 Pulse Oximetry 94 L 93 L 94 L Intake & Output 03/05/18 03/06/18 03/06/18 18:59 06:59 18:59 Intake Total 3219 / 3219 890 / 890 Output Total 3360 / 3360 1100 / 1100 Balance -141 / -141 -210 / -210 Weight 137.4 kg Intake: IV 1839 / 1839 50 / 50 NS Inj 1,000 ML @ 100 mls/hr IV 1789 / 1789 .CONT .Q10H ALESSANDRA Rx#:[id number] Ancef 2 GM Premix Inj 2 gm In 50 / 50 50 / 50 50 ml @ 100 mls/hr IV.SIG Q8H ALESSANDRA Rx#:[id number] Oral 1380 / 1380 840 / 840 Output: Urine 150 / 150 1100 / 1100 Stool 1700 / 1700 Estimated Blood Loss 100 / 100 Urine Amount (Catheter) 1350 / 1350 Indwelling Urethral Catheter 1350 / 1350 Wound Drainage 60 / 60 # 1 Left Head 60 / 60 Other: # Voids 3 3 Date of Last Bowel Movement 03/05/18 03/05/18 03/05/18 # Bowel Movements 0 Narrative: awake, alert follow commands speech fluent pupils equal facial motor symmetric moves all four extremities symmetrically wound with clean and dry prim[place] dressing - Urinary Catheter Management Indwelling Urethral Catheter Cath placed during this visit: yes, but has since been removed by the nurse Reason for continuing: Not indwelling catheter Insertion date: 03/04/18 Insertion time: 16:40 Removal date: 03/05/18 Removal time: 18:00 Assessment and Plan - Plan 68 y/o male s/p left frontal craniotomy for brain biopsy 03/04/18 follow up final tissue cultures and pathology PT, mobilize OOB ok to transfer out of ICU from N[facility] standpoint
[2018-03-06 13:15] VITALS: TEMP 97.7; O2SAT 96
--- NOTE | 2018-03-06 14:14 | P.PN ---
Subjective Interval history: no complains of headache, [place] or vomting good po telemetry- sinus with occasional PVCs Physical Exam Vital signs: Vital Signs 03/05/18 14:18 03/05/18 15:00 03/05/18 16:00 Temperature 98 F Pulse Rate 87 81 78 Respiratory Rate 32 H 15 21 Blood Pressure 131/60 122/59 L 113/53 L Pulse Oximetry 93 L 93 L 94 L 03/05/18 17:00 03/05/18 18:00 03/05/18 19:00 Temperature Pulse Rate 85 80 81 Respiratory Rate 22 21 20 Blood Pressure 156/67 H 127/53 L 122/60 Pulse Oximetry 94 L 95 91 L 03/05/18 20:00 03/05/18 20:23 03/05/18 21:00 Temperature 98.6 F Pulse Rate 79 78 Respiratory Rate 22 26 H Blood Pressure 130/60 122/58 L Pulse Oximetry 92 L 92 L 95 03/05/18 22:00 03/05/18 23:00 03/05/18 23:14 Temperature Pulse Rate 81 83 81 Respiratory Rate 20 20 20 Blood Pressure 138/61 142/66 H Pulse Oximetry 93 L 94 L 95 03/06/18 00:00 03/06/18 01:00 03/06/18 02:00 Temperature 98.8 F Pulse Rate 73 62 63 Respiratory Rate 19 6 L 0 L Blood Pressure 121/57 L 121/61 129/66 Pulse Oximetry 92 L 92 L 93 L 03/06/18 03:00 03/06/18 04:00 03/06/18 05:00 Temperature Pulse Rate 60 65 55 L Respiratory Rate 9 L 5 L 2 L Blood Pressure 132/66 134/65 143/70 H Pulse Oximetry 94 L 93 L 93 L 03/06/18 06:00 03/06/18 07:00 03/06/18 08:00 Temperature 97.8 F Pulse Rate 65 70 58 L Respiratory Rate 18 13 21 Blood Pressure 150/70 H 143/67 H 140/74 Pulse Oximetry 97 94 L 94 L 03/06/18 09:00 03/06/18 10:00 03/06/18 11:00 Temperature 97.6 F Pulse Rate 52 L 73 61 Respiratory Rate 20 22 8 L Blood Pressure 140/71 132/65 124/62 Pulse Oximetry 93 L 94 L 93 L 03/06/18 12:00 03/06/18 13:00 Temperature 97.7 F Pulse Rate 53 L 54 L Respiratory Rate 7 L 17 Blood Pressure 129/64 145/68 H Pulse Oximetry 96 96 Intake & Output 03/05/18 03/06/18 03/06/18 18:59 06:59 18:59 Intake Total 3219 / 3219 890 / 890 Output Total 3360 / 3360 1100 / 1100 Balance -141 / -141 -210 / -210 Weight 137.4 kg Intake: IV 1839 / 1839 50 / 50 NS Inj 1,000 ML @ 100 mls/hr IV 1789 / 1789 .CONT .Q10H ALESSANDRA Rx#:[id number] Ancef 2 GM Premix Inj 2 gm In 50 / 50 50 / 50 50 ml @ 100 mls/hr IV.SIG Q8H ALESSANDRA Rx#:[id number] Oral 1380 / 1380 840 / 840 Output: Urine 150 / 150 1100 / 1100 Stool 1700 / 1700 Estimated Blood Loss 100 / 100 Urine Amount (Catheter) 1350 / 1350 Indwelling Urethral Catheter 1350 / 1350 Wound Drainage 60 / 60 # 1 Left Head 60 / 60 Other: # Voids 3 3 Date of Last Bowel Movement 03/05/18 03/05/18 03/05/18 # Bowel Movements 0 Narrative: awake, alert head- andrew inplace,-incision dry speech fluent pupils equal lungs- no rales regular rhythm, occasional PVC abvdomen soft moves all four extremities symmetrically - Urinary Catheter Management Indwelling Urethral Catheter Cath placed during this visit: yes, but has since been removed by the nurse Reason for continuing: Not indwelling catheter Insertion date: 03/04/18 Insertion time: 16:40 Removal date: 03/05/18 Removal time: 18:00 Results - Labs CBC & Chem 7: 03/05/18 05:00 03/05/18 05:00 Laboratory Results - last 24 hr 03/05/18 03/05/18 03/05/18 18:16 21:29 22:48 POC Glucose 318 H 256 H 295 H 03/06/18 03/06/18 07:45 12:06 POC Glucose 278 H 307 H Microbiology 03/04/18 18:13 Tissue - Head Acid Fast Bacilli Smear - Final No acid fast bacilli seen 03/04/18 18:13 Tissue - Head Gram Stain - Final 03/04/18 18:13 Tissue - Head Wound Culture - Preliminary No growth in 48 hours 03/01/18 11:52 Blood - Peripheral Aerobic Blood Culture - Final No growth in 5 days 03/01/18 11:52 Blood - Peripheral Anaerobic Blood Culture - Final No growth in 5 days 03/01/18 12:00 Blood - Peripheral Aerobic Blood Culture - Final No growth in 5 days 03/01/18 12:00 Blood - Peripheral Anaerobic Blood Culture - Final No growth in 5 days 03/04/18 18:13 Tissue - Head Fungal Smear - Final No fungal elements seen - Procedures 03/04 Left frontal parietal craniotomy, image-guided stereotactic biopsy of left frontal parietal lesion Assessment and Plan - Assessment (1) Brain mass Code(s): G93.9 - Disorder of brain, unspecified Status: Acute (2) Headache Code(s): R51 - Headache Status: Acute (3) Bradycardia Code(s): R00.1 - Bradycardia, unspecified Status: Acute (4) CAD (coronary artery disease) Code(s): I25.10 - Atherosclerotic heart disease of [place] coronary artery without angina pectoris Status: Chronic - Plan 67-year-old male with PMH CAD, HTN, DM2, who came to the ED for bradycardia and headache. Patient is doing well since yesterday. Follow-up specialized stains in regards to LP cytology has resulted as negative. Plan for brain biopsy. Neurosurgeon following. Brain mass S/P craniotomu with biopsy done 03/04 Suspicious for neoplastic lesion Hx Pulmonary nodules Cytology negative ff pathology report Cultures showed no evidence of fungus or bacteria Neurosurgery following-cleared for DC- will be given script for Decadron by DANIELLE anthony Neurology following Continue Keppra History of CAD with [place] and x 6 stents (last stent 9 months ago) Bradycardia- improved Hypertension Continue lisinopril Continue aspirin Continue statin, coreg 3.125 mg po bid Cardiology following Continue Plavix Diabetes mellitus type 2 Follow blood sugars- some elevated readings- started on IV decadron Insulin sliding scale Diabetic diet per patient- as OP was on Levemer 50 units hs -restart as OP restart Metformin 1 gm bid Acute urinary retention- resolved - voiding well DVT prophylaxis SCDs FF upwith PCP- Dr. Fox FF up with Landry Echevarria as OP Progress Note: Quality VTE Deep Vein Thrombosis/Pulmonary Embolism Present on Admission: No DVT prophylaxis SCDs Progress Note: Quality VTE Deep Vein Thrombosis/Pulmonary Embolism Present on Admission: No
--- NOTE | 2018-03-06 14:21 | P.DS ---
Date of admission: 02/22/18 13:07 Primary care physician: Joel Santana MD Anticipated date of discharge: 03/06/18 Brief History from admission: 67-year-old male that presents to the ED for evaluation of bradycardia and headache. Per patient he was seen by his doctor today for evaluation of a headache that he has had for about 3-4 weeks now. Per patient is not really severe but is staring he does not usually get headaches. Patient feels like there is a pressure on his head. He states that he has a history of a stroke as well as significant cardiac history. He states that he does have some chest discomfort but is not significant and he does not believe that is related to his heart. Per patient the pain in his chest is 1 out of 10 he states that he has had it since having the stents in the past. He states that he went to his doctor to check for this and apparently he was found to be bradycardic with a heart rate in the 30s. He was told to come here for further evaluation and treatment. He states that he is never been told this before. He denies any shortness of breath. He does state that since having the headaches he been feeling dizzy and having worse sensations. Per patient he feels like all of a sudden stops working and he for the past 3-4 weeks has been having episodes where his right leg just has shaking from it the last maybe a couple seconds and then goes away. Per patient happens almost daily and comes at different times of the day no matter what he does. He states that the headache itself is 4 out of 10 but again he seems to minimize any pain from it and states that he just "feels odd ". Denies any cancer history. No other medical issues. He follows with Dr. Angel for cardiology. EKG however did not show a rate in 70s but seems heart rate is in 70s. Normal sinus rhythm. Patient however had a CT scan of the head that revealed malignant lesion in his brain and MRI is recommended. Patient has a history of CVA. Patient update on day of discharge: awake and alert, no headaches, no n/v neuro exam- unremarkable speech clear DS: Diagnosis - Discharge Diagnosis (1) Brain mass Status: Acute (2) Headache Status: Acute (3) Bradycardia Status: Acute (4) CAD (coronary artery disease) Status: Chronic DS: Summary - Time Spent with Patient Total time spent providing and/or coordinating discharge services: - Quality: VTE Deep Vein Thrombosis/Pulmonary Embolism Present on Admission: No Exam Vital signs: Vital Signs 03/05/18 15:00 03/05/18 16:00 03/05/18 17:00 Temperature 98 F Pulse Rate 81 78 85 Respiratory Rate 15 21 22 Blood Pressure 122/59 L 113/53 L 156/67 H Pulse Oximetry 93 L 94 L 94 L 03/05/18 18:00 03/05/18 19:00 03/05/18 20:00 Temperature 98.6 F Pulse Rate 80 81 79 Respiratory Rate 21 20 22 Blood Pressure 127/53 L 122/60 130/60 Pulse Oximetry 95 91 L 92 L 03/05/18 20:23 03/05/18 21:00 03/05/18 22:00 Temperature Pulse Rate 78 81 Respiratory Rate 26 H 20 Blood Pressure 122/58 L 138/61 Pulse Oximetry 92 L 95 93 L 03/05/18 23:00 03/05/18 23:14 03/06/18 00:00 Temperature 98.8 F Pulse Rate 83 81 73 Respiratory Rate 20 20 19 Blood Pressure 142/66 H 121/57 L Pulse Oximetry 94 L 95 92 L 03/06/18 01:00 03/06/18 02:00 03/06/18 03:00 Temperature Pulse Rate 62 63 60 Respiratory Rate 6 L 0 L 9 L Blood Pressure 121/61 129/66 132/66 Pulse Oximetry 92 L 93 L 94 L 03/06/18 04:00 03/06/18 05:00 03/06/18 06:00 Temperature 97.8 F Pulse Rate 65 55 L 65 Respiratory Rate 5 L 2 L 18 Blood Pressure 134/65 143/70 H 150/70 H Pulse Oximetry 93 L 93 L 97 03/06/18 07:00 03/06/18 08:00 03/06/18 09:00 Temperature 97.6 F Pulse Rate 70 58 L 52 L Respiratory Rate 13 21 20 Blood Pressure 143/67 H 140/74 140/71 Pulse Oximetry 94 L 94 L 93 L 03/06/18 10:00 03/06/18 11:00 03/06/18 12:00 Temperature 97.7 F Pulse Rate 73 61 53 L Respiratory Rate 22 8 L 7 L Blood Pressure 132/65 124/62 129/64 Pulse Oximetry 94 L 93 L 96 03/06/18 13:00 Temperature Pulse Rate 54 L Respiratory Rate 17 Blood Pressure 145/68 H Pulse Oximetry 96 Intake & Output 03/05/18 03/06/18 03/06/18 18:59 06:59 18:59 Intake Total 3219 / 3219 890 / 890 Output Total 3360 / 3360 1100 / 1100 Balance -141 / -141 -210 / -210 Weight 137.4 kg Intake: IV 1839 / 1839 50 / 50 NS Inj 1,000 ML @ 100 mls/hr IV 1789 / 1789 .CONT .Q10H ALESSANDRA Rx#:[id number] Ancef 2 GM Premix Inj 2 gm In 50 / 50 50 / 50 50 ml @ 100 mls/hr IV.SIG Q8H ALESSANDRA Rx#:[id number] Oral 1380 / 1380 840 / 840 Output: Urine 150 / 150 1100 / 1100 Stool 1700 / 1700 Estimated Blood Loss 100 / 100 Urine Amount (Catheter) 1350 / 1350 Indwelling Urethral Catheter 1350 / 1350 Wound Drainage 60 / 60 # 1 Left Head 60 / 60 Other: # Voids 3 3 Date of Last Bowel Movement 03/05/18 03/05/18 03/05/18 # Bowel Movements 0 Results Procedures completed during hospitalization: 03/04 Left frontal parietal craniotomy, image-guided stereotactic biopsy of left frontal parietal lesion Pending studies at discharge: Pending at discharge 03/04/18 07:27 Surgical [PTH] Routine Labs on day of discharge: Labs from last 24 hours 03/06/18 03/06/18 03/05/18 12:06 07:45 22:48 POC Glucose 307 H 278 H 295 H 03/05/18 03/05/18 21:29 18:16 POC Glucose 256 H 318 H Preliminary micro results at discharge 03/04/18 18:13 Wound Culture - Preliminary Tissue - Head No growth in 48 hours 02/25/18 Unknown Fungal Culture - Preliminary Cerebral Spinal Fluid - Lumbar Puncture No growth in 1 week 02/25/18 Unknown Mycobacterial Culture - Preliminary Cerebral Spinal Fluid - Lumbar Puncture No growth in 1 week - Impressions ITS Impressions Chest X-Ray 02/21/18 16:02 CONCLUSION: No acute cardiopulmonary findings. The cardiomediastinal contours are stable at upper limits of normal. Cardiac loop recorder. Abdomen/Pelvis CT 02/22/18 00:00 CONCLUSION: 1. Tiny 2 mm nonobstructing stone lower pole left kidney. 2. 1.1 cm cyst midpole left kidney 3. Small umbilical hernia containing mesenteric fat. 4. No evidence to suggest metastatic disease is seen at this time. Chest CT 02/22/18 00:00 CONCLUSION: 1. Stable CT thorax compared to the prior examination from 2014. There continue to be several stable pulmonary nodules especially in the right lung with no new or significant changes compared to the prior exam. No new or suspicious pulmonary nodules are demonstrated to suggest metastatic disease. 2. No new or acute intrathoracic disease is demonstrated. Lumbar Puncture Fluoroscopy 02/25/18 00:00 CONCLUSION: 1. Uncomplicated fluoroscopically guided lumbar puncture. Head MRI 03/03/18 00:00 CONCLUSION: 1. Serpiginous mild enhancement in the left parietal lobe corresponding to the area of vasogenic edema. Head CT 03/05/18 00:00 CONCLUSION: 1. Stable examination following craniotomy with vasogenic edema involving the left frontal lobe. No hemorrhage observed. . Discharge Plan - Discharge Disposition Patient Disposition: Discharge Home - Discharge Condition Condition: Stable - Discharge Order Discharge Orders: Discharge Order (Routine); Ordered 03/06/18 Ordered By: Manisha Rodgers - Discharge Details Anticipated Discharge Date: 03/06/18 - Physicians Team Primary Care Provider: Joel Santana Attending Provider: Manisha Rodgers Other Providers: Jareth Templeton ; Chidi Hawkins MD ; Doc Barrera MD, PhD ; Keith Frost MD ; Joo Alatorre MD ; Parisa Solis MD
[2018-03-06 15:20] VITALS: BP 139/71; PULSE 72; RESP 24
--- NOTE | 2018-03-07 16:54 | ECG ---
Date Performed: 03/05/2018 Time Performed: 22:21:42 PTAGE: 68 years EKG: Sinus rhythm with bigeminal PVCs Left axis deviation RBBB with left anterior fascicular block Inferior infarct - age undetermined Lateral T wave changes may be due to myocardial ischemia Abnormal ECG PREVIOUS TRACING :02/21/2018 @04.11 Since the previous tracing, no significant change noted DOCTOR: Roly Arenas Interpretating Date/Time 03/07/2018 16:53:43
== END 2018-03-06 15:49 | disposition home or self-care (01) | DRG 25 ==
LOC: NEPC 15:25 → INTOOBSV 17:24 → NEDA 17:24 → N07 19:55 → N03 03-04 20:26
PROVIDERS: ADMIT Internal Medicine; ATTEND Internal Medicine
DX: Z79.899 Other long term (current) drug therapy; K21.9 Gastro-esophageal reflux disease without esophagitis; Z95.5 Presence of coronary angioplasty implant and graft; I49.3 Ventricular premature depolarization; Z79.02 Long term (current) use of antithrombotics/antiplatelets; Z86.73 Personal history of transient ischemic attack (TIA), and cerebral infarction without residual deficits; Z68.41 Body mass index [BMI] 40.0-44.9, adult; E78.5 Hyperlipidemia, unspecified; E66.01 Morbid (severe) obesity due to excess calories; Z79.84 Long term (current) use of oral hypoglycemic drugs; R33.9 Retention of urine, unspecified; I25.119 Atherosclerotic heart disease of native coronary artery with unspecified angina pectoris; I11.0 Hypertensive heart disease with heart failure; R91.1 Solitary pulmonary nodule; I50.9 Heart failure, unspecified; G93.6 Cerebral edema; E11.9 Type 2 diabetes mellitus without complications; I67.89 Other cerebrovascular disease; K42.9 Umbilical hernia without obstruction or gangrene; R00.1 Bradycardia, unspecified; N28.1 Cyst of kidney, acquired; Z79.82 Long term (current) use of aspirin; I25.2 Old myocardial infarction
CPT/HCPCS: 62270; 70450; 70552; 70553; 71010; 71045; 71250; 74176; 77003; 80048; 80053; 82550; 82945; 82948; 82962; 83520; 83735; 83880; 84155; 84157; 84484; 85025; 85576; 85610; 85730; 86403; 86850; 86900; 86901; 86923; 87015; 87040; 87070; 87102; 87116; 87176; 87205; 87206; 87327; 87449; 88108; 88305; 88307; 88312; 88331; 88333; 89051; 93005; 94150; 95819; 97161; 97164; 97166; 99285; A9585; C1713; C9238; G0378; G8987; G8988; G8989; J0131; J0360; J0690; J1100; J1815; J1940; J1953; J2060; J2150; J2270; J3010; J7030